=== PATIENT | female | born 1985 | race Caucasian/White ===

== ENCOUNTER 2016-03-10 10:18 | Emergency (ER) | payer MEDICAID ==
[~2016-03-10] VITALS: Ht 172.7 cm; Wt 68.0 kg
[~2016-03-10 10:18] MED LIST: CEFP250T2 PO; CHOL400T43 PO; CIPR500T4 PO; FLUC150T PO; FLUCONAZOLE PO; HYDR-3816 PO; HYDR1TAB PO; IBP600T1 PO; IBUP800T26 PO; LISI-556 PO; MELO-195 PO; MINO100C2 PO; MTF500T PO; PHEN37.555 PO; PREG150C PO; PREG75CA PO; PREN1TAB39 PO; SERT50TA9 PO; SIMV10TA3 PO; insulin pump SC
[2016-03-10] MEDS ORDERED: PREG75CA PO (11:40)
[2016-03-10] MEDS ORDERED: HYDR-3812 PO (11:40)
[2016-03-10] MEDS ORDERED: NS IV 1000 ML 1,000 ML ONE (11:50)
[2016-03-10] MEDS ORDERED: NS IV 1000 ML 1,000 ML IV ONE ×2 (11:55→12:51)
[2016-03-10 11:59] LABS: BASOPHILS % (AUTO) 1 % (0-10); EOSINOPHILS # (AUTO) 0.1 10^3/uL (0.0-0.3); EOSINOPHILS % (AUTO) 1 % (0-10); LYMPHOCYTES # (AUTO) 1.9 X 10^3 (1.0-4.0); LYMPHOCYTES % (AUTO) 30 % (12-44); MEAN CORPUSCULAR HEMOGLOBIN 30 PG (25-34); MEAN CORPUSCULAR HGB CONC 35 G/DL (32-36); MEAN CORPUSCULAR VOLUME 84 FL (80-99); MEAN PLATELET VOLUME 11.7 FL (7.4-10.4); MONOCYTES # (AUTO) 0.4 X 10^3 (0.0-1.0); MONOCYTES % (AUTO) 6 % (0-12); NEUTROPHILS # (AUTO) 3.8 X 10^3 (1.8-7.8); NEUTROPHILS % (AUTO) 62 % (42-75); PLATELET COUNT 256 10^3/uL (130-400); RED CELL DISTRIBUTION WIDTH 12.3 % (10.0-14.5); WHITE BLOOD COUNT 6.2 10^3/uL (4.3-11.0)
[2016-03-10] MEDS ORDERED: inSUlin ASPART (NovoLOG) 1 UNIT/0.01 ML (CHARGE PER UNIT) SC ONE (12:15)
[2016-03-10 12:26] LABS: ALBUMIN 3.8 G/DL (3.2-4.5); BILIRUBIN,TOTAL 0.6 MG/DL (0.1-1.0); CALCIUM 9.1 MG/DL (8.5-10.1); CREATININE SERUM 1.12 MG/DL (0.60-1.30); POTASSIUM 4.7 MMOL/L (3.6-5.0); TOTAL PROTEIN 6.7 G/DL (6.4-8.2)
[2016-03-10 12:42] LABS: BILIRUBIN,URINE NEGATIVE (NEGATIVE); KETONES,URINE 3+ (NEGATIVE); LEUKOCYTE ESTERASE ,URINE NEGATIVE (NEGATIVE); NITRITE,URINE NEGATIVE (NEGATIVE); PH,URINE 6 (5-9); PROTEIN,URINE NEGATIVE (NEGATIVE); UROBILINOGEN,URINE NORMAL (NORMAL)
[2016-03-10 12:50] LABS: WBC,URINE RARE /HPF
--- NOTE | 2016-03-10 13:11 | ED General ---
General Chief Complaint: Glucose Problems Stated Complaint: REFERRED FOR IV Nursing Triage Note: pt reports has had high bs x 1 week ranging from 400-600. pt has insulin pump but has not been able to control it with that. Saw a Anamaria and was checked for a UTI but it was negative. Nursing Sepsis Screen: No Definite Risk History of Present Illness Time Seen by Provider: 11:40 Initial Comments Initial evaluation for hyperglycemia, patient reports blood sugars ranging in 4- 600 range for the last week. She is concerned that her insulin pump is not working properly. She is working with [employer] to have it replaced. Temporary pump shipped, she hasn't received it yet. Reports she is having to refill the insulin in her pump, she hasn't noticed leaking from her pump. She did replace batteries in her pump and approximately 2 days later the batteries were found to be corroded. She uses Humalog insulin as she is insulin resistant to other types. Timing/Duration: 1 Week Severity: Mild Associated Systoms: Denies Symptoms Allergies and Home Medications Allergies Coded Allergies: codeine (Verified Allergy, Unknown, TAKES HYDROCODONE/APAP AT HOME, ) Home Medications SC (Reported) Hydrocodone/Acetaminophen 1 Each Tablet 1 EACH PO Q4H PRN PRN PAIN (Reported) Ibuprofen 800 Mg Tablet #30 800 MG PO Q8H PRN PRN PAIN (Reported) Meloxicam 15 Mg Tablet #30 15 MG PO DAILY (Reported) Minocycline Hcl 100 Mg Capsule 100 MG PO DAILY (Reported) Pregabalin 75 Mg Capsule 75 MG PO DAILY (Reported) Constitutional: no symptoms reported see HPI EENTM: no symptoms reported see HPI Respiratory: no symptoms reported see HPI Cardiovascular: no symptoms reported see HPI Gastrointestinal: no symptoms reported see HPI Genitourinary: no symptoms reported see HPI Musculoskeletal: no symptoms reported see HPI Skin: no symptoms reported see HPI Psychiatric/Neurological: No Symptoms Reported See HPI Hematologic/Lymphatic: No Symptoms Reported See HPI Immunological/Allergic: no symptoms reported see HPI All Other Systems Reviewed Negative Unless Noted: Yes Past Yijolvj-Czjrye-Boxebn Hx Patient Social History Alcohol Use: Denies Use Recreational Drug Use: No Smoking Status: Never a Smoker Recent Foreign Travel: No Contact w/Someone Who Travel: No Recent Infectious Disease Expo: No Recent Hopitalizations: Yes (Blood sugur elevations) Physical Abuse Screen: No Sexual Abuse: No Immunizations Up To Date Tetanus Booster (TDap): Less than 5yrs Date of Influenza Vaccine: Dec 13, 2015 Seasonal Allergies Seasonal Allergies: Yes Surgeries HX Surgeries: Yes (Bladder Stretching,bilat knee scope, carpal tunnel bilat, r cupital tunnel) Surgeries: Adenoidectomy, Tonsillectomy Respiratory Hx Respiratory Disorders: No Cardiovascular Hx Cardiac Disorders: No Neurological Hx Neurological Disorders: Yes Neurological Disorders: Neuropathy 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 System Hx 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 Disorders: No Sexually Transmitted Disease: No HIV/AIDS: No 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 Genitourinary Hx Genitourinary Disorders: Yes (Bladder strectched at age 8-9) Gastrointestinal Hx Gastrointestinal Disorders: No Musculoskeletal Hx Musculoskeletal Disorders: Yes Musculoskeletal Disorders: Fibromyalgia Endocrine Hx Endocrine Disorders: Yes (Enlarged thyroid, currently monitoring, hasinsulin pump) Endocrine Disorders: Hyperthyroidism, Diabetes, Insulin dep HEENT HX ENT Disorders: No Loss of Vision: Denies Hearing Impairment: Denies Cancer Hx Cancer: No Psychosocial Hx Psychiatric Problems: No Integumentary HX Skin/Integumentary Disorder: No Blood Transfusions Hx Blood Disorders: No Adverse Reaction to a Blood Tr: No Reviewed Nursing Assessment Reviewed/Agree w Nursing PMH: Yes Family Medical History Family Medial History: Patient reports no known family medical history. Physical Exam Vital Signs Vital Sign - Last 12Hours 03/10/16 11:32 Temp 97.8 Pulse 95 Resp 18 B/P 118/64 Pulse Ox 96 Capillary Refill : Less Than 3 Seconds General Appearance: No Apparent Distress WD/WN HEENT: PERRL/EOMI TMs Normal Normal ENT Inspection Pharynx Normal Neck: Full Range of Motion Normal Inspection Non Tender SuppleNo Lymphadenopathy (L), No Lymphadenopathy (R) Respiratory: Chest Non Tender Lungs Clear Normal Breath Sounds Cardiovascular: Regular Rate, Rhythm No Edema No Murmur Gastrointestinal: Normal Bowel Sounds No Organomegaly No Pulsatile Mass Non Tender Soft Extremity: Normal Capillary Refill Normal Inspection Normal Range of Motion Neurologic/Psychiatric: Alert Oriented x3 No Motor/Sensory Deficits Normal Mood/Affect Skin: Normal Color Warm/Dry Lymphatic: No Adenopathy Progress/Results/Core Measures Results/Orders Lab Results Laboratory Tests Test 03/10/16 11:49 03/10/16 11:50 03/10/16 12:34 03/10/16 12:58 Range/Units Alanine Aminotransferase (ALT/SGPT) 17 0-55 U/L Albumin 3.8 3.2-4.5 G/DL Alkaline Phosphatase 61 40-136 U/L Anion Gap 11 5-14 MMOL/L Aspartate Amino Transf (AST/SGOT) 16 5-34 U/L BUN/Creatinine Ratio 21 Basophils # (Auto) 0.0 0.0-0.1 10^3/uL Basophils (%) (Auto) 1 0-10 % Blood Urea Nitrogen 23 H 7-18 MG/DL Calcium Level 9.1 8.5-10.1 MG/DL Carbon Dioxide Level 23 21-32 MMOL/L Chloride Level 95 L 98-107 MMOL/L Creatinine 1.12 0.60-1.30 MG/DL Eosinophils # (Auto) 0.1 0.0-0.3 10^3/uL Eosinophils (%) (Auto) 1 0-10 % Estimat Glomerular Filtration Rate 58 Glucose Level 513 *H 70-105 MG/DL Hematocrit 41 35-52 % Hemoglobin 14.5 11.5-16.0 G/DL Lymphocytes # (Auto) 1.9 1.0-4.0 X 10^3 Lymphocytes (%) (Auto) 30 12-44 % Mean Corpuscular Hemoglobin 30 25-34 PG Mean Corpuscular Hemoglobin Concent 35 32-36 G/DL Mean Corpuscular Volume 84 80-99 FL Mean Platelet Volume 11.7 H 7.4-10.4 FL Monocytes # (Auto) 0.4 0.0-1.0 X 10^3 Monocytes (%) (Auto) 6 0-12 % Neutrophils # (Auto) 3.8 1.8-7.8 X 10^3 Neutrophils (%) (Auto) 62 42-75 % Platelet Count 256 130-400 10^3/uL Potassium Level 4.7 3.6-5.0 MMOL/L Red Blood Count 4.90 4.35-5.85 10^6/uL Red Cell Distribution Width 12.3 10.0-14.5 % Sodium Level 129 L 135-145 MMOL/L Total Bilirubin 0.6 0.1-1.0 MG/DL Total Protein 6.7 6.4-8.2 G/DL White Blood Count 6.2 4.3-11.0 10^3/uL Glucometer 453 *H 376 H 70-110 MG/DL Urine Bacteria FEW H /HPF Urine Bilirubin NEGATIVE NEGATIVE Urine Casts NONE /LPF Urine Clarity CLEAR Urine Color YELLOW Urine Crystals NONE /LPF Urine Culture Indicated NO Urine Glucose (UA) 4+ H NEGATIVE Urine Ketones 3+ H NEGATIVE Urine Leukocyte Esterase NEGATIVE NEGATIVE Urine Mucus NEGATIVE /LPF Urine Nitrite NEGATIVE NEGATIVE Urine Protein NEGATIVE NEGATIVE Urine RBC NONE /HPF Urine RBC (Auto) NEGATIVE NEGATIVE Urine Specific [place] 1.015 L 1.016-1.022 Urine Squamous Epithelial Cells 10-25 H /HPF Urine Urobilinogen NORMAL NORMAL MG/DL Urine WBC RARE /HPF Urine pH 6 5-9 Test 03/10/16 13:38 Range/Units Glucometer 300 H 70-110 MG/DL My Orders Orders-BIJANPRISCILLA Cbc With Automated Diff (03/10/16 11:46) Comprehensive Metabolic Panel (03/10/16 11:46) Ua Culture If Indicated (03/10/16 11:46) Saline Lock/Iv-Start (03/10/16 11:55) Ns Iv 1000 Ml (Sodium Chloride 0.9%) (03/10/16 11:55) Ns Iv 1000 Ml (Sodium Chloride 0.9%) (03/10/16 11:50) Insulin Aspart (Novolog) (Novolog (Charg (03/10/16 12:15) Saline Lock/Iv-Start (03/10/16 12:51) Ns Iv 1000 Ml (Sodium Chloride 0.9%) (03/10/16 12:51) Medications Given in ED Current Medications Medications Dose Ordered Sig/Antonia Route Start Time Stop Time Status Last Admin Dose Admin Insulin Aspart 10 unit 10 unit ONCE ONCE SC 03/10/16 12:15 03/10/16 12:16 DC 03/10/16 12:25 10 UNIT Sodium Chloride 1,000 ml @ 0 mls/hr Q0M ONCE IV 03/10/16 11:55 03/10/16 11:56 DC 03/10/16 11:58 0 MLS/HR Sodium Chloride 1,000 ml @ 0 mls/hr Q0M ONCE IV 03/10/16 12:51 03/10/16 12:59 DC 03/10/16 12:59 0 MLS/HR Vital Signs/I&O Vital Sign - Last 12Hours 03/10/16 03/10/16 11:32 13:54 Temp 97.8 97.8 Pulse 95 92 Resp 18 18 B/P 118/64 Pulse Ox 96 98 Blood Pressure Mean: 82 Point of Care Testing Finger Stick Blood Glucose: 376 Blood Glucose Action Taken: priscilla polanco notified Progress Note : Time: 11:45 Progress Note Evaluation completed, exam essentially normal. We'll start with NovoLog 10 units subcutaneous and normal saline 1 L wide open, the second liter to follow. 1300 Accu-Chek 376. Labs all essentially normal, the exception of glucose. Patient reports to be feeling better. 1330: second unit of NS infused, patient reports feeling herself. Accu-check 300. She will manage insulin SC and d/c her pump until follow up with Dr. Plunkett. Departure Impression Impression: Primary Impression: Type 1 diabetes mellitus Qualified Code: E10.9 - Type 1 diabetes mellitus without complications Additional Impression: Hyperglycemia Disposition: HOME, SELF-CARE Condition: Improved Departure-Patient Inst. Decision time for Depature: 13:00 Referrals: ALICE PLUNKETT DO (PCP/Family) Primary Care Physician Patient Instructions: Diabetes Type 1, Adult (DC) Add. Discharge Instructions: All discharge instructions reviewed with patient and/or family. Voiced understanding. Follow up with Dr. Plunkett this week. Consider giving insulin SC and discontinue pump until new pump obtained. Return to ER for continued or change in symptoms. Continue to monitor glucose and keep log. Copy Copies To 1: ALICE PLUNKETT AMY ARNP Mar 10, 2016 13:11
[2016-03-10 13:54] VITALS: BP 134/97
== END 2016-03-10 13:52 | disposition home or self-care (01) ==
LOC: EDUNIT# 10:18 → ER 10:20
DX: E10.65 Type 1 diabetes mellitus with hyperglycemia (principal); Z79.899 Other long term (current) drug therapy; Z96.41 Presence of insulin pump (external) (internal)
CPT/HCPCS: 36415; 80053; 81000; 82962; 85025; 96360; 96361; 96372

== ENCOUNTER → 2016-12-09 | Outpatient (CLI) | payer OTHER, MEDICAID ==
[~2016-12-09] MED LIST changes: +HYDR-3812 PO
--- NOTE | 2016-12-09 15:19 | Diagnostic Imaging Report ---
PROCEDURE: US Gallbladder. TECHNIQUE: Multiple real-time grayscale images were obtained over the right upper quadrant in various projections. INDICATION: Abdominal pain. Vomiting. FINDINGS: The pancreas is largely obscured by bowel gas. The liver is fairly homogeneous with no focal lesion. Hepatopetal flow in the portal vein is seen. The gallbladder demonstrates no stones or wall thickening. No pericholecystic fluid. Sonographic Sandhu's sign is negative. CBD is 4 mm in caliber. The right kidney is 11.5 cm in length with no hydronephrosis or focal lesion. No fluid collection in the upper right abdomen is seen. IMPRESSION: Unremarkable exam. Dictated by: Dictated on workstation # [id number]
== END ==
LOC: RAD 13:38
PROVIDERS: ATTEND Internal Medicine
DX: R10.9 Unspecified abdominal pain (principal); R11.10 Vomiting, unspecified
CPT/HCPCS: 76705

== ENCOUNTER → 2016-12-11 | Outpatient (CLI) | payer MEDICAID, OTHER ==
[~2016-12-11] MED LIST changes: +CATHETER FLUSH 10 ML SYR IV PRN
--- NOTE | 2016-12-11 13:41 | Diagnostic Imaging Report ---
EXAMINATION: HIDA with EF measurements Indication: Abdominal pain TECHNIQUE: After the intravenous administration of 5.2 mCi of Tc 99m Choletec, imaging over the abdomen was obtained. This was followed by administration of Ensure orally to stimulate intrinsic CCK secretion, followed by continued imaging with ejection fraction measured. FINDINGS: There is homogeneous uptake in the liver with prompt bile duct and gallbladder filling seen. Bowel activity is seen at 20 minutes. Based on further imaging and gallbladder area of interest activity measurements after the administration of Ensure, the gallbladder ejection fraction is estimated at 37%. IMPRESSION: 1. Normal hepatobiliary uptake and Gallbladder filling. 2. Borderline biliary dyskinesia. Reduced gallbladder ejection fraction. Dictated by: Dictated on workstation # [id number]
== END ==
LOC: CARD 10:27
PROVIDERS: ATTEND Internal Medicine
DX: R10.13 Epigastric pain (principal); K82.8 Other specified diseases of gallbladder
CPT/HCPCS: 78227

== ENCOUNTER 2016-12-16 08:55 | Outpatient (CLI) | payer MEDICAID ==
[~2016-12-16] VITALS: Ht 172.7 cm; Wt 72.6 kg
[~2016-12-16 08:55] MED LIST changes: -CATHETER FLUSH 10 ML SYR IV PRN
[2016-12-16] MEDS ORDERED: LORA-404 PO (11:44)
[2016-12-16] MEDS ORDERED: NFBIOT1000 PO (11:44)
[2016-12-16] MEDS ORDERED: HYDR-3816 PO (11:44)
[2016-12-16] MEDS ORDERED: ROPI0.5T2 PO (11:44)
[2016-12-16] MEDS ORDERED: MINO100T10 PO (11:44)
[2016-12-16] MEDS ORDERED: SPIR1TAB PO (11:44)
[2016-12-16] MEDS ORDERED: FLUC100T6 PO (11:44)
[2016-12-16] MEDS ORDERED: FERR325T5 PO (11:44)
[2016-12-16] MEDS ORDERED: MELO15TA39 PO (11:44)
[2016-12-16] MEDS ORDERED: CHOL10003 PO (11:44)
[2016-12-16] MEDS ORDERED: SERT50TA9 PO (11:44)
[2016-12-16] MEDS ORDERED: CRAN500C4 PO (11:44)
[2016-12-16] MEDS ORDERED: LORA10TA7 PO (11:44)
[2016-12-16] MEDS ORDERED: OMEP20CA12 PO (11:44)
[2016-12-16] MEDS ORDERED: MULT-35 PO (11:44)
[2016-12-18] MEDS ORDERED: HYDR-3816 PO (10:19)
== END 2016-12-16 11:46 ==
LOC: PREOP 08:55
PROVIDERS: ATTEND Surgery
DX: Z01.818 Encounter for other preprocedural examination (principal); K82.8 Other specified diseases of gallbladder

== ENCOUNTER 2016-12-18 07:03 | Day surgery (SDC) | payer OTHER, MEDICAID ==
[~2016-12-18] VITALS: Ht 172.7 cm; Wt 72.6 kg
[~2016-12-18 07:03] MED LIST changes: +CHOL10003 PO; +CRAN500C4 PO; +FERR325T5 PO; +FLUC100T6 PO; +LORA-404 PO; +LORA10TA7 PO; +MELO15TA39 PO; +MINO100T10 PO; +MULT-35 PO; +NFBIOT1000 PO; +OMEP20CA12 PO; +ROPI0.5T2 PO; +SPIR1TAB PO
[2016-12-18] MEDS ORDERED: ceFAZolin 1 GM/NS 50 ML IVPB IV ONE ×2 (07:15)
[2016-12-18] MEDS ORDERED: CATHETER FLUSH 10 ML SYR IV PRN (07:15)
[2016-12-18] MEDS: LACTATED RINGERS 1,000 ML IV PRN ×3 (07:30→10:36)
[2016-12-18] MEDS ORDERED: inSUlin ASPART (NovoLOG) 1 UNIT/0.01 ML (CHARGE PER UNIT) ONE (07:37)
[2016-12-18 07:43] LABS: MEAN PLATELET VOLUME 11.9 FL (7.4-10.4); RED BLOOD COUNT 4.53 10^6/uL (4.35-5.85); RED CELL DISTRIBUTION WIDTH 12.5 % (10.0-14.5); WHITE BLOOD COUNT 4.8 10^3/uL (4.3-11.0)
[2016-12-18] MEDS ORDERED: inSUlin ASPART (NovoLOG) 1 UNIT/0.01 ML (CHARGE PER UNIT) IV ONE (07:45)
[2016-12-18 07:57] LABS: ANION GAP 10 MMOL/L (5-14); BLOOD UREA NITROGEN 16 MG/DL (7-18); BUN/CREATININE RATIO 19; CALCIUM 8.7 MG/DL (8.5-10.1); CARBON DIOXIDE 24 MMOL/L (21-32); CHLORIDE 100 MMOL/L (98-107); CREATININE SERUM 0.85 MG/DL (0.60-1.30); GFR ESTIMATED > 60; GLUCOSE 377 MG/DL (70-105); POTASSIUM 4.3 MMOL/L (3.6-5.0); SODIUM 134 MMOL/L (135-145)
[2016-12-18] MEDS ORDERED: BUP/EPI 0.5% 1:200,000 (MARCAINE) 10ML VIAL IJ ONE (07:59)
--- NOTE | 2016-12-18 07:59 | Progress Note-Pre Operative ---
Pre-Operative Progress Note H&P Reviewed The H&P was reviewed, patient examined and no changes noted. Date Seen by Provider: Dec 18, 2016 Time Seen by Provider: 07:45 Date H&P Reviewed: Dec 18, 2016 Time H&P Reviewed: 07:50 Pre-Operative Diagnosis: Symptomatic Biliary Dyskinesia BETTY WILCOX APRN Dec 18, 2016 7:59 am
[2016-12-18] MEDS ORDERED: ONDANSETRON 4 MG/2 ML (SDV) Z0FRAN IVP PRN ×2 (08:00→10:45)
[2016-12-18] MEDS ORDERED: morphine INJ 10 MG/ML 1ML (SYR OR VIAL) IVP PRN (08:00)
[2016-12-18] MEDS ORDERED: HYDROcodone/APAP 5 MG/325 MG (LORTAB) TAB PO ONE (08:00)
[2016-12-18] MEDS ORDERED: ACETAMINOPHEN 325 MG TABLET/CAPLET (TYLENOL) PO PRN (08:00)
[2016-12-18 08:09] VITALS: BP 113/78
[2016-12-18] MEDS ORDERED: fentaNYL INJECTION 100 MCG/2 ML AMP ONE (08:50)
[2016-12-18] MEDS ORDERED: MIDAZOLAM 2 MG/2 ML (VERSED) VIAL ONE (08:50)
[2016-12-18] MEDS ORDERED: PHENYLEPHRINE 100 MCG/ML 10 ML (ANESTHESIA) SYR ONE (09:56)
[2016-12-18] MEDS ORDERED: ONDANSETRON 4 MG/2 ML (SDV) Z0FRAN ONE (09:56)
[2016-12-18] MEDS ORDERED: DEXAMETHASONE 10 MG/ML (DECADRON) 1 ML VIAL ONE (09:56)
[2016-12-18] MEDS ORDERED: proPOfol 200 MG/20 ML (DIPRIVAN) VIAL IV ONE ×2 (09:56→09:57)
[2016-12-18] MEDS ORDERED: SEVOFLURANE (ULTANE) 15 ML INHAL SOLN ONE ×3 (09:56→10:03)
[2016-12-18] MEDS ORDERED: LIDOCAINE PF 2% 5 ML (XYLOCAINE) VIAL ONE (09:56)
[2016-12-18] MEDS ORDERED: GLYCOPYRROLATE 0.2 MG/ML (ROBINUL) 2 ML VIAL ONE (10:03)
[2016-12-18] MEDS ORDERED: NEOSTIGMINE (BLOXIVERZ ) 1 MG/1ML 10 ML VIAL ONE (10:03)
[2016-12-18] MEDS ORDERED: ROCURONIUM 50 MG/5 ML (ZEMURON) VIAL IV ONE (10:06)
--- NOTE | 2016-12-18 10:17 | Progress Note-Post Operative ---
Post-Operative Progess Note Surgeon (s)/Hat Brim Curler (s) Surgeon YUSUF WALKER MD Hat Brim Curler: freida beltre BOBBIN COLLECTOR Pre-Operative Diagnosis Symptomatic Biliary Dyskinesia Post-Operative Diagnosis same Procedure & Operative Findings Date of Procedure 12/18/16 Procedure Performed/Findings laparoscopic cholecystectomy Anesthesia Type GET Estimated Blood Loss Estimated blood loss (mL): minimal Specimens/Packing Specimens Removed gallbladder YUSUF WALKER MD Dec 18, 2016 10:17 am
[2016-12-18] MEDS ORDERED: HYDR-3816 PO (10:19)
--- NOTE | 2016-12-18 10:20 | Discharge Inst-Surgical ---
D/C Lap Instructions-DENISE New, Converted, or Re-Newed RX: RX on Chart Follow Up Appt in 2 weeks Activity as tolerated No driving for 24 hours No driving while on pain medications Incentive Spirometry use every 2 hours while awake Regular Diet Symptoms to Report: Fever over 101 degree F, Nausea/Vomiting Infection Signs and Symptoms to report: Increased redness, Foul odor of wound, Increased drainage Bathing instructions: May shower Operative Area Clean/Dry; Keep incision clean/dry If any problems/questions: Contact your physician or go to Emergency Room YUSUF WALKER MD Dec 18, 2016 10:20 am
[2016-12-18] MEDS ORDERED: HYDROmorphone (DILAUDID) 2 MG/ML VIAL ONE (10:22)
[2016-12-18] MEDS ORDERED: LACTATED RINGERS 1,000 ML IV ONE (10:25)
[2016-12-18] MEDS: morphine INJ 10 MG/ML 1ML (SYR OR VIAL) IVP PRN ×2 (10:38→10:45)
[2016-12-18] MEDS ORDERED: PROMETHAZINE INJ 25 MG/ML (PHENERGAN) AMP IVP PRN (10:45)
[2016-12-18] MEDS ORDERED: HYDROmorphone (DILAUDID) 2 MG/ML VIAL IVP PRN (10:45)
[2016-12-18 11:30] VITALS: BP 113/76
[2016-12-18 12:00] VITALS: BP 107/73
[2016-12-18 12:30] VITALS: BP 108/77
[2016-12-18 12:47] VITALS: BP 108/77
--- NOTE | 2016-12-18 22:32 | OPERATIVE REPORT ---
DATE OF SERVICE: 12/18/2016 ATTENDING PHYSICIAN: Dr. Plunkett. PREOPERATIVE DIAGNOSIS: Symptomatic biliary dyskinesia. POSTOPERATIVE DIAGNOSIS: Symptomatic biliary dyskinesia. PROCEDURE: Laparoscopic cholecystectomy. SURGEON: Yusuf Walker MD INSPECTOR TOYS: Efren Escamilla APRN ANESTHESIA: General endotracheal. ESTIMATED BLOOD LOSS: Minimal. FINDINGS: Chronic gallbladder wall inflammation with omental adhesions to the gallbladder. DISPOSITION: The patient tolerated the procedure well. INDICATIONS FOR PROCEDURE: The patient is a 31-year-old female who is referred over to us for multiple episodes of right upper abdominal quadrant pain, which is sharp in nature. She reports that this has been occurring for almost one year and is associated with nausea and vomiting as well as diarrhea. She states that this was initially mild; however, has increased in severity over time. She has noticed an association between eating food and these symptoms. She did have a HIDA scan done approximately a year ago, which showed a normal ejection fraction; however, due to the worsening symptoms, had a repeat of the scan which showed an ejection fraction of 37%; however, she did have severe reproduction of symptoms with right upper abdominal quadrant pain with radiation towards the back as well as nausea and vomiting for greater than 30 minutes after the test. DESCRIPTION OF PROCEDURE: The patient was brought to the operating room, laid supine on the table. After adequate IV pain and sedating medications and general endotracheal intubation, the abdomen was prepped and draped in a standard surgical fashion. A 0.5% Marcaine with epinephrine was then used to anesthetize the overlying skin in the left upper abdominal quadrant and a small transverse skin incision made using a 15 blade. A 0 silk suture was applied to the medial aspect of the incision for retraction and a Veress needle inserted with a low opening pressure of 0 mmHg. The Veress needle was removed and a 5 mm Xcel trocar placed followed by a 5 mm 45-degree angle laparoscope visualizing the peritoneal cavity. A 4-quadrant abdominal exploration was then performed. There was a slightly dilated gallbladder with mild chronic inflammatory changes. What was visualized of the liver, omentum and stomach appeared normal. Under direct visualization, we then proceeded to place an infraumbilical 10 mm port after the skin and peritoneum were anesthetized using 0.5% Marcaine and a transverse skin incision made using a 15-blade. In a similar manner, a right upper abdominal quadrant 5 mm port was placed. The patient was then placed in reverse Trendelenburg position as well as plane right side up, left side down. The fundus of the gallbladder was then retracted anteriorly and superiorly. There were extensive omental adhesions to the gallbladder, which were taken down using blunt dissection as well as electrocautery on the hook instrument. The hepatoduodenal ligament was identified and then opened using electrocautery on the hook instrument as well as blunt dissection. The entire critical view of safety was identified including the triangle of Calot as well as the cystic duct and artery going into the gallbladder as well as the liver behind the proximal gallbladder. A timeout was then taken and the cystic duct and artery were then clipped proximally and distally and cut with EndoShears. The gallbladder was then dissected off the liver bed using a hook instrument and electrocautery with visualization of good hemostasis as well as no leaking ducts of Luschka. The gallbladder was removed through the 10 mm port site using an EndoCatch bag. The 10 mm port fascia and peritoneum were then closed under direct visualization using a Joon-Vasyl device and a 0 Vicryl suture. The abdomen was then desufflated and the remaining ports removed. All skin incisions were closed using 4-0 Monocryl running subcuticular sutures. Wounds were then cleaned and covered with Dermabond. The patient tolerated the procedure well. We will start IV and oral pain medication as well as a clear liquid diet. Once tolerating clears, has good pain control and is ambulating well, we will discharge her home. She will be instructed to do no heavy lifting or exertion for the next 2 weeks. 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
== END 2016-12-18 12:47 | disposition home or self-care (01) ==
LOC: SDC 07:03
PROVIDERS: ATTEND Surgery
DX: K81.1 Chronic cholecystitis (principal); E10.43 Type 1 diabetes mellitus with diabetic autonomic (poly)neuropathy; M79.7 Fibromyalgia; M06.9 Rheumatoid arthritis, unspecified; G25.81 Restless legs syndrome; E06.3 Autoimmune thyroiditis; F41.9 Anxiety disorder, unspecified; Z79.4 Long term (current) use of insulin; Z79.899 Other long term (current) drug therapy
CPT/HCPCS: 36415; 80048; 82962; 84703; 85027; 87081; 88304; 94664

== ENCOUNTER 2017-04-21 18:14 | Inpatient (IN) | payer BC, MEDICAID ==
[~2017-04-21] VITALS: Ht 172.7 cm; Wt 79.4 kg
[~2017-04-21 18:14] MED LIST changes: +ACHD5005 PO; +HYDR-34 PO; -HYDR-3812 PO
[2017-04-21] MEDS ORDERED: D5 1/2 NS 1000 ML IV SOLUTION 1,000 ML IV SCH (18:45)
[2017-04-21] MEDS ORDERED: fentaNYL INJECTION 100 MCG/2 ML AMP IVP PRN (18:45)
[2017-04-21 20:10] VITALS: BP 118/67
[2017-04-21] MEDS ORDERED: INSULIN ASPART SC SCH (20:15)
[2017-04-21] MEDS ORDERED: NORMAL SALINE SC SCH (20:15)
[2017-04-21 20:30] VITALS: BP 141/89
[2017-04-21] MEDS ORDERED: CATHETER FLUSH 10 ML SYR IV PRN (20:30)
[2017-04-21 20:36] LABS: HEMOGLOBIN 11.8 G/DL (11.5-16.0); MEAN PLATELET VOLUME 11.8 FL (7.4-10.4); RED BLOOD COUNT 3.93 10^6/uL (4.35-5.85); RED CELL DISTRIBUTION WIDTH 12.6 % (10.0-14.5); WHITE BLOOD COUNT 12.2 10^3/uL (4.3-11.0)
[2017-04-21 20:53] LABS: CALCIUM 7.6 MG/DL (8.5-10.1); CREATININE SERUM 1.29 MG/DL (0.60-1.30); POTASSIUM 4.6 MMOL/L (3.6-5.0)
[2017-04-21 21:00] VITALS: BP 93/47
[2017-04-21] MEDS: 1/2 NS W/KCL 20 MEQ/L 1,000 ML IV SCH (21:20)
[2017-04-21] MEDS: PROCHLORPERAZINE 10 MG/2ML INJ (COMPAZINE) IV PRN (21:31)
[2017-04-21 22:00] VITALS: BP 97/47
[2017-04-21] MEDS ORDERED: rOPINIRole 0.25 MG (REQUIP) TAB PO SCH (22:39)
[2017-04-21 22:47] LABS: BILIRUBIN,URINE NEGATIVE (NEGATIVE); CLARITY,URINE CLEAR; COLOR,URINE YELLOW; GLUCOSE, URINE (UA) 4+ (NEGATIVE); KETONES,URINE 4+ (NEGATIVE); LEUKOCYTE ESTERASE ,URINE NEGATIVE (NEGATIVE); NITRITE,URINE NEGATIVE (NEGATIVE); PH,URINE 5 (5-9); PROTEIN,URINE 1+ (NEGATIVE); UROBILINOGEN,URINE NORMAL (NORMAL)
[2017-04-21] MEDS: D5 1/2 NS W/KCL 20 MEQ/L 1,000 ML IV SCH ×2 (22:53→23:35)
[2017-04-21] MEDS: DEXTROSE 10% IV SOLUTION 1,000 ML IV SCH (22:53)
[2017-04-21] MEDS: 1/2 NS IV SOLUTION 1,000 ML IV SCH (22:53)
[2017-04-21 22:59] LABS: BACTERIA,URINE FEW /HPF; WBC,URINE RARE /HPF
[2017-04-21 23:00] VITALS: BP 109/59
[2017-04-21 23:51] LABS: CALCIUM 7.4 MG/DL (8.5-10.1); CREATININE SERUM 1.32 MG/DL (0.60-1.30); POTASSIUM 4.3 MMOL/L (3.6-5.0)
[2017-04-22] VITALS (16 sets, daily range): BP systolic 81–118; BP diastolic 50–83
[2017-04-22] MEDS: PREGABALIN 75 MG (LYRICA) CAP PO SCH ×2 (00:47→09:00)
[2017-04-22 01:48] LABS: CALCIUM 7.3 MG/DL (8.5-10.1); CREATININE SERUM 1.21 MG/DL (0.60-1.30); POTASSIUM 4.1 MMOL/L (3.6-5.0)
[2017-04-22 03:40] LABS: BASOPHILS % (AUTO) 0 % (0-10); EOSINOPHILS % (AUTO) 0 % (0-10); HEMATOCRIT 32 % (35-52); HEMOGLOBIN 11.4 G/DL (11.5-16.0); LYMPHOCYTES # (AUTO) 1.6 X 10^3 (1.0-4.0); LYMPHOCYTES % (AUTO) 12 % (12-44); MEAN CORPUSCULAR HEMOGLOBIN 30 PG (25-34); MEAN CORPUSCULAR HGB CONC 36 G/DL (32-36); MEAN CORPUSCULAR VOLUME 85 FL (80-99); MEAN PLATELET VOLUME 11.7 FL (7.4-10.4); MONOCYTES # (AUTO) 0.9 X 10^3 (0.0-1.0); MONOCYTES % (AUTO) 7 % (0-12); NEUTROPHILS % (AUTO) 81 % (42-75); PLATELET COUNT 249 10^3/uL (130-400); RED BLOOD COUNT 3.79 10^6/uL (4.35-5.85); RED CELL DISTRIBUTION WIDTH 12.7 % (10.0-14.5); WHITE BLOOD COUNT 13.6 10^3/uL (4.3-11.0)
[2017-04-22] MEDS: PROCHLORPERAZINE 10 MG/2ML INJ (COMPAZINE) IV PRN (03:40)
[2017-04-22 04:01] LABS: CALCIUM 7.4 MG/DL (8.5-10.1); CREATININE SERUM 1.16 MG/DL (0.60-1.30); MAGNESIUM 2.1 MG/DL (1.8-2.4); PHOSPHORUS 2.2 MG/DL (2.3-4.7); POTASSIUM 4.1 MMOL/L (3.6-5.0)
[2017-04-22] MEDS: 1/2 NS IV SOLUTION 1,000 ML IV SCH ×4 (05:00→10:54)
[2017-04-22] MEDS: D5 1/2 NS W/KCL 20 MEQ/L 1,000 ML IV SCH ×3 (05:00→10:54)
[2017-04-22] MEDS: 1/2 NS W/KCL 20 MEQ/L 1,000 ML IV SCH ×4 (05:00→10:54)
[2017-04-22] MEDS: DEXTROSE 10% IV SOLUTION 1,000 ML IV SCH ×2 (05:00→07:00)
[2017-04-22] MEDS ORDERED: KCL 20 MEQ TAB (K-DUR) PO SCH (06:00)
[2017-04-22] MEDS ORDERED: POTASSIUM CL 10MEQ/50ML IVPB 50 ML IV SCH (06:00)
[2017-04-22] MEDS ORDERED: MAGNESIUM 1 GM/100 ML IVPB 100 ML IV SCH (06:00)
[2017-04-22 06:21] LABS: BUN/CREATININE RATIO 32; CALCIUM 7.3 MG/DL (8.5-10.1); CARBON DIOXIDE 17 MMOL/L (21-32); CHLORIDE 115 MMOL/L (98-107); CREATININE SERUM 1.06 MG/DL (0.60-1.30); GFR ESTIMATED > 60; GLUCOSE 178 MG/DL (70-105); POTASSIUM 3.9 MMOL/L (3.6-5.0); SODIUM 139 MMOL/L (135-145)
--- NOTE | 2017-04-22 07:12 | Diagnostic Imaging Report ---
INDICATION: Shortness of breath EXAMINATION: Portable chest at 3:04 AM. Heart size and pulmonary vascularity are normal. Lungs are clear. There are no effusions or pneumothoraces. IMPRESSION: Negative chest. Dictated by: Dictated on workstation # [id number]
[2017-04-22] MEDS ORDERED: INFLUENZA TRIvalent 2017-2018 0.5 ML/45 MCG SYR IM ONE (07:30)
[2017-04-22] MEDS ORDERED: ONDANSETRON 4 MG/2 ML (SDV) Z0FRAN IVP PRN (07:45)
[2017-04-22] MEDS ORDERED: SPIR1TAB3 PO (09:17)
[2017-04-22] MEDS ORDERED: HYDR-3816 PO (09:17)
[2017-04-22] MEDS ORDERED: MINO100C2 PO (09:17)
[2017-04-22] MEDS ORDERED: LORA0.5T PO (09:17)
[2017-04-22] MEDS ORDERED: ACET-2267 PO (09:37)
[2017-04-22] MEDS ORDERED: IBUP-30 PO (09:37)
[2017-04-22] MEDS ORDERED: RT-ALBUINH INH (09:37)
[2017-04-22] MEDS ORDERED: SERT50TA9 PO (09:37)
[2017-04-22] MEDS ORDERED: ONDA4TAB10 PO (09:37)
[2017-04-22] MEDS ORDERED: INSU100V (09:37)
[2017-04-22] MEDS ORDERED: INSU300I SQ (09:37)
[2017-04-22] MEDS ORDERED: SCOPOLAMINE 1.5 MG (TRANSDERM-SCOP) PATCH TOP SCH (09:45)
[2017-04-22 09:46] LABS: BUN/CREATININE RATIO 31; CALCIUM 7.5 MG/DL (8.5-10.1); CARBON DIOXIDE 17 MMOL/L (21-32); CHLORIDE 113 MMOL/L (98-107); CREATININE SERUM 0.93 MG/DL (0.60-1.30); GFR ESTIMATED > 60; GLUCOSE 196 MG/DL (70-105); POTASSIUM 3.8 MMOL/L (3.6-5.0); SODIUM 137 MMOL/L (135-145)
[2017-04-22] MEDS ORDERED: PROC5TAB52 PO (11:28)
[2017-04-22] MEDS ORDERED: ACETAMINOPHEN 500 MG TAB (TYLENOL) PO PRN (11:30)
[2017-04-22] MEDS ORDERED: NON-FORMULARY MEDICATION 1 EA EA (Cranberry Extract (Cranberry) 500 MG) PO PRN (11:30)
[2017-04-22] MEDS ORDERED: NON-FORMULARY MEDICATION 1 EA EA (Ondansetron HCl 4 MG) PO PRN (11:30)
[2017-04-22] MEDS ORDERED: SERTRALINE 50 MG (ZOLOFT) TABLET PO PRN (11:30)
[2017-04-22] MEDS ORDERED: NON-FORMULARY MEDICATION 1 EA EA (Albuterol Sulfate (Proair Hfa) 2 PUFF) INH PRN (11:30)
--- NOTE | 2017-04-22 12:08 | History & Physical-Hospitalist ---
HPI History of Present Illness: HPI/Chief Complaint CC: DKA HPI: This is a 31 yoWF pt with type [address] Plunkett who presented to [place] with nausea and vomiting, found to have DKA, and then sent to higher level of care facility. Pt requires NovoLog drip due to insulin resistance. 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 Zofran given this am. Pt states she just feels like she needs something to drink Clear liquid diet suggested Pt is okay to DC today, as sugars indicate Pt has insulin pump Pt ate better after interview and stated that she takes her sugars 30 min - 1 hour after eating Pt Interview: Pt was informed that I will be giving her a Scopolamine patch to help with the nausea. Pt confirms having gallbladder removed and states she has had nausea since this was removed. Physical exam stable. Lungs sound perfect. Pt states her insulin pump is in her backpack Advanced diet was discussed Sugars and labs discussed and look great. Possible DC today or tomorrow was discussed Pt was encouraged to ambulate Pt was informed that the insulin drip will be transitioned to pump Scribed by Aby Mac under direct supervision of Dr. Olivia Morales. 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) Alcohol Use: Denies Use Recreational Drug Use: No Smoking Status: Never a Smoker Physical Abuse Screen: No Sexual Abuse: No Recent Foreign Travel: No Contact w/other who traveled: No Recent Hopitalizations: No Recent Infectious Disease Expo: No Immunizations Up To Date Tetanus Booster (TDap): Less than 5yrs Date of Influenza Vaccine: Nov 05, 2015 Seasonal Allergies Seasonal Allergies: Yes Surgeries Yes (Bladder Stretching,bilat knee scope, carpal tunnel bilat, r cupital tunnel) Adenoidectomy, Section, Tonsillectomy Respiratory No Cardiovascular No Neurological Yes Neuropathy 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 System Hx 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 Disorders: No Sexually Transmitted Disease: No HIV/AIDS: No 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 Genitourinary Yes (UTI) Gastrointestinal Yes Gastroesophageal Reflux, Gall Bladder Disease Musculoskeletal Yes Arthritis, Fibromyalgia, Chronic Back Pain Endocrine History of Endocrine Disorders: Yes (HASHIMOTOS) Endocrine Disorders: Hyperthyroidism, Diabetes, Insulin dep Are Your Blood Sugars Over 250: Yes HEENT History of HEENT Disorders: No Loss of Vision: Bilateral Hearing Impairment: Denies Cancer No Psychosocial History of Psychiatric Problem: Yes Behavioral Health Disorders: Anxiety Integumentary History of Skin or Integumenta: No Blood Transfusions History of Blood Disorders: No Adverse Reaction to a Blood Tr: No Family Medical History Family Hx: Patient reports no known family medical history. Review of Systems Constitutional: see HPI, malaise EENTM: no symptoms reported Respiratory: no symptoms reported Cardiovascular: no symptoms reported Gastrointestinal: nausea, vomiting Genitourinary: no symptoms reported Musculoskeletal: no symptoms reported Skin: no symptoms reported Psychiatric/Neurological: No Symptoms Reported All Other Systems Reviewed Negative Unless Noted: Yes Physical Exam Physical Exam Vital Signs Vital Signs - First Documented 04/21/17 20:10 Temp 100.1 Pulse 109 Resp 18 B/P (MAP) 118/67 (84) Pulse Ox 97 O2 Delivery Room Air Capillary Refill : General Appearance: No Apparent Distress, WD/WN, Other (Improved from last night assessment at [facility] [place] Eyes: Bilateral Eye Normal Inspection, Bilateral Eye PERRL HEENT: PERRL/EOMI, Normal ENT Inspection, Pharynx Normal Neck: Full Range of Motion, Normal Inspection, Non Tender, Supple, Carotid Bruit Respiratory: Chest Non Tender, Lungs Clear, Normal Breath Sounds, No Accessory Muscle Use, No Respiratory Distress Cardiovascular: Regular Rate, Rhythm, No Edema, No Gallop, No JVD, No Murmur, Normal Peripheral Pulses Gastrointestinal: Normal Bowel Sounds, No Organomegaly, No Pulsatile Mass, Non Tender, Soft Back: Normal Inspection, No CVA Tenderness, No Vertebral Tenderness Extremity: Normal Capillary Refill, Normal Inspection, Normal Range of Motion, Non Tender, No Calf Tenderness, No Pedal Edema Neurologic/Psychiatric: Alert, Oriented x3, No Motor/Sensory Deficits, Normal Mood/Affect Skin: Normal Color, Warm/Dry Lymphatic: No Adenopathy Results Results/Procedures Lab Laboratory Tests 04/21/17 20:27 04/21/17 23:30 04/22/17 01:25 04/22/17 03:25 04/22/17 05:55 04/22/17 09:25 Assessment/Plan Admission Diagnosis Assessment: DKA refractory to aggressive IV fluids at an outside hospital [facility] transfer to [facility] for higher level of care Continued nausea Depression Admission Status: Observation Assessment and Plan Plan: Scopolamine patch Sub-q insulin transition DC home this afternoon Clinical Quality Measures DVT/VTE Risk/Contraindication: Risk Factor Score Per Nursin RFS Level Per Nursing on Admit: 2=Moderate OLIVIA MORALES DO Apr 22, 2017 12:08
[2017-04-22] MEDS ORDERED: ONDANSETRON 4 MG (ZOFRAN) ORAL DISSOLVE TAB PO PRN (13:30)
[2017-04-22] MEDS ORDERED: RT-ALBUTEROL SULF 2.5 MG/3 ML PRE-MIX VIAL IH PRN (13:45)
[2017-04-22 13:46] LABS: BUN/CREATININE RATIO 28; CALCIUM 7.5 MG/DL (8.5-10.1); CARBON DIOXIDE 17 MMOL/L (21-32); CHLORIDE 112 MMOL/L (98-107); CREATININE SERUM 0.93 MG/DL (0.60-1.30); GFR ESTIMATED > 60; GLUCOSE 219 MG/DL (70-105); POTASSIUM 4.3 MMOL/L (3.6-5.0); SODIUM 138 MMOL/L (135-145)
[2017-04-22] MEDS ORDERED: inSUlin ASPART (NovoLOG) 1 UNIT/0.01 ML (CHARGE PER UNIT) SC SCH (14:30)
[2017-04-22] MEDS ORDERED: MELOXICAM 7.5 MG (MOBIC) TABLET PO SCH (21:00)
[2017-04-22] MEDS ORDERED: NON-FORMULARY MEDICATION 1 EA EA (Minocycline HCl 100 MG) PO SCH (21:00)
[2017-04-22] MEDS ORDERED: VITAMIN D3 1,000 UNITS (CHOLECALCIFEROL) TABLET PO SCH (21:00)
[2017-04-22] MEDS ORDERED: NON-FORMULARY MEDICATION 1 EA EA (Ropinirole HCl 0.5 MG) PO SCH (21:00)
[2017-04-22] MEDS ORDERED: NON-FORMULARY MEDICATION 1 EA EA (Meloxicam 15 MG) PO SCH (21:00)
[2017-04-22] MEDS ORDERED: LORazepam 0.5 MG (ATIVAN) TABLET PO SCH (21:00)
[2017-04-22] MEDS ORDERED: PREGABALIN 75 MG (LYRICA) CAP PO SCH (21:00)
[2017-04-22] MEDS ORDERED: SPIRONOLACTONE 25 MG (ALDACTONE) TAB PO SCH (21:00)
[2017-04-22] MEDS ORDERED: HYDROcodone/APAP 7.5 MG/325 MG (LORTAB, LORCET PLUS) TABLET PO SCH (21:00)
[2017-04-22] MEDS ORDERED: PANTOPRAZOLE 20 MG TABLET (PROTONIX) PO SCH (21:00)
[2017-04-22] MEDS ORDERED: SERTRALINE 50 MG (ZOLOFT) TABLET PO SCH (21:00)
[2017-04-22] MEDS ORDERED: HYDROCHLOROTHIAZIDE 25 MG (HCTZ) TAB PO SCH (21:00)
[2017-04-22] MEDS ORDERED: NON-FORMULARY MEDICATION 1 EA EA (Ferrous Sulfate 325 MG) PO SCH (21:00)
[2017-04-22] MEDS ORDERED: OMEPRAZOLE 20 MG (PriLOSEC) CAP NON-FORMULARY PO SCH (21:00)
[2017-04-22] MEDS ORDERED: NON-FORMULARY MEDICATION 1 EA EA (Multivitamin (Daily Multiple Vitamin) 1 TAB) PO SCH (21:00)
[2017-04-22] MEDS ORDERED: LORATADINE (CLARITIN) 10 MG TAB PO SCH (21:00)
[2017-04-22] MEDS ORDERED: [UNRECOGNIZED DRUG - OTHER] PO SCH (21:00)
[2017-04-23] MEDS ORDERED: MULTIVIT W/MINERALS TAB (THERAGRAN M) PO SCH (07:00)
[2017-04-23] MEDS ORDERED: FERROUS SULF 325 MG (IRON) TAB PO SCH (07:00)
[2017-04-23] MEDS ORDERED: INSULIN GLARGINE HUM REC ANLOG 3 UNIT SQ SCH (09:00)
[2017-04-23] MEDS ORDERED: IBUPROFEN TABLET 200 MG TAB PO SCH (09:00)
[2017-04-23] MEDS ORDERED: IBUPROFEN 600 MG (MOTRIN) TAB PO SCH (09:00)
[2017-04-23] MEDS ORDERED: [UNRECOGNIZED DRUG - OTHER] SQ SCH (09:00)
[2017-04-25] MEDS ORDERED: PATCH REMOVAL TP SCH (09:30)
[2017-04-29] MEDS ORDERED: fluCOnazole (DIFLUCAN) 100 MG TAB PO SCH (07:00)
== END 2017-04-22 15:30 | disposition home or self-care (01) | DRG 639 ==
LOC: ICU 20:05
PROVIDERS: ADMIT Internal Medicine; ATTEND Internal Medicine
DX: E10.10 Type 1 diabetes mellitus with ketoacidosis without coma (principal); R11.0 Nausea; F32.9 Major depressive disorder, single episode, unspecified; Z79.4 Long term (current) use of insulin; E06.3 Autoimmune thyroiditis; K21.9 Gastro-esophageal reflux disease without esophagitis; M79.7 Fibromyalgia; F41.9 Anxiety disorder, unspecified; Z23 Encounter for immunization
CPT/HCPCS: 36415; 71045; 80048; 81000; 82962; 83036; 83735; 84100; 85025; 85027; 87081

== ENCOUNTER → 2017-05-01 | Outpatient (CLI) | payer BC, MEDICAID ==
[~2017-05-01] MED LIST changes: +ACET-2267 PO; +GADOBUTROL 7.5 MMOL/7.5 ML (GADAVIST) VIAL IV ONE; +IBUP-30 PO; +INSU100V; +INSU300I SQ; +LORA0.5T PO; +ONDA4TAB10 PO; +PROC5TAB52 PO; +RT-ALBUINH INH; +SPIR1TAB3 PO
--- NOTE | 2017-05-01 12:48 | Diagnostic Imaging Report ---
EXAM: MRI BRAIN AND ORBITS W/WO CON INDICATION: Swelling behind eyes. Visual disturbances. Left-sided numbness. Left leg weakness. COMPARISON: None. FINDINGS: No abnormal intracranial signal, enhancement, restricted water diffusion, or hemosiderin deposition. Normal morphology of the major midline structures, sella, posterior fossa, and cerebellopontine angle. Dedicated sequences of the orbits demonstrate normal morphology with no abnormal mass or enhancement. No hydrocephalus or extra-axial fluid collections. Normal intracranial flow voids. Minimal mucosal thickening in the right ethmoid sinus. The mastoids are clear. Normal bone marrow signal. IMPRESSION: 1. Normal MRI of the brain and orbits. 2. Minimal mucosal thickening in the right ethmoid sinus. Dictated by: Dictated on workstation # [id number]
== END ==
LOC: RAD 11:03
PROVIDERS: ATTEND Internal Medicine
DX: H21.561 Pupillary abnormality, right eye (principal); M62.81 Muscle weakness (generalized)
CPT/HCPCS: 70553

== ENCOUNTER 2018-03-25 10:45 | Outpatient (CLI) | payer BC, MEDICAID ==
--- NOTE | 2018-03-25 10:30 | NUR ---
MANSI MCCABE presented to unit via ambulation, accompanied by , for IVF's r/t dehyration. Pt. weighed and to bed. EFHM and TOCO applied, VS taken. Pt. oriented to bed controls, call light, TV, heat, and A/C controls.
[2018-03-25 10:35] VITALS: BP 124/85
--- NOTE | 2018-03-25 10:40 | NUR ---
pt reports c/o diarrhea since Thursday. last stool was 0600 this a.m. Hx: Type I diabetic. "felt dehydrated" . instructed pt to report to OB for IVF's.
[~2018-03-25 10:45] MED LIST changes: -GADOBUTROL 7.5 MMOL/7.5 ML (GADAVIST) VIAL IV ONE
[2018-03-25] MEDS ORDERED: LOPERAMIDE 2 MG (IMODIUM) CAP PO ONE (11:00)
[2018-03-25] MEDS ORDERED: LOPERAMIDE 2 MG (IMODIUM) CAP PO PRN (11:00)
[2018-03-25] MEDS ORDERED: LACTATED RINGERS 1,000 ML IV ONE (11:11)
--- NOTE | 2018-03-25 11:24 | NUR ---
FSBS 55mg/dl. pt reports no sx's except hunger. states "normal for me".
[2018-03-25] MEDS: LACTATED RINGERS 1,000 ML IV SCH ×2 (11:39→12:59)
--- NOTE | 2018-03-25 11:39 | NUR ---
#20g x2 attempts to Rt.wrist by this RN. site patent. ordered labs collected from site prior to LR infusing. labs labeled and sent to lab.
[2018-03-25 11:55] LABS: BASOPHILS % (AUTO) 0 % (0-10); EOSINOPHILS % (AUTO) 1 % (0-10); HEMATOCRIT 35 % (35-52); HEMOGLOBIN 11.9 G/DL (11.5-16.0); LYMPHOCYTES # (AUTO) 1.2 X 10^3 (1.0-4.0); LYMPHOCYTES % (AUTO) 19 % (12-44); MEAN CORPUSCULAR HEMOGLOBIN 31 PG (25-34); MEAN CORPUSCULAR HGB CONC 35 G/DL (32-36); MEAN CORPUSCULAR VOLUME 89 FL (80-99); MEAN PLATELET VOLUME 11.8 FL (7.4-10.4); MONOCYTES % (AUTO) 15 % (0-12); NEUTROPHILS # (AUTO) 4.1 X 10^3 (1.8-7.8); NEUTROPHILS % (AUTO) 65 % (42-75); PLATELET COUNT 213 10^3/uL (130-400); RED CELL DISTRIBUTION WIDTH 13.4 % (10.0-14.5); WHITE BLOOD COUNT 6.3 10^3/uL (4.3-11.0)
[2018-03-25 12:10] LABS: CLARITY,URINE CLEAR; COLOR,URINE AMBER; GLUCOSE, URINE (UA) NEGATIVE (NEGATIVE); KETONES,URINE 2+ (NEGATIVE); LEUKOCYTE ESTERASE ,URINE 1+ (NEGATIVE); NITRITE,URINE NEGATIVE (NEGATIVE); PH,URINE 6 (5-9); PROTEIN,URINE 3+ (NEGATIVE); UROBILINOGEN,URINE NORMAL (NORMAL)
[2018-03-25 12:20] LABS: ALANINE AMINOTRANSFERASE 20 U/L (0-55); ALKALINE PHOSPHATASE 73 U/L (40-136); BILIRUBIN,TOTAL 0.6 MG/DL (0.1-1.0); BUN/CREATININE RATIO 24; CALCIUM 8.1 MG/DL (8.5-10.1); CARBON DIOXIDE 17 MMOL/L (21-32); CHLORIDE 109 MMOL/L (98-107); CREATININE SERUM 0.78 MG/DL (0.60-1.30); GFR ESTIMATED > 60; POTASSIUM 3.6 MMOL/L (3.6-5.0); SODIUM 135 MMOL/L (135-145)
[2018-03-25 12:37] LABS: BACTERIA,URINE MODERATE /HPF; RBC,URINE 0-2 /HPF
[2018-03-25 12:38] LABS: BILIRUBIN,URINE 1+ (NEGATIVE)
[2018-03-25 12:50] VITALS: BP 138/85
--- NOTE | 2018-03-25 12:50 | NUR ---
LR @ 250cc /hr infusing via IV pump. pt reports feeling better. requesting dismissal to home.
[2018-03-25 12:53] LABS: GLUCOSE 51 MG/DL (70-105)
--- NOTE | 2018-03-25 13:00 | NUR ---
reviewed labs. no new orders received @ time.
--- NOTE | 2018-03-25 14:38 | NUR ---
was called. no answer on cell phone. message left.
[2018-03-25] MEDS ORDERED: PREN1TAB79 PO ×2 (15:03→15:04)
[2018-03-25] MEDS ORDERED: RANI150T46 PO (15:04)
[2018-03-25] MEDS ORDERED: ASPI-999 PO (15:05)
--- NOTE | 2018-03-25 15:13 | NUR ---
dismissal instructions given, verbalizes understanding. signature page signed, placed on chart. Addendum: 03/25/18 at 2058 by RIP KUMAR RN FLU VACCINE OFFERED, REFUSED @ TIME.
--- NOTE | 2018-03-25 15:15 | NUR ---
pt ambulated to private vehicle with @ side. pt stable with no sx's of distress noted.
--- NOTE | 2018-03-26 15:32 | Physician Query-Final Dx ---
ABILIO RAYMOND 03/26/18 1532: Clinic Account Progress/Dx Physician Query: Please give diagnosis Date of Service Mar 25, 2018 at 10:45 SHABBIR DUBON DO 03/29/18 1248: Clinic Account Progress/Dx DIAGNOSIS: Diagnosis 30 week third trimester Type I diabetes diarrhea, dehydration viral enteritis ABILIO RAYMOND Mar 26, 2018 15:32 SHABBIR DUBON DO Mar 29, 2018 12:48
== END 2018-03-25 15:15 | disposition home or self-care (01) ==
LOC: WSo 10:45 → LDRP 10:45 → WSo 15:15
PROVIDERS: ATTEND Obstetrics & Gynecology
DX: O24.013 Pre-existing type 1 diabetes mellitus, in pregnancy, third trimester (principal); A08.4 Viral intestinal infection, unspecified; E86.0 Dehydration; Z3A.30 30 weeks gestation of pregnancy
CPT/HCPCS: 36415; 80053; 81000; 82962; 85025; 87077; 87088; 96360; 96361; 99213

== ENCOUNTER → 2018-04-09 | Outpatient (CLI) | payer BC, MEDICAID ==
[~2018-04-09] MED LIST changes: +ASPI-999 PO; +PREN1TAB79 PO; +RANI150T46 PO
--- NOTE | 2018-04-09 11:21 | Diagnostic Imaging Report ---
INDICATION: Diabetes. TECHNIQUE: Multiple real-time grayscale images were obtained over the gravid uterus. COMPARISON: None FINDINGS: There is a single live fetus in a cephalic presentation. heart rate was recorded at 155 beats per minute. Placenta is fundal. Amniotic fluid volume demonstrates an GEMA of 9.2 cm. Biophysical was performed with a normal score of 8 out of 8. Biometrical measurements are as follows: Biparietal 8.7 cm, age 35 weeks 1 days. Head circumference 31.75 cm, age 35 weeks 5 days. Abdominal circumference 31.93 cm, age 35 weeks 6 days. Femur length 6.08 cm, age 31 weeks 5 days. Sonographic estimate age: 34 weeks 5 days. Sonographic estimated date of delivery: 05/21/2018. Estimated Weight: 2481 gm (+/- 362 gm). LMP percentile: 63%. heart rate: 155 beats per minute. number: 1 of 1. IMPRESSION: Single live IUP approximately 35 weeks gestational age. No complicating features are seen. Biophysical profile score is normal at 8 out of 8. Dictated by: Dictated on workstation # [id number]
== END ==
LOC: RAD 09:45
PROVIDERS: ATTEND Obstetrics & Gynecology
DX: O24.013 Pre-existing type 1 diabetes mellitus, in pregnancy, third trimester (principal); Z3A.35 35 weeks gestation of pregnancy
CPT/HCPCS: 76805; 76819

== ENCOUNTER 2018-04-17 08:20 | Outpatient (CLI) | payer BC, MEDICAID ==
[2018-04-17] VITALS (15 sets, daily range): BP systolic 129–181; BP diastolic 67–110
--- NOTE | 2018-04-17 08:20 | NUR ---
MANSI MCCABE presented to unit via ST[facility] from [facility], accompanied by [facility] AND PT'S MOTHER FOR MONITORING. MANSI MCCABE weighed, gowned, voided, and to bed. EFHM and TOCO applied, VS taken. MANSI MCCABE oriented to bed controls, call light, TV, heat, and A/C controls.
[2018-04-17] MEDS ORDERED: LABE200T7 PO (09:09)
--- NOTE | 2018-04-17 09:13 | NUR ---
DR. MANNING CALLED UNIT TO INQUIRE ABOUT PT'S ARRIVAL, NOTIFIED THAT PT ARRIVED ALMOST AN HOUR AGO AND PT'S CURRENT STATUS. ORDER RECEIVED TO DISCHARGE PT HOME AFTER REACTIVE NST.
[2018-04-17] MEDS ORDERED: hydrALAZINE (APESOLINE) 20 MG/ML VIAL ONE (11:00)
--- NOTE | 2018-04-17 11:00 | NUR ---
DR. MANNING ON THE UNIT NOTIFIED OF B/P'S. NEW ORDER RECEIVED.
[2018-04-17] MEDS ORDERED: hydrALAZINE (APESOLINE) 20 MG/ML VIAL IV ONE ×2 (11:15→12:00)
--- NOTE | 2018-04-17 11:55 | NUR ---
DR. MANNING NOTIFIED OF RECENT B/P AFTER MEDICATION. NEW ORDER RECEIVED FOR REPEAT DOSE.
--- NOTE | 2018-04-17 12:33 | NUR ---
REFER TO LABOR FLOW SHEET.
--- NOTE | 2018-04-17 13:20 | NUR ---
DISCHARGE PAPERS PROVIDED AND REVIEWED WITH PT, PT VERBALIZES UNDERSTANDING AND DENIES ANY QUESTIONS AT THIS TIME. PAPER SIGNED. S/O AT THE BEDSIDE. IV SITES DC'D X2; GAUZE AND TAPE APPLIED OVER SITE.
--- NOTE | 2018-04-17 13:26 | NUR ---
PT DISCHARGED FROM [facility] TO PERSONAL AUTO VIA W/C IN STABLE CONDITION ACC BY S/O.
--- NOTE | 2018-04-21 17:37 | Physician Query-Final Dx ---
ABILIO RAYMOND 04/21/18 1737: Clinic Account Progress/Dx Physician Query: Please give diagnosis Date of Service Apr 17, 2018 at 08:20 KIARA MANNING DO 04/30/18 1513: Clinic Account Progress/Dx DIAGNOSIS: Diagnosis IUP at 35 weeks 2. Gestational Diabetes 3. Induced Hypertension ABILIO RAYMOND Apr 21, 2018 17:37 KIARA MANNIGN DO Apr 30, 2018 15:13
== END 2018-04-17 13:26 | disposition home or self-care (01) ==
LOC: WSo 08:20 → LDRP 08:20 → UNDOADMOB 08:20 → WSo 13:26 → UNDODISOB 13:26 → EDSTATUS 04-21 13:44
PROVIDERS: ATTEND Obstetrics & Gynecology
DX: O24.419 Gestational diabetes mellitus in pregnancy, unspecified control (principal); O13.3 Gestational [pregnancy-induced] hypertension without significant proteinuria, third trimester; Z3A.35 35 weeks gestation of pregnancy
CPT/HCPCS: 82962; 96374; 96376; 99213

== ENCOUNTER → 2018-05-17 | Outpatient (CLI) | payer BC, MEDICAID ==
[~2018-05-17] MED LIST changes: +CATHETER FLUSH 10 ML SYR IV PRN; +LABE200T7 PO
--- NOTE | 2018-05-17 16:32 | Diagnostic Imaging Report ---
INDICATION: Bilateral lower extremity edema. Bilateral lower extremity venous Doppler study was performed in the routine fashion with color flow Doppler and waveform analysis. FINDINGS: The common femoral veins, superficial femoral veins, popliteal veins and visualized portion of the tibial veins show normal compressibility and venous flow patterns. There is normal augmentation. IMPRESSION: No evidence of deep vein thrombosis in the major veins of both legs. Dictated by: Dictated on workstation # [id number]
--- NOTE | 2018-05-17 18:48 | Diagnostic Imaging Report ---
INDICATION: Hemoptysis. EXAMINATION: Ventilation/perfusion lung scan. TECHNIQUE: 40.3 mCi of technetium-99m DTPA was used via a nebulizer for the ventilation scan. 5.22 mCi of technetium-99m MAA was used for the perfusion scan. FINDINGS: Ventilation and perfusion phases of the study both appear normal. IMPRESSION: Negative ventilation/perfusion lung scan. Dictated by: Dictated on workstation # [id number]
== END ==
LOC: CARD 15:53
PROVIDERS: ATTEND Nurse Practitioner Family
DX: R79.1 Abnormal coagulation profile (principal); R04.2 Hemoptysis; R06.00 Dyspnea, unspecified
CPT/HCPCS: 78582; 93970

== ENCOUNTER → 2018-05-17 | Outpatient (CLI) | payer BC, MEDICAID ==
[~2018-05-17] MED LIST changes: -CATHETER FLUSH 10 ML SYR IV PRN
[2018-05-17 12:33] LABS: BASOPHILS % (AUTO) 1 % (0-10); EOSINOPHILS # (AUTO) 0.1 10^3/uL (0.0-0.3); EOSINOPHILS % (AUTO) 2 % (0-10); HEMATOCRIT 27 % (35-52); LYMPHOCYTES # (AUTO) 1.4 X 10^3 (1.0-4.0); LYMPHOCYTES % (AUTO) 22 % (12-44); MEAN CORPUSCULAR HEMOGLOBIN 30 PG (25-34); MEAN CORPUSCULAR HGB CONC 33 G/DL (32-36); MEAN CORPUSCULAR VOLUME 93 FL (80-99); MEAN PLATELET VOLUME 10.7 FL (7.4-10.4); MONOCYTES # (AUTO) 0.3 X 10^3 (0.0-1.0); MONOCYTES % (AUTO) 4 % (0-12); NEUTROPHILS # (AUTO) 4.6 X 10^3 (1.8-7.8); NEUTROPHILS % (AUTO) 71 % (42-75); PLATELET COUNT 251 10^3/uL (130-400); RED CELL DISTRIBUTION WIDTH 13.2 % (10.0-14.5); WHITE BLOOD COUNT 6.5 10^3/uL (4.3-11.0)
[2018-05-17 12:54] LABS: ALBUMIN 3.2 GM/DL (3.2-4.5); BILIRUBIN,TOTAL 0.7 MG/DL (0.1-1.0); CALCIUM 8.3 MG/DL (8.5-10.1); CREATININE SERUM 1.3 MG/DL (0.60-1.30); POTASSIUM 4.9 MMOL/L (3.6-5.0); TOTAL PROTEIN 5.3 GM/DL (6.4-8.2)
--- NOTE | 2018-05-17 13:19 | Diagnostic Imaging Report ---
INDICATION: Coughing up blood. TIME OF EXAMINATION: 12:33 PM. COMPARISON: 04/22/2017. FINDINGS: The heart size is stable. There appears to be some minimal infiltrate developing in the left base which partially obscures the left hemidiaphragm. This may be located in the lingula. The right lung is clear. The pulmonary vascularity is normal. No significant effusion or pneumothorax is seen. IMPRESSION: Left basilar infiltrate, suggestive of a lingular pneumonia. No other significant abnormality is seen. The report was called to the office of DODIE Peace, by alan@ 1:18 PM. Dictated by: Dictated on workstation # [id number]
== END ==
LOC: LAB 12:13
PROVIDERS: ATTEND Nurse Practitioner Family
DX: J90 Pleural effusion, not elsewhere classified (principal); R04.2 Hemoptysis
CPT/HCPCS: 36415; 71046; 80053; 85025; 85379; 86141

== ENCOUNTER 2018-09-02 15:46 | Outpatient (CLI) | payer MEDICAID ==
[~2018-09-02] VITALS: Ht 172.7 cm; Wt 70.8 kg
[2018-09-02 15:55] VITALS: BP 107/77
[2018-09-02] MEDS ORDERED: ONDANSETRON 4 MG/2 ML (SDV) Z0FRAN ONE (15:55)
[2018-09-02 16:12] LABS: BASOPHILS % (AUTO) 0 % (0-10); EOSINOPHILS % (AUTO) 0 % (0-10); HEMATOCRIT 26 % (35-52); HEMOGLOBIN 8.8 G/DL (11.5-16.0); LYMPHOCYTES # (AUTO) 0.8 X 10^3 (1.0-4.0); LYMPHOCYTES % (AUTO) 11 % (12-44); MEAN CORPUSCULAR HEMOGLOBIN 28 PG (25-34); MEAN CORPUSCULAR HGB CONC 34 G/DL (32-36); MEAN CORPUSCULAR VOLUME 82 FL (80-99); MEAN PLATELET VOLUME 11.5 FL (7.4-10.4); MONOCYTES # (AUTO) 0.5 X 10^3 (0.0-1.0); MONOCYTES % (AUTO) 7 % (0-12); NEUTROPHILS # (AUTO) 6.1 X 10^3 (1.8-7.8); NEUTROPHILS % (AUTO) 81 % (42-75); PLATELET COUNT 290 10^3/uL (130-400); RED CELL DISTRIBUTION WIDTH 13.6 % (10.0-14.5); WHITE BLOOD COUNT 7.5 10^3/uL (4.3-11.0)
[2018-09-02] MEDS ORDERED: DIPHENOXYLATE/ATROPINE 2.5MG/0.025MG (LOMOTIL) TAB PO PRN (16:15)
[2018-09-02] MEDS ORDERED: ACETAMINOPHEN 500 MG TAB (TYLENOL) PO PRN (16:15)
[2018-09-02] MEDS ORDERED: LACTATED RINGERS 1,000 ML IV ONE (16:15)
[2018-09-02] MEDS ORDERED: ONDANSETRON 4 MG/2 ML (SDV) Z0FRAN IV PRN (16:15)
[2018-09-02 16:25] LABS: CALCIUM 9.7 MG/DL (8.5-10.1); CREATININE SERUM 2.53 MG/DL (0.60-1.30); POTASSIUM 3.9 MMOL/L (3.6-5.0)
--- NOTE | 2018-09-02 16:39 | NUR ---
INFORMED PT HER GLUCOSE IS 342, SHE STATED "THAT'S ACTUALLY NOT BAD FOR ME, I'M A REALLY COMPLICATED DIABETIC BECAUSE MOST ISULINS DONT WORK FOR ME SO IM HARD TO TREAT. BUT I WILL TAKE SOME OF MY OWN INSULIN THAT DOES WORK IF I FEEL I NEED IT AND I CAN CHECK IT MYSELF WITH MY METER."
[2018-09-02 17:10] VITALS: BP 155/92
[2018-09-02] MEDS ORDERED: LACTATED RINGERS 1,000 ML IV SCH (17:15)
== END 2018-09-02 19:13 | disposition home or self-care (01) ==
LOC: SDC 15:46
PROVIDERS: ATTEND Internal Medicine
DX: A08.4 Viral intestinal infection, unspecified (principal); E10.41 Type 1 diabetes mellitus with diabetic mononeuropathy; E86.0 Dehydration
CPT/HCPCS: 36415; 80048; 85025

== ENCOUNTER 2018-11-18 08:57 | Outpatient (RCR) | payer MEDICAID ==
[~2018-11-18 08:57] MED LIST changes: -OMEP20CA12 PO; +OMEP20CA13 PO; +RANI-613 PO; -RANI150T46 PO
[2018-11-18 10:26] LABS: ABSOLUTE RETIC # 47 10e9/L (24-90); BASOPHILS # (AUTO) 0.1 10^3/uL (0.0-0.1); BASOPHILS % (AUTO) 1 % (0-10); EOSINOPHILS # (AUTO) 0.1 10^3/uL (0.0-0.3); EOSINOPHILS % (AUTO) 1 % (0-10); HEMATOCRIT 30 % (35-52); HEMOGLOBIN 10.1 G/DL (11.5-16.0); LYMPHOCYTES # (AUTO) 0.8 X 10^3 (1.0-4.0); LYMPHOCYTES % (AUTO) 10 % (12-44); MEAN CORPUSCULAR HEMOGLOBIN 29 PG (25-34); MEAN CORPUSCULAR HGB CONC 34 G/DL (32-36); MEAN CORPUSCULAR VOLUME 84 FL (80-99); MEAN PLATELET VOLUME 11.1 FL (7.4-10.4); MONOCYTES # (AUTO) 0.3 X 10^3 (0.0-1.0); MONOCYTES % (AUTO) 4 % (0-12); NEUTROPHILS # (AUTO) 7.1 X 10^3 (1.8-7.8); NEUTROPHILS % (AUTO) 85 % (42-75); PLATELET COUNT 252 10^3/uL (130-400); RED CELL DISTRIBUTION WIDTH 13.2 % (10.0-14.5); RETICULOCYTE % 1.33 % (0.50-2.40); WHITE BLOOD COUNT 8.4 10^3/uL (4.3-11.0)
[2018-11-18 11:27] LABS: BAND NEUTROPHILS 0 %; BASOPHILS % (MANUAL) 1 %; EOSINOPHILS % (MANUAL) 1 %; LYMPHOCYTES % (MANUAL) 9 %; MONOCYTES % (MANUAL) 4 %; NEUTROPHILS % (MANUAL) 85 %
[2018-11-18 11:28] LABS: MICROCYTOSIS SLIGHT
[2018-11-19] MEDS ORDERED: SERT50TA9 PO (14:08)
[2018-11-19] MEDS ORDERED: POTA10TA10 PO (14:08)
[2018-11-19] MEDS ORDERED: RANI150T11 PO (14:08)
[2018-11-19] MEDS ORDERED: GENT5DRO30 OU (14:08)
[2018-11-19] MEDS ORDERED: FURO40TA4 PO (14:08)
[2018-11-19] MEDS ORDERED: FERR325T18 PO (14:08)
[2018-11-19] MEDS ORDERED: MINO100C2 PO (14:08)
[2018-11-19] MEDS ORDERED: HYDR-3641 PO (14:08)
[2018-11-19] MEDS ORDERED: MULT1TAB69 PO (14:08)
[2018-11-19] MEDS ORDERED: LOSA50TA63 PO (14:08)
[2018-11-19] MEDS ORDERED: FEXO180T84 PO (14:08)
[2018-11-19] MEDS ORDERED: INSU100I40 SC (14:08)
[2018-12-06] MEDS ORDERED: FURO20TA4 PO (11:24)
[2018-12-06] MEDS ORDERED: SERT50TA9 PO (11:29)
[2018-12-06] MEDS ORDERED: SUCR1TAB PO (11:40)
[2018-12-06] MEDS ORDERED: INSU100V5 SQ (11:40)
[2018-12-06] MEDS ORDERED: PANT40TA3 PO (11:40)
== END 2019-02-16 | disposition home or self-care (01) ==
LOC: ONC 08:57
PROVIDERS: ATTEND Internal Medicine Hematology & Oncology
DX: D64.9 Anemia, unspecified (principal); E10.40 Type 1 diabetes mellitus with diabetic neuropathy, unspecified; I12.9 Hypertensive chronic kidney disease with stage 1 through stage 4 chronic kidney disease, or unspecified chronic kidney disease; N18.9 Chronic kidney disease, unspecified; E78.5 Hyperlipidemia, unspecified; E06.3 Autoimmune thyroiditis; M06.9 Rheumatoid arthritis, unspecified
CPT/HCPCS: 36415; 82525; 82607; 82668; 82728; 82746; 83540; 84155; 84165; 84443; 85007; 85027; 85045; 99214

== ENCOUNTER 2018-11-19 12:08 | Inpatient (IN) | payer MEDICAID ==
[~2018-11-19] VITALS: Ht 172.2 cm; Wt 71.0 kg
[2018-11-19] MEDS: NS IV 1000 ML 1,000 ML IV SCH ×2 (12:46→13:07)
[2018-11-19] MEDS ORDERED: NS IV 1000 ML 2,000 ML ONE (12:50)
[2018-11-19] MEDS ORDERED: ONDANSETRON 4 MG/2 ML (SDV) Z0FRAN ONE (12:50)
[2018-11-19] MEDS ORDERED: LABETALOL HCL 20 MG/4 ML VIAL ONE (12:54)
[2018-11-19 13:00] LABS: BASOPHILS % (AUTO) 1 % (0-10); EOSINOPHILS # (AUTO) 0.1 10^3/uL (0.0-0.3); EOSINOPHILS % (AUTO) 1 % (0-10); HEMATOCRIT 26 % (35-52); LYMPHOCYTES # (AUTO) 1.1 X 10^3 (1.0-4.0); LYMPHOCYTES % (AUTO) 17 % (12-44); MEAN CORPUSCULAR HEMOGLOBIN 29 PG (25-34); MEAN CORPUSCULAR HGB CONC 35 G/DL (32-36); MEAN CORPUSCULAR VOLUME 84 FL (80-99); MEAN PLATELET VOLUME 11.7 FL (7.4-10.4); MONOCYTES # (AUTO) 0.4 X 10^3 (0.0-1.0); MONOCYTES % (AUTO) 6 % (0-12); NEUTROPHILS # (AUTO) 4.7 X 10^3 (1.8-7.8); NEUTROPHILS % (AUTO) 75 % (42-75); PLATELET COUNT 230 10^3/uL (130-400); RED CELL DISTRIBUTION WIDTH 13.1 % (10.0-14.5); WHITE BLOOD COUNT 6.3 10^3/uL (4.3-11.0)
[2018-11-19] MEDS ORDERED: inSUlin REGULAR TPN/DRIP ONLY 250 UNITS in NORMAL SALINE 250 ML IV SCH ×2 (13:00→15:15)
[2018-11-19] MEDS ORDERED: LABETALOL HCL 20 MG/4 ML VIAL IV ONE (13:00)
[2018-11-19] MEDS ORDERED: ONDANSETRON 4 MG/2 ML (SDV) Z0FRAN IVP ONE (13:00)
--- NOTE | 2018-11-19 13:07 | ED General ---
General Chief Complaint: Glucose Problems Stated Complaint: HIGH BLOOD SUGAR Nursing Triage Note: Pt ambulatory to rm 5 with concern of high blood sugar. Pt reports BS too high to register at home. Pt c/o headache, vision troubles. Pt also reports fever at home however afebrile at assessment. Nursing Sepsis Screen: No Definite Risk Source of Information: Patient, Family Exam Limitations: No Limitations History of Present Illness Date Seen by Provider: Nov 19, 2018 Time Seen by Provider: 13:02 Initial Comments This 31-year-old white female presents with an elevated blood sugar. Patient's blood sugar was too high to yield a discrete number at home. The patient is also complaining of headache and blurred vision. Patient has had fever at home. She denies stiff neck, photophobia, productive cough, hematemesis, diarrhea, dysuria, frequency, flank pain, rash, or change in her medications. Allergies and Home Medications Allergies Coded Allergies: insulin regular (Verified Allergy, Mild, "DOESNT WORK", 12/16/16) codeine (Verified Allergy, Unknown, TAKES HYDROCODONE/APAP AT HOME, 12/16/16) Home Medications Aspirin 81 Mg Tab.chew, 81 MG PO DAILY, (Reported) Insulin Lispro 100 Unit/1 Ml Vial, PER INSULIN PUMP, (Reported) Labetalol HCl 200 Mg Tablet, 200 MG PO BID, (Reported) Vit W-Ca,Fe,FA(<1 mg) 1 Each Tablet, PO DAILY, (Reported) Ranitidine HCl 150 Mg Tablet, 150 MG PO BID, (Reported) Patient Home Medication List Home Medication List Reviewed: Yes Review of Systems Review of Systems Constitutional: No chills; fever, weakness EENTM: vision loss; No hearing loss Respiratory: No cough, No short of breath Cardiovascular: No chest pain, No palpitations Gastrointestinal: No abdominal pain, No diarrhea; nausea, vomiting Genitourinary: No dysuria, No frequency Musculoskeletal: No back pain Skin: No change in color, No rash Psychiatric/Neurological: No Symptoms Reported Hematologic/Lymphatic: No Symptoms Reported Immunological/Allergic: no symptoms reported Past Aptzwsx-Emcjdv-Brxcsy Hx Past Med/Social Hx: Reviewed Nursing Past Med/Soc Hx Patient Social History Alcohol Use: Denies Use Recreational Drug Use: No 2nd Hand Smoke Exposure: No Recent Foreign Travel: No Contact w/Someone Who Travel: No Recent Infectious Disease Expo: No Recent Hopitalizations: No Physical Abuse: No Sexual Abuse: No Immunizations Up To Date Tetanus Booster (TDap): Less than 5yrs Date of Influenza Vaccine: Dec 23, 2017 Seasonal Allergies Seasonal Allergies: Yes Past Medical History Surgeries: Yes (Bladder Stretching,bilat knee scope, carpal tunnel bilat, r cupital tunnel) Adenoidectomy, Section, Tonsillectomy Respiratory: No Cardiac: No Neurological: Yes Neuropathy 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 Disorders: No 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 Disorders: Denies PRINCIPAL DATA ARCHITECT History: IUD Sexually Transmitted Disease: No HIV/AIDS: No Genitourinary: Yes (UTI) Gastrointestinal: Yes Gastroesophageal Reflux, Gall Bladder Disease Musculoskeletal: Yes Arthritis, Fibromyalgia, Chronic Back Pain Endocrine: Yes (HASHIMOTOS) Hyperthyroidism, Diabetes, Insulin dep HEENT: No Loss of Vision: Bilateral Hearing Impairment: Denies Cancer: No Psychosocial: Yes Anxiety Integumentary: No Blood Disorders: No Adverse Reaction/Blood Tranf: No Family Medical History Patient reports no known family medical history. Physical Exam Vital Signs Vital Signs - First Documented 11/19/18 12:33 Temp 36.4 Pulse 96 Resp 20 B/P (MAP) 168/108 (128) Pulse Ox 96 O2 Delivery Room Air Capillary Refill : Less Than 3 Seconds Height, Weight, BMI Height: 5'8.00" Weight: 156lbs. 0.0oz. [id number]; 23.00 BMI Method:Stated General Appearance: WD/WN, Mild Distress Eyes: Bilateral Eye Normal Inspection HEENT: PERRL/EOMI Neck: Full Range of Motion, Normal Inspection, Non Tender Respiratory: Lungs Clear, Normal Breath Sounds; No Decreased Breath Sounds Cardiovascular: Regular Rate, Rhythm Gastrointestinal: Normal Bowel Sounds, Non Tender, Soft Back: Normal Inspection, No CVA Tenderness Extremity: Normal Capillary Refill, Normal Inspection, Normal Range of Motion Neurologic/Psychiatric: Alert, Oriented x3, No Motor/Sensory Deficits Skin: Normal Color, Warm/Dry; No Rash Focused Exam Lactate Level 11/19/18 12:40: Lactic Acid Level 0.98 Lactic Acid Level Laboratory Tests Test 11/19/18 12:40 Lactic Acid Level 0.98 MMOL/L (0.50-2.00) Progress/Results/Core Measures Suspected Sepsis Recent Fever Within 48 Hours: Yes Infection Criteria Present: None New/Unexplained Altered Menta: No Sepsis Screen: No Definite Risk SIRS Temperature: Pulse: 96 Respiratory Rate: 20 Laboratory Tests 11/19/18 12:40: White Blood Count 6.3 Blood Pressure 168 /108 Mean: 128 11/19/18 12:40: Lactic Acid Level 0.98 Laboratory Tests 11/19/18 12:40: Creatinine 2.81H, Platelet Count 230, Total Bilirubin 0.3 Results/Orders Lab Results Laboratory Tests Test 11/19/18 12:40 11/19/18 12:46 11/19/18 13:25 11/19/18 13:47 Range/Units White Blood Count 6.3 4.3-11.0 10^3/uL Red Blood Count 3.08 L 4.35-5.85 10^6/uL Hemoglobin 9.0 L 11.5-16.0 G/DL Hematocrit 26 L 35-52 % Mean Corpuscular Volume 84 80-99 FL Mean Corpuscular Hemoglobin 29 25-34 PG Mean Corpuscular Hemoglobin Concent 35 32-36 G/DL Red Cell Distribution Width 13.1 10.0-14.5 % Platelet Count 230 130-400 10^3/uL Mean Platelet Volume 11.7 H 7.4-10.4 FL Neutrophils (%) (Auto) 75 42-75 % Lymphocytes (%) (Auto) 17 12-44 % Monocytes (%) (Auto) 6 0-12 % Eosinophils (%) (Auto) 1 0-10 % Basophils (%) (Auto) 1 0-10 % Neutrophils # (Auto) 4.7 1.8-7.8 X 10^3 Lymphocytes # (Auto) 1.1 1.0-4.0 X 10^3 Monocytes # (Auto) 0.4 0.0-1.0 X 10^3 Eosinophils # (Auto) 0.1 0.0-0.3 10^3/uL Basophils # (Auto) 0.0 0.0-0.1 10^3/uL Sodium Level 127 L 135-145 MMOL/L Potassium Level 5.7 H 3.6-5.0 MMOL/L Chloride Level 97 L 98-107 MMOL/L Carbon Dioxide Level 16 L 21-32 MMOL/L Anion Gap 14 5-14 MMOL/L Blood Urea Nitrogen 47 H 7-18 MG/DL Creatinine 2.81 H 0.60-1.30 MG/DL Estimat Glomerular Filtration Rate 20 BUN/Creatinine Ratio 17 Glucose Level 663 *H 70-105 MG/DL Lactic Acid Level 0.98 0.50-2.00 MMOL/L Calcium Level 8.5 8.5-10.1 MG/DL Corrected Calcium 9.3 8.5-10.1 MG/DL Total Bilirubin 0.3 0.1-1.0 MG/DL Aspartate Amino Transf (AST/SGOT) 28 5-34 U/L Alanine Aminotransferase (ALT/SGPT) 24 0-55 U/L Alkaline Phosphatase 98 40-136 U/L Total Protein 6.0 L 6.4-8.2 GM/DL Albumin 3.0 L 3.2-4.5 GM/DL Lipase 20 8-78 U/L Glucometer > 600 *H 70-110 MG/DL Urine Color YELLOW Urine Clarity CLEAR Urine pH 6 5-9 Urine Specific [place] 1.015 L 1.016-1.022 Urine Protein 4+ NEGATIVE Urine Glucose (UA) 4+ H NEGATIVE Urine Ketones 3+ H NEGATIVE Urine Nitrite NEGATIVE NEGATIVE Urine Bilirubin NEGATIVE NEGATIVE Urine Urobilinogen NORMAL NORMAL MG/DL Urine Leukocyte Esterase NEGATIVE NEGATIVE Urine RBC (Auto) 2+ H NEGATIVE Urine RBC 2-5 H /HPF Urine WBC 0-2 /HPF Urine Squamous Epithelial Cells 0-2 /HPF Urine Crystals NONE /LPF Urine Bacteria TRACE /HPF Urine Casts NONE /LPF Urine Mucus NEGATIVE /LPF Urine Culture Indicated NO Blood Gas Puncture Site L RAD Blood Gas Patient Temperature 36.4 Arterial Blood pH 7.32 *L 7.37-7.43 Arterial Blood Partial Pressure CO2 32 L 35-45 MMHG Arterial Blood Partial Pressure O2 92 79-93 MMHG Arterial Blood HCO3 16 *L 23-27 MMOL/L Arterial Blood Total CO2 17.0 L 21.0-31.0 MMOL/L Arterial Blood Oxygen Saturation 99 94-100 % Arterial Blood Base Excess -9.1 L -2.5-2.5 MMOL/L Kofi Test YES-POS Blood Gas Ventilator Setting NO Blood Gas Inspired Oxygen RA My Orders Orders - LUANN RIVER MD Ns Iv 1000 Ml (Sodium Chloride 0.9%) (11/19/18 12:50) Ondansetron Injection (Zofran Injectio (11/19/18 12:50) Cbc With Automated Diff (11/19/18 12:46) Comprehensive Metabolic Panel (11/19/18 12:46) Lipase (11/19/18 12:46) Ua Culture If Indicated (11/19/18 12:46) Ns Iv 1000 Ml (Sodium Chloride 0.9%) (11/19/18 13:00) Ondansetron Injection (Zofran Injectio (11/19/18 13:00) Labetalol Injection (Normodyne Injection (11/19/18 12:54) Labetalol Injection (Normodyne Injection (11/19/18 13:00) Insulin Regular Tpn/Drip Only (Humulin R (11/19/18 13:00) Insulin (Regular) Human (Humulin R (Per (11/19/18 16:00) Blood Culture (11/19/18 13:01) Lactic Acid Analyzer (11/19/18 13:01) Arterial Blood Gas (11/19/18 13:46) Arterial Blood Draw (11/19/18 ) Medications Given in ED Current Medications Medications Dose Ordered Sig/Antonia Route Start Time Stop Time Status Last Admin Dose Admin Labetalol HCl 20 mg STK-MED ONCE .ROUTE 11/19/18 12:54 11/19/18 12:55 DC 11/19/18 12:51 20 MG Ondansetron HCl 4 mg ONCE ONCE IVP 11/19/18 13:00 11/19/18 13:02 DC 11/19/18 12:48 4 MG Vital Signs/I&O 11/19/18 12:33 Temp 36.4 Pulse 96 Resp 20 B/P (MAP) 168/108 (128) Pulse Ox 96 O2 Delivery Room Air Capillary Refill : Less Than 3 Seconds Blood Pressure Mean: 128 Point of Care Testing Blood Glucose Action Taken: "high" marlene notified Progress Note : Time: 14:04 Progress Note Patient's glucose was 660. An insulin bolus and drip of 5 units and 5 units of regular insulin was initiated. The patient had a 2 L bolus of normal saline. Telephone consultation was undertaken with who is kind enough to admit the patient the ICU. Patient's pH was 7.32 with a bicarbonate of 16. Departure Communication (Admissions) Time/Spoke to Admitting Phy: 14:05 Dr. Laird. Impression Primary Impression: Hyperglycemia Disposition: ADMITTED INPATIENT Condition: Improved Admissions Decision to Admit Reason: Admit from ER (General) Decision to Admit/Date: Nov 19, 2018 Time/Decision to Admit Time: 14:06 Departure-Patient Inst. Referrals: ALICE CARLISLE DO (PCP) Primary Care Physician LUANN RIVER MD Nov 19, 2018 13:06
[2018-11-19 13:17] LABS: BILIRUBIN,TOTAL 0.3 MG/DL (0.1-1.0); CALCIUM 8.5 MG/DL (8.5-10.1); CREATININE SERUM 2.81 MG/DL (0.60-1.30); POTASSIUM 5.7 MMOL/L (3.6-5.0)
[2018-11-19 13:35] LABS: BILIRUBIN,URINE NEGATIVE (NEGATIVE); CLARITY,URINE CLEAR; COLOR,URINE YELLOW; GLUCOSE, URINE (UA) 4+ (NEGATIVE); KETONES,URINE 3+ (NEGATIVE); LEUKOCYTE ESTERASE ,URINE NEGATIVE (NEGATIVE); NITRITE,URINE NEGATIVE (NEGATIVE); PH,URINE 6 (5-9); PROTEIN,URINE 4+ (NEGATIVE); UROBILINOGEN,URINE NORMAL (NORMAL)
[2018-11-19 13:41] LABS: BACTERIA,URINE TRACE /HPF; SQUAMOUS EPITHELIAL CELL,UR 0-2 /HPF; WBC,URINE 0-2 /HPF
--- NOTE | 2018-11-19 13:52 | NUR ---
Per Dr. Collazo, give novolin r insulin sq at this time
[2018-11-19 13:53] LABS: ABG BASE EXCESS -9.1 MMOL/L (-2.5-2.5); ABG OXYGEN SATURATION 99 % (94-100); ABG PCO2 32 MMHG (35-45); ABG PO2 92 MMHG (79-93)
[2018-11-19 13:54] LABS: ALLENS TEST YES-POS; INSPIRED O2 RA; PATIENT TEMP 36.4; VENTILATOR NO
[2018-11-19 13:55] LABS: ABG PH 7.32 (7.37-7.43)
--- NOTE | 2018-11-19 14:00 | NUR ---
Pt reported to this nurse and Dr. Collazo pt does not plan to stay the night in the hospital. Pt reports needing to be at home to take care of children. Pt reports only needing an insulin drip and IV fluids.
[2018-11-19] MEDS ORDERED: FURO40TA4 PO (14:08)
[2018-11-19] MEDS ORDERED: FERR325T18 PO (14:08)
[2018-11-19] MEDS ORDERED: LOSA50TA63 PO (14:08)
[2018-11-19] MEDS ORDERED: MULT1TAB69 PO (14:08)
[2018-11-19] MEDS ORDERED: GENT5DRO30 OU (14:08)
[2018-11-19] MEDS ORDERED: HYDR-3641 PO (14:08)
[2018-11-19] MEDS ORDERED: FEXO180T84 PO (14:08)
[2018-11-19] MEDS ORDERED: RANI150T11 PO (14:08)
[2018-11-19] MEDS ORDERED: INSU100I40 SC (14:08)
[2018-11-19] MEDS ORDERED: SERT50TA9 PO (14:08)
[2018-11-19] MEDS ORDERED: POTA10TA10 PO (14:08)
[2018-11-19] MEDS ORDERED: MINO100C2 PO (14:08)
--- NOTE | 2018-11-19 14:21 | NUR ---
SPOKE WITH THE PATIENT REGARDING HER MEDICATIONS. WE WENT OVER THE EXT MED HX AND SHE VERIFIED HOW SHE TAKES THEM. SHE IS PAST DUE FOR REFILL ON SEVERAL BUT MAINTAINS THAT SHE DOES TAKE THEM DAILY. I NOTED THE PAST DUE FILL DATES ON THE MED REC. SHE TAKES THE FOLLOWING DIFFERENTLY THAN PRESCRIBED: 11-19-18 HYDROCORTISONE 10MG #30 FOR 15 DAYS (STATES SHE TAKES 1 AM, FORGETS 2ND DOSE USUALLY BUT IT ALSO MESSES WITH HER BLOOD SUGAR SO SHE USUALLY ONLY DOES ONE DAILY) 10-19-18 FIASP (STATES SHE USES 10-15 UNITS 4-5 TIMES DAILY PRN BS>300 09-09-18 ZOLOFT 50MG #60 FOR 30 DAYS ( ONLY TAKES 1 AM) 09-08-18 LASIX 40MG #60 FOR 15 DAYS (STATES SHE TAKES 1 TAB BID) 07-26-18 IRON 325MG #90 FOR 30 DAYS (STATES SHE ONLY TAKES 1 AM, PAST DUE FOR REFILL) 07-17-18 LABETALOL 200MG #540 FOR 90 DAYS (STATES SHE TAKES 2 TABS AT HS ONLY, IF SHE TAKES IN THE MORNING HER BP WILL BE HIGH BUT WHEN SHE STANDS IT WILL SUDDENLY DROP LOW) SHE IS ALSO PAST DUE FOR REFILL ON THE FOLLOWIN09-08-18 MINOCYCLINE 100MG #30 07-26-18 LOSARTAN 50MG #60 FOR 30 DAYS 2AM SHE NO LONGER TAKING BUMEX, METOLAZONE, OR SINGULAIR THAT HAS BEEN FILLED IN THE PAST. SHE HAS FILLED GENTAMICIN AND STATES SHE USES IT FOR THE DAYS BEFORE AND AFTER HE EYE INJECTIONS. SHE TAKES CHARISSE 180MG DAILY AND A MTV DAILY OTC.
[2018-11-19 14:45] VITALS: BP 177/107
[2018-11-19] MEDS ORDERED: NS IV 1000 ML 1,000 ML IV SCH ×2 (14:45→15:09)
[2018-11-19 15:00] VITALS: BP 171/100
[2018-11-19] MEDS ORDERED: inSUlin REGULAR TPN/DRIP 250 UNITS/NS 250 ML IV SCH ×2 (15:00)
[2018-11-19] MEDS ORDERED: ACETAMINOPHEN 325 MG TABLET PO PRN (15:00)
[2018-11-19] MEDS ORDERED: ONDANSETRON 4 MG/2 ML (SDV) Z0FRAN IV PRN (15:00)
[2018-11-19] MEDS ORDERED: 1/2 NS IV SOLUTION 1,000 ML IV SCH (15:09)
[2018-11-19] MEDS ORDERED: D5 1/2 NS 1000 ML IV SOLUTION 1,000 ML IV SCH (15:15)
[2018-11-19] MEDS ORDERED: POTASSIUM CL 10MEQ/50ML IVPB 50 ML IV SCH ×2 (15:15)
[2018-11-19] MEDS ORDERED: CATHETER FLUSH 10 ML SYR IV PRN (15:30)
[2018-11-19 16:00] VITALS: BP 172/109
[2018-11-19] MEDS ORDERED: inSUlin ASPART (NovoLOG) 1 UNIT/0.01 ML (CHARGE PER UNIT) SC SCH (16:00)
[2018-11-19] MEDS ORDERED: inSUlin (REGULAR) HUMAN 1 UNIT/0.01 ML (CHARGE PER UNIT) SC SCH (16:00)
--- NOTE | 2018-11-19 17:24 | NUR ---
PT LEFT FLOOR AMA, PT VERBALIZES UNDERSTANDING OF AMA DISCHARGE AND IMPORTANCE OF STAYING. B/L IV SITES D/C WITH TIP INTACT. PRIOR TO AMA DR PRINCE NOTIFIED OF PT'S DECISION.
--- NOTE | 2018-11-20 06:15 | Short Stay Summary-Hospitalist ---
History of Present Illness HPI/Chief Complaint PATIENT LEFT PRIOR TO BEING SEEN. NO HPI OR EXAM POSSIBLE. THIS IS FOR DOCUMENTATION PURPOSES ONLY. Date Seen 11/20/18 Time Seen by a Provider: 06:10 (I DID NOT SEE PATIENT THIS IS BONNIE THE TIME OF THE NOTE) Attending Physician Brook Laird MD PCP David Plunkett DO Referring Physician Date of Admission Nov 19, 2018 at 14:05 Home Medications & Allergies Home Medications Reviewed patient Home Medication Reconciliation performed by pharmacy medication reconciliations aircraft systems technician and/or nursing. Patients Allergies have been reviewed. Allergies Allergies Coded Allergies insulin regular (Verified Allergy, Mild, "DOESNT WORK", 12/16/16) codeine (Verified Allergy, Unknown, TAKES HYDROCODONE/APAP AT HOME, 12/16/16) Past Lhcktsb-Yrzmls-Rcxobk Hx Past Med/Social Hx: Reviewed Nursing Past Med/Soc Hx Patient Social History Alcohol Use: Denies Use Recreational Drug Use: No 2nd Hand Smoke Exposure: No Recent Foreign Travel: No Contact w/other who traveled: No Recent Hopitalizations: No Recent Infectious Disease Expo: No Immunizations Up To Date Tetanus Booster (TDap): Less than 5yrs Date of Influenza Vaccine: Dec 23, 2017 Seasonal Allergies Seasonal Allergies: Yes Past Medical History Surgeries: Adenoidectomy, Section, Tonsillectomy Neurological: Neuropathy 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: No Sexually Transmitted Disease: No HIV/AIDS: No 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 Disorders: Denies IUD Gastrointestinal: Gastroesophageal Reflux, Gall Bladder Disease Musculoskeletal: Arthritis, Fibromyalgia, Chronic Back Pain Endocrine: Hyperthyroidism, Diabetes, Insulin dep Loss of Vision: Bilateral Hearing Impairment: Denies Psychosocial: Anxiety History of Blood Disorders: No Adverse Reaction to Blood [place]: No Family History Patient reports no known family medical history. Review of Systems Constitutional: see HPI Physical Exam Physical Exam Vital Signs Vital Signs - First Documented 11/19/18 12:33 Temp 36.4 Pulse 96 Resp 20 B/P (MAP) 168/108 (128) Pulse Ox 96 O2 Delivery Room Air Capillary Refill : Less Than 3 Seconds Height, Weight, BMI Height: 5'8.00" Weight: 156lbs. 0.0oz. [id number]; 23.00 BMI Method:Stated General Appearance: Other (I DID NOT EXAM PATIENT) Eyes: Bilateral Eye Normal Inspection Skin: No Rash Results Results/Procedures Labs Laboratory Tests 11/19/18 12:40 11/19/18 15:25 Patient resulted labs reviewed. Short Stay Diagnosis Discharge Diagnosis-Short Stay Admission Diagnosis DKA Final Discharge Diagnosis DKA Conclusion Plan DKA Patient was admitted to inpatient status for DKA Prior to being seen she elected to leave AMA Per nurse risks and benefits of admission vs discharge were address and AMA paperwork signed BROOK LAIRD MD Nov 20, 2018 06:15
== END 2018-11-19 17:20 | disposition left against medical advice (07) | DRG 639 ==
LOC: EDUNIT# 12:08 → ER 12:09 → ICU 14:05
PROVIDERS: ADMIT Family Medicine; ATTEND Family Medicine
DX: E11.10 Type 2 diabetes mellitus with ketoacidosis without coma (principal); E06.3 Autoimmune thyroiditis; F41.9 Anxiety disorder, unspecified; G62.9 Polyneuropathy, unspecified; K21.9 Gastro-esophageal reflux disease without esophagitis; M79.7 Fibromyalgia
CPT/HCPCS: 36415; 36600; 80053; 81000; 82525; 82607; 82668; 82728; 82746; 82805; 82947; 82962; 83540; 83605; 83690; 84155; 84165; 84443; 85007; 85025; 85027; 85045; 87040; 87081; 96361; 96365; 96375; 99214; G0378

== ENCOUNTER 2018-12-03 14:48 | Inpatient (IN) | payer MEDICAID ==
[2018-12-03] VITALS (8 sets, daily range): BP systolic 137–171; BP diastolic 76–111
[~2018-12-03] VITALS: Ht 172.7 cm; Wt 81.1 kg
[~2018-12-03 14:48] MED LIST changes: +FERR325T18 PO; +FEXO180T84 PO; +FURO40TA4 PO; +GENT5DRO30 OU; +HYDR-3641 PO; +INSU100I40 SC; +LOSA50TA63 PO; +MULT1TAB69 PO; +POTA10TA10 PO; +RANI150T11 PO
[2018-12-03] MEDS ORDERED: LACTATED RINGERS 1,000 ML IV ONE (14:54)
[2018-12-03 15:06] LABS: BASOPHILS % (AUTO) 0 % (0-10); EOSINOPHILS % (AUTO) 0 % (0-10); HEMATOCRIT 30 % (35-52); HEMOGLOBIN 9.2 G/DL (11.5-16.0); LYMPHOCYTES # (AUTO) 0.5 X 10^3 (1.0-4.0); LYMPHOCYTES % (AUTO) 4 % (12-44); MEAN CORPUSCULAR HEMOGLOBIN 29 PG (25-34); MEAN CORPUSCULAR HGB CONC 31 G/DL (32-36); MEAN CORPUSCULAR VOLUME 94 FL (80-99); MEAN PLATELET VOLUME 12.1 FL (7.4-10.4); MONOCYTES # (AUTO) 0.2 X 10^3 (0.0-1.0); MONOCYTES % (AUTO) 2 % (0-12); NEUTROPHILS # (AUTO) 12.1 X 10^3 (1.8-7.8); NEUTROPHILS % (AUTO) 94 % (42-75); PLATELET COUNT 335 10^3/uL (130-400); RED CELL DISTRIBUTION WIDTH 13.2 % (10.0-14.5); WHITE BLOOD COUNT 12.9 10^3/uL (4.3-11.0)
[2018-12-03] MEDS: NS IV 1000 ML 1,000 ML IV SCH (15:07)
--- NOTE | 2018-12-03 15:07 | ED General ---
General Chief Complaint: General Problems/Pain Stated Complaint: VOMITING History of Present Illness Date Seen by Provider: Dec 03, 2018 Time Seen by Provider: 14:50 Initial Comments Patient presents to the ED today with complaints of fatigue, body aches and believes she has the flu. Patient has DM Type 1 and has recently been hospitalized for DKA but left AMA. Upon being triaged, her blood glucose was unreadable as it was extremely high. Patient complains also of having a cough, nausea and vomiting. Patient is suspected of being in DKA. Location Injury Occurred: At home Timing/Duration: 1-2 Days (Vomiting began today, but symptoms have been present for the past 2 days) Severity: Severe Associated Systoms: Cough, Headaches, Malaise, Nausea/Vomiting, Shortness of Air (HALIE WORTHINGTON PA STUDENT) Timing/Duration: 1-2 Days (Vomiting began today, but symptoms have been present for the past 2 days) Severity: Severe Associated Systoms: Cough, Fever/Chills, Nausea/Vomiting, Weakness (JACKELYN ROBERTO MD) Allergies and Home Medications Allergies Coded Allergies: insulin regular (Verified Allergy, Mild, "DOESNT WORK", 12/16/16) codeine (Verified Allergy, Unknown, TAKES HYDROCODONE/APAP AT HOME, 12/16/16) Home Medications Ferrous Sulfate 325 Mg Tablet, 325 MG PO DAILY, (Reported) LAST FILLED #90 07-26-18 Fexofenadine HCl 180 Mg Tablet, 180 MG PO DAILY, (Reported) Furosemide 40 Mg Tablet, 40 MG PO BID, (Reported) LAST FILLED #60 09-08-18 Gentamicin Sulfate 5 Ml Drops, 1 DROP OU QID PRN for EYE INJECTIONS, (Reported) Hydrocortisone 10 Mg Tablet, 10 MG PO DAILY, (Reported) Insulin Aspart (Niacinamide) 100 Unit/1 Ml Insuln.pen, 10-15 UNITS SC QID PRN for BS>300, (Reported) Insulin Lispro 100 Unit/1 Ml Vial, PER INSULIN PUMP, (Reported) Labetalol HCl 200 Mg Tablet, 400 MG PO HS, (Reported) TAKES 2 (200MG) TABLETS Losartan Potassium 50 Mg Tablet, 100 MG PO DAILY, (Reported) LAST FILLED #60 07-26-18 TAKES 2 (50MG) TABLETS Minocycline HCl 100 Mg Capsule, 100 MG PO DAILY, (Reported) LAST FILLED #30 19 Multivitamin 1 Each Tablet, 1 TAB PO DAILY, (Reported) Potassium Chloride 10 Meq Tablet.er, 10 MEQ PO DAILY, (Reported) Ranitidine HCl 150 Mg Tablet, 150 MG PO BID, (Reported) Sertraline HCl 50 Mg Tablet, 50 MG PO DAILY, (Reported) Patient Home Medication List Home Medication List Reviewed: Yes (JACKELYN ROBERTO MD) Review of Systems Review of Systems Constitutional: see HPI, malaise, weakness EENTM: no symptoms reported Respiratory: cough, short of breath Cardiovascular: no symptoms reported Gastrointestinal: nausea, vomiting Genitourinary: no symptoms reported : No Musculoskeletal: no symptoms reported Skin: no symptoms reported Psychiatric/Neurological: No Symptoms Reported Hematologic/Lymphatic: No Symptoms Reported Immunological/Allergic: no symptoms reported (HALIE WORTHINGTON) All Other Systems Reviewed Negative Unless Noted: Yes (JACKELYN ROBERTO MD) Past Ztgsymm-Hzqhhd-Lbmdgt Hx Past Med/Social Hx: Reviewed Nursing Past Med/Soc Hx (JACKELYN ROBERTO MD) Patient Social History Alcohol Use: Denies Use Recreational Drug Use: No Smoking Status: Never a Smoker 2nd Hand Smoke Exposure: No Recent Foreign Travel: No Contact w/Someone Who Travel: No Recent Hopitalizations: No (HALIE WORTHINGTON) Immunizations Up To Date Tetanus Booster (TDap): Less than 5yrs Date of Influenza Vaccine: Dec 23, 2017 (HALIE WORTHINGTON) Seasonal Allergies Seasonal Allergies: Yes (HALIE WORTHINGTON) Past Medical History Surgeries: Yes (Bladder Stretching,bilat knee scope, carpal tunnel bilat, r cupital tunnel) Adenoidectomy, Section (X2), Tonsillectomy Respiratory: No Cardiac: No Neurological: Yes Neuropathy : No 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 Disorders: No 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 Physical Exam-Suspected Sepsis Physical Exam Vital Signs Vital Signs - First Documented 12/03/18 14:50 Temp 35.9 Pulse 114 Resp 17 B/P (MAP) 100/51 (67) Pulse Ox 98 O2 Delivery Room Air (JACKELYN ROBERTO MD) Vital Signs Capillary Refill : (HALIE WORTHINGTON STUDENT) Height, Weight, BMI Height: 5'8.00" Weight: 156lbs. 0.0oz. 70.860754ds; 23.00 BMI Method:Stated General Appearance: Mild Distress Eyes: Bilateral Eye Normal Inspection, Bilateral Eye PERRL HEENT: PERRL/EOMI, Normal ENT Inspection, Pharynx Normal Neck: Non Tender, Supple Respiratory: Chest Non Tender, Lungs Clear, Normal Breath Sounds, No Accessory Muscle Use, No Respiratory Distress Cardiovascular: Regular Rate, Rhythm, No Edema, No Gallop, No JVD, No Murmur, Normal Peripheral Pulses Gastrointestinal: Normal Bowel Sounds, No Organomegaly, No Pulsatile Mass, Non Tender, Soft Extremity: No Pedal Edema Neurologic/Psychiatric: Alert, Oriented x3, No Motor/Sensory Deficits, Normal Mood/Affect, med dir II-XII Norm as Tested Skin: normal color, warm/dry Lymphatic: No Adenopathy (HALIE WORTHINGTON STUDENT) General Appearance: Mild Distress, Other (ill appearing) HEENT: PERRL/EOMI, Pharynx Normal Neck: Non Tender, Supple Respiratory: Lungs Clear, Normal Breath Sounds Cardiovascular: No Murmur, Tachycardia Gastrointestinal: Non Tender, Soft Back: Normal Inspection, No CVA Tenderness, No Vertebral Tenderness Extremity: Normal Range of Motion, Non Tender Neurologic/Psychiatric: Alert, Oriented x3, No Motor/Sensory Deficits Skin: normal color, warm/dry (JACKELYN ROBERTO MD) Focused Exam Lactate Level 12/03/18 14:55: Lactic Acid Level 2.10*H (JACKELYN ROBERTO MD) Lactic Acid Level Laboratory Tests Test 12/03/18 14:55 Lactic Acid Level 2.10 MMOL/L (0.50-2.00) *H (JACKELYN ROBERTO MD) Progress/Results/Core Measures Suspected Sepsis SIRS Temperature: Pulse: Respiratory Rate: Blood Pressure / Mean: (HALIE WORTHINGTON STUDENT) Results/Orders Lab Results Laboratory Tests Test 12/03/18 14:55 12/03/18 15:05 12/03/18 15:38 Range/Units White Blood Count 12.9 H 4.3-11.0 10^3/uL Red Blood Count 3.15 L 4.35-5.85 10^6/uL Hemoglobin 9.2 L 11.5-16.0 G/DL Hematocrit 30 L 35-52 % Mean Corpuscular Volume 94 80-99 FL Mean Corpuscular Hemoglobin 29 25-34 PG Mean Corpuscular Hemoglobin Concent 31 L 32-36 G/DL Red Cell Distribution Width 13.2 10.0-14.5 % Platelet Count 335 130-400 10^3/uL Mean Platelet Volume 12.1 H 7.4-10.4 FL Neutrophils (%) (Auto) 94 H 42-75 % Lymphocytes (%) (Auto) 4 L 12-44 % Monocytes (%) (Auto) 2 0-12 % Eosinophils (%) (Auto) 0 0-10 % Basophils (%) (Auto) 0 0-10 % Neutrophils # (Auto) 12.1 H 1.8-7.8 X 10^3 Lymphocytes # (Auto) 0.5 L 1.0-4.0 X 10^3 Monocytes # (Auto) 0.2 0.0-1.0 X 10^3 Eosinophils # (Auto) 0.0 0.0-0.3 10^3/uL Basophils # (Auto) 0.0 0.0-0.1 10^3/uL Prothrombin Time 13.7 12.2-14.7 SEC INR Comment 1.0 0.8-1.4 Activated Partial Thromboplast Time 28 24-35 SEC Sodium Level 125 *L 135-145 MMOL/L Potassium Level 7.1 *H 3.6-5.0 MMOL/L Chloride Level 90 L 98-107 MMOL/L Carbon Dioxide Level 7 *L 21-32 MMOL/L Anion Gap 28 H 5-14 MMOL/L Blood Urea Nitrogen 73 H 7-18 MG/DL Creatinine 3.83 H 0.60-1.30 MG/DL Estimat Glomerular Filtration Rate 14 BUN/Creatinine Ratio 19 Glucose Level 1214 *H 70-105 MG/DL Lactic Acid Level 2.10 *H 0.50-2.00 MMOL/L Calcium Level 8.6 8.5-10.1 MG/DL Corrected Calcium 9.4 8.5-10.1 MG/DL Phosphorus Level 8.2 H 2.3-4.7 MG/DL Magnesium Level 2.9 H 1.6-2.4 MG/DL Total Bilirubin 0.2 0.1-1.0 MG/DL Aspartate Amino Transf (AST/SGOT) 31 5-34 U/L Alanine Aminotransferase (ALT/SGPT) 32 0-55 U/L Alkaline Phosphatase 125 40-136 U/L Total Protein 5.9 L 6.4-8.2 GM/DL Albumin 3.0 L 3.2-4.5 GM/DL Blood Gas Puncture Site RIGHT RADIAL Blood Gas Patient Temperature 35.9 Arterial Blood pH 7.17 *L 7.37-7.43 Arterial Blood Partial Pressure CO2 19 *L 35-45 MMHG Arterial Blood Partial Pressure O2 102 H 79-93 MMHG Arterial Blood HCO3 7 *L 23-27 MMOL/L Arterial Blood Total CO2 7.5 L 21.0-31.0 MMOL/L Arterial Blood Oxygen Saturation 98 94-100 % Arterial Blood Base Excess -20.3 L -2.5-2.5 MMOL/L Kofi Test POSITIVE Blood Gas Ventilator Setting NO Blood Gas Inspired Oxygen N/A (JACKELNY ROBERTO MD) Micro Results Microbiology 12/03/18 Influenza Types A,B Antigen (STARR) - Final, Complete (JACKELYN ROBERTO MD) My Orders Orders - JACKELYN ROBERTO MD Cbc With Automated Diff (12/03/18 14:54) Comprehensive Metabolic Panel (12/03/18 14:54) Magnesium (12/03/18 14:54) Ua Culture If Indicated (12/03/18 14:54) Phosphorus (12/03/18 14:54) I-Stat Bedside Testing (12/03/18 14:54) Accucheck Stat ONCE (12/03/18 14:54) Ed Iv/Invasive Line Start (12/03/18 14:54) Lactated Ringers (Lr 1000 Ml Iv Solution (12/03/18 14:54) Ed Iv/Invasive Line Start (12/03/18 14:54) Blood Culture (12/03/18 15:01) Sputum Culture (12/03/18 15:01) Protime With Inr (12/03/18 15:) Partial Thromboplastin Time (12/03/18 15:01) Chest 1 View, Ap/Pa Only (12/03/18 15:01) Vital Signs Adult Sepsis Patie Q15M (12/03/18 15:01) O2 (12/03/18 15:01) Remove Rings In Anticipation O (12/03/18 15:01) Lactic Acid Analyzer (12/03/18 15:01) Ed Iv/Invasive Line Start (12/03/18 15:05) Ns Iv 1000 Ml (Sodium Chloride 0.9%) (12/03/18 15:05) Manual Differential (12/03/18 14:55) Arterial Blood Gas (12/03/18 15:06) Influenza A And B Antigens (12/03/18 15:07) Insulin (Regular) Human (Humulin R (Per (12/03/18 15:13) Catheter(Urinary) Insert & Ass 03,15 (12/03/18 15:14) Ed Iv/Invasive Line Start (12/03/18 15:14) Ns Iv 1000 Ml (Sodium Chloride 0.9%) (12/03/18 15:14) Ekg Tracing (12/03/18 15:31) Calcium Gluconate 10% Inj (Calcium Glu (12/03/18 16:00) Calcium Gluconate 10% Inj (Calcium Glu (12/03/18 16:00) (JACKELYN ROBERTO MD) Medications Given in ED Current Medications Medications Dose Ordered Sig/Antonia Route Start Time Stop Time Status Last Admin Dose Admin Lactated Ringer's 1,000 ml @ 0 mls/hr Q0M ONCE IV 12/03/18 14:54 12/03/18 14:56 DC 12/03/18 15:02 1,000 MLS/HR Sodium Chloride 1,000 ml @ 0 mls/hr Q0M ONCE IV 12/03/18 15:14 12/03/18 15:15 DC 12/03/18 15:27 1,000 MLS/HR (JACKELYN ROBERTO MD) Vital Signs/I&O 12/03/18 14:50 Temp 35.9 Pulse 114 Resp 17 B/P (MAP) 100/51 (67) Pulse Ox 98 O2 Delivery Room Air (JACKELYN ROBERTO MD) Vital Signs/I&O Capillary Refill : (HALIE WORTHINGTON PA STUDENT) Progress Note : Progress Note I seen and evaluated the patient and agree with above except as indicated. Directed the plan of care. Patient was seen on arrival with PA student. Patient very weak and ill-appearing. IV 2, labs, UA, ABG, chest x-ray, blood cultures and lactic acid as well as influenza screen ordered. LR 2 L bolus initiated but stopped when potassium noted to be 6.9 on i-STAT. We did switch to normal saline 2 L bolus and insulin 10 units IV for glucose greater than 700. Monitor patient. 1530: I did contact Dr. Laird regarding admission given current findings. We have added another liter of normal saline. Patient is in significant DKA and is acidotic on ABG. Chest x-ray does not show any acute findings. UA pending. 1550: Dr. Laird is evaluating the patient in the room currently. Patient to be admitted to the ICU. Third liter of normal saline ordered. We did order 2 A of calcium gluconate IV due to EKG findings and elevated potassium. 1559: Dr. Laird accepts admission to the ICU inpatient status. She will write orders. Normal saline ordered at 250 an hour currently. (JACKELYN ROBERTO MD) ECG Initial ECG Impression Date: Dec 03, 2018 Initial ECG Impression Time: 15:34 Initial ECG Rate: 118 Initial ECG Rhythm: S.Tach Comment Sinus tachycardia with incomplete right bundle branch block. Normal axis. Mildly widened QRS complex. No evidence of ST elevation MO. No previous available for comparison. Interpreted by me. (JACKELYN ROBERTO MD) Diagnostic Imaging Diagonstic Imaging: Xray Plain Films/CT/US/NM/MRI: chest Comments NAME: MANSI MCCABE MED REC#: [id number] PT STATUS: REG ER : 1985 PHYSICIAN: JACKELYN ROBERTO MD ADMIT DATE: 12/03/18/ER Draft Date of Exam:12/03/18 CHEST 1 VIEW, AP/PA ONLY INDICATION: Nausea and vomiting. TIME OF EXAM: 03:19 p.m. COMPARISON: Correlation is made with prior chest from 05/17/2018. FINDINGS: The heart size is normal. The pulmonary vascularity is unremarkable. The lungs are clear. No infiltrate, effusion or pneumothorax is detected. IMPRESSION: No acute cardiopulmonary process is detected. Dictated on workstation # [id number] Dict: 12/03/18 1526 Trans: 12/03/18 1528 [facility] [id number] Interpreted by: CASSIDY CRAWLEY MD Electronically signed by: (JACKELYN ROBERTO MD) Departure Communication (Admissions) Time/Spoke to Admitting Phy: 15:30 (JACKELYN ROBERTO MD) Impression Primary Impression: Diabetic ketoacidosis Qualified Codes: E10.10 - Type 1 diabetes mellitus with ketoacidosis without coma Additional Impression: Acute hyperglycemia Disposition: ADMITTED INPATIENT Condition: Critical Admissions Decision to Admit Reason: Admit from ER (General) Decision to Admit/Date: Dec 03, 2018 Time/Decision to Admit Time: 15:30 (JACKELYN ROBERTO MD) Departure-Patient Inst. Referrals: ALICE CARLISLE DO (PCP/Family) Primary Care Physician HALIE WORTHINGTON STUDENT Dec 03, 2018 15:07 JACKELYN ROBERTO MD Dec 03, 2018 15:38
[2018-12-03 15:11] LABS: ABG BASE EXCESS -20.3 MMOL/L (-2.5-2.5); ABG OXYGEN SATURATION 98 % (94-100); ABG PO2 102 MMHG (79-93); ABG TCO2 7.5 MMOL/L (21.0-31.0)
[2018-12-03 15:13] LABS: ABG PCO2 19 MMHG (35-45); ABG PH 7.17 (7.37-7.43); ALLENS TEST POSITIVE; PATIENT TEMP 35.9; VENTILATOR NO
[2018-12-03] MEDS ORDERED: inSUlin (REGULAR) HUMAN 1 UNIT/0.01 ML (CHARGE PER UNIT) IV STA (15:13)
[2018-12-03] MEDS ORDERED: NS IV 1000 ML 1,000 ML IV ONE (15:14)
[2018-12-03 15:18] LABS: PROTHROMBIN TIME PATIENT 13.7 SEC (12.2-14.7)
[2018-12-03 15:26] LABS: BILIRUBIN,TOTAL 0.2 MG/DL (0.1-1.0); CALCIUM 8.6 MG/DL (8.5-10.1); CREATININE SERUM 3.83 MG/DL (0.60-1.30); MAGNESIUM 2.9 MG/DL (1.6-2.4); PHOSPHORUS 8.2 MG/DL (2.3-4.7); TOTAL PROTEIN 5.9 GM/DL (6.4-8.2)
--- NOTE | 2018-12-03 15:29 | Diagnostic Imaging Report ---
INDICATION: Nausea and vomiting. TIME OF EXAM: 03:19 p.m. COMPARISON: Correlation is made with prior chest from 05/17/2018. FINDINGS: The heart size is normal. The pulmonary vascularity is unremarkable. The lungs are clear. No infiltrate, effusion or pneumothorax is detected. IMPRESSION: No acute cardiopulmonary process is detected. Dictated by: Dictated on workstation # [id number]
[2018-12-03 15:32] LABS: POTASSIUM 7.1 MMOL/L (3.6-5.0)
[2018-12-03 15:48] LABS: BILIRUBIN,URINE NEGATIVE (NEGATIVE); CLARITY,URINE SLIGHTLY CLOUDY; COLOR,URINE YELLOW; GLUCOSE, URINE (UA) 4+ (NEGATIVE); KETONES,URINE 3+ (NEGATIVE); LEUKOCYTE ESTERASE ,URINE NEGATIVE (NEGATIVE); NITRITE,URINE NEGATIVE (NEGATIVE); PH,URINE 5 (5-9); PROTEIN,URINE 4+ (NEGATIVE); UROBILINOGEN,URINE NORMAL (NORMAL)
[2018-12-03] MEDS ORDERED: CALCIUM GLUC. 10% 4.65 MEQ/10 ML VIAL IV ONE ×2 (16:00)
[2018-12-03] MEDS ORDERED: NS IV 1000 ML 1,000 ML IV SCH (16:15)
--- NOTE | 2018-12-03 16:25 | History & Physical-Hospitalist ---
History of Present Illness HPI/Chief Complaint Pt is a 33yoCF with a PMH of IDDMI and HTN who presented due to nausea and vomiting. She states for the past two days she has had "gastroparesis" but it normally doesn't last two days. She normally sees Dr Plunkett for her diabetes and is on an insulin pump. She is unsure of her basal rate for her pump. She is also unable to tell me her bolus regimen. She has not checked her blood sugars today and her last check was last night and reported as 189. She is unsure of her last a1c. Her reports that she has been vomiting and has had some dark "dried blood." She was supposed to see Dr Alexander today for review of her labs for anemia but was so sick she came here instead. She believes her insulin pump is running because it normally beeps when it is occluded but she has not checked it either. She is otherwise quite sleepy and unable to proivde other history. reports she was here roughly 2 weeks ago for DKA but signed her self out AMA. Source: patient Date Seen 12/03/18 Time Seen by a Provider: 16:27 Attending Physician Brook Laird MD PCP Alice Plunkett DO Referring Physician Date of Admission Dec 03, 2018 at 16:01 Home Medications & Allergies Home Medications Reviewed patient Home Medication Reconciliation performed by pharmacy medication reconciliations solar energy technician and/or nursing. Patients Allergies have been reviewed. Allergies Allergies Coded Allergies insulin regular (Verified Allergy, Mild, "DOESNT WORK", 12/16/16) codeine (Verified Allergy, Unknown, TAKES HYDROCODONE/APAP AT HOME, 12/16/16) Past Nybbaba-Qxidjc-Whqkzm Hx Past Med/Social Hx: Reviewed Nursing Past Med/Soc Hx Patient Social History Marrital Status: Alcohol Use: Denies Use Recreational Drug Use: No Smoking Status: Never a Smoker 2nd Hand Smoke Exposure: No Recent Foreign Travel: No Contact w/other who traveled: No Recent Hopitalizations: No Recent Infectious Disease Expo: No Immunizations Up To Date Tetanus Booster (TDap): Less than 5yrs Date of Influenza Vaccine: Dec 23, 2017 Seasonal Allergies Seasonal Allergies: Yes Past Medical History Surgeries: Adenoidectomy, Bladder Surgery, Section (X2), Orthopedic, Tonsillectomy Cardiac: Hypertension Neurological: Neuropathy : No 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: No Sexually Transmitted Disease: No HIV/AIDS: No 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 Disorders: Denies IUD Genitourinary: Renal Failure Gastrointestinal: Gastroesophageal Reflux, Gall Bladder Disease Musculoskeletal: Arthritis, Fibromyalgia, Chronic Back Pain Endocrine: Hyperthyroidism, Diabetes, Insulin dep Loss of Vision: Bilateral Hearing Impairment: Denies Psychosocial: Anxiety History of Blood Disorders: No Adverse Reaction to Blood Castro: No Family History Reviewed Nursing Family Hx Patient reports no known family medical history. Review of Systems ROS-Unable to Obtain: limited due to lethargy Constitutional: malaise, weakness Gastrointestinal: see HPI, abdominal pain, nausea, vomiting Genitourinary: no symptoms reported Musculoskeletal: muscle weakness Skin: no symptoms reported Psychiatric/Neurological: Headache, Weakness Physical Exam Physical Exam Vital Signs Vital Signs - First Documented 12/03/18 14:50 Temp 35.9 Pulse 114 Resp 17 B/P (MAP) 100/51 (67) Pulse Ox 98 O2 Delivery Room Air Capillary Refill : Less Than 3 Seconds Height, Weight, BMI Height: 5'8.00" Weight: 156lbs. 0.0oz. 70.837903ad; 24.00 BMI Method:Stated General Appearance: No Apparent Distress, WD/WN HEENT: No Scleral Icterus (L), No Scleral Icterus (R); Other (dry mucous membranes) Neck: Normal Inspection, Supple Respiratory: Lungs Clear, No Accessory Muscle Use, No Respiratory Distress, Other (tachypnea) Cardiovascular: No Murmur, Tachycardia Gastrointestinal: Normal Bowel Sounds, Non Tender, Soft Extremity: No Calf Tenderness, No Pedal Edema Neurologic/Psychiatric: Alert, Oriented x3 (but drowsy); No Aphasia; Depressed Affect; No Facial Droop Skin: Normal Color, Warm/Dry Results Results/Procedures Labs Laboratory Tests 12/03/18 14:55 Patient resulted labs reviewed. Imaging: Reviewed Imaging Report Assessment/Plan Admission Diagnosis DKA Admission Status: Inpatient Order (span 2 midnights) Reason for Inpatient Admission: insulin gtt, severe metabolic acidosis, acute renal failure Assessment and Plan Severe DKA Insulin gtt DKA protocol Repeat labs now Discussed with Dr Arizmendi who will see in consultation A1c Acute on Chronic Renal Failure Hyperkalemia s/p Calcium given in ER Repeat BMP now Continue fluid resuscitation Follows with [facility] for CKD HTN Well controlled currently, trend Coffee ground emesis Anemia of Chronic Disease Follows with Dr Alexander, discussed with him and he will see her as an outpatient after acute visti Surgery consulted, appreciate recs PPI Critical Care Critically Ill Patient Diagnosis/Problems Diagnosis/Problems (1) Acute renal failure (ARF) Qualifiers: Acute renal failure type: unspecified Qualified Codes: N17.9 - Acute kidney failure, unspecified (2) Hyperkalemia Status: Acute (3) Anemia in chronic kidney disease Qualifiers: Chronic kidney disease stage: stage 3 (moderate) Qualified Codes: N18.3 - Chronic kidney disease, stage 3 (moderate); D63.1 - Anemia in chronic kidney disease (4) Essential (primary) hypertension Status: Chronic (5) CKD (chronic kidney disease) Status: Chronic Qualifiers: Chronic kidney disease stage: stage 3 (moderate) Qualified Codes: N18.3 - Chronic kidney disease, stage 3 (moderate) (6) Lactic acidosis Status: Acute (7) Acute hyperglycemia Status: Acute (8) Diabetic ketoacidosis Status: Acute Qualifiers: Diabetes mellitus type: type 1 Diabetes mellitus complication detail: without coma Qualified Codes: E10.10 - Type 1 diabetes mellitus with ketoacidosis without coma (9) Type 1 diabetes mellitus Status: Chronic Qualifiers: Diabetes mellitus complication status: with ketoacidosis Diabetes mellitus complication detail: without coma Qualified Codes: E10.10 - Type 1 diabetes mellitus with ketoacidosis without coma Copy Copies To 1: ALICE PLUNKETT KATELYN M MD Dec 03, 2018 16:25
[2018-12-03 16:27] LABS: AMORPHOUS SEDIMENT,UR LARGE AMOR URATES /LPF; BACTERIA,URINE TRACE /HPF
[2018-12-03 16:57] LABS: BAND NEUTROPHILS 1 %; HYPERSEGMENTED NEUT SLIGHT; LYMPHOCYTES % (MANUAL) 4 %; MONOCYTES % (MANUAL) 2 %; NEUTROPHILS % (MANUAL) 93 %
[2018-12-03 16:59] LABS: BURR CELLS SLIGHT
[2018-12-03] MEDS ORDERED: PANTOPRAZOLE 40 MG (PROTONIX) VIAL IV NR (17:00)
[2018-12-03] MEDS ORDERED: inSUlin REGULAR TPN/DRIP ONLY 250 UNITS in NORMAL SALINE 250 ML IV SCH (17:00)
[2018-12-03] MEDS ORDERED: CATHETER FLUSH 10 ML SYR IV PRN (17:15)
[2018-12-03 17:19] LABS: CREATININE SERUM 3.58 MG/DL (0.60-1.30); POTASSIUM 5.5 MMOL/L (3.6-5.0)
[2018-12-03 17:20] LABS: CALCIUM 8.2 MG/DL (8.5-10.1)
[2018-12-03] MEDS ORDERED: FLU QUADRIvalent (5+ YOA) 2019-2020 (AFLURIA) 0.5 ML IM ONE (17:30)
[2018-12-03 19:20] LABS: CALCIUM 8.2 MG/DL (8.5-10.1); CREATININE SERUM 3.69 MG/DL (0.60-1.30); POTASSIUM 4.9 MMOL/L (3.6-5.0)
[2018-12-03] MEDS: 1/2 NS IV SOLUTION 1,000 ML IV SCH ×2 (20:33→21:06)
[2018-12-03 21:19] LABS: CREATININE SERUM 3.53 MG/DL (0.60-1.30); POTASSIUM 5.2 MMOL/L (3.6-5.0)
[2018-12-03 23:09] LABS: CALCIUM 7.9 MG/DL (8.5-10.1); CREATININE SERUM 3.51 MG/DL (0.60-1.30); POTASSIUM 4.9 MMOL/L (3.6-5.0)
[2018-12-04] VITALS (26 sets, daily range): BP systolic 121–190; BP diastolic 81–120
[2018-12-04] MEDS: 1/2 NS IV SOLUTION 1,000 ML IV SCH ×6 (00:20→19:50)
[2018-12-04 00:57] LABS: HEMOGLOBIN 7.7 G/DL (11.5-16.0); MEAN PLATELET VOLUME 10.6 FL (7.4-10.4); RED CELL DISTRIBUTION WIDTH 13.2 % (10.0-14.5); WHITE BLOOD COUNT 13.3 10^3/uL (4.3-11.0)
[2018-12-04 01:13] LABS: CALCIUM 7.9 MG/DL (8.5-10.1); CREATININE SERUM 3.39 MG/DL (0.60-1.30); MAGNESIUM 2.2 MG/DL (1.6-2.4); PHOSPHORUS 4.4 MG/DL (2.3-4.7); POTASSIUM 4.5 MMOL/L (3.6-5.0)
[2018-12-04] MEDS: POTASSIUM CL 10MEQ/50ML IVPB 50 ML IV SCH ×9 (01:31→17:26)
[2018-12-04] MEDS: MAGNESIUM 1 GM/100 ML IVPB 100 ML IV SCH (02:02)
[2018-12-04] MEDS: KCL 20 MEQ TAB (K-DUR) PO SCH (02:02)
[2018-12-04] MEDS ORDERED: HYDROcodone/APAP 10 MG/325 MG (LORTAB) TAB PO ONE ×2 (03:11→04:30)
[2018-12-04] MEDS ORDERED: morphine INJ 4 MG/ML 1 ML (VIAL/SYRINGE) IVP PRN (05:15)
[2018-12-04] MEDS ORDERED: PIPERACILLIN/TAZOBACTAM (BULK) 4.5 GM in NS (IVPB) 100 ML IV SCH (05:15)
[2018-12-04] MEDS ORDERED: ACETAMINOPHEN 325 MG TABLET PO PRN (05:15)
[2018-12-04] MEDS ORDERED: NS IV 1000 ML 1,000 ML IV SCH (05:15)
--- NOTE | 2018-12-04 05:17 | Pulmonary Progress Note ---
Sepsis Event Evaluation Height, Weight, BMI Height: 5'8.00" Weight: 156lbs. 0.0oz. 70.272597ew; 24.97 BMI Method:Stated Focused Exam Lactate Level 12/03/18 14:55: Lactic Acid Level 2.10*H 12/03/18 16:45: Lactic Acid Level 1.77 Exam Exam Vital Signs Date Time Temp Pulse Resp B/P (MAP) Pulse Ox O2 Delivery O2 Flow Rate FiO2 12/04/18 04:00 97 Room Air 12/04/18 03:00 118 13 157/104 (121) 98 Room Air 12/04/18 02:00 115 14 159/99 (119) 98 Room Air 12/04/18 01:00 121 18 139/86 (103) 97 Room Air 12/04/18 01:00 120 12/04/18 00:00 38.2 12/04/18 00:00 118 16 145/88 (107) 97 Room Air 12/04/18 00:00 98 Room Air 12/03/18 23:00 121 15 150/91 (110) 97 Room Air 12/03/18 22:00 124 15 144/86 (105) 98 Room Air 12/03/18 21:00 121 15 137/76 (96) 98 Room Air 12/03/18 20:00 38.2 12/03/18 20:00 98 Room Air 12/03/18 20:00 115 15 143/86 (105) 99 Room Air 12/03/18 19:00 119 12/03/18 19:00 118 16 166/100 (122) 99 Room Air 12/03/18 18:00 123 13 171/111 (131) 99 Room Air 12/03/18 17:16 117 12/03/18 17:00 115 11 153/96 (115) 100 Room Air 12/03/18 16:50 100 Room Air 12/03/18 16:40 37.6 115 21 153/96 (115) 100 Room Air 12/03/18 16:37 120 15 133/77 99 Room Air 12/03/18 14:50 35.9 114 17 100/51 (67) 98 Room Air I & O 12/04/18 07:00 Intake Total 6380 ml Output Total 1725 ml Balance 4655 ml Height & Weight Height: 5'8.00" Weight: 156lbs. 0.0oz. 70.952472ll; 24.97 BMI Method:Stated General Appearance: No Apparent Distress, WD/WN HEENT: No Scleral Icterus (L), No Scleral Icterus (R); Other (dry mucous membranes) Neck: Normal Inspection, Supple Respiratory: Lungs Clear, No Accessory Muscle Use, No Respiratory Distress, Other (tachypnea) Cardiovascular: No Murmur, Tachycardia Capillary Refill: Less Than 3 Seconds Extremity: No Calf Tenderness, No Pedal Edema Neurologic/Psychiatric: Alert, Oriented x3 (but drowsy); No Aphasia; Depressed Affect; No Facial Droop Skin: Normal Color, Warm/Dry Lymphatic: No Adenopathy Results Lab Laboratory Tests 12/03/18 14:55 12/03/18 16:45 12/03/18 18:49 12/03/18 20:50 12/03/18 22:49 12/04/18 00:50 ANNETTE GONZALES DO Dec 04, 2018 05:17
[2018-12-04] MEDS ORDERED: NS IV 1000 ML 1,000 ML ONE (05:21)
[2018-12-04] MEDS ORDERED: PIPERACILLIN/TAZO 4.5 GM VIAL (ZOSYN) IV ONE (05:58)
[2018-12-04] MEDS ORDERED: NS (IVPB) 100 ML ONE (05:58)
--- NOTE | 2018-12-04 06:34 | Pulmonary Consultation ---
History of Present Illness History of Present Illness Date of Consultation 12/04/18 06:29 Time Seen by Provider: 06:29 Date of Admission History of Present Illness 33yo with hx of IDDM uncontrolled, HTN presented to ED secondary to N/V. Pt uses an insulin pump at home. Pt also complains of coffee ground emesis. No CP. No f/ns/c. Pt was dx with severe DKA while in the ED. She has had similar prior episodes. Last episode was 2 wks ago. Pt left AMA at that time. I am consulted for ICU management. Allergies and Home Medications Allergies Coded Allergies: insulin regular (Verified Allergy, Mild, "DOESNT WORK", 12/16/16) codeine (Verified Allergy, Unknown, TAKES HYDROCODONE/APAP AT HOME, 12/16/16) Home Medications Ferrous Sulfate 325 Mg Tablet, 325 MG PO DAILY, (Reported) LAST FILLED #90 07-26-18 Fexofenadine HCl 180 Mg Tablet, 180 MG PO DAILY, (Reported) Furosemide 40 Mg Tablet, 40 MG PO BID, (Reported) LAST FILLED #60 09-08-18 Gentamicin Sulfate 5 Ml Drops, 1 DROP OU QID PRN for EYE INJECTIONS, (Reported) Hydrocortisone 10 Mg Tablet, 10 MG PO DAILY, (Reported) Insulin Aspart (Niacinamide) 100 Unit/1 Ml Insuln.pen, 10-15 UNITS SC QID PRN for BS>300, (Reported) Insulin Lispro 100 Unit/1 Ml Vial, PER INSULIN PUMP, (Reported) Labetalol HCl 200 Mg Tablet, 400 MG PO HS, (Reported) TAKES 2 (200MG) TABLETS Losartan Potassium 50 Mg Tablet, 100 MG PO DAILY, (Reported) LAST FILLED #60 07-26-18 TAKES 2 (50MG) TABLETS Minocycline HCl 100 Mg Capsule, 100 MG PO DAILY, (Reported) LAST FILLED #30 09-08-18 Multivitamin 1 Each Tablet, 1 TAB PO DAILY, (Reported) Potassium Chloride 10 Meq Tablet.er, 10 MEQ PO DAILY, (Reported) Ranitidine HCl 150 Mg Tablet, 150 MG PO BID, (Reported) Sertraline HCl 50 Mg Tablet, 50 MG PO DAILY, (Reported) Past Wnurmrj-Kntkzg-Bfrrcl Hx Past Med/Social Hx: Reviewed Nursing Past Med/Soc Hx Patient Social History Alcohol Use: Denies Use Recreational Drug Use: No Smoking Status: Never a Smoker 2nd Hand Smoke Exposure: No Recent Foreign Travel: No Contact w/Someone Who Travel: No Recent Infectious Disease Expo: No Recent Hopitalizations: No Physical Abuse: No Sexual Abuse: No Mistreated: No Fear: No Immunizations Up To Date Tetanus Booster (TDap): Less than 5yrs Date of Influenza Vaccine: Dec 23, 2017 Seasonal Allergies Seasonal Allergies: Yes Past Medical History Surgeries: Yes (Bladder Stretching,bilat knee scope, carpal tunnel bilat, r cupital tunnel) Adenoidectomy, Bladder Surgery, Section (X2), Orthopedic, Tonsillectomy Respiratory: No Cardiac: No Hypertension Neurological: Yes Neuropathy : No 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 Disorders: No 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 Disorders: Denies [employer] History: IUD Sexually Transmitted Disease: No HIV/AIDS: No Genitourinary: Yes (UTI) Renal Failure Gastrointestinal: Yes Gastroesophageal Reflux, Gall Bladder Disease Musculoskeletal: Yes Arthritis, Fibromyalgia, Chronic Back Pain Endocrine: Yes (HASHIMOTOS) Hyperthyroidism, Diabetes, Insulin dep HEENT: No Loss of Vision: Bilateral Hearing Impairment: Denies Cancer: No Psychosocial: Yes Anxiety Integumentary: No Blood Disorders: No Adverse Reaction/Blood Tranf: No Family Medical History Reviewed Nursing Family Hx Patient reports no known family medical history. Review of Systems Time Seen by Provider: 06:32 Constitutional: Sweats, Weakness, Malaise; No: Fever, Chills, Other Eyes: No: Pain, Vision change, Conjunctivae inflammation, Eyelid inflammation, Other, Redness ENT: Nose congestion; No: Ear pain, Ear discharge, Nose pain, Nose discharge, Mouth pain, Mouth swelling, Throat pain, Throat swelling, Other Respiratory: Cough, Dry, Shortness of breath, SOB with excertion; No: Wheezing, Hemoptysis, Pleuritic Pain, Sputum, Wheezing, Other Cardiovascular: Palpitations; No: Chest Pain, Orthopnea, Paroxysmal Noc. Dyspnea, Edema, Lt Headedness, Other Gastrointestinal: Nausea, Vomiting; No: Abdominal Pain, Diarrhea Genitourinary: Frequency; No Incontinence, No Hematuria Sepsis Event Evaluation Height, Weight, BMI Height: 5'8.00" Weight: 156lbs. 0.0oz. 70.480792ka; 24.97 BMI Method:Stated Exam Exam Vital Signs Date Time Temp Pulse Resp B/P (MAP) Pulse Ox O2 Delivery O2 Flow Rate FiO2 12/04/18 06:00 108 12 146/100 (115) 98 Room Air 12/04/18 05:00 113 14 150/102 (118) 97 Room Air 12/04/18 04:00 97 Room Air 12/04/18 04:00 115 15 152/102 (119) 97 Room Air 12/04/18 03:00 118 13 157/104 (121) 98 Room Air 12/04/18 02:00 115 14 159/99 (119) 98 Room Air 12/04/18 01:00 121 18 139/86 (103) 97 Room Air 12/04/18 01:00 120 12/04/18 00:00 38.2 12/04/18 00:00 118 16 145/88 (107) 97 Room Air 12/04/18 00:00 98 Room Air 12/03/18 23:00 121 15 150/91 (110) 97 Room Air 12/03/18 22:00 124 15 144/86 (105) 98 Room Air 12/03/18 21:00 121 15 137/76 (96) 98 Room Air 12/03/18 20:00 38.2 12/03/18 20:00 98 Room Air 12/03/18 20:00 115 15 143/86 (105) 99 Room Air 12/03/18 19:00 119 12/03/18 19:00 118 16 166/100 (122) 99 Room Air 12/03/18 18:00 123 13 171/111 (131) 99 Room Air 12/03/18 17:16 117 12/03/18 17:00 115 11 153/96 (115) 100 Room Air 12/03/18 16:50 100 Room Air 12/03/18 16:40 37.6 115 21 153/96 (115) 100 Room Air 12/03/18 16:37 120 15 133/77 99 Room Air 12/03/18 14:50 35.9 114 17 100/51 (67) 98 Room Air I & O 12/04/18 07:00 Intake Total 6380 ml Output Total 1725 ml Balance 4655 ml Height & Weight Height: 5'8.00" Weight: 156lbs. 0.0oz. 70.745682io; 24.97 BMI Method:Stated General Appearance: No Apparent Distress, WD/WN HEENT: No Scleral Icterus (L), No Scleral Icterus (R); Other (dry mucous membranes) Neck: Normal Inspection, Supple Respiratory: Lungs Clear, No Accessory Muscle Use, No Respiratory Distress, Other (tachypnea) Cardiovascular: No Murmur, Tachycardia Capillary Refill: Less Than 3 Seconds Extremity: No Calf Tenderness, No Pedal Edema Neurologic/Psychiatric: Alert, Oriented x3 (but drowsy); No Aphasia; Depressed Affect; No Facial Droop Skin: Normal Color, Warm/Dry Lymphatic: No Adenopathy Results Lab Laboratory Tests 12/03/18 14:55 12/03/18 16:45 12/03/18 18:49 12/03/18 20:50 12/03/18 22:49 12/04/18 00:50 Assessment/Plan Assessment/Plan Acute severe DKA -IVF -DKA protocol -Repeat Labs pending Acute dehydration with renal failure -UO is good -Give a liter bolus now of LR -Continue aggressive IVF and monitor -Repeat labs pending Medical noncompliance -Education Low grade fever with leukocytosis -Start Zosyn -Await bull cultures Anemia -Monitor -Increase Protonix to BID ANNETTE GONZALES DO Dec 04, 2018 06:34
--- NOTE | 2018-12-04 06:57 | Diagnostic Imaging Report ---
INDICATION: Shortness of breath and fever. TIME OF EXAM: 5:37 AM Correlation is made with prior chest from 12/03/2018. FINDINGS: The heart size is normal. The pulmonary vascularity is unremarkable. The lungs are clear. No infiltrate, effusion or pneumothorax is detected. IMPRESSION: No acute cardiopulmonary process is detected. Dictated by: Dictated on workstation # [id number]
[2018-12-04] MEDS: D5 1/2 NS 1000 ML IV SOLUTION 1,000 ML IV SCH ×3 (07:24→17:11)
[2018-12-04 08:28] LABS: ALBUMIN 2.4 GM/DL (3.2-4.5); BILIRUBIN,TOTAL 0.2 MG/DL (0.1-1.0); CALCIUM 7.5 MG/DL (8.5-10.1); CREATININE SERUM 2.93 MG/DL (0.60-1.30); MAGNESIUM 2.1 MG/DL (1.6-2.4); PHOSPHORUS 4.1 MG/DL (2.3-4.7); POTASSIUM 4.9 MMOL/L (3.6-5.0); TOTAL PROTEIN 4.8 GM/DL (6.4-8.2)
--- NOTE | 2018-12-04 08:57 | Progress Note - Hospitalist ---
Subjective HPI/CC On Admission Date Seen by Provider: Dec 04, 2018 Time Seen by Provider: 08:52 Pt is a 33yoCF with a PMH of IDDMI and HTN who presented due to nausea and vomiting. She states for the past two days she has had "gastroparesis" but it normally doesn't last two days. She normally sees Dr Plunkett for her diabetes and is on an insulin pump. She is unsure of her basal rate for her pump. She is also unable to tell me her bolus regimen. She has not checked her blood sugars today and her last check was last night and reported as 189. She is unsure of her last a1c. Her reports that she has been vomiting and has had some dark "dried blood." She was supposed to see Dr Alexander today for review of her labs for anemia but was so sick she came here instead. She believes her insulin pump is running because it normally beeps when it is occluded but she has not checked it either. She is otherwise quite sleepy and unable to proivde other history. reports she was here roughly 2 weeks ago for DKA but signed her self out AMA. Subjective/Events-last exam Pt reports feeling better today. She hasn't vomited again and has tolerated jello. No other complaints. Awaiting labs. Focused Exam Lactate Level 12/03/18 14:55: Lactic Acid Level 2.10*H 12/03/18 16:45: Lactic Acid Level 1.77 12/04/18 07:59: Lactic Acid Level 0.71 Lactic Acid Level Laboratory Tests Test 12/04/18 07:59 Lactic Acid Level 0.71 MMOL/L (0.50-2.00) Objective Exam Vital Signs Vital Signs Date Time Temp Pulse Resp B/P (MAP) Pulse Ox O2 Delivery O2 Flow Rate FiO2 12/04/18 07:00 106 12/04/18 06:00 12 146/100 (115) 98 Room Air 12/04/18 00:00 38.2 Capillary Refill : Less Than 3 Seconds General Appearance: No Apparent Distress, WD/WN Respiratory: Lungs Clear, No Respiratory Distress Cardiovascular: Regular Rate, Rhythm, No Murmur Gastrointestinal: Normal Bowel Sounds, Non Tender, Soft Neurologic/Psychiatric: Alert, Oriented x3, Normal Mood/Affect Results/Procedures Lab Laboratory Tests 12/03/18 14:55 12/03/18 16:45 10/11/19 18:49 12/03/18 20:50 12/03/18 22:49 12/04/18 00:50 12/04/18 07:59 Patient resulted labs reviewed. Imaging: Reviewed Imaging Report Assessment/Plan Assessment and Plan Assess & Plan/Chief Complaint Severe DKA- improving Insulin gtt DKA protocol Repeat labs show persistent acidosis so not ready to DC gtt yet Repeat BMP this afternoon, may be able to switch then A1c pending Acute on Chronic Renal Failure Hyperkalemia Continue IVF Creatinine improving Follows with [facility] for CKD HTN IV Hydrazline prn Resume Losartan when DAILY resolved Coffee ground emesis Anemia of Chronic Disease Follows with Dr Alexander, discussed with him and he will see her as an outpatient after acute visit Surgery consulted, appreciate recs PPI New onset fever Cultures obtained No evidence of sepsis Zosyn started Critical Care Critically Ill Patient Diagnosis/Problems Diagnosis/Problems (1) Acute renal failure (ARF) Qualifiers: Acute renal failure type: unspecified Qualified Codes: N17.9 - Acute kidney failure, unspecified (2) Hyperkalemia Status: Acute (3) Anemia in chronic kidney disease Qualifiers: Chronic kidney disease stage: stage 3 (moderate) Qualified Codes: N18.3 - Chronic kidney disease, stage 3 (moderate); D63.1 - Anemia in chronic kidney dis ease (4) Essential (primary) hypertension Status: Chronic (5) CKD (chronic kidney disease) Status: Chronic Qualifiers: Chronic kidney disease stage: stage 3 (moderate) Qualified Codes: N18.3 - Chronic kidney disease, stage 3 (moderate) (6) Lactic acidosis Status: Acute (7) Acute hyperglycemia Status: Acute (8) Diabetic ketoacidosis Status: Acute Qualifiers: Diabetes mellitus type: type 1 Diabetes mellitus complication detail: without coma Qualified Codes: E10.10 - Type 1 diabetes mellitus with ketoacidosis without coma (9) Type 1 diabetes mellitus Status: Chronic Qualifiers: Diabetes mellitus complication status: with ketoacidosis Diabetes mellitus complication detail: without coma Qualified Codes: E10.10 - Type 1 diabetes mellitus with ketoacidosis without coma Clinical Quality Measures DVT/VTE Risk/Contraindication: Risk Factor Score Per Nursin RFS Level Per Nursing on Admit: 1=Low/No VTE PPX KHADRA PRINCE MD Dec 04, 2018 08:57
[2018-12-04] MEDS ORDERED: PANTOPRAZOLE 40 MG (PROTONIX) VIAL IV SCH (09:00)
[2018-12-04] MEDS: PANTOPRAZOLE 40 MG (PROTONIX) VIAL IV SCH ×2 (09:44→21:13)
[2018-12-04 09:45] LABS: CALCIUM 7.2 MG/DL (8.5-10.1); CREATININE SERUM 2.89 MG/DL (0.60-1.30); POTASSIUM 4.5 MMOL/L (3.6-5.0)
[2018-12-04] MEDS: PIPERACILLIN/TAZOBACTAM (BULK) 4.5 GM in NS (IVPB) 100 ML IV SCH ×2 (11:51→21:37)
[2018-12-04 12:01] LABS: BILIRUBIN,URINE NEGATIVE (NEGATIVE); CLARITY,URINE CLEAR; COLOR,URINE YELLOW; GLUCOSE, URINE (UA) 4+ (NEGATIVE); KETONES,URINE 3+ (NEGATIVE); LEUKOCYTE ESTERASE ,URINE NEGATIVE (NEGATIVE); NITRITE,URINE NEGATIVE (NEGATIVE); PH,URINE 5 (5-9); PROTEIN,URINE 4+ (NEGATIVE); UROBILINOGEN,URINE NORMAL (NORMAL)
[2018-12-04 12:09] LABS: AMORPHOUS SEDIMENT,UR MOD AMOR URATES /LPF; BACTERIA,URINE NEGATIVE /HPF; GRANULAR CASTS,URINE 0-2 /LPF; RBC,URINE 0-2 /HPF; SQUAMOUS EPITHELIAL CELL,UR 0-2 /HPF
--- NOTE | 2018-12-04 13:26 | Consultation - Surgery ---
[facility] 12/04/18 1326: History of Present Illness History of Present Illness Patient Consulted On(ephraim/time) 12/04/18 13:21 Date Seen by Provider: Dec 04, 2018 Time Seen by Provider: 07:25 History of Present Illness Coffee ground emesis, Nausea, Vomiting Patient presents with coffee ground emesis after having episodes of vomiting for the past 36 hours. Does not currently complain of any nausea or vomiting. Has a history of Gastroesophageal Reflux. Has not had any bowel movements. PMH of DM and Renal failure with Creatinine of 2.89, and hypertension with associated headaches.History of Blood clots Allergies and Home Medications Allergies Coded Allergies: insulin regular (Verified Allergy, Mild, "DOESNT WORK", 12/16/16) codeine (Verified Allergy, Unknown, TAKES HYDROCODONE/APAP AT HOME, 12/16/16) Home Medications Ferrous Sulfate 325 Mg Tablet, 325 MG PO DAILY, (Reported) LAST FILLED #90 07-26-18 Fexofenadine HCl 180 Mg Tablet, 180 MG PO DAILY, (Reported) Furosemide 40 Mg Tablet, 40 MG PO BID, (Reported) LAST FILLED #60 09-08-18 Gentamicin Sulfate 5 Ml Drops, 1 DROP OU QID PRN for EYE INJECTIONS, (Reported) Hydrocortisone 10 Mg Tablet, 10 MG PO DAILY, (Reported) Insulin Aspart (Niacinamide) 100 Unit/1 Ml Insuln.pen, 10-15 UNITS SC QID PRN for BS>300, (Reported) Insulin Lispro 100 Unit/1 Ml Vial, PER INSULIN PUMP, (Reported) Labetalol HCl 200 Mg Tablet, 400 MG PO HS, (Reported) TAKES 2 (200MG) TABLETS Losartan Potassium 50 Mg Tablet, 100 MG PO DAILY, (Reported) LAST FILLED #60 07-26-18 TAKES 2 (50MG) TABLETS Minocycline HCl 100 Mg Capsule, 100 MG PO DAILY, (Reported) LAST FILLED #30 09-08-18 Multivitamin 1 Each Tablet, 1 TAB PO DAILY, (Reported) Potassium Chloride 10 Meq Tablet.er, 10 MEQ PO DAILY, (Reported) Ranitidine HCl 150 Mg Tablet, 150 MG PO BID, (Reported) Sertraline HCl 50 Mg Tablet, 50 MG PO DAILY, (Reported) Past Icncdfg-[id number]-Anodkw Hx Patient Social History Alcohol Use: Denies Use Recreational Drug Use: No Smoking Status: Never a Smoker 2nd Hand Smoke Exposure: No Recent Foreign Travel: No Contact w/Someone Who Travel: No Recent Infectious Disease Expo: No Recent Hopitalizations: No Immunizations Up To Date Tetanus Booster (TDap): Less than 5yrs Date of Influenza Vaccine: Dec 23, 2017 Seasonal Allergies Seasonal Allergies: Yes Surgeries History of Surgeries: Yes (Bladder Stretching,bilat knee scope, carpal tunnel bilat, r cupital tunnel) Surgeries: Adenoidectomy, Bladder Surgery, Section (X2), Orthopedic, Tonsillectomy Respiratory History of Respiratory Disorde: No Cardiovascular History of Cardiac Disorders: No Cardiac Disorders: Hypertension Neurological History of Neurological Disord: Yes Neurological Disorders: Neuropathy 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 System : No Hx 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 Disorders: No Sexually Transmitted Disease: No HIV/AIDS: No 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 Disorders: Denies STEEL BUFFER History: IUD Genitourinary History of Genitourinary Disor: Yes (UTI) Genitourinary Disorders: Renal Failure Gastrointestinal History of Gastrointestinal Di: Yes Gastrointestinal Disorders: Gastroesophageal Reflux, Gall Bladder Disease Musculoskeletal History of Musculoskeletal Dis: Yes Musculoskeletal Disorders: Arthritis, Fibromyalgia, Chronic Back Pain Endocrine History of Endocrine Disorders: Yes (HASHIMOTOS) Endocrine Disorders: Hyperthyroidism, Diabetes, Insulin dep HEENT History of HEENT Disorders: No Loss of Vision: Bilateral Hearing Impairment: Denies Cancer History of Cancer: No Psychosocial History of Psychiatric Problem: Yes Behavioral Health Disorders: Anxiety Integumentary History of Skin or Integumenta: No Blood Transfusions History of Blood Disorders: No Adverse Reaction to a Blood Tr: No Family Medical History Family Medial History: Patient reports no known family medical history. Review of Systems-General Constitutional: No chills, No fever EENTM: other (headache) Respiratory: No dyspnea on exertion, No short of breath Cardiovascular: No chest pain Gastrointestinal: No abdominal pain, No nausea, No vomiting Musculoskeletal: No back pain (chronic) Physical Exam-General Problems Physical Exam Vital Signs Vital Signs - First Documented 12/03/18 14:50 Temp 35.9 Pulse 114 Resp 17 B/P (MAP) 100/51 (67) Pulse Ox 98 O2 Delivery Room Air Capillary Refill : Less Than 3 Seconds General Appearance: WD/WN, no apparent distress HEENT: PERRL/EOMI Neck: supple Respiratory: chest non-tender, lungs clear, normal breath sounds, no respiratory distress, no accessory muscle use Cardiovascular: regular rate, rhythm, no JVD, no murmur Gastrointestinal: non tender, soft, no organomegaly, no pulsatile mass Extremities: swelling Neurologic/Psychiatric: alert, oriented x 3 Data Review Labs Laboratory Tests 12/03/18 14:55: White Blood Count 12.9H, Red Blood Count 3.15L, Hemoglobin 9.2L, Hematocrit 30L, Mean Corpuscular Volume 94, Mean Corpuscular Hemoglobin 29, Mean Corpuscular Hemoglobin Concent 31L, Red Cell Distribution Width 13.2, Platelet Count 335, Mean Platelet Volume 12.1H, Neutrophils (%) (Auto) 94H, Lymphocytes (%) (Auto) 4L, Monocytes (%) (Auto) 2, Eosinophils (%) (Auto) 0, Basophils (%) (Auto) 0, Neutrophils # (Auto) 12.1H, Lymphocytes # (Auto) 0.5L, Monocytes # (Auto) 0.2, Eosinophils # (Auto) 0.0, Basophils # (Auto) 0.0, Neutrophils % (Manual) 93, Lymphocytes % (Manual) 4, Monocytes % (Manual) 2, Band Neutrophils 1, Hypersegmented Neutrophils SLIGHT, Sabina Cells SLIGHT, Schistocytes , Prothrombin Time 13.7, INR Comment 1.0, Activated Partial Thromboplast Time 28, Sodium Level 125*L, Potassium Level 7.1*H, Chloride Level 90L, Carbon Dioxide Level 7*L, Anion Gap 28H, Blood Urea Nitrogen 73H, Creatinine 3.83H, Estimat Glomerular Filtration Rate 14, BUN/Creatinine Ratio 19, Glucose Level 1214*H, Lactic Acid Level 2.10*H, Calcium Level 8.6, Corrected Calcium 9.4, Phosphorus Level 8.2H, Magnesium Level 2.9H, Total Bilirubin 0.2, Aspartate Amino Transf (AST/SGOT) 31, Alanine Aminotransferase (ALT/SGPT) 32, Alkaline Phosphatase 125, Total Protein 5.9L, Albumin 3.0L 12/03/18 15:05: Blood Gas Puncture Site RIGHT RADIAL, Blood Gas Patient Temperature 35.9, Arterial Blood pH 7.17*L, Arterial Blood Partial Pressure CO2 19*L, Arterial Blood Partial Pressure O2 102H, Arterial Blood HCO3 7*L, Arterial Blood Total CO2 7.5L, Arterial Blood Oxygen Saturation 98, Arterial Blood Base Excess -20.3L , Kofi Test POSITIVE, Blood Gas Ventilator Setting NO, Blood Gas Inspired Oxygen N/A 12/03/18 15:30: Urine Test NEGATIVE 12/03/18 15:38: Urine Color YELLOW, Urine Clarity SLIGHTLY CLOUDY, Urine pH 5, Urine Specific [place] 1.015L, Urine Protein 4+, Urine Glucose (UA) 4+H, Urine Ketones 3+H, Urine Nitrite NEGATIVE, Urine Bilirubin NEGATIVE, Urine Urobilinogen NORMAL, Urine Leukocyte Esterase NEGATIVE, Urine RBC (Auto) 1+H, Urine RBC 2-5H, Urine WBC NONE, Urine Crystals PRESENTH, Urine Amorphous Sediment LARGE SIGIFREDO URATESH, Urine Bacteria TRACE, Urine Casts PRESENT, Urine Granular Casts 5-10H, Urine M ucus NEGATIVE, Urine Culture Indicated NO 12/03/18 16:45: Sodium Level 131L, Potassium Level 5.5H, Chloride Level 99, Carbon Dioxide Level 8*L, Anion Gap 24H, Blood Urea Nitrogen 68H, Creatinine 3.58H, Estimat Glomerular Filtration Rate 15, BUN/Creatinine Ratio 19, Glucose Level 967*H, Lactic Acid Level 1.77, Calcium Level 8.2L, Beta-Hydroxybutyrate (Chem panel) 9.79H 12/03/18 16:51: Glucometer > 600*H 12/03/18 18:49: Sodium Level 134L, Potassium Level 4.9, Chloride Level 102, Carbon Dioxide Level 10L, Anion Gap 22H, Blood Urea Nitrogen 67H, Creatinine 3.69H, Estimat Glomerular Filtration Rate 14, BUN/Creatinine Ratio 18, Glucose Level 791*H, Calcium Level 8.2L 12/03/18 20:40: Glucometer > 600*H 12/03/18 20:50: Sodium Level 134L, Potassium Level 5.2H, Chloride Level 103, Carbon Dioxide Level 11L, Anion Gap 20H, Blood Urea Nitrogen 68H, Creatinine 3.53H, Estimat Glomerular Filtration Rate 15, BUN/Creatinine Ratio 19, Glucose Level 768*H, Ca lcium Level 8.0L 12/03/18 22:49: Sodium Level 135, Potassium Level 4.9, Chloride Level 105, Carbon Dioxide Level 11L, Anion Gap 19H, Blood Urea Nitrogen 67H, Creatinine 3.51H, Estimat Glomerular Filtration Rate 15, BUN/Creatinine Ratio 19, Glucose Level 670*H, Calcium Level 7.9L 12/04/18 00:50: Sodium Level 135, Potassium Level 4.5, Chloride Level 106, Carbon Dioxide Level 15L, Anion Gap 14, Blood Urea Nitrogen 64H, Creatinine 3.39H, Estimat Glomerular Filtration Rate 16, BUN/Creatinine Ratio 19, Glucose Level 499*H, Calcium Level 7.9L, White Blood Count 13.3H, Red Blood Count 2.65L, Hemoglobin 7.7L, Hematocrit 22L, Mean Corpuscular Volume 84, Mean Corpuscular Hemoglobin 29, Mean Corpuscular Hemoglobin Concent 35, Red Cell Distribution Width 13.2, Platelet Count 321, Mean Platelet Volume 10.6H, Phosphorus Level 4.4, Magnesium Level 2.2 12/04/18 02:20: Glucometer 425*H 12/04/18 03:14: Glucometer 391H 12/04/18 04:19: Glucometer 372H 12/04/18 05:23: Glucometer 319H 12/04/18 06:20: Glucometer 255H 12/04/18 07:17: Glucometer 238H 12/04/18 07:45: Glucometer 264H 12/04/18 07:59: Sodium Level 135, Potassium Level 4.9, Chloride Level 108H, Carbon Dioxide Level 16L, Anion Gap 11, Blood Urea Nitrogen 56H, Creatinine 2.93#H, Estimat Glomerular Filtration Rate 19, BUN/Creatinine Ratio 19, Glucose Level 270H, Lactic Acid Level 0.71, Calcium Level 7.5L, Corrected Calcium 8.8, Phosphorus Level 4.1, Magnesium Level 2.1, Total Bilirubin 0.2, Aspartate Amino Transf (AST/SGOT) 18, Alanine Aminotransferase (ALT/SGPT) 20, Alkaline Phosphatase 90, Total Protein 4.8L, Albumin 2.4L 12/04/18 08:57: Glucometer 368H 12/04/18 09:23: Sodium Level 134L, Potassium Level 4.5, Chloride Level 108H, Carbon Dioxide Level 15L, Anion Gap 11, Blood Urea Nitrogen 56H, Creatinine 2.89H, Estimat Glomerular Filtration Rate 19, BUN/Creatinine Ratio 19, Glucose Level 358H, Calcium Level 7.2L 12/04/18 09:48: Glucometer 359H 12/04/18 10:55: Glucometer 342H 12/04/18 11:41: Urine Color YELLOW, Urine Clarity CLEAR, Urine pH 5, Urine Specific [place] 1.020, Urine Protein 4+, Urine Glucose (UA) 4+H, Urine Ketones 3+H, Urine Nitrite NEGATIVE, Urine Bilirubin NEGATIVE, Urine Urobilinogen NORMAL, Urine Leukocyte Esterase NEGATIVE, Urine RBC (Auto) 1+H, Urine RBC 0-2, Urine WBC NONE, Urine Squamous Epithelial Cells 0-2, Urine Crystals NONE, Urine Amorphous Sediment MOD SIGIFREDO URATESH, Urine Bacteria NEGATIVE, Urine Casts PRESENT, Urine Granular Casts 0-2H, Urine Mucus NEGATIVE, Urine Culture Indicated NO 12/04/18 12:06: Glucometer 258H Microbiology 12/03/18 Influenza Types A,B Antigen (STARR) - Final, Complete Assessment/Plan Assessment/Plan Assessment/Plan Upper GI Bleed Renal Failure Diabetes Mellitus Hypertension Headaches Continue Medications as necessary for past medical diagnoses Monitor Vomiting for coffee ground emesis. DVT prophylaxis Clinical Quality Measures DVT/VTE Risk/Contraindication: Risk Factor Score Per Nursin RFS Level Per Nursing on Admit: 1=Low/No VTE PPX ARNULFO NAZARIO DO 12/04/18 1508: History of Present Illness History of Present Illness History of Present Illness Consult requested for coffee ground emesis, n/v from Dr. Laird. Patient is a 33 year old female who for last couple days was having multiple episodes of nausea and emesis. Vomitus was coffee ground in appearance. She states today not having any emesis so far, but slight nausea. Nothing seemed to make better or worse. She states since having child she has had issues with GERD, but before this she has not. She is diabetic, but her blood sugars have not been under control. Today patient states she is feeling a little better. D enies any abdominal pain. She denies fever sweats chills shortness of breath or chest pain. Allergies and Home Medications Allergies Coded Allergies: insulin regular (Verified Allergy, Mild, "DOESNT WORK", 12/16/16) codeine (Verified Allergy, Unknown, TAKES HYDROCODONE/APAP AT HOME, 12/16/16) Home Medications Ferrous Sulfate 325 Mg Tablet, 325 MG PO DAILY, (Reported) LAST FILLED #90 07-26-18 Fexofenadine HCl 180 Mg Tablet, 180 MG PO DAILY, (Reported) Furosemide 40 Mg Tablet, 40 MG PO BID, (Reported) LAST FILLED #60 09-08-18 Gentamicin Sulfate 5 Ml Drops, 1 DROP OU QID PRN for EYE INJECTIONS, (Reported) Hydrocortisone 10 Mg Tablet, 10 MG PO DAILY, (Reported) Insulin Aspart (Niacinamide) 100 Unit/1 Ml Insuln.pen, 10-15 UNITS SC QID PRN for BS>300, (Reported) Insulin Lispro 100 Unit/1 Ml Vial, PER INSULIN PUMP, (Reported) Labetalol HCl 200 Mg Tablet, 400 MG PO HS, (Reported) TAKES 2 (200MG) TABLETS Losartan Potassium 50 Mg Tablet, 100 MG PO DAILY, (Reported) LAST FILLED #60 07-26-18 TAKES 2 (50MG) TABLETS Minocycline HCl 100 Mg Capsule, 100 MG PO DAILY, (Reported) LAST FILLED #30 09-08-18 Multivitamin 1 Each Tablet, 1 TAB PO DAILY, (Reported) Potassium Chloride 10 Meq Tablet.er, 10 MEQ PO DAILY, (Reported) Ranitidine HCl 150 Mg Tablet, 150 MG PO BID, (Reported) Sertraline HCl 50 Mg Tablet, 50 MG PO DAILY, (Reported) Patient Home Medication List Home Medication List Reviewed: Yes Past Gmaqdiu-Pspici-Cxqnwz Hx Patient Social History Alcohol Use: Denies Use Smoking Status: Never a Smoker Surgeries Surgeries: Adenoidectomy, Bladder Surgery, Section (X2), Orthopedic, Tonsillectomy Cardiovascular Cardiac Disorders: Hypertension Neurological Neurological Disorders: Neuropathy Genitourinary Genitourinary Disorders: Renal Failure Gastrointestinal Gastrointestinal Disorders: Gastroesophageal Reflux, Gall Bladder Disease Musculoskeletal Musculoskeletal Disorders: Arthritis, Fibromyalgia, Chronic Back Pain Endocrine Endocrine Disorders: Hyperthyroidism, Diabetes, Insulin dep Psychosocial Behavioral Health Disorders: Anxiety Family Medical History Significant Family History: No Pertinent Family Hx Family Medial History: Patient reports no known family medical history. Review of Systems-General Constitutional: no symptoms reported EENTM: no symptoms reported Respiratory: no symptoms reported Cardiovascular: no symptoms reported Gastrointestinal: see HPI Genitourinary: no symptoms reported Musculoskeletal: no symptoms reported Skin: no symptoms reported Psychiatric/Neurological: No Symptoms Reported Physical Exam-General Problems Physical Exam General Appearance: WD/WN, no apparent distress HEENT: PERRL/EOMI Neck: supple Respiratory: chest non-tender, no respiratory distress, no accessory muscle use Cardiovascular: regular rate, rhythm Gastrointestinal: non tender, soft, no organomegaly Back: no CVA tenderness Extremities: non-tender, normal inspection, no pedal edema Neurologic/Psychiatric: support technician II-XII nml as tested, no motor/sensory deficits, alert, normal mood/affect, oriented x 3 Skin: normal color, warm/dry Lymphatic: no adenopathy Assessment/Plan Assessment/Plan Assessment/Plan upper gi bleed, coffee ground emesis c anemia dka dehydration renal failure leukocytosis patient bull cultured and on abx follow hgb and transfuse prn would recommend egd for further evaluation will do when okay with medical team unless becomes emergent patient agrees with plan. Supervisory-Addendum Brief Verification & Attestation Participated in pt care: history, MDM, physical Personally performed: exam, history, MDM, supervision of care Care discussed with: Medical Student Procedures: n/a Results interpretation: Verified all documentation Verification and Attestation of Medical Student E/M Service A medical student performed and documented this service in my presence. I reviewed and verified all information documented by the medical student and made modifications to such information, when appropriate. I personally performed the physical exam and medical decision making. Arnulfo Nazario, Dec 04, 2018,15:14 [facility] Dec 04, 2018 13:26 ARNULFO NAZARIO DO Dec 04, 2018 15:08
[2018-12-04 14:07] LABS: BASOPHILS % (AUTO) 0 % (0-10); EOSINOPHILS % (AUTO) 0 % (0-10); HEMATOCRIT 25 % (35-52); HEMOGLOBIN 8.5 G/DL (11.5-16.0); LYMPHOCYTES % (AUTO) 10 % (12-44); MEAN CORPUSCULAR HEMOGLOBIN 29 PG (25-34); MEAN CORPUSCULAR HGB CONC 34 G/DL (32-36); MEAN CORPUSCULAR VOLUME 85 FL (80-99); MEAN PLATELET VOLUME 10.6 FL (7.4-10.4); MONOCYTES # (AUTO) 1.7 X 10^3 (0.0-1.0); MONOCYTES % (AUTO) 9 % (0-12); NEUTROPHILS # (AUTO) 15.7 X 10^3 (1.8-7.8); NEUTROPHILS % (AUTO) 80 % (42-75); PLATELET COUNT 373 10^3/uL (130-400); RED CELL DISTRIBUTION WIDTH 13.7 % (10.0-14.5); WHITE BLOOD COUNT 19.5 10^3/uL (4.3-11.0)
[2018-12-04 14:33] LABS: BAND NEUTROPHILS 0 %; BASOPHILS % (MANUAL) 0 %; EOSINOPHILS % (MANUAL) 1 %; LYMPHOCYTES % (MANUAL) 12 %; MONOCYTES % (MANUAL) 5 %; NEUTROPHILS % (MANUAL) 82 %; RBC MORPH NORMAL
[2018-12-04 16:40] LABS: CALCIUM 7.2 MG/DL (8.5-10.1); CREATININE SERUM 2.76 MG/DL (0.60-1.30); POTASSIUM 4.3 MMOL/L (3.6-5.0)
[2018-12-04] MEDS ORDERED: inSUlin ASPART (NovoLOG) 1 UNIT/0.01 ML (CHARGE PER UNIT) SC SCH (17:00)
[2018-12-04] MEDS: FUROSEMIDE 40 MG (LASIX) TAB PO SCH (17:10)
[2018-12-04 22:16] LABS: BASOPHILS % (AUTO) 0 % (0-10); EOSINOPHILS # (AUTO) 0.1 10^3/uL (0.0-0.3); EOSINOPHILS % (AUTO) 1 % (0-10); HEMATOCRIT 24 % (35-52); HEMOGLOBIN 8.2 G/DL (11.5-16.0); LYMPHOCYTES # (AUTO) 1.2 X 10^3 (1.0-4.0); LYMPHOCYTES % (AUTO) 10 % (12-44); MEAN CORPUSCULAR HEMOGLOBIN 29 PG (25-34); MEAN CORPUSCULAR HGB CONC 34 G/DL (32-36); MEAN CORPUSCULAR VOLUME 86 FL (80-99); MEAN PLATELET VOLUME 10.6 FL (7.4-10.4); MONOCYTES # (AUTO) 0.6 X 10^3 (0.0-1.0); MONOCYTES % (AUTO) 5 % (0-12); NEUTROPHILS # (AUTO) 10.2 X 10^3 (1.8-7.8); NEUTROPHILS % (AUTO) 84 % (42-75); PLATELET COUNT 313 10^3/uL (130-400); RED CELL DISTRIBUTION WIDTH 13.5 % (10.0-14.5); WHITE BLOOD COUNT 12.2 10^3/uL (4.3-11.0)
--- NOTE | 2018-12-04 23:00 | NUR ---
pt received from ICU per wc to room 408. Zosyn restarted per pump @30 ml/hr in left AC SL. assessment done and pt oriented to room. BP high will recheck
[2018-12-04] MEDS: hydrALAZINE (APESOLINE) 20 MG/ML VIAL IV PRN (23:40)
[2018-12-05] VITALS (8 sets, daily range): BP systolic 152–186; BP diastolic 80–127
[2018-12-05] MEDS: 1/2 NS IV SOLUTION 1,000 ML IV SCH ×2 (01:00→05:00)
[2018-12-05] MEDS: PIPERACILLIN/TAZOBACTAM (BULK) 4.5 GM in NS (IVPB) 100 ML IV SCH ×3 (04:33→21:39)
[2018-12-05] MEDS ORDERED: LOSARTAN 100 MG (COZAAR) TABLET ONE (05:08)
[2018-12-05] MEDS ORDERED: NYSTATIN ORAL SUSP 5 ML UDC ONE (05:08)
[2018-12-05] MEDS: LOSARTAN 100 MG (COZAAR) TABLET PO SCH ×2 (05:11→08:27)
[2018-12-05] MEDS: NYSTATIN ORAL SUSP 5 ML UDC PO SCH ×3 (05:11→18:19)
[2018-12-05] MEDS: FUROSEMIDE 40 MG (LASIX) TAB PO SCH ×2 (06:28→17:17)
[2018-12-05 07:46] LABS: BASOPHILS # (AUTO) 0.1 10^3/uL (0.0-0.1); BASOPHILS % (AUTO) 0 % (0-10); EOSINOPHILS # (AUTO) 0.2 10^3/uL (0.0-0.3); EOSINOPHILS % (AUTO) 2 % (0-10); HEMATOCRIT 22 % (35-52); HEMOGLOBIN 7.4 G/DL (11.5-16.0); LYMPHOCYTES # (AUTO) 2.2 X 10^3 (1.0-4.0); LYMPHOCYTES % (AUTO) 17 % (12-44); MEAN CORPUSCULAR HEMOGLOBIN 29 PG (25-34); MEAN CORPUSCULAR HGB CONC 33 G/DL (32-36); MEAN CORPUSCULAR VOLUME 87 FL (80-99); MEAN PLATELET VOLUME 11.4 FL (7.4-10.4); MONOCYTES # (AUTO) 0.8 X 10^3 (0.0-1.0); MONOCYTES % (AUTO) 6 % (0-12); NEUTROPHILS # (AUTO) 9.3 X 10^3 (1.8-7.8); NEUTROPHILS % (AUTO) 74 % (42-75); PLATELET COUNT 329 10^3/uL (130-400); RED CELL DISTRIBUTION WIDTH 13.5 % (10.0-14.5); WHITE BLOOD COUNT 12.5 10^3/uL (4.3-11.0)
[2018-12-05 08:10] LABS: MAGNESIUM 1.9 MG/DL (1.6-2.4); PHOSPHORUS 2.7 MG/DL (2.3-4.7)
[2018-12-05] MEDS: PANTOPRAZOLE 40 MG (PROTONIX) VIAL IV SCH ×2 (08:27→21:39)
[2018-12-05] MEDS: hydrALAZINE (APESOLINE) 20 MG/ML VIAL IV PRN (08:30)
--- NOTE | 2018-12-05 08:36 | Progress Note - Surgery ---
[facility] 12/05/18 0836: Subjective Date Seen by a Provider: Dec 05, 2018 Time Seen by a Provider: 07:55 Subjective/Events-last exam Patient states that she is doing much better. Complains of pain in her sternum that travels to her throat. Complains of a cough, hiccups, n/v. States that she does have a past history of reflux. Patient does not have an appetite. Is having regular Bowel Movements. Denies SOB, and Chest pain. Review of Systems General: No Chills, No Fatigue, No Other (fevers) HEENT: Head Aches (secondary to hypertension) Pulmonary: No Dyspnea; Cough Cardiovascular: No: Chest Pain Gastrointestinal: Nausea, Vomiting; No: Abdominal Pain Neurological: No: Weakness Focused Exam Lactate Level 12/03/18 14:55: Lactic Acid Level 2.10*H 12/03/18 16:45: Lactic Acid Level 1.77 12/04/18 07:59: Lactic Acid Level 0.71 Objective Exam Vital Signs Date Time Temp Pulse Resp B/P (MAP) Pulse Ox O2 Delivery O2 Flow Rate FiO2 12/05/18 04:00 36.8 97 16 177/118 (137) 99 Room Air 12/05/18 00:10 36.7 110 18 162/99 (120) 99 Room Air 12/04/18 23:30 106 20 190/120 (143) 99 12/04/18 23:20 102 20 188/118 (141) 99 12/04/18 23:05 100 Room Air 12/04/18 23:00 36.4 111 20 183/114 (137) 100 Room Air 12/04/18 22:00 90 15 163/109 (127) 99 Room Air 12/04/18 21:00 100 19 131/85 (100) 97 Room Air 12/04/18 20:00 103 13 126/88 (101) 97 Room Air 12/04/18 20:00 98 Room Air 12/04/18 19:00 99 17 139/95 (110) 98 Room Air 12/04/18 19:00 99 12/04/18 18:00 97 11 147/98 (114) 100 Room Air 12/04/18 17:00 98 14 136/97 (110) 100 Room Air 12/04/18 16:01 97 Room Air 12/04/18 16:00 36.5 12/04/18 16:00 106 36 125/81 (96) 98 Room Air 12/04/18 15:00 103 9 121/84 (96) 99 Room Air 12/04/18 14:00 101 8 137/99 (112) 99 Room Air 12/04/18 13:00 97 8 126/89 (101) 99 Room Air 12/04/18 13:00 97 12/04/18 12:00 97 Room Air 12/04/18 12:00 38.6 12/04/18 12:00 99 13 144/100 (115) 98 Room Air 12/04/18 11:00 105 14 145/99 (114) 98 Room Air 12/04/18 10:00 109 13 127/86 (100) 97 Room Air 12/04/18 09:00 108 11 137/88 (104) 97 Room Air I & O 12/05/18 06:59 Intake Total 2410 ml Output Total 4400 ml Balance -1990 ml Capillary Refill : Less Than 3 Seconds General Appearance: No Apparent Distress, WD/WN HEENT: PERRL/EOMI; No Scleral Icterus (L), No Scleral Icterus (R); Other (dry mucous membranes) Neck: Normal Inspection Respiratory: Chest Non Tender, Lungs Clear, Normal Breath Sounds, No Accessory Muscle Use, No Respiratory Distress Cardiovascular: No Gallop, No JVD, No Murmur, Tachycardia (with regular rhythm) Gastrointestinal: non tender, soft, no organomegaly Extremity: Other (1+ edema) Neurologic/Psychiatric: Alert, Oriented x3, Normal Mood/Affect Skin: Normal Color, Warm/Dry Lymphatic: No Adenopathy Results Lab Laboratory Tests 12/04/18 08:57: Glucometer 368H 12/04/18 09:23: Sodium Level 134L, Potassium Level 4.5, Chloride Level 108H, Carbon Dioxide Level 15L, Anion Gap 11, Blood Urea Nitrogen 56H, Creatinine 2.89H, Estimat Glomerular Filtration Rate 19, BUN/Creatinine Ratio 19, Glucose Level 358H, Calcium Level 7.2L 12/04/18 09:48: Glucometer 359H 12/04/18 10:55: Glucometer 342H 12/04/18 11:41: Urine Color YELLOW, Urine Clarity CLEAR, Urine pH 5, Urine Specific [place] 1.020, Urine Protein 4+, Urine Glucose (UA) 4+H, Urine Ketones 3+H, Urine Nitrite NEGATIVE, Urine Bilirubin NEGATIVE, Urine Urobilinogen NORMAL, Urine Leukocyte Esterase NEGATIVE, Urine RBC (Auto) 1+H, Urine RBC 0-2, Urine WBC NONE, Urine Squamous Epithelial Cells 0-2, Urine Crystals NONE, Urine Amorphous Sediment MOD SIGIFREDO URATESH, Urine Bacteria NEGATIVE, Urine Casts PRESENT, Urine Granular Casts 0-2H, Urine Mucus NEGATIVE, Urine Culture Indicated NO 12/04/18 12:06: Glucometer 258H 12/04/18 13:53: White Blood Count 19.5H, Red Blood Count 2.95L, Hemoglobin 8.5L, Hematocrit 25L, Mean Corpuscular Volume 85, Mean Corpuscular Hemoglobin 29, Mean Corpuscular Hemoglobin Concent 34, Red Cell Distribution Width 13.7, Platelet Count 373, Mean Platelet Volume 10.6H, Neutrophils (%) (Auto) 80H, Lymphocytes (%) (Auto) 10L, Monocytes (%) (Auto) 9, Eosinophils (%) (Auto) 0, Basophils (%) (Auto) 0, Neutrophils # (Auto) 15.7H, Lymphocytes # (Auto) 2.0, Monocytes # (Auto) 1.7H, Eosinophils # (Auto) 0.0, Basophils # (Auto) 0.0, Neutrophils % (Manual) 82, Lymphocytes % (Manual) 12, Monocytes % (Manual) 5, Eosinophils % (Manual) 1, Basophils % (Manual) 0, Band Neutrophils 0, Blood Morphology Comment NORMAL 12/04/18 16:11: Sodium Level 134L, Potassium Level 4.3, Chloride Level 109H, Carbon Dioxide Level 18L, Anion Gap 7, Blood Urea Nitrogen 49H, Creatinine 2.76H, Estimat Glomerular Filtration Rate 20, BUN/Creatinine Ratio 18, Glucose Level 191H, Calcium Level 7.2L, Beta-Hydroxybutyrate (Chem panel) 0.12 12/04/18 22:11: White Blood Count 12.2H, Red Blood Count 2.80L, Hemoglobin 8.2L, Hematocrit 24L, Mean Corpuscular Volume 86, Mean Corpuscular Hemoglobin 29, Mean Corpuscular Hemoglobin Concent 34, Red Cell Distribution Width 13.5, Platelet Count 313, Mean Platelet Volume 10.6H, Neutrophils (%) (Auto) 84H, Lymphocytes (%) (Auto) 10L, Monocytes (%) (Auto) 5, Eosinophils (%) (Auto) 1, Basophils (%) (Auto) 0, Neutrophils # (Auto) 10.2H, Lymphocytes # (Auto) 1.2, Monocytes # (Auto) 0.6, Eosinophils # (Auto) 0.1, Basophils # (Auto) 0.0 12/05/18 00:16: Glucometer 84 12/05/18 01:30: Stool Occult Blood Immunoassay POSITIVEH 12/05/18 06:20: Glucometer 66L 12/05/18 06:21: White Blood Count 12.5H, Red Blood Count 2.55L, Hemoglobin 7.4L, Hematocrit 22L, Mean Corpuscular Volume 87, Mean Corpuscular Hemoglobin 29, Mean Corpuscular Hemoglobin Concent 33, Red Cell Distribution Width 13.5, Platelet Count 329, Mean Platelet Volume 11.4H, Neutrophils (%) (Auto) 74, Lymphocytes (%) (Auto) 17, Monocytes (%) (Auto) 6, Eosinophils (%) (Auto) 2, Basophils (%) (Auto) 0, Neutrophils # (Auto) 9.3H, Lymphocytes # (Auto) 2.2, Monocytes # (Auto) 0.8, Eosinophils # (Auto) 0.2, Basophils # (Auto) 0.1, Phosphorus Level 2.7, Magnesium Level 1.9 12/05/18 07:20: Glucometer 109 Microbiology 12/03/18 Blood Culture - Preliminary, Resulted No growth 12/03/18 Influenza Types A,B Antigen (STARR) - Final, Complete Assessment/Plan Assessment/Plan Assessment/Plan Reflux Nausea Vomiting Edema Ranitidine for reflux Zofran for N/V Lasix for Edema Clinical Quality Measures DVT/VTE Risk/Contraindication: Risk Factor Score Per Nursin RFS Level Per Nursing on Admit: 1=Low/No VTE PPX ARNULFO FERNANDEZ DO 12/05/18 1622: Subjective Subjective/Events-last exam Patient feeling better. Epigastric abdominal pain better. No more coffee ground emesis. Nausea improved. Denies any new complaints. Denies fever sweats chills shortness of breath or chest pain. Hgb slight drop. Objective Exam General Appearance: No Apparent Distress, WD/WN Neck: Normal Inspection Respiratory: Chest Non Tender, No Accessory Muscle Use, No Respiratory Distress Cardiovascular: Regular Rate, Rhythm Gastrointestinal: non tender, soft, no organomegaly Neurologic/Psychiatric: Oriented x3 Skin: Normal Color, Warm/Dry Lymphatic: No Adenopathy Assessment/Plan Assessment/Plan Assessment/Plan upper gi bleed, coffee ground emesis c anemia dka dehydration renal failure leukocytosis feeling better Dr. Laird okayed to have EGD tomorrow for further evaluation monitor hgb transfuse prn continue protonix consent for egd all other indicated procedures, she understands and wishes to proceed. Supervisory-Addendum Brief Verification & Attestation Participated in pt care: history, MDM, physical Personally performed: exam, history, MDM, supervision of care Care discussed with: Medical Student Procedures: n/a Results interpretation: Verified all documentation Verification and Attestation of Medical Student E/M Service A medical student performed and documented this service in my presence. I reviewed and verified all information documented by the medical student and made modifications to such information, when appropriate. I personally performed the physical exam and medical decision making. Arnulfo Fernandez, Dec 05, 2018,16:21 MARLENI [facility]O [facility] Dec 05, 2018 08:36 ARNULFO FERNANDEZ DO Dec 05, 2018 16:22
--- NOTE | 2018-12-05 09:46 | Progress Note - Hospitalist ---
Subjective HPI/CC On Admission Date Seen by Provider: Dec 05, 2018 Time Seen by Provider: 09:38 Pt is a 33yoCF with a PMH of IDDMI and HTN who presented due to nausea and vomiting. She states for the past two days she has had "gastroparesis" but it normally doesn't last two days. She normally sees Dr Plunkett for her diabetes and is on an insulin pump. She is unsure of her basal rate for her pump. She is also unable to tell me her bolus regimen. She has not checked her blood sugars today and her last check was last night and reported as 189. She is unsure of her last a1c. Her reports that she has been vomiting and has had some dark "dried blood." She was supposed to see Dr Alexander today for review of her labs for anemia but was so sick she came here instead. She believes her insulin pump is running because it normally beeps when it is occluded but she has not checked it either. She is otherwise quite sleepy and unable to proivde other history. reports she was here roughly 2 weeks ago for DKA but signed her self out AMA. Subjective/Events-last exam Pt reports feeling better. Eating well and tolerating well. Focused Exam Lactate Level 12/03/18 14:55: Lactic Acid Level 2.10*H 12/03/18 16:45: Lactic Acid Level 1.77 12/04/18 07:59: Lactic Acid Level 0.71 Objective Exam Vital Signs Vital Signs Date Time Temp Pulse Resp B/P (MAP) Pulse Ox O2 Delivery O2 Flow Rate FiO2 12/05/18 04:00 36.8 97 16 177/118 (137) 99 Room Air Capillary Refill : Less Than 3 Seconds General Appearance: No Apparent Distress, WD/WN Respiratory: Lungs Clear, No Respiratory Distress Cardiovascular: Regular Rate, Rhythm, No Murmur Gastrointestinal: Normal Bowel Sounds, Soft Neurologic/Psychiatric: Alert, Oriented x3, Normal Mood/Affect Results/Procedures Lab Laboratory Tests 12/04/18 13:53 12/04/18 16:11 12/04/18 22:11 12/05/18 06:21 Patient resulted labs reviewed. Imaging: Reviewed Imaging Report Assessment/Plan Assessment and Plan Assess & Plan/Chief Complaint Severe DKA- resolved Doing well with bolus insulin A1c pending Acute on Chronic Renal Failure Hyperkalemia Creatinine at baseline Follows with [facility] for CKD- has appoint tomorrow with [facility] will call to reschedule HTN IV Hydralazine Continue Losartan Coffee ground emesis Anemia of Chronic Disease Follows with Dr Alexander, discussed with him and he will see her as an outpatient after acute visit Surgery consulted, appreciate recs PPI EGD tomorrow New onset fever- resolved Cultures NGTD Cont Zosyn Critical Care Critically Ill Patient Diagnosis/Problems Diagnosis/Problems (1) Diabetic ketoacidosis Status: Acute Qualifiers: Diabetes mellitus type: type 1 Diabetes mellitus complication detail: without coma Qualified Codes: E10.10 - Type 1 diabetes mellitus with ketoacidosis without coma (2) Acute renal failure (ARF) Status: Acute Qualifiers: Acute renal failure type: unspecified Qualified Codes: N17.9 - Acute kidney failure, unspecified (3) Hyperkalemia Status: Acute (4) Anemia in chronic kidney disease Qualifiers: Chronic kidney disease stage: stage 3 (moderate) Qualified Codes: N18.3 - Chronic kidney disease, stage 3 (moderate); D63.1 - Anemia in chronic kidney disease (5) Essential (primary) hypertension Status: Chronic (6) CKD (chronic kidney disease) Status: Chronic Qualifiers: Chronic kidney disease stage: stage 3 (moderate) Qualified Codes: N18.3 - Chronic kidney disease, stage 3 (moderate) (7) Lactic acidosis Status: Acute (8) Acute hyperglycemia Status: Acute (9) Type 1 diabetes mellitus Status: Chronic Qualifiers: Diabetes mellitus complication status: with ketoacidosis Diabetes mellitus complication detail: without coma Qualified Codes: E10.10 - Type 1 diabetes mellitus with ketoacidosis without coma Clinical Quality Measures DVT/VTE Risk/Contraindication: Risk Factor Score Per Nursin RFS Level Per Nursing on Admit: 1=Low/No VTE PPX KHADRA PRINCE MD Dec 05, 2018 9:46 am
[2018-12-05] MEDS: POTASSIUM CL 10MEQ/50ML IVPB 50 ML IV SCH (11:30)
[2018-12-05] MEDS: MAGNESIUM 1 GM/100 ML IVPB 100 ML IV SCH (11:31)
[2018-12-05] MEDS: KCL 20 MEQ TAB (K-DUR) PO SCH (11:31)
[2018-12-05] MEDS ORDERED: inSUlin ASPART (NovoLOG) 1 UNIT/0.01 ML (CHARGE PER UNIT) ONE (12:58)
[2018-12-05] MEDS: inSUlin ASPART (NovoLOG) 1 UNIT/0.01 ML (CHARGE PER UNIT) SC SCH ×3 (12:59→21:39)
--- NOTE | 2018-12-05 16:58 | NUR ---
BLOOD SUGAR 433, DR PRINCE NOTIFIED AND ORDERS GIVEN TO GIVE 17 UNITS INSULIN PER SSI, BP OF 170/[address] PRINCE,
--- NOTE | 2018-12-05 18:44 | NUR ---
BLOOD REPEATED INSTRUCTED BY DR PRINCE, BS 468, DR PRINCE NOTIFIED AND ORDER GIVEN TO GIVE ADDITIONAL 15 UNITS NOVOLOG
[2018-12-05] MEDS ORDERED: inSUlin ASPART (NovoLOG) 1 UNIT/0.01 ML (CHARGE PER UNIT) SC ONE (18:45)
[2018-12-06] VITALS (8 sets, daily range): BP systolic 113–186; BP diastolic 9–120
[2018-12-06] MEDS: NYSTATIN ORAL SUSP 5 ML UDC PO SCH ×2 (00:18→05:57)
[2018-12-06] MEDS: hydrALAZINE (APESOLINE) 20 MG/ML VIAL IV PRN ×2 (03:53→12:30)
[2018-12-06] MEDS: PIPERACILLIN/TAZOBACTAM (BULK) 4.5 GM in NS (IVPB) 100 ML IV SCH (03:53)
[2018-12-06] MEDS: inSUlin ASPART (NovoLOG) 1 UNIT/0.01 ML (CHARGE PER UNIT) SC SCH (05:57)
[2018-12-06 06:58] LABS: HEMOGLOBIN 9.5 G/DL (11.5-16.0); MEAN PLATELET VOLUME 10.5 FL (7.4-10.4); RED CELL DISTRIBUTION WIDTH 13.3 % (10.0-14.5); WHITE BLOOD COUNT 4.9 10^3/uL (4.3-11.0)
[2018-12-06 07:26] LABS: CALCIUM 8.5 MG/DL (8.5-10.1); CREATININE SERUM 2.44 MG/DL (0.60-1.30); MAGNESIUM 1.7 MG/DL (1.6-2.4); POTASSIUM 3.6 MMOL/L (3.6-5.0)
[2018-12-06] MEDS ORDERED: DEXTROSE 50% 50 ML (IMS) SYR ONE (07:33)
[2018-12-06] MEDS ORDERED: DEXTROSE 50% 50 ML (IMS) SYR IV ONE ×2 (07:45)
[2018-12-06] MEDS ORDERED: inSUlin ASPART (NovoLOG) 1 UNIT/0.01 ML (CHARGE PER UNIT) SC SCH ×3 (08:00→12:00)
--- NOTE | 2018-12-06 08:00 | NUR ---
TO SCOPE ROOM PER W/C.
[2018-12-06] MEDS ORDERED: LACTATED RINGERS 1,000 ML IV ONE (08:08)
[2018-12-06] MEDS ORDERED: NS IV 1000 ML 1,000 ML ONE (08:15)
[2018-12-06] MEDS ORDERED: proPOfol 200 MG/20 ML (DIPRIVAN) VIAL IV ONE (08:35)
[2018-12-06] MEDS ORDERED: MIDAZOLAM 2 MG/2 ML (VERSED) VIAL ONE (08:35)
[2018-12-06] MEDS ORDERED: ESMOLOL 100 MG/10 ML (BREVIBLOC) VIAL ONE (08:37)
[2018-12-06] MEDS ORDERED: HURRICAINE EXT TUBE (BENZOCAINE) ONE (08:38)
--- NOTE | 2018-12-06 09:01 | Progress Note-Post Operative ---
Post-Operative Progess Note Surgeon (s)/Helper/Driver (s) Surgeon ARNULFO NAZARIO DO Helper/Driver: na Pre-Operative Diagnosis hematemesis Post-Operative Diagnosis linear healing ulcerations at ge junction Procedure & Operative Findings Date of Procedure 12/06/18 Procedure Performed/Findings egd c biopsies Anesthesia Type per [facility] Estimated Blood Loss Estimated blood loss (mL): none Specimens/Packing Specimens Removed antrum, ge ARNULFO NAZARIO DO Dec 06, 2018 09:01
--- NOTE | 2018-12-06 09:30 | NUR ---
RETURNED FROM SCOPE ROOM PER W/C. ALERT AND COOPERATIVE. SKIN W/D. DENIES PAIN AT THIS TIME. SEE INTERVENTIONSS FOR V/S.
--- NOTE | 2018-12-06 10:17 | Anesthesia-General Post-Op ---
MAC Patient Condition Mental Status/LOC: Same as Preop Cardiovascular: Satisfactory Nausea/Vomiting: Absent Respiratory: Satisfactory Pain: Controlled Complications: Absent Post Op Complications Complications None Follow Up Care/Instructions Patient Instructions None needed. Anesthesiology Discharge Order Discharge Order Patient is doing well, no complaints, stable vital signs, no apparent adverse anesthesia problems. No complications reported per nursing. MIKE FUENTES CRNA Dec 06, 2018 10:17
[2018-12-06] MEDS ORDERED: SUCRALFATE 1 GM (CARAFATE) TAB PO SCH (11:00)
[2018-12-06] MEDS ORDERED: FURO20TA4 PO (11:24)
[2018-12-06] MEDS ORDERED: SERT50TA9 PO (11:29)
--- NOTE | 2018-12-06 11:29 | NUR ---
SPOKE WITH THE PATIENT ABOUT HER MEDICATIONS. WE WENT OVER THE EXT MED HX AND SHE VERIFIED HOW SHE TAKES THEM. SHE FILLED LASIX 20MG #180 FOR 90 DAYS 12-03-18 SHE STATES THIS FREQUENTLY IS FILLED DIFFERENT AND SHE JUST USES DIFFERENT AMOUNT OF TABLETS DEPENDING ON HER CURRENT DOSE. SHE STATES RIGHT NOW SHE IS TAKING 80MG BID. SHE TAKES IRON DAILY, SHE GETS IT PRESCRIPTION SOMETIMES BUT IF SHE RUNS OUT DOES BUY OTC. SHE ALSO TAKES A MTV DAILY OTC.
[2018-12-06] MEDS: FUROSEMIDE 40 MG (LASIX) TAB PO SCH (11:38)
[2018-12-06] MEDS: PANTOPRAZOLE 40 MG (PROTONIX) VIAL IV SCH (11:39)
[2018-12-06] MEDS: LOSARTAN 100 MG (COZAAR) TABLET PO SCH (11:39)
[2018-12-06] MEDS ORDERED: INSU100V5 SQ (11:40)
[2018-12-06] MEDS ORDERED: PANT40TA3 PO (11:40)
[2018-12-06] MEDS ORDERED: SUCR1TAB PO (11:40)
--- NOTE | 2018-12-06 11:54 | Discharge Summary ---
Discharge Summary Hospital Course Problems/Dx: (1) Diabetic ketoacidosis Status: Acute Qualifiers: Qualified Codes: E10.10 - Type 1 diabetes mellitus with ketoacidosis without coma (2) Acute renal failure (ARF) Status: Acute Qualifiers: Qualified Codes: N17.9 - Acute kidney failure, unspecified (3) Hyperkalemia Status: Acute (4) Anemia in chronic kidney disease Qualifiers: Qualified Codes: N18.3 - Chronic kidney disease, stage 3 (moderate); D63.1 - Anemia in chronic kidney disease (5) Essential (primary) hypertension Status: Chronic (6) CKD (chronic kidney disease) Status: Chronic Qualifiers: Qualified Codes: N18.3 - Chronic kidney disease, stage 3 (moderate) (7) Lactic acidosis Status: Acute (8) Acute hyperglycemia Status: Acute (9) Type 1 diabetes mellitus Status: Chronic Qualifiers: Qualified Codes: E10.10 - Type 1 diabetes mellitus with ketoacidosis without coma Hospital Course Date of Admission: Dec 03, 2018 at 16:01 Admission Diagnosis : DKA Family Physician/Provider: David Plunkett DO Date of Discharge: 12/06/18 Discharge Diagnosis: DKA Hospital Course: Patito Lugo is a 33yoF with PMH diabetes mellitus who presented in DKA. Her insulin pump was removed and she was started on IV insulin. Her symptoms and labs improved and she was transitioned to basal-bolus insulin which she was discharged on until her follow up with her PCP for reassessment of her insulin pump. She also had coffee-ground emesis on admission and underwent EGD during her stay. She was found to have linear ulcerations which were healing at the GE junction. She was started on twice daily PPI and carafate. She missed an appointment with her well shooter which will be rescheduled. Labs and Pending Lab Test: Laboratory Tests 12/05/18 16:30: Glucometer 433*H 12/05/18 18:26: Glucometer 468*H 12/05/18 19:26: Glucometer 407*H 12/05/18 21:17: Glucometer 261H 12/05/18 23:23: Glucometer 313H 12/06/18 04:08: Glucometer 129H 12/06/18 06:10: Sodium Level 138, Potassium Level 3.6, Chloride Level 102, Carbon Dioxide Level 26, Anion Gap 10, Blood Urea Nitrogen 41H, Creatinine 2.44H, Estimat Glomerular Filtration Rate 23, BUN/Creatinine Ratio 17, Glucose Level 55*L, Calcium Level 8.5, Phosphorus Level 3.0, Magnesium Level 1.7 12/06/18 06:40: White Blood Count 4.9, Red Blood Count 3.29L, Hemoglobin 9.5#L, Hematocrit 28L, Mean Corpuscular Volume 85, Mean Corpuscular Hemoglobin 29, Mean Corpuscular Hemoglobin Concent 34, Red Cell Distribution Width 13.3, Platelet Count 300, Mean Platelet Volume 10.5H 12/06/18 07:54: Glucometer 120H 12/06/18 10:40: Glucometer 92 Microbiology 12/03/18 Blood Culture - Preliminary, Resulted No growth 12/03/18 MRSA Screen - Final, Complete MRSA not isolated Home Meds Active Pantoprazole Sodium 40 Mg Tablet.dr 40 Mg PO BID 90 Days Sucralfate 1 Gm Tablet 1 Gm PO ACHS 60 Days Levemir (Insulin Determir) 1,000 Units/10 Ml Soln 24 Unit SQ HS 90 Days Reported Sertraline HCl 50 Mg Tablet 50 Mg PO DAILY PRN WILL TAKE 2ND DOSE IN ADDITION TO DAILY SCHEDULED DOSE NEEDED FOR STRESSFUL DAYS OR SITUATIONS Furosemide 20 Mg Tablet 80 Mg PO 0800,1400 Gentamicin Sulfate 5 Ml Drops 1 Drop OU QID PRN Multivitamins (Multivitamin) 1 Each Tablet 1 Tab PO DAILY Losartan Potassium 50 Mg Tablet 100 Mg PO DAILY TAKES 2 (50MG) TABLETS Ferrous Sulfate 325 Mg Tablet 325 Mg PO DAILY Potassium Chloride 10 Meq Tablet.er 10 Meq PO DAILY Sertraline HCl 50 Mg Tablet 50 Mg PO DAILY Fiasp 100 Unit/ml Flextouch (Insulin Aspart (Niacinamide)) 100 Unit/1 Ml Insuln.pen 10-15 Units SC QID Hydrocortisone 10 Mg Tablet 10 Mg PO 0800,1400 Ranitidine HCl 150 Mg Tablet 150 Mg PO BID Humalog (Insulin Lispro) 100 Unit/1 Ml Vial PER INSULIN PUMP Assessment/Pt Instructions Take medications as prescribed. Take injectable insulin as directed until your follow up with your PCP. Begin PPI twice daily for 8 weeks, then once daily. Follow up with your well shooter. Discharge Planning: <30 minutes discharge planning Discharge Instructions Discharge Diet: ADA Diet Activity as Tolerated: Yes Discharge Physical Examination Vital Signs Vital Signs Date Time Temp Pulse Resp B/P (MAP) Pulse Ox O2 Delivery O2 Flow Rate FiO2 12/06/18 09:25 124 17 142/106 (118) 99 Room Air 12/06/18 07:29 36.6 General Appearance: No Apparent Distress, WD/WN HEENT: PERRL/EOMI, Pharynx Normal Respiratory: Lungs Clear, Normal Breath Sounds, No Respiratory Distress Cardiovascular: Regular Rate, Rhythm, No Edema, No Murmur Gastrointestinal: Normal Bowel Sounds, Non Tender, Soft Extremity: Normal Inspection, Non Tender, No Pedal Edema Skin: Normal Color, Warm/Dry Neurologic/Psychiatric: Alert, Oriented x3, No Motor/Sensory Deficits, Normal Mood/Affect Allergies: Coded Allergies: insulin regular (Verified Allergy, Mild, "DOESNT WORK", 12/16/16) codeine (Verified Allergy, Unknown, TAKES HYDROCODONE/APAP AT HOME, 12/16/16) Discharge Summary Date of Admission Dec 03, 2018 at 16:01 Date of Discharge Discharge Date: Dec 06, 2018 Discharge Time: 11:53 Admission Diagnosis DKA Consults/Procedures Consulations General surgery Discharge Diagnosis (1) Diabetic ketoacidosis Status: Acute Qualifiers: Qualified Codes: E10.10 - Type 1 diabetes mellitus with ketoacidosis without coma (2) Acute renal failure (ARF) Status: Acute Qualifiers: Qualified Codes: N17.9 - Acute kidney failure, unspecified (3) Hyperkalemia Status: Acute (4) Anemia in chronic kidney disease Qualifiers: Qualified Codes: N18.3 - Chronic kidney disease, stage 3 (moderate); D63.1 - Anemia in chronic kidney disease (5) Essential (primary) hypertension Status: Chronic (6) CKD (chronic kidney disease) Status: Chronic Qualifiers: Qualified Codes: N18.3 - Chronic kidney disease, stage 3 (moderate) (7) Lactic acidosis Status: Acute (8) Acute hyperglycemia Status: Acute (9) Type 1 diabetes mellitus Status: Chronic Qualifiers: Qualified Codes: E10.10 - Type 1 diabetes mellitus with ketoacidosis without coma Clinical Quality Measures DVT/VTE Risk/Contraindication: Risk Factor Score Per Nursin RFS Level Per Nursing on Admit: 1=Low/No VTE PPX RAMON WALTON MD Dec 06, 2018 11:52
--- NOTE | 2018-12-06 11:57 | NUR ---
Initial visit: The pt is happily anticipating discharge. She and her have 5 children and are members of [facility] [employer] in [place]. She said that throughout her hospital stay, she has felt encouraged by the positive and meaningful interactions with staff.
[2018-12-06] MEDS ORDERED: LACTATED RINGERS 1,000 ML IV SCH (12:15)
[2018-12-06] MEDS ORDERED: HURRICAINE EXT TUBE (BENZOCAINE) XX ONE (12:15)
--- NOTE | 2018-12-06 14:00 | NUR ---
MANSI MCCABE demonstrates understanding of discharge instructions and accurately returns instructions upon questioning. Copy of Post-Discharge Instructions given to PT. MANSI MCCABE is able to manage continuing needs after discharge. Patients belongings returned to PT. Patient discharged from 408-1 on 12/06/18 at 14:00. MANSI MCCABE left floor via W/C, accompanied by STAFF AND PER AUTO.
--- NOTE | 2018-12-06 14:13 | OPERATIVE REPORT ---
DATE OF SERVICE: 12/06/2018 PREOPERATIVE DIAGNOSIS: Hematemesis. POSTOPERATIVE DIAGNOSIS: Linear ulcerations at the gastroesophageal junction. PROCEDURE: EGD with biopsies. SURGEON: Arnulfo Fernandez DO ANESTHESIA: Per MDA. ESTIMATED BLOOD LOSS: None. COMPLICATIONS: None. INDICATIONS: The patient is a 33-year-old female needing endoscopy for further evaluation of hematemesis. She understands risks and benefits of procedure and wished to proceed with procedure. Consent was signed in the chart. DESCRIPTION OF PROCEDURE: The patient was taken to the endoscopy suite, placed in left lateral recumbent position. Timeout was performed. Scope was inserted in mouth, down the esophagus, stomach and into the duodenum without difficulty. There were no polyps, masses or ulcerations within the duodenum. Scope was then slowly retracted back into the stomach where it was further insufflated. There were no polyps, masses or ulcerations. Biopsy of the antrum was obtained. Scope was retroflexed noting no other pathology. Scope was returned to its normal position, slowly withdrawn to the distal esophagus, which had some small linear healing ulcerations. Biopsy GE junction was obtained. Scope was then slowly retracted back until completely removed noting no other pathology. The patient tolerated procedure well without any complications. She was taken to recovery room in stable condition. RECOMMENDATIONS: The patient will be started on Carafate 1 gram four times a day and follow up on biopsies. Job ID: [id number] DocumentID: [id number] Dictated Date: 12/06/2018 09:03:46 Legal Secretary Date: 12/06/2018 14:13:10 Dictated By: ARNULFO FERNANDEZ DO
--- NOTE | 2018-12-06 14:59 | NUR ---
RD ASSESSMENT PMHx: HTN; T1DM; GERD; hyperthyroidism; renal failure PT INTERACTION: Pt was awake and pleasant during nutrition assessment. Pt states current appetite is poor and has been for the past 4-5 days. Pt states having episodes of nausea and vomiting during that timeframe as well. Pt states no recent issues with constipation/diarrhea at this time. Pt states no recent wt changes. Note unable to determine recent wt hx, per chart review. Pt states current DM control is "pretty good" and that she keeps her blood glucose levels around 180 normally. When asked about current diet at home, pt states following a "kind of keto diet." Under further questions, pt avoids starches, breads and pastas and get CHO from fruits and milk. Pt states normally getting around 50g CHO per meal and 1 snack during the day. ABNORMAL NUTRITION-RELATED LAB VALUES: Hgb 9.5 (L); Hct 28 (L); BUN 41 (H); cr 2.44 (H); glu 120 (H) Est. kcal needs: 7020-0682 kcal (20-25 kcal/kg) Est. Pro needs: 65-81 g Pro (0.8-1.0 g Pro/kg) PES STATEMENT: Inadequate oral intake (NI-2.1) related to nausea | vomiting as evidenced by pt interview INTERVENTION: Recommend switching diet to CHO 60g/m 1snack diet for glucose control. Encouraged pt to eat when able. Pt may benefit from nutrition supplementation if po intake continues to decline. MONITOR/EVALUATE: PO Intake; Plan of Care; Hydration Status; Weight Status; Lab Values Med Paula, MS, RD, LD Ext. [phone]
== END 2018-12-06 14:00 | disposition home or self-care (01) | DRG 637 ==
LOC: EDUNIT# 14:48 → ER 14:51 → ICU 16:01 → 4TH 12-04 22:59
PROVIDERS: ADMIT Family Medicine; ATTEND Family Medicine
PROC: 0DB48ZX Excision of Esophagogastric Junction, Via Natural or Artificial Opening Endoscopic, Diagnostic (ICD-10-PCS; 2018-12-06)
PROC: 0DB78ZX Excision of Stomach, Pylorus, Via Natural or Artificial Opening Endoscopic, Diagnostic (ICD-10-PCS; principal; 2018-12-06 13:35)
DX: E10.10 Type 1 diabetes mellitus with ketoacidosis without coma (principal); K25.4 Chronic or unspecified gastric ulcer with hemorrhage; N17.9 Acute kidney failure, unspecified; I12.9 Hypertensive chronic kidney disease with stage 1 through stage 4 chronic kidney disease, or unspecified chronic kidney disease; N18.3 Chronic kidney disease, stage 3 (moderate); E87.2 Acidosis; K92.0 Hematemesis; D63.1 Anemia in chronic kidney disease; E87.5 Hyperkalemia; E10.40 Type 1 diabetes mellitus with diabetic neuropathy, unspecified; K21.9 Gastro-esophageal reflux disease without esophagitis; M19.91 Primary osteoarthritis, unspecified site; M79.7 Fibromyalgia; M54.9 Dorsalgia, unspecified; E06.3 Autoimmune thyroiditis; F41.9 Anxiety disorder, unspecified; E86.0 Dehydration; R50.9 Fever, unspecified; D72.829 Elevated white blood cell count, unspecified; D63.8 Anemia in other chronic diseases classified elsewhere; R51 Headache; R60.9 Edema, unspecified; Z86.718 Personal history of other venous thrombosis and embolism; Z79.4 Long term (current) use of insulin; Z91.19 Patient's noncompliance with other medical treatment and regimen
CPT/HCPCS: 36415; 51702; 71045; 80048; 80053; 81000; 82010; 82274; 82805; 82962; 83036; 83605; 83735; 84100; 84703; 85007; 85025; 85027; 85610; 85730; 87040; 87081; 87804; 93005; 96361; 96365; 96375

== ENCOUNTER 2019-04-08 13:29 | Emergency (ER) | payer MEDICAID ==
[~2019-04-08] VITALS: Ht 172 cm; Wt 72.7 kg
[~2019-04-08 13:29] MED LIST changes: +FURO20TA4 PO; +INSU100V5 SQ; +MINO100C5 PO; +OMEP-280 PO; -OMEP20CA13 PO; +PANT40TA3 PO; +SUCR1TAB PO
[2019-04-08] MEDS ORDERED: NS IV 1000 ML 1,000 ML IV SCH ×2 (13:32→16:30)
[2019-04-08] MEDS ORDERED: ONDANSETRON 4 MG/2 ML (SDV) Z0FRAN IVP ONE (13:45)
[2019-04-08 14:06] LABS: BASOPHILS # (AUTO) 0.1 10^3/uL (0.0-0.1); BASOPHILS % (AUTO) 1 % (0-10); EOSINOPHILS # (AUTO) 0.1 10^3/uL (0.0-0.3); EOSINOPHILS % (AUTO) 1 % (0-10); HEMATOCRIT 27 % (35-52); HEMOGLOBIN 9.6 G/DL (11.5-16.0); LYMPHOCYTES # (AUTO) 0.7 X 10^3 (1.0-4.0); LYMPHOCYTES % (AUTO) 10 % (12-44); MEAN CORPUSCULAR HEMOGLOBIN 30 PG (25-34); MEAN CORPUSCULAR HGB CONC 35 G/DL (32-36); MEAN CORPUSCULAR VOLUME 84 FL (80-99); MEAN PLATELET VOLUME 10.2 FL (7.4-10.4); MONOCYTES # (AUTO) 0.3 X 10^3 (0.0-1.0); MONOCYTES % (AUTO) 4 % (0-12); NEUTROPHILS # (AUTO) 5.8 X 10^3 (1.8-7.8); NEUTROPHILS % (AUTO) 84 % (42-75); PLATELET COUNT 340 10^3/uL (130-400); RED CELL DISTRIBUTION WIDTH 14.1 % (10.0-14.5)
--- NOTE | 2019-04-08 14:12 | ED GI ---
General Chief Complaint: Abdominal/GI Problems Stated Complaint: TYPE 1 DIABETIC;N/V Nursing Triage Note: PT TO ED W/ C/O ELEVATED BLOOD SUGARS, MIGRAINES ONSET X1 WK, WORSE TODAY. REPORTS ALSO C/O RT SIDE PAIN R/T CHRONIC APPENDICITIS. Sepsis Screen: No Definite Risk Source of Information: Patient Exam Limitations: No Limitations History of Present Illness Date Seen by Provider: Apr 08, 2019 Time Seen by Provider: 14:09 Initial Comments To ER with reports of nausea vomiting and diarrhea that began last night. She also has some right lower abdominal pain that began 2 weeks ago. She was hospitalized at the [facility] in January 2019 and told that she had chronic appendicitis. It was not removed. Her sugars this morning went to 500, she bolused herself with insulin and states that just before arrival to ER the sugars have dropped to the mid 200 range. She has been in DKA a multitude of times throughout her life, does not feel like she is in DKA at this time. She hopes that she showed up early enough to get this under control before it becomes DKA. Timing/Duration: 1-2 Days Severity/Quality: Moderate Location: RLQ Radiation: No Radiation Activities at Onset: None Associated Symptoms: Nausea/Vomiting Allergies and Home Medications Allergies Coded Allergies: insulin regular (Verified Allergy, Mild, "DOESNT WORK", 12/16/16) codeine (Verified Allergy, Unknown, TAKES HYDROCODONE/APAP AT HOME, 12/16/16) Home Medications Ferrous Sulfate 325 Mg Tablet, 325 MG PO DAILY, (Reported) Furosemide 20 Mg Tablet, 80 MG PO 0800,1400, (Reported) Gentamicin Sulfate 5 Ml Drops, 1 DROP OU QID PRN for EYE INJECTIONS, (Reported) Hydrocortisone 10 Mg Tablet, 10 MG PO 0800,1400, (Reported) Insulin Aspart (Niacinamide) 100 Unit/1 Ml Insuln.pen, 10-15 UNITS SC QID, (Reported) Insulin Determir 1,000 Units/10 Ml Soln, 24 UNIT SQ HS Prescribed by: RAMON WALTON on 12/06/18 1140 Losartan Potassium 50 Mg Tablet, 100 MG PO DAILY, (Reported) TAKES 2 (50MG) TABLETS Multivitamin 1 Each Tablet, 1 TAB PO DAILY, (Reported) Pantoprazole Sodium 40 Mg Tablet.dr, 40 MG PO BID Prescribed by: RAMON WALTON on 12/06/18 1140 Potassium Chloride 10 Meq Tablet.er, 10 MEQ PO DAILY, (Reported) Sertraline HCl 50 Mg Tablet, 50 MG PO DAILY, (Reported) Sertraline HCl 50 Mg Tablet, 50 MG PO DAILY PRN for STRESS, (Reported) WILL TAKE 2ND DOSE IN ADDITION TO DAILY SCHEDULED DOSE NEEDED FOR STRESSFUL DAYS OR SITUATIONS Sucralfate 1 Gm Tablet, 1 GM PO ACHS Prescribed by: RAMON WALTON on 12/06/18 1140 Patient Home Medication List Home Medication List Reviewed: Yes Review of Systems Review of Systems Constitutional: see HPI; No chills, No fever EENTM: No Symptoms Reported Respiratory: No Symptoms Reported Cardiovascular: No Symptoms Reported Gastrointestinal: See HPI, Abdominal Pain; Denies Diarrhea; Nausea Genitourinary: No Symptoms Reported Musculoskeletal: no symptoms reported Skin: no symptoms reported Psychiatric/Neurological: No Symptoms Reported Endocrine: No Symptoms Reported Hematologic/Lymphatic: No Symptoms Reported Past Xscmbmn-Acyego-Uulkto Hx Patient Social History 2nd Hand Smoke Exposure: No Recent Foreign Travel: No Contact w/Someone Who Travel: No Recent Infectious Disease Expo: No Recent Hopitalizations: No Physical Abuse: No Sexual Abuse: No Mistreated: No Fear: No Immunizations Up To Date Tetanus Booster (TDap): Less than 5yrs Date of Influenza Vaccine: Dec 23, 2017 Seasonal Allergies Seasonal Allergies: Yes Past Medical History Surgeries: Yes (Bladder Stretching,bilat knee scope, carpal tunnel bilat, r cupital tunnel) Adenoidectomy, Bladder Surgery, Section, Orthopedic, Tonsillectomy Respiratory: No Cardiac: No Hypertension Neurological: Yes Neuropathy 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 Disorders: No 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 Disorders: Denies ENROLLMENT NURSE History: IUD Sexually Transmitted Disease: No HIV/AIDS: No Genitourinary: Yes (UTI) Renal Failure Gastrointestinal: Yes Gastroesophageal Reflux, Gall Bladder Disease Musculoskeletal: Yes Arthritis, Fibromyalgia, Chronic Back Pain Endocrine: Yes (HASHIMOTOS) Hyperthyroidism, Diabetes, Insulin dep HEENT: No Loss of Vision: Bilateral Hearing Impairment: Denies Cancer: No Psychosocial: Yes Anxiety Integumentary: No Blood Disorders: No Adverse Reaction/Blood Tranf: No Family Medical History Patient reports no known family medical history. No Pertinent Family Hx Physical Exam Vital Signs Vital Signs - First Documented 04/08/19 13:46 Temp 36.8 Pulse 124 Resp 20 B/P (MAP) 151/105 (120) Pulse Ox 100 O2 Delivery Room Air Capillary Refill : Less Than 3 Seconds Height/Weight/BMI Height: 5'8.00" Weight: 156lbs. 0.0oz. 70.128189sn; 24.00 BMI Method:Stated General Appearance: WD/WN, no apparent distress Respiratory: no respiratory distress, no accessory muscle use Cardiovascular: no murmur, tachycardia Gastrointestinal: normal bowel sounds, soft Extremities: normal range of motion, non-tender Neurologic/Psychiatric: alert, normal mood/affect, oriented x 3 Skin: normal color, warm/dry Progress/Results/Core Measures Results/Orders Lab Results Laboratory Tests Test 04/08/19 14:00 04/08/19 15:15 Range/Units White Blood Count 7.0 4.3-11.0 10^3/uL Red Blood Count 3.23 L 4.35-5.85 10^6/uL Hemoglobin 9.6 L 11.5-16.0 G/DL Hematocrit 27 L 35-52 % Mean Corpuscular Volume 84 80-99 FL Mean Corpuscular Hemoglobin 30 25-34 PG Mean Corpuscular Hemoglobin Concent 35 32-36 G/DL Red Cell Distribution Width 14.1 10.0-14.5 % Platelet Count 340 130-400 10^3/uL Mean Platelet Volume 10.2 7.4-10.4 FL Neutrophils (%) (Auto) 84 H 42-75 % Lymphocytes (%) (Auto) 10 L 12-44 % Monocytes (%) (Auto) 4 0-12 % Eosinophils (%) (Auto) 1 0-10 % Basophils (%) (Auto) 1 0-10 % Neutrophils # (Auto) 5.8 1.8-7.8 X 10^3 Lymphocytes # (Auto) 0.7 L 1.0-4.0 X 10^3 Monocytes # (Auto) 0.3 0.0-1.0 X 10^3 Eosinophils # (Auto) 0.1 0.0-0.3 10^3/uL Basophils # (Auto) 0.1 0.0-0.1 10^3/uL Sodium Level 135 135-145 MMOL/L Potassium Level 3.9 3.6-5.0 MMOL/L Chloride Level 104 98-107 MMOL/L Carbon Dioxide Level 19 L 21-32 MMOL/L Anion Gap 12 5-14 MMOL/L Blood Urea Nitrogen 53 H 7-18 MG/DL Creatinine 4.10 H 0.60-1.30 MG/DL Estimat Glomerular Filtration Rate 13 BUN/Creatinine Ratio 13 Glucose Level 217 H 70-105 MG/DL Glucometer 243 H 70-110 MG/DL Calcium Level 9.0 8.5-10.1 MG/DL Corrected Calcium 9.9 8.5-10.1 MG/DL Magnesium Level 2.2 1.6-2.4 MG/DL Total Bilirubin 0.2 0.1-1.0 MG/DL Aspartate Amino Transf (AST/SGOT) 17 5-34 U/L Alanine Aminotransferase (ALT/SGPT) 14 0-55 U/L Alkaline Phosphatase 119 40-136 U/L Total Protein 6.2 L 6.4-8.2 GM/DL Albumin 2.9 L 3.2-4.5 GM/DL Lipase 13 8-78 U/L Beta-Hydroxybutyrate (Chem panel) 0.10 0.00-0.27 MMOL/L Serum Test, Qualitative NEGATIVE NEGATIVE Urine Color YELLOW Urine Clarity CLEAR Urine pH 6.0 5-9 Urine Specific [place] 1.025 H 1.016-1.022 Urine Protein 3+ H NEGATIVE Urine Glucose (UA) 3+ H NEGATIVE Urine Ketones TRACE H NEGATIVE Urine Nitrite NEGATIVE NEGATIVE Urine Bilirubin NEGATIVE NEGATIVE Urine Urobilinogen 0.2 < = 1.0 MG/DL Urine Leukocyte Esterase NEGATIVE NEGATIVE Urine RBC (Auto) 2+ H NEGATIVE Urine RBC 5-10 H /HPF Urine WBC 2-5 /HPF Urine Squamous Epithelial Cells 2-5 /HPF Urine Crystals PRESENT H /LPF Urine Amorphous Sediment FEW SIGIFREDO URATES H /LPF Urine Bacteria LARGE H /HPF Urine Casts NONE /LPF Urine Mucus NEGATIVE /LPF Urine Yeast FEW H /HPF Urine Culture Indicated YES My Orders Orders - JAMES RODRIGUEZ VARNISH MAKER HELPER Beta Hydroxybutyrate (04/08/19 14:07) Hcg,Qualitative Serum (04/08/19 14:07) Iohexol Injection (Omnipaque 350 Mg/Ml 1 (04/08/19 14:15) Sodium Chloride Flush (Catheter Flush Sy (04/08/19 14:15) Ns (Ivpb) (Sodium Chloride 0.9% Ivpb Bag (04/08/19 14:15) Received Contrast (Hold Metformin- Contr (04/08/19 14:15) Ct Abdomen/Pelvis Wo (04/08/19 14:47) Fluconazole Tablet (Ed Only) (Diflucan T (04/08/19 16:15) Ns Iv 1000 Ml (Sodium Chloride 0.9%) (04/08/19 16:30) Medications Given in ED Current Medications Medications Dose Ordered Sig/Antonia Route Start Time Stop Time Status Last Admin Dose Admin Fluconazole 150 mg ONCE ONCE PO 04/08/19 16:15 04/08/19 16:16 DC 04/08/19 16:31 150 MG Ondansetron HCl 8 mg ONCE ONCE IVP 04/08/19 13:45 04/08/19 13:46 DC 04/08/19 14:05 8 MG Vital Signs/I&O 04/08/19 13:46 Temp 36.8 Pulse 124 Resp 20 B/P (MAP) 151/105 (120) Pulse Ox 100 O2 Delivery Room Air Blood Pressure Mean: 120 Diagnostic Imaging Diagonstic Imaging: CT Comments NAME: [facility] REC#: [id number] PT STATUS: REG ER : 1985 PHYSICIAN: JAMES RODRIGUEZ APRN ADMIT DATE: 04/08/19/ER Draft Date of Exam:04/08/19 CT ABDOMEN/PELVIS WO PROCEDURE: CT abdomen and pelvis without contrast. TECHNIQUE: Multiple contiguous axial images were obtained through the abdomen and pelvis without the use of intravenous contrast. Auto Exposure Controls were utilized during the CT exam to meet ALARA standards for radiation dose reduction. INDICATION: Abdominal pain. Type I diabetes. Nausea and vomiting. COMPARISON: None. FINDINGS: The lung bases are clear. Cholecystectomy. The liver, pancreas, spleen, adrenals, kidneys, collecting systems, and bladder are negative. IUD. The appendix is normal in caliber. Anasarca. No free intraperitoneal air. No lymphadenopathy. No evidence of bowel obstruction. Mild free fluid in the abdomen. No acute osseous findings. IMPRESSION: 1. Anasarca and small amount of free fluid in the abdomen. 2. Small esophageal hiatal hernia. 3. Cholecystectomy. Dictated on workstation # [id number] Dict: 04/08/19 1532 Trans: 04/08/19 1612 [id number] Interpreted by: FANNY BUENO MD Electronically signed by: Departure Communication (Admissions) I discussed the CT report of appendectomy with the patient, she is certain that she's never had her appendix removed. I then spoke with Dr. Bueno from radiology at [place], he saw some densities near the cecum, thought these represented surgical clips. However during my phone call he was able to identify the appendix, normal in appearance. 1620-is my recommendation with the patient to be admitted for IV fluids based on creatinine. She states that her creatinine was fluctuates, she is not concerned about this. She states she is trying to get on the transplant list at the [facility], she does agree to stay in the emergency room for at least one more bag of IV fluids, then will be discharged with a prescription for Phenergan. She will sign out AGAINST MEDICAL ADVICE. Impression Primary Impression: CKD (chronic kidney disease) Disposition: HOME, SELF-CARE Condition: Stable Departure-Patient Inst. Decision time for Depature: 16:21 Referrals: ALICE CARLISLE DO (PCP/Family) Primary Care Physician Patient Instructions: Chronic Kidney Disease (DC) Add. Discharge Instructions: 1. Drink plenty of fluids. Nausea medication as needed. Call your yoker machine operator Thursday for follow-up. Return to ER for any concerns. All discharge instructions reviewed with patient and/or family. Voiced understanding. Scripts Promethazine HCl (Promethazine Tablet) 25 Mg Tablet 25 MG PO TID PRN for NAUSEA/VOMITING, #14 TAB Prov: JAMES RODRIGUEZ VARNISH MAKER HELPER 04/08/19 Cephalexin (Keflex) 500 Mg Capsule 500 MG PO TID, #15 CAP Prov: JAMES RODRIGUEZ VARNISH MAKER HELPER 04/08/19 JAMES RODRIGUEZ APRN Apr 08, 2019 14:11
[2019-04-08] MEDS ORDERED: HOLD METFORMIN - RECEIVED CONTRAST 20 ML VIAL IV SCH (14:15)
[2019-04-08] MEDS ORDERED: CATHETER FLUSH 10 ML SYR IV PRN (14:15)
[2019-04-08] MEDS ORDERED: NS 100 ML (IVPB) BAG IV ONE (14:15)
[2019-04-08] MEDS ORDERED: IOHEXOL 350 MG/ML 100 ML (OMNIPAQUE 350) VIAL IV ONE (14:15)
[2019-04-08 14:33] LABS: ALBUMIN 2.9 GM/DL (3.2-4.5); BILIRUBIN,TOTAL 0.2 MG/DL (0.1-1.0); CREATININE SERUM 4.1 MG/DL (0.60-1.30); MAGNESIUM 2.2 MG/DL (1.6-2.4); POTASSIUM 3.9 MMOL/L (3.6-5.0); TOTAL PROTEIN 6.2 GM/DL (6.4-8.2)
[2019-04-08 15:22] LABS: BILIRUBIN,URINE NEGATIVE (NEGATIVE); CLARITY,URINE CLEAR; COLOR,URINE YELLOW; GLUCOSE, URINE (UA) 3+ (NEGATIVE); KETONES,URINE TRACE (NEGATIVE); LEUKOCYTE ESTERASE ,URINE NEGATIVE (NEGATIVE); NITRITE,URINE NEGATIVE (NEGATIVE); PROTEIN,URINE 3+ (NEGATIVE)
--- NOTE | 2019-04-08 15:36 | Diagnostic Imaging Report ---
PROCEDURE: CT abdomen and pelvis without contrast. TECHNIQUE: Multiple contiguous axial images were obtained through the abdomen and pelvis without the use of intravenous contrast. Auto Exposure Controls were utilized during the CT exam to meet ALARA standards for radiation dose reduction. INDICATION: Abdominal pain. Type I diabetes. Nausea and vomiting. COMPARISON: None. FINDINGS: The lung bases are clear. Cholecystectomy. The liver, pancreas, spleen, adrenals, kidneys, collecting systems, and bladder are negative. IUD. The appendix is normal in caliber. Anasarca. No free intraperitoneal air. No lymphadenopathy. No evidence of bowel obstruction. Mild free fluid in the abdomen. No acute osseous findings. IMPRESSION: 1. Anasarca and small amount of free fluid in the abdomen. 2. Small esophageal hiatal hernia. 3. Cholecystectomy. Dictated by: Dictated on workstation # [id number]
[2019-04-08 15:38] LABS: BACTERIA,URINE LARGE /HPF
[2019-04-08 15:41] LABS: AMORPHOUS SEDIMENT,UR FEW AMOR URATES /LPF
[2019-04-08 15:42] LABS: YEAST,URINE FEW /HPF
[2019-04-08] MEDS ORDERED: FLUCONAZOLE 150 MG TABLET (ED ONLY) PO ONE (16:15)
[2019-04-08] MEDS ORDERED: PROM25TA14 PO (16:54)
[2019-04-08] MEDS ORDERED: CEPH-507 PO (16:54)
[2019-04-08 17:20] VITALS: BP 135/87
== END 2019-04-08 17:20 | disposition home or self-care (01) ==
LOC: EDUNIT# 13:29 → ER 13:30
DX: E11.22 Type 2 diabetes mellitus with diabetic chronic kidney disease (principal); I12.9 Hypertensive chronic kidney disease with stage 1 through stage 4 chronic kidney disease, or unspecified chronic kidney disease; N18.9 Chronic kidney disease, unspecified; E11.40 Type 2 diabetes mellitus with diabetic neuropathy, unspecified; K21.9 Gastro-esophageal reflux disease without esophagitis; F41.9 Anxiety disorder, unspecified; Z88.8 Allergy status to other drugs, medicaments and biological substances; Z88.5 Allergy status to narcotic agent; Z79.4 Long term (current) use of insulin
CPT/HCPCS: 36415; 74176; 80053; 81000; 82010; 82962; 83690; 83735; 84703; 85025; 87088; 96361; 96374

== ENCOUNTER → 2019-08-01 | Outpatient (CLI) | payer MEDICAID ==
[~2019-08-01] VITALS: Ht 172 cm; Wt 77.0 kg
[~2019-08-01] MED LIST changes: +CATHETER FLUSH 10 ML SYR IV PRN; +CEPH-507 PO; -HYDR-3641 PO; +HYDR-4164 PO; -OMEP-280 PO; +OMEP20CA18 PO; +ONDA-105 PO; -ONDA4TAB10 PO; +PROM25TA14 PO; +REGADENOSON 0.4 MG/5 ML SYR (LEXISCAN) IV ONE; -ROPI0.5T2 PO; +ROPI0.5T4 PO
--- NOTE | 2019-08-01 11:50 | Cardiology Stress Test Report ---
Stress Test Report Date of Procedure/Referring: Date of Procedure: Aug 01, 2019 PCP David Plunkett DO Admitting Physician David Plunkett DO Indications: Accelerated hypertension Summary: Patient received the resting and stress dose of Myoview, test was supervised by Dr. Plunkett, images were reviewed and compared. Conclusion: 1. Mild decreased uptake at the mid anterior wall, anterolateral wall with subtle abnormality. No significant ischemia was noted 2. Normal left ventricular size with diffuse left ventricular hypokinesia, tachycardia. Ejection fraction 36 percent NASREEN RIVERA MD Aug 01, 2019 11:50
== END ==
LOC: CARD 07:01
PROVIDERS: ATTEND Internal Medicine
DX: I10 Essential (primary) hypertension (principal); I51.89 Other ill-defined heart diseases
CPT/HCPCS: 78452; 93017

== ENCOUNTER → 2019-08-05 | Outpatient (CLI) | payer MEDICAID ==
[~2019-08-05] MED LIST changes: -CATHETER FLUSH 10 ML SYR IV PRN; -REGADENOSON 0.4 MG/5 ML SYR (LEXISCAN) IV ONE
== END ==
LOC: CARD 13:56
PROVIDERS: ATTEND Internal Medicine
DX: I11.9 Hypertensive heart disease without heart failure (principal); I08.3 Combined rheumatic disorders of mitral, aortic and tricuspid valves
CPT/HCPCS: 93306

== ENCOUNTER 2019-09-07 08:02 | Day surgery (SDC) | payer MEDICARE, MEDICAID ==
[2019-09-07] VITALS (7 sets, daily range): BP systolic 154–185; BP diastolic 107–126
[~2019-09-07] VITALS: Ht 172.7 cm; Wt 72.7 kg
[~2019-09-07 08:02] MED LIST changes: +MULT-567 PO; -MULT1TAB69 PO
[2019-09-07] MEDS ORDERED: HEParin (CATH LAB) 2,000 ML IV ONE (08:08)
[2019-09-07] MEDS ORDERED: NS IV 1000 ML 1,000 ML ONE ×2 (08:08→13:15)
[2019-09-07] MEDS ORDERED: LIDOCAINE 1% INJ 20 ML 20 ML VIAL ONE (08:08)
[2019-09-07] MEDS ORDERED: NS IV 1000 ML 1,000 ML IV SCH ×2 (08:15→13:59)
--- OUTSIDE RECORDS SUMMARY | 2019-09-07 08:25 | XMS REPORT | Encounter Summary ---
Author Author [facility] Organization [facility] Address Unknown Phone Unavailable Care Team Providers Care Merchandising Professor Name Role Phone David Plunkett MD PCP Janette Lam MD 8002 Reason for Visit * Reason Comments Kidney Evaluation patient phone call re: test ing update Encounter Details Care Team Description Date Type Department Mireya Perkins RN Kidney Evaluation (patient phone call re : testing update) 08/25/2019 Tele[address] [id number] Social History Date Tobacco Use Types Packs/Day Years Used Never Smoker Smokeless Tobacco: Never Used Drinks/Week oz/Week Comments Alcohol Use No Sex Assigned at Date Recorded Female 06/28/2019 11:35 AM CDT Industry Job Start Date Occupation Not on file Not on file Not on file Travel End Travel History Travel Start No recent travel history available. Date Recorded COVID-19 Exposure Response 08/05/2019 2:34 PM CDT In the last month, have you been in contact with No / Unsure someone who was confirmed or suspected to have Coronavirus / COVID-19? documented as of this encounter Functional Status Date of Assessment Functional Status Response 07/11/2019 Does the patient have a hearing impairment: No 07/11/2019 Does the patient have a visual impairment: Yes 07/11/2019 Does the patient have impaired ambulation: Yes 07/11/2019 Does the patient have an activity of daily living No (ADL) impairment: 07/11/2019 Does the patient have an instrumental activity of No daily living (IADL) impairment: Date of Assessment Cognitive Status Response 07/11/2019 Does the patient have a cognitive impairment: No documented as of this encounter Miscellaneous Notes * Telephone Encounter - Mireya Perkins RN - 08/25/2019 3:06 PM CDT Received VM from pt inquiring if had received her recent testing. Contacted pt to update that PAP will need to be updated as well as cardiac cath. Pt states she wants to research a catalogue librarian and will notify where she would like referral for consult and cath sent. Pt also agreed to contact her OBGYN re: updating PAP. documented in this encounter Plan of Treatment Not on filedocumented as of this encounter Goals Goal Patient Associated Recent Progress Patient-Stat Aut hor Goal Type Problems ed? Recover from illness [facility] No Arminda Puentes RN documented as of this encounter Visit Diagnoses Not on filedocumented in this encounter
--- OUTSIDE RECORDS SUMMARY | 2019-09-07 08:25 | XMS REPORT | Encounter Summary ---
Author Author [facility] Organization [facility] Address Unknown Phone Unavailable Care Team Providers Care Mechanical Artist Name Role Phone David Plunkett MD PCP Janette Lam MD 8002 Encounter Details Care Team Description Date Type Department 08/05/2019 Travel Social History Date Tobacco Use Types Packs/Day [...] impairment: No documented as of this encounter Plan of Treatment Not on filedocumented as of this encounter Goals Goal Patient Associated Recent Progress Patient-Stat Aut hor Goal Type Problems ed? Recover from illness Hospital No Arminda Puentes, ANDREEA documented as of this encounter Visit Diagnoses Not on filedocumented in this encounter
--- OUTSIDE RECORDS SUMMARY | 2019-09-07 08:25 | XMS REPORT | Encounter Summary ---
Author Author [facility] Organization [facility] Address Unknown Phone Unavailable Care Team Providers Care Drug Room Operator Name Role Phone David Plunkett MD PCP Janette Lam MD 8002 Reason for Visit * Reason Comments Kidney/Pancreas Testing update Evaluation Encounter Details Care Team Description Date Type Department Mireya Perkins, RN Kidney/Pancreas Evaluation (Testing upda te) 08/05/2019 Telephone The [address] [phone] Social History Date Tobacco Use Types Packs/Day Years Used Never Smoker Smokeless Tobacco: Never Used Drinks/Week oz/Week Comments Alcohol Use No Sex Assigned at Date Recorded Female 06/28/2019 11:35 AM CDT Industry Job Start Date Occupation Not on file Not on file Not on file Travel End Travel History Travel Start No recent travel history available. Date Recorded COVID-19 Exposure Response 07/11/2019 11:45 AM CDT In the last month, have you [...] Miscellaneous Notes * Telephone Encounter - Mireya Perkins, RN - 08/05/2019 1:10 PM CDT Received email last Sat from pt re: testing update. Per email, she completed a foot exam with Dr. Plunkett, [facility] Chavez, and she [facility] which [facility]. Requesting echo be sent to [facility] but did not specify which one and lab orders be sent to [facility]. Email replied apologizing for delay and requesting specification of locations and updated that will send labs to [facility] for walk in. Received VM from yesterday from pt requesting labs be sent to [facility] in [facility] since she will be there today for other labs. Contacted pt. Per her, she has not yet gotten her labs drawn and is headed in fo r Echo @ [facility] now so will get labs after when she goes to [facility] for ot her labs. Agreed to have labs faxed KIRSTY to be drawn with her other labs. Pt reports her stress was completed on Mon @ [facility]. Per pt, she has a hard time reading [employer] and would like an updated To Do list sent to her via email so she can check off what needs to be completed. Agreed to do this for the pt as well. Emailed in office PATI Mcguire to request coag panel labs be faxed to [facility] KIRSTY. E faxed STAT request for stress test to [facility] APURVA [phone]. E faxed STAT request for most recent PAP to [facility]/Dr. Chavez [phone]. E faxed STAT request for foot exam note to PCP office. Composed updated To Do list letter and e faxed to Dr. Irby's office. Emailed copy of letter to pt per her request. documented in this encounter Plan of Treatment Not on filedocumented as of this encounter Goals Goal Patient Associated Recent Progress Patient-Stat Aut hor Goal Type Problems ed? Recover from illness Hospital No Arminda Puentes, ANDREEA documented as of this encounter Visit Diagnoses Not on filedocumented in this encounter
--- OUTSIDE RECORDS SUMMARY | 2019-09-07 08:25 | XMS REPORT | Encounter Summary ---
Author Author [facility] Organization [facility] Address Unknown Phone Unavailable Care Team Providers Care Lathe Set Up Person Name Role Phone David Plunkett MD PCP Janette Lam MD 8002 Reason for Visit * Reason Comments Kidney/Pancreas Review Evaluation Encounter Details Care Team Description Date Type Department Mireya Perkins RN Kidney/Pancreas Evaluation (Review ) 08/23/2019 Telephone The [facility] [address] [phone] Social History Date Tobacco Use Types Packs/Day [...] Telephone Encounter - Mireya Perkins RN - 08/23/2019 12:05 PM CDT Reviewed records with Dr. Tolbert. Noted that PAP abnormal, will need repeated. Al so need f/u re: home O2 suggested in recent PCP note. Per Dr. Tolbert, pt needs to have her dialysis optimized based on possible need for home O2 as well as possi ble volume issue. Per Dr. Tolbert, pt needs cardiac cath for clearance. Will update pt. documented in this encounter Plan of Treatment Not on filedocumented as of this encounter Goals Goal Patient Associated Recent Progress Patient-Stat Aut hor Goal Type Problems ed? Recover from illness Hospital No Arminda Puentes, ANDREEA documented as of this encounter Visit Diagnoses Not on filedocumented in this encounter
--- OUTSIDE RECORDS SUMMARY | 2019-09-07 08:25 | XMS REPORT | Encounter Summary ---
Author Author [facility] Organization [facility] Address Unknown Phone Unavailable Care Team Providers Care Cyber Transport Systems Specialist Name Role Phone David Plunkett MD PCP Janette Lam MD 8002 Reason for Visit * Reason Comments Kidney/Pancreas patient phone call re: card iology consult Evaluation Encounter Details Care Team Description Date Type Department Mireya Perkins RN Kidney/Pancreas Evaluation (patient phon e call re: cardiology consult) 08/30/2019 Telephone The [address] [phone] Social History Date Tobacco Use Types Packs/Day [...] Telephone Encounter - Mireya Perkins, RN - 08/30/2019 2:27 PM CDT Received VM from pt re: cardiac testing consult but message was unintelligible @ times and unable to hear name of mason liner to which pt is requesting orders be sent. Contacted pt who reports she is sched for cardiac cath next Wed with Dr. Charity camarillo nd should be having her PAP next week as well with her OBGYN but has not heard b ack on exact date yet. Agreed to update this coordinator as needed. documented in this encounter Plan of Treatment Not on filedocumented as of this encounter Goals Goal Patient Associated Recent Progress Patient-Stat Aut hor Goal Type Problems ed? Recover from illness Hospital No Arminda Puentes, RN documented as of this encounter Visit Diagnoses Not on filedocumented in this encounter
--- OUTSIDE RECORDS SUMMARY | 2019-09-07 08:25 | XMS REPORT | Clinical Summary ---
Author Author [facility] Organization [facility] Address Unknown Phone Unavailable Care Team Providers Care Repair Coil Winder Name Role Phone David Plunkett MD PCP Janette Lam MD [phone] Source Comments Some departments are not documenting in the electronic medical record. If you d o not see the information that you expected, contact Release of Information in [facility] [employer] Information Management department at [phone] for further assistan ce in locating additional records.[facility] Allergies Comments Active Allergy Reactions Severity Noted Date Lydia CARMICHAEL Medium 03/16/2017 Does not work Insulin Regular, Human SEE COMMENTS Low 018 Medications End Date Status Medication Sig Dispensed Refills Start Date Active FIASP FLEXTOUCH U-100 Inject under 0 11/25/19 1 INSULIN 100 unit/mL (3 the skin as 9 mL) injectable PEN needed for both meals and as correction. Per pt, averages between 30-50 units daily. Active pantoprazole DR Take 40 mg by 0 (PROTONIX) 40 mg tablet mouth daily. Active ondansetron (ZOFRAN) 4 mg Take 4 mg by 0 tablet mouth every 8 hours as needed for Nausea or Vomiting. Active acetaminophen (TYLENOL) Take 1,000 mg 0 500 mg tablet by mouth daily as needed for Pain. Max of 4,000 mg of acetaminophen in 24 hours. Active levonorgestrel (MIRENA) 1 Intra 0 20 mcg/24 hours (5 yrs) Uterine 52 mg intrauterine device Device by Intrauterine route once. Active NIFEdipine XL Take one 30 tablet 1 (PROCARDIA-XL) 60 mg tablet by 0 tablet mouth daily. Active insulin detemir U-100 Inject twenty 15 mL 3 (LEVEMIR FLEXTOUCH) 100 five Units 0 unit/mL (3 mL) injection under the pen skin twice daily. Active insulin pen needles Use one each 180 each 3 04/19 (disposable) (BD UF MOIRA as directed 0 PEN NEEDLES) 32 gauge x twice daily. " pen needle Use with insulin injections. Active bumetanide (BUMEX) 0.5 mg Take 0.5-1 mg 0 tablet by mouth daily. Active loratadine (CLARITIN) 10 Take 10 mg by 0 mg tablet mouth every morning. Active Problems Problem Noted Date Acute on chronic renal insufficiency 04/15/2019 Severe sepsis 02/04/2019 Appendicitis 02/04/2019 Acute kidney injury superimposed on CKD 02/04/2019 Nephrotic syndrome 02/04/2019 Lactic acidosis 02/01/2019 DKA (diabetic ketoacidoses) 05/11/2018 Pre-eclampsia or eclampsia superimposed on pre-existi ng hypertension 04/19/2018 04/19/2018 Pre-existing hypertension affecting in thir d trimester 02/05/2018 Type 1 diabetes mellitus during in third tr imester 12/02/2017 High-risk in first trimester 11/03/2017 Uncontrolled type 1 diabetes mellitus with hyperglyce ernestina 11/03/2017 Amy's thyroiditis 11/03/2017 Diabetic neuropathy associated with type 1 diabetes m ellitus 11/03/2017 Proteinuria 11/03/2017 Fibromyalgia 11/03/2017 Restless leg syndrome 11/03/2017 Resolved Problems Problem Noted Date Resolved Date Acute renal insufficiency 05/13/2018 05/14/2018 Hypertensive emergency 05/11/2018 05/14/2018 Encounters Care Team Description Date Type Specialty Mireya Perkins RN Kidney/Pancreas Evaluation (patient phon e call re: cardiology consult) 08/30/2019 Telephone Transplant Surgery Mireya Perkins RN Kidney Evaluation (patient phone call re : testing update) 08/25/2019 Telephone Transplant Surgery Mireya Perkins RN Kidney/Pancreas Evaluation (Review ) 08/23/2019 Telephone Transplant Surgery Mireya Perkins RN Kidney Evaluation (Foot exam, home O2, P AP) 08/22/2019 Telephone Transplant Surgery Teresa Thomas ESRD (end stage renal disease) (HCC); Pre-transplant evaluation for end stage renal disease 08/08/2019 Orders Only Transplant Surgery 08/05/2019 Travel Mireya Perkins RN Kidney/Pancreas Evaluation (Testing upda te) 08/05/2019 Telephone Transplant Surgery Mireya Perkins RN Committee Review 07/15/2019 Telephone Transplant Surgery No Show 07/14/2019 Clinical Transplant Surgery Support Telehealth Ray Tolbert MD 07/14/2019 Clinical Transplant Surgery Support Telehealth Jenna Mckinnon Transplant Referral (Check on appt) 07/13/2019 Telephone Transplant Surgery Ray Tolbert MD 07/11/2019 Hospital Radiology Encounter Brendan Oliveira MD 07/11/2019 Hospital Radiology Encounter Ray Tolbert MD 07/11/2019 Hospital Lab Encounter Ray Tolbert MD 07/11/2019 Clinical Transplant Surgery Support Dank Moore MD Pre-transplant evaluation for kidney and pancreas transplant (Primary Dx); Hypertensive renal disease; PVD (peripheral vascular disease) ([facility]); Coronary artery disease involving yuhaaviatam coronary artery without angina pectoris, unspecified whether yuhaaviatam or transplanted heart; Category 4 blindness of both eyes 07/11/2019 Transplant Transplant Surgery Evaluation Ray Tolbert MD Encounter for pre-transplant evaluation for kidney and pancreas transplant (Primary Dx); Chronic kidney disease, stage 4 (severe) ([facility]); ESRD (end stage renal disease) ([facility]); Pre-transplant evaluation for end stage renal disease; 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 ([facility]); Screening for human immunodeficiency virus 07/11/2019 Transplant Transplant Surgery Evaluation Rhea Rosales Financial/Insurance Questions (kidney/pa nc eval auth approved- same auth #) 07/11/2019 Telephone Transplant Surgery Rhea Rosales Financial/Insurance Questions (financial consult) 07/11/2019 Telephone Transplant Surgery 07/11/2019 Travel Doctor, Miscellaneous Ray Tolbert MD 07/08/2019 Clinical Transplant Surgery Support Telehealth Rhea Rosales Financial/Insurance Questions (TC to [facility] to add panc to eval auth approval) 07/08/2019 Telephone Transplant Surgery Shayla Amaya Transplant Referral (Call Re: Telehealth Appt. ) 07/06/2019 Telephone Transplant Surgery Jenna Mckinnon Transplant Referral (Schedule New K Eval ) 06/28/2019 Telephone Transplant Surgery Jenna Mckinnon Transplant Referral (Postpone Eval) 06/08/2019 Telephone Transplant Surgery from Last 3 Months Immunizations Name Administration Dates Next Due Flu Vaccine =>6 Months 12/02/2017 Quadrivalent PF MMR Vaccine 04/23/2018 Pneumococcal Vaccine 02/03/2019 () (23-Iwona Adult) Tdap Vaccine 04/22/2018 Family History Medical History Relation Name Comments Heart Attack Paternal Grandfather Relation Name Status Comments Paternal Grandfather Social History Date Tobacco Use Types Packs/Day Years Used Never Smoker Smokeless Tobacco: Never Used Drinks/Week oz/Week Comments Alcohol Use No Sex Assigned at Date Recorded Female 06/28/2019 11:35 AM CDT Industry Job Start Date Occupation Not on file Not on file Not on file Travel End Travel History Travel Start No recent travel history available. Last Filed Vital Signs Reading Time Taken Comments Vital Sign 171/94 07/11/2019 1:00 PM CDT Blood Pressure 112 07/11/2019 1:00 PM CDT Pulse 36.4 C (97.6 F) 07/11/2019 12:59 PM CDT Temperature 18 01/17/2019 11:47 AM [employer] Respiratory Rate 97% 07/11/2019 12:59 PM CDT Oxygen Saturation - - Inhaled Oxygen Concentration 83 kg (183 lb) 07/11/2019 12:59 PM CDT Weight 172.7 cm (5' 8") 07/11/2019 12:59 PM CDT Height 27.83 07/11/2019 12:59 PM CDT Body Mass Index Plan of Treatment Health Maintenance Due Date Last Done Comments FOOT EXAM 2004 PHYSICAL (COMPREHENSIVE) 2004 EXAM PNEUMONIA VACCINE (DM) 2004 CERVICAL CANCER SCREENING 11/11/2007 INFLUENZA VACCINE 11/24/2019 12/02/2017 HBA1C 01/11/2020 07/11/2019, 04/16/2019, 04/16/2019, Additional history exists MICROALBUMIN 04/16/2020 04/16/2019 DTAP/TDAP VACCINES (2 - 04/22/2028 04/22/2018 Td) HEPATITIS C SCREENING Completed 07/11/2019, 02/03/2019 HIV SCREENING Completed 07/11/2019, 04/19/2018 Goals Goal Patient Associated Recent Progress Patient-Stat Aut hor Goal Type Problems ed? Recover from illness Hospital No Arminda Puentes, ANDREEA Implants Device Identifier Shelf Expiration Date Model / Serial / L ot Implanted Type Area Manufactur er 06/23/2020 [address]-23 / UNKNOWN / [id number] Mirena Intrauterine System - ROSE [employer] Implanted: Qty: 1 on 04/19/2018 by Kavya Sanders MD at [facility] Procedures Comments Procedure Name Priority Date/Time Associated Diag nosis ECG-SCAN 08/09/2019 12:00 AM CDT PROTIME INR (PT) Routine 08/05/2019 ESRD (end sta ge renal 3:33 PM CDT disease) ([facility]) Pre-transplant evaluation for end stage renal disease CT ABD/PELV WO CONTRAST Routine 07/11/2019 Pre-tr ansplant evaluation 5:00 PM CDT for end stage renal disease CHEST 2 VIEWS Routine 07/11/2019 ESRD (end stage renal 4:29 PM CDT disease) ([facility]) Pre-transplant evaluation for end stage renal disease HC TP/CR RATIO, RANDOM Routine 07/11/2019 ESRD (e nd stage renal 4:15 PM CDT disease) ([facility]) Pre-transplant evaluation for end stage renal disease HC PHENCYCLIDINES; QUAL Routine 07/11/2019 ESRD ( end stage renal 4:15 PM CDT disease) ([facility]) Pre-transplant evaluation for end stage renal disease HC OPIATES; QUAL Routine 07/11/2019 ESRD (end sta ge renal 4:15 PM CDT disease) ([facility]) Pre-transplant evaluation for end stage renal disease HC COCAINE; QUAL Routine 07/11/2019 ESRD (end sta ge renal 4:15 PM CDT disease) ([facility]) Pre-transplant evaluation for end stage renal disease HC CANNABINOIDS; QUAL Routine 07/11/2019 ESRD (en d stage renal 4:15 PM CDT disease) ([facility]) Pre-transplant evaluation for end stage renal disease HC BENZODIAZEPINES, QUAL Routine 07/11/2019 ESRD (end stage renal 4:15 PM CDT disease) ([facility]) Pre-transplant evaluation for end stage renal disease HC BARBITURATES Routine 07/11/2019 ESRD (end stag e renal 4:15 PM CDT disease) ([facility]) Pre-transplant evaluation for end stage renal disease HC AMPHETAMINES QUAL, Routine 07/11/2019 ESRD (en d stage renal URINE 4:15 PM CDT disease) ([facility]) Pre-transplant evaluation for end stage renal disease URINALYSIS, MICROSCOPIC Routine 07/11/2019 ESRD ( end stage renal 4:15 PM CDT disease) ([facility]) Pre-transplant evaluation for end stage renal disease HC URINALYSIS, AUTO W Routine 07/11/2019 ESRD (en d stage renal MICRO 4:15 PM CDT disease) ([facility]) Pre-transplant evaluation for end stage renal disease HC BLOOD TYPING, ABO Routine 07/11/2019 ESRD (end stage renal CONFIRM 91 4:04 PM CDT disease) ([facility]) Pre-transplant evaluation for end stage renal disease HC ABO GROUP Routine 07/11/2019 ESRD (end stage renal 3:57 PM CDT disease) ([facility]) Pre-transplant evaluation for end stage renal disease HC CBC W/ AUTOMATED DIFF Routine 07/11/2019 ESRD (end stage renal 3:57 PM CDT disease) ([facility]) Pre-transplant evaluation for end stage renal disease HC CMV IGG Routine 07/11/2019 ESRD (end stage renal 3:57 PM CDT disease) ([facility]) Pre-transplant evaluation for end stage renal disease HC CMV TITER IGM Routine 07/11/2019 ESRD (end sta ge renal 3:57 PM CDT disease) ([facility]) Pre-transplant evaluation for end stage renal disease HC COMPREHENSIVE Routine 07/11/2019 ESRD (end sta ge renal METABOLIC PANEL 3:57 PM CDT disease) ([facility]) Pre-transplant evaluation for end stage renal disease HC DORIS CARUSO CAPSID AG Routine 07/11/2019 ESRD (end stage renal IGG 3:57 PM CDT disease) ([facility]) Pre-transplant evaluation for end stage renal disease HC GGTP Routine 07/11/2019 ESRD (end stage renal 3:57 PM CDT disease) ([facility]) Pre-transplant evaluation for end stage renal disease HC HEPATITIS B CORE Routine 07/11/2019 ESRD (end stage renal ANTIBODY 3:57 PM CDT disease) ([facility]) Pre-transplant evaluation for end stage renal disease HC HEPATITIS B-S ANTIBODY Routine 07/11/2019 ESRD (end stage renal 3:57 PM CDT disease) ([facility]) Pre-transplant evaluation for end stage renal disease HC HEPATITIS B-S ANTIGEN Routine 07/11/2019 ESRD (end stage renal 3:57 PM CDT disease) ([facility]) Pre-transplant evaluation for end stage renal disease HC HEPATITIS C DARIN Routine 07/11/2019 ESRD (end s tage renal 3:57 PM CDT disease) ([facility]) Pre-transplant evaluation for end stage renal disease HC HIV 1/2 DARIN AG SCREEN Routine 07/11/2019 ESRD (end stage renal 3:57 PM CDT disease) ([facility]) Pre-transplant evaluation for end stage renal disease Screening for human immunodeficiency virus HC HSV I AB IGG Routine 07/11/2019 ESRD (end stag e renal IMMUNOBLOT(HSVG) 3:57 PM CDT disease) ([facility]) Pre-transplant evaluation for end stage renal disease HC PHOSPHOROUS, SERUM Routine 07/11/2019 ESRD (en d stage renal 3:57 PM CDT disease) ([facility]) Pre-transplant evaluation for end stage renal disease HC PT(INR) Routine 07/11/2019 ESRD (end stage renal 3:57 PM CDT disease) ([facility]) Pre-transplant evaluation for end stage renal disease HC SYPHILIS AB SCREEN Routine 07/11/2019 ESRD (en d stage renal (SYPT) 3:57 PM CDT disease) ([facility]) Pre-transplant evaluation for end stage renal disease HC TOXOPLASMA IGG Routine 07/11/2019 ESRD (end st age renal 3:57 PM CDT disease) ([facility]) Pre-transplant evaluation for end stage renal disease HC TOXOPLASMA IGM Routine 07/11/2019 ESRD (end st age renal 3:57 PM CDT disease) ([facility]) Pre-transplant evaluation for end stage renal disease HC C-PEPTIDE Routine 07/11/2019 ESRD (end stage renal 3:57 PM CDT disease) ([facility]) Pre-transplant evaluation for end stage renal disease 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 ([facility]) HC HEMOGLOBIN A1C Routine 07/11/2019 ESRD (end st age renal 3:57 PM CDT disease) ([facility]) Pre-transplant evaluation for end stage renal disease 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 ([facility]) RED TOP TUBE FOR MTN Routine 07/11/2019 ESRD (end stage renal TRANSPLANT 3:57 PM CDT disease) ([facility]) Pre-transplant evaluation for end stage renal disease LAVENDER (EDTA) TOP TUBE Routine 07/11/2019 ESRD (end stage renal FOR MTN TRANSPLANT 3:57 PM CDT disease) ([facility]) Pre-transplant evaluation for end stage renal disease HC VARICELLA ZOSTER Routine 07/11/2019 ESRD (end stage renal IGG(VZG, IGG 3:57 PM CDT disease) ([facility]) Pre-transplant evaluation for end stage renal disease HC VARICELLA-ZOSTER Routine 07/11/2019 ESRD (end stage renal IGM(VZM, IGM 3:57 PM CDT disease) ([facility]) Pre-transplant evaluation for end stage renal disease from Last 3 Months Results * ECG-SCAN (08/09/2019 12:00 AM CDT) Narrative Performed At This result has an attachment that is n ot available. Ordered by an unspecified provider. * PROTIME INR (PT) (08/05/2019 3:33 PM CDT) Only the most recent of 2 results within the time period is included. INR 0.9 (L) 1.0 - 4.0 [facility] Protime 10.3 [facility] INTER[facility] Specimen Blood Narrative Performed At [facility] INTERFACE Outside Lab Verified by Teresa crowder 08/08/2019. Performing Organization Address City/State/Zipcode Ph one Number [facility] INTERFACE * CT ABD/PELV WO CONTRAST (07/11/2019 5:00 PM CDT) Specimen Impressions Performed At 1. Mild generalized cardiomegaly and mild interstitial pulmonary edema without [facility] pleural effusion. 2. Increase in hepatomegaly since Mar. Spleen remains upper limits normal size. 3. Normal caliber aorta and iliac art eries without calcified plaque. 4. Unchanged mild nodularity in the r etroperitoneum suggesting stable mild retroperitoneal adenopathy. 5. Mild diffuse renal atrophy without calculi or hydronephrosis. 6. Interval placement of peritoneal d ialysis catheter with mild free fluid. Bladder collapsed. Finalized by Oelg Reyes M.D. on 07/10 5:28 PM. Dictated by Oleg Reyes M.D. on 07/11/2019 5:15 PM. Narrative Performed At CT abdomen and pelvis [facility] INDICATION: Assess pretransplant TECHNIQUE: CT scans obtained through ab domen and pelvis without IV contrast material. The vessels cannot be assessed for soft plaque, stenosis or occlusion without IV contrast material. Comparison with most recent CT of 2019. FINDINGS: There is mild generalized cardiomegaly. There is mild pulmonary venous congestion with interlobular septal thi ckening. No pleural effusion. There is increase in mild hepatomegaly with increase in size of the liver since March 2028 measuring 24 cm cephaloca udal compared with 20 mL of previously. No focal low-density liver lesions. Spleen unremarkable. Adrenal glands unremarkable. Kidneys mildly atrophic. No calculi. No perinephric fluid collections. Pancreas unremarkable. There is stabl e mild nodularity in the retroperitoneum which may be from stable mild retroperi toneal adenopathy or less likely varices. This is stable since January 2019. Aorta and iliac arteries remain normal caliber. No calcified aortic plaque or iliac artery plaque. Bladder collapsed. Uterus normal size with persistent intrauterine device in place. Ovaries normal size with small cysts or follicles. Bowel loops normal caliber. Appendix not seen at this examination. Peritoneal dialysis catheter in place . Mild free fluid within the pelvis. No free air. Persistent mild symmet rina body wall edema. Unchanged mild superior endplate compre ssion deformity of L2. Procedure Note Interface, Radiant Results - 07/11/2019 5:[address] abdomen and pelvis INDICATION: Assess pretransplant TECHNIQUE: CT scans obtained through abdomen and pelvis without IV contrast material. The vessels cannot be assessed for soft plaque, stenosis or occlusion without IV contrast material. Comparison with most recent CT of April 16, 2019. FINDINGS: There is mild generalized cardiomegaly. There is mild pulmonary venous congestion with interlobular septal thickening. No pleural effusion. There is increase in mild hepatomegaly with increase in size of the liver since March 2028 measuring 24 cm cephalocaudal compared with 20 mL of previously. No focal low-density liver lesions. Spleen unremarkable. Adrenal glands unremarkable. Kidneys mildly atrophic. No calculi. No perinephric fluid collections. Pancreas unremarkable. There is stable mild nodularity in the retroperitoneum which may be from stable mild retroperitoneal adenopathy or less likely varices. This is stable since January 2019. Aorta and iliac arteries remain normal caliber. No calcified aortic plaque or iliac artery plaque. Bladder collapsed. Uterus normal size with persistent intrauterine device in place. Ovaries normal size with small cysts or follicles. Bowel loops normal caliber. Appendix not seen at this examination. Peritoneal dialysis catheter in place. Mild free fluid within the pelvis. No free air. Persistent mild symmetric body wall edema. Unchanged mild superior endplate compression deformity of L2. IMPRESSION 1. Mild generalized cardiomegaly and mi ld interstitial pulmonary edema without pleural effusion. 2. Increase in hepatomegaly since 2019. Spleen remains upper limits normal size. 3. Normal caliber aorta and iliac arter ies without calcified plaque. 4. Unchanged mild nodularity in the ret roperitoneum suggesting stable mild retroperitoneal adenopathy. 5. Mild diffuse renal atrophy without c alculi or hydronephrosis. 6. Interval placement of peritoneal monse lysis catheter with mild free fluid. Bladder collapsed. Finalized by Oleg Reyes M.D. on 07/11/2019 5:28 PM. Dictated by Oleg Reyes M.D. on 07/11/2019 5:15 PM. Performing Organization Address City/State/Zipcode Ph one Number [facility] RES[facility] * CHEST 2 VIEWS (07/11/2019 4:29 PM CDT) Specimen Impressions Performed At 1. Diffuse interstitial edema. [facility] 2. Placement of right IJ central venous catheter. By my electronic signature, I attest th at I have personally reviewed the images for this examination and formulated the interpretations and opinions expressed in this report Finalized by Kale Lr M.D. o n 07/11/2019 4:43 PM. Dictated by Papa Thomas MD on 07/11/2019 4:30 PM. Narrative Performed At 2 VIEW CHEST RADIOGRAPH [facility] RES[facility] INDICATION: Prerenal transplant eval. COMPARISON STUDY: Chest radiograph [facility]2019. FINDINGS: Support devices: Interval placement of a right IJ central venous catheter with tip overlying the lower SVC. Lungs: The lung volume is normal. Sligh t progression of bilateral fissural thickening. Diffuse vascular indistinct ness. Septal lines. Pleura: No pleural effusion. No pneumot horax. Heart and Mediastinum: Stable heart and mediastinum Skeletal Structures and Soft Tissues: S table regional skeleton Procedure Note Interface, Radiant Results - 07/11/2019 4:46 PM CDT 2 VIEW CHEST RADIOGRAPH INDICATION: Prerenal transplant eval. COMPARISON STUDY: Chest radiograph April 15, 2019. FINDINGS: Support devices: Interval placement of a right IJ central venous catheter with tip overlying the lower SVC. Lungs: The lung volume is normal. Slight progression of bilateral fissural thickening. Diffuse vascular indistinctness. Septal lines. Pleura: No pleural effusion. No pneumothorax. Heart and Mediastinum: Stable heart and mediastinum Skeletal Structures and Soft Tissues: Stable regional skeleton IMPRESSION 1. Diffuse interstitial edema. 2. Placement of right IJ central venous catheter. By my electronic signature, I attest that I have personally reviewed the images for this examination and formulated the interpretations and opinions expressed in this report Finalized by Kale Lr M.D. on 07/11/2019 4:43 PM. Dictated by Papa Thomas MD on 07/11/2019 4:30 PM. Performing Organization Address City/[facility] Ph one Number [facility] RES[facility] * PROTEIN/CR RATIO,UR RAN (07/11/2019 4:15 PM CDT) Protein, Random 887 MG/DL [facility] Creatinine, 54 MG/DL [facility] Random Protein/CR 16.4 [facility] ratio Specimen Urine - Urine Performing Organization Address [facility] Ph one Number [facility] [address] [place] [address] * URINALYSIS, MICROSCOPIC (07/11/2019 4:15 PM CDT) WBCs,UA 2-10 0 - 2 /HPF [facility] RBCs,UA 2-10 0 - 3 /HPF [facility] Squamous 10-20 0 - 5 [facility] Epithelial Cells Hyaline Cast 0-2 [facility] Specimen Urine - Urine Performing Organization Address [facility] Ph one Number [facility] [address] [place] [address] * URINALYSIS DIPSTICK (07/11/2019 4:15 PM CDT) Color,UA YELLOW [facility] Turbidity,UA CLEAR CLEAR-CLEAR [facility] Specific 1.017 1.003 - 1.035 [facility] Thayer-Urine pH,UA 8.0 5.0 - 8.0 [facility] Protein,UA 3+ (A) NEG-NEG [facility] Glucose,UA 3+ (A) NEG-NEG [facility] Ketones,UA NEG NEG-NEG [facility] Bilirubin,UA NEG NEG-NEG [facility] Blood,UA NEG NEG-NEG [facility] Urobilinogen,UA NORMAL NORM-NORMAL [facility] Nitrite,UA NEG NEG-NEG [facility] Leukocytes,UA NEG NEG-NEG [facility] Urine Ascorbic NEG NEG-NEG [facility] Acid, UA Specimen Urine - Urine Performing Organization Address [facility] one Number [facility] [address] [place] [address] * PHENCYCLIDINES-URINE RANDOM (07/11/2019 4:15 PM CDT) Phencyclidine NEG NEG-NEG [facility] (PCP) Comment: RESULTS WERE OBTAINED BY IMMUNOASSAY AND ARE PRESUMPTIVE ONLY. POSITIVE INDICATES THE PRESENCE OF SUBSTANCE WITH CHARACTERISTICS SIMILAR TO DRUG-DRUG CLASS OR METABOLITE IN CONC. EQUAL TO OR EXCEEDING VALUES LISTED. PHENCYCLIDINE (PCP) 25 NG/ML Specimen Urine - Urine Performing Organization Address [facility] one Number [facility] [address] [place] [address] * OPIATES-URINE RANDOM (07/11/2019 4:15 PM CDT) Opiates-Urine NEG NEG-NEG [facility] MAIN LAB Comment: RESULTS WERE OBTAINED BY IMMUNOASSAY AND ARE PRESUMPTIVE ONLY. POSITIVE INDICATES THE PRESENCE OF SUBSTANCE WITH CHARACTERISTICS SIMILAR TO DRUG-DRUG CLASS OR METABOLITE IN CONC. EQUAL TO OR EXCEEDING VALUES LISTED. OPIATES 2000 NG/ML Specimen Urine - Urine Performing Organization Address [facility] one Deuce [facility] [address] [place] [address] * COCAINE-URINE RANDOM (07/11/2019 4:15 PM CDT) Cocaine-Urine NEG NEG-NEG [facility] Comment: RESULTS WERE OBTAINED BY IMMUNOASSAY AND ARE PRESUMPTIVE ONLY. POSITIVE INDICATES THE PRESENCE OF SUBSTANCE WITH CHARACTERISTICS SIMILAR TO DRUG-DRUG CLASS OR METABOLITE IN CONC. EQUAL TO OR EXCEEDING VALUES LISTED. COCAINE 300 NG/ML Specimen Urine - Urine Performing [facility] one Deuce [facility] [address] [place] [address] * CANNABINOIDS-URINE RANDOM (07/11/2019 4:15 PM CDT) THC NEG NEG-NEG [facility] Comment: RESULTS WERE OBTAINED BY IMMUNOASSAY AND ARE PRESUMPTIVE ONLY. POSITIVE INDICATES THE PRESENCE OF SUBSTANCE WITH CHARACTERISTICS SIMILAR TO DRUG-DRUG CLASS OR METABOLITE IN CONC. EQUAL TO OR EXCEEDING VALUES LISTED. CANNABINOIDS 50 NG/ML Specimen Urine - Urine Performing Organization [facility] one Deuce [facility] [address] [place] [address] * BENZODIAZEPINES-URINE RANDOM (07/11/2019 4:15 PM CDT) Benzodiazepines NEG NEG-NEG [facility] Comment: RESULTS WERE OBTAINED BY IMMUNOASSAY AND ARE PRESUMPTIVE ONLY. POSITIVE INDICATES THE PRESENCE OF SUBSTANCE WITH CHARACTERISTICS SIMILAR TO DRUG-DRUG CLASS OR METABOLITE IN CONC. EQUAL TO OR EXCEEDING VALUES LISTED. BENZODIAZEPINES 200 NG/ML Specimen Urine - Urine Performing Organization [facility] Ph one Deuce [facility] [address] [place] [address] * BARBITURATES-URINE RANDOM (07/11/2019 4:15 PM CDT) Barbiturates,Ur NEG NEG-NEG [facility] ine Comment: RESULTS WERE OBTAINED BY IMMUNOASSAY AND ARE PRESUMPTIVE ONLY. POSITIVE INDICATES THE PRESENCE OF SUBSTANCE WITH CHARACTERISTICS SIMILAR TO DRUG-DRUG CLASS OR METABOLITE IN CONC. EQUAL TO OR EXCEEDING VALUES LISTED. BARBITURATES 200 NG/ML Specimen Urine - Urine Performing Organization Address [facility] one Number MAIN LAB [address] [place] [address] * AMPHETAMINES-URINE RANDOM (07/11/2019 4:15 PM CDT) Pathologist [facility] Amphetamines NEG NEG-NEG MAIN LAB Comment: RESULTS WERE OBTAINED BY IMMUNOASSAY AND ARE PRESUMPTIVE ONLY. POSITIVE INDICATES THE PRESENCE OF SUBSTANCE WITH CHARACTERISTICS SIMILAR TO DRUG-DRUG CLASS OR METABOLITE IN CONC. EQUAL TO OR EXCEEDING VALUES LISTED. AMPHETAMINES 1000 NG/ML Specimen Urine - Urine Performing Organization [facility] one Number MAIN LAB [address] [place] [address] * BLOOD TYPE CONFIRMATION - ORDER ONLY IF REQUESTED BY LAB (07/11/2019 4:04 PM CDT) Pathologist [facility] ABO/RH(D) O POS MAIN LAB Specimen Blood Performing Organization [facility] one Number MAIN LAB [address] [place] [address] * RED TOP TUBE FOR MTN TRANSPLANT (07/11/2019 3:57 PM CDT) Specimen Blood Performing Organization [facility] one Number REFERENCE LAB * HIV-1/2 ANTIGEN/ANTIBODY SCREEN (07/11/2019 3:57 PM CDT) Pathologist [facility] HIV 1 and 2 AG Non-Reactive: Negative for KWFOG-Bso-Meovioqx: [facility] AB Screen HIV-1 Ag and HIV-1/2 specific Negative for HIV-1 antibodies.Comment: NOTE NEW Ag and HIV-1/2 METHODOLOGY AND REFERENCE specif RANGE Specimen Blood Performing Organization [facility] one Number MAIN LAB [address] [place] [address] * SYPHILIS AB SCREEN (07/11/2019 3:57 PM CDT) Pathologist [facility] Syphilis AB, NegativeComment: NOTE NEW [facility] Total METHODOLOGY AND REFERENCE RANGE Specimen Blood Performing Organization [facility] one Number MAIN LAB [address] [place] [address] * ABO/RH(D) (07/11/2019 3:57 PM CDT) ABO/RH(D) O POS MAIN LAB Specimen Blood Performing Organization Address [facility] one Number MAIN LAB [address] [place] [address] * TOXOPLASMA IGM (07/11/2019 3:57 PM CDT) Toxoplasma IgM NEG MAIN LAB Specimen Blood Performing Organization Address [facility] one Number MAIN LAB [address] [place] [address] * TOXOPLASMA IGG (07/11/2019 3:57 PM CDT) Toxoplasma IgG NEG MAIN LAB Specimen Blood Performing Organization Address [facility] Ph one Number MAIN LAB [address] [place] [address] * HERPES SIMPLEX IGG AB (HSV IGG) (07/11/2019 3:57 PM CDT) HSV Type 1 IgG NEG NEG-NEG MAIN LAB HSV Type 2 IgG NEG NEG-NEG MAIN LAB Specimen Blood Performing Organization Address [facility] one Number MAIN LAB [address] [place] [address] * HEPATITIS C AB (07/11/2019 3:57 PM CDT) Pathologist [facility] Anti HCV Non-Reactive: Antibodies to [id number]-Cdu-Cdscjegz : [facility] HCV were not detected.Comment: Antibodies to HCV NOTE NEW METHODOLOGY AND were not detected. REFERENCE RANGE Specimen Blood Performing Organization Address [facility] Ph one Number [facility] [address] [place] [address] * HEPATITIS B CORE AB TOT (IGG+IGM) (07/11/2019 3:57 PM CDT) Anti HBc Total Non-Reactive: Antibodies to [id number]-Jsp-Hddmwksg : [facility] HBV core antigen Antibodies to HBV (anti-HBc)were not core antigen detected.Comment: NOTE NEW (anti-HBc METHODOLOGY AND REFERENCE RANGE Specimen Blood Performing Organization Address [facility] one Number MAIN LAB [address] [place] [address] * HEPATITIS B SURFACE AG (07/11/2019 3:57 PM CDT) HBsAg Non-Reactive: HBs antigen not IFTR-Gaf-Cequtma e: MAIN LAB detectedComment: NOTE NEW HBs antigen not METHODOLOGY AND REFERENCE detected RANGE Specimen Blood Performing Organization Address [facility] one Number MAIN LAB [address] [place] [address] * HEPATITIS B SURFACE AB (07/11/2019 3:57 PM CDT) Anti HBs Positive: Anti-HBs NHBV-Negative: [facility] concentration detected at >10 Individual is mIU/mL,indicating recovery considered to be from non-immune to HBV infection or acquired immunity from HBV vaccination. (A)Comment: NOTE NEW METHODOLOGY AND REFERENCE RANGE Specimen Blood Performing Organization Address [facility] one Number MAIN LAB [address] [place] [address] * GGTP (07/11/2019 3:57 PM CDT) GGTP 93 (H) 9 - 64 U/L MAIN LAB Specimen Blood Performing Organization Address [facility] one Number MAIN LAB [address] [place] [address] * DORIS CARUSO PANEL(EBV) (07/11/2019 3:57 PM CDT) EBV Capsid IgG POS MAIN LAB EBV Nuclear POS MAIN LAB Ag,Ab EBV Early Ag,Ab POS MAIN LAB EBV Capsid IgM NEG NEG-NEG MAIN LAB Specimen Blood Performing Organization Address [facility] one Number MAIN LAB [address] [place] [address] * C-PEPTIDE (07/11/2019 3:57 PM CDT) C-Peptide <0.1 REFERENCE LAB Reference range: 1.1 to 4.4 Unit: ng/mL [facility], [address] [place] [address], [place] [address] (L) Specimen Blood Performing Organization Address [facility] one Number REFERENCE LAB REFERENCE LAB See results for address. * CMV AB IGM (07/11/2019 3:57 PM CDT) CMV, IgM NEG NEG-NEG MAIN LAB Specimen Blood Performing Organization Address [facility] one Number MAIN LAB [address] [place] [address] * CMV AB IGG (07/11/2019 3:57 PM CDT) Pathologist [facility] CMV, IgG POS [facility] Specimen Blood Performing Organization Address [facility] Ph one Number [facility] [address] [place] [id number] * LAVENDER (EDTA) TOP TUBE FOR MTN TRANSPLANT (07/11/2019 3:57 PM CDT) Specimen Blood Performing Organization Address [facility] one Number REFERENCE LAB * CBC AND DIFF (07/11/2019 3:57 PM CDT) Pathologist [facility] White Blood 5.4 4.5 - 11.0 K/UL [facility] Cells RBC 2.40 (L) 4.0 - 5.0 M/UL [facility] Hemoglobin 7.2 (L) 12.0 - 15.0 GM/DL [facility] MAIN LAB Hematocrit 21.7 (L) 36 - 45 % [facility] MAIN LAB MCV 90.5 80 - 100 FL [facility] MAIN LAB MCH 30.1 26 - 34 PG [facility] MAIN LAB MCHC 33.3 32.0 - 36.0 G/DL [facility] MAIN [facility] RDW 16.2 (H) 11 - 15 % [facility] MAIN [facility] Platelet Count 403 (H) 150 - 400 K/UL [facility] MAIN [facility] MPV 8.0 7 - 11 FL [facility] MAIN LAB Neutrophils 69 41 - 77 % [facility] MAIN [facility] Lymphocytes 20 (L) 24 - 44 % [facility] MAIN [facility] Monocytes 5 4 - 12 % [facility] MAIN LAB Eosinophils 5 0 - 5 % [facility]IN [facility] Basophils 1 0 - 2 % [facility] MAIN [facility] Absolute 3.71 1.8 - 7.0 K/UL [facility] MAIN LAB Neutrophil Count Absolute Lymph 1.07 1.0 - 4.8 K/UL [facility] MAIN [facility] Count Absolute 0.29 0 - 0.80 K/UL [facility] MAIN LAB Monocyte Count Absolute 0.27 0 - 0.45 K/UL [facility] MAIN LAB Eosinophil Count Absolute 0.07 0 - 0.20 K/UL [facility] MAIN LAB Basophil Count Specimen Blood Performing Organization Address [facility] one Number [facility] MAIN LAB [address] [place] [address] * VARICELLA ZOSTER AB IGM (07/11/2019 3:57 PM CDT) Pathologist [facility] Varicella Negative REFERENCE LAB Zoster IgM Reference range: Negative [facility], [address] [facility], [place] [address] Specimen Blood Performing Organization Address [facility] Ph one Number REFERENCE LAB REFERENCE LAB See results for address. * VARICELLA ZOSTER AB IGG (07/11/2019 3:57 PM CDT) Varcella Zoster POS [facility] MAIN [facility] IgG Specimen Blood Performing Organization Address [facility] Ph one Number [facility] MAIN LAB [address] [place] [address] * PHOSPHORUS (07/11/2019 3:57 PM CDT) Phosphorus 6.8 (H) 2.0 - 4.5 MG/DL [facility] MAIN LAB Specimen Blood Performing Organization Address [facility] one Number [facility] MAIN LAB [address] [place] [address] * HEMOGLOBIN A1C (07/11/2019 3:57 PM CDT) Hemoglobin A1C 8.9 (H) 4.0 - 6.0 % [facility] Comment: The ADA recommends that most patients with type 1 and type 2 diabetes maintain an A1c level <7%. Specimen Blood Performing Organization Address [facility] one Number [facility] MAIN [facility] [address] [place] [address] * COMPREHENSIVE METABOLIC PANEL (07/11/2019 3:57 PM CDT) Sodium 136 (L) 137 - 147 MMOL/L [facility] Potassium 4.9 3.5 - 5.1 MMOL/L [facility] Chloride 95 (L) 98 - 110 MMOL/L [facility] Glucose 429 (H) 70 - 100 MG/DL [facility] MAIN [facility] Blood Urea 64 (H) 7 - 25 MG/DL [facility]IN [facility] Nitrogen Creatinine 6.67 (H) 0.4 - 1.00 MG/DL [facility]IN [facility] Calcium 8.9 8.5 - 10.6 MG/DL [facility] MAIN [facility] Total Protein 6.3 6.0 - 8.0 G/DL [facility] MAIN [facility] Total Bilirubin 0.3 0.3 - 1.2 MG/DL [facility] MAIN [facility] Albumin 3.2 (L) 3.5 - 5.0 G/DL [facility]IN [facility] Alk Phosphatase 160 (H) 25 - 110 U/L [facility] AST (SGOT) 26 7 - 40 U/L [facility] MAIN [facility] CO2 27 21 - 30 MMOL/L [facility]IN [facility] ALT (SGPT) 56 7 - 56 U/L [facility] Anion Gap 14 (H) 3 - 12 [facility] MAIN [facility] eGFR Non 7 (L) >60 mL/min [facility]IN [facility] Comment: [place] The eGFR is not validated f or use in drug dosing adjustments. Continue to use estimated creatinine clearance per dosing reference text. Please contact the Clinical Pharmacist for questions. eGFR 9 (L) >60 mL/min [facility] MAIN [facility] [place] Comment: The eGFR is not validated for use in drug dosing adjustments. Continue to use estimated creatinine clearance per dosing reference text. Please contact the Clinical Pharmacist for questions. Specimen Blood Performing Organization Address City/State/Zipcode Ph one Number [facility] MAIN [facility] [address] [place] [address] from Last 3 Months Insurance Type Payer Benefit Subscriber ID Effective Phone Address Plan / Dates Group Medicaid [facility] MEDICAID 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 04/16/2019 2:05 AM Full Code 04/15/2019 11:27 PM Provider has discussed Code Status No, more discussi on w/Patient or Family? needed 02/04/2019 7:20 PM Full Code 02/01/2019 5:58 PM Provider has discussed Code Status Yes w/Patient or Family? 05/14/2018 2:42 PM Full Code 05/11/2018 3:36 AM Provider has discussed Code Status Yes w/Patient or Family? 04/23/2018 5:23 PM Full Code 04/19/2018 1:33 PM Provider has discussed Code Status No, discussion no t w/Patient or Family? necessary based on Dx
--- OUTSIDE RECORDS SUMMARY | 2019-09-07 08:25 | XMS REPORT | Encounter Summary ---
Author Author [facility] Organization [facility] Address Unknown Phone Unavailable Care Team Providers Care Presser First Name Role Phone David Plunkett MD PCP Janette [place] MD 8002 Reason for Visit * Reason Comments Committee Review Encounter Details Care Team Description Date Type Department Mireya Perkins, ANDREEA Committee Review 07/15/2019 Telephone [facility] [address] [id number] Social History Date Tobacco Use Types Packs/Day [...] Telephone Encounter - Mireya Perkins RN - 07/15/2019 1:53 PM CDT Discussed in selection committee 07/13/2019. Deferred due to incomplete SPK eval. Attempted to contact pt, left detailed VM including inquiry where pt would like lab orders sent and where she completed her PAP so can obtain record. Entered hypercoag panel labs into [facility] for external. Composed deferred letter and e faxed to ref physicians. Emailed in office STEF Valverde to request copy of letter be mailed to pt's home addr ess. Emailed copy of letter minus patient identifiers to on-file email address [email or web address] documented in this encounter Plan of Treatment Order Schedule Name Type Priority Associated Diag noses Expected: 07/15/2019, Expires: 1 PTT (APTT) Lab Routine ESRD (end stage renal disease) ([facility]) Pre-transplant evaluation for end stage renal disease Expected: 07/15/2019, Expires: 1 PROTEIN S SCREEN Lab Routine ESRD (end sta ge renal disease) ([facility]) Pre-transplant evaluation for end stage renal disease Expected: 07/15/2019, Expires: 1 PROTEIN C ACTIVITY Lab Routine ESRD (end s tage renal disease) ([facility]) Pre-transplant evaluation for end stage renal disease Expected: 07/15/2019, Expires: 1 ANTITHROMBIN III (AT3) Lab Routine ESRD (e nd stage renal disease) ([facility]) Pre-transplant evaluation for end stage renal disease Expected: 07/15/2019, Expires: 1 CARDIOLIPIN AB IGG/IGM Lab Routine ESRD (e nd stage renal disease) ([facility]) Pre-transplant evaluation for end stage renal disease Expected: 07/15/2019, Expires: 1 DILUTE ARNULFO VIPER Lab Routine ESRD (end stage renal VENOM disease) ([facility]) Pre-transplant evaluation for end stage renal disease Expected: 07/15/2019, Expires: 1 FACTOR V LEIDEN SCREEN W Lab Routine ESRD (end stage renal CONFIRM disease) ([facility]) Pre-transplant evaluation for end stage renal disease documented as of this encounter Goals Goal Patient Associated Recent Progress Patient-Stat Aut hor Goal Type Problems ed? Recover from illness Hospital No Arminda Puentes RN documented as of this encounter Results * PROTIME INR (PT) (08/05/2019 3:33 PM CDT) INR 0.9 (L) 1.0 - 4.0 LABDE INTERFACE Protime 10.3 LABDE INTERFACE Specimen Blood Narrative Performed At LABDE INTERFACE Outside Lab Verified by Teresa crowder 08/08/2019. Performing Organization Address City/State/Zipcode Ph one Number LABDE INTERFACE documented in this encounter Visit Diagnoses Diagnosis ESRD (end stage renal disease) (HCC) End stage renal disease Pre-transplant evaluation for end stage renal disease Other specified pre-operative examinati on documented in this encounter
--- OUTSIDE RECORDS SUMMARY | 2019-09-07 08:25 | XMS REPORT | Encounter Summary ---
Author Author [facility] Organization [facility] Address Unknown Phone Unavailable Care Team Providers Care Obstetrics And Gynecology Professor Name Role Phone David Plunkett MD PCP Janette Lam MD 8002 Encounter Details Care Team Description Date Type Department Teresa Thomas ESRD (end stage renal disease) ([facility]); Pre-transplant evaluation for end stage renal disease 08/08/2019 Orders Only [facility] [address] [address] Social History Date Tobacco Use Types Packs/Day [...] Puentes, RN documented as of this encounter Procedures Comments Procedure Name Priority Date/Time Associated Diag nosis PROTIME INR (PT) Routine 08/05/2019 ESRD (end sta ge renal 3:33 PM CDT disease) (HCC) Pre-transplant evaluation for end stage renal disease documented in this encounter Results * PROTIME INR (PT) [...]
--- OUTSIDE RECORDS SUMMARY | 2019-09-07 08:25 | XMS REPORT | Encounter Summary ---
Author Author [facility] Organization [facility] Address Unknown Phone Unavailable Care Team Providers Care Dye Tub Tender Name Role Phone David Plunkett MD PCP Janette Lam MD 8002 Encounter Details Care Team Description Date Type Department No Show 07/14/2019 Clinical [facility] Telehealth [address] [address] Social History Date Tobacco Use Types Packs/Day [...] impairment: No documented as of this encounter Progress Notes * Peri Umaña - 07/14/2019 10:30 AM CDT Obtained patient's verbal consent to treat them and their agreement [facility] NPP via this telehealth visit during the Coronavirus Public He alth Emergency Kidney Transplant Nutrition Evaluation I see no nutritional contraindications to transplantation. Nutrition Assessment of Patient: Patito Lugo is a 33 y.o. 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 Spoke with patient via zoom during transplant evaluation today.Patient reports a stable we ight, ~160 pounds pre-. She started HD April 2019 and switched to PD Ma . She struggles with gastroparesis, tries to eat small frequent meals. Yes terday she ate chicken nuggets from [employer] and fish tacos from home. She drin ks water and tries to limit her fluid. Wt Readings from Last 5 Encounters: 07/11/19 83 kg (183 lb) 07/11/19 83 kg (183 lb) 04/19/19 83.6 kg (184 lb 3.2 oz) 02/28/19 (P) 80.7 kg (178 lb) 02/03/19 79.8 kg (175 lb 14.8 oz) Pertinent Labs: Lab Results Component Value Date/Time HGBA1C 8.9 (H) 07/11/2019 03:57 PM HGBA1C 10.1 (H) 04/16/2019 10:20 AM HGBA1C 10.2 (H) 04/16/2019 06:20 AM Phosphorus Date Value Ref Range Status 07/11/2019 6.8 (H) 2.0 - 4.5 MG/DL Final Pertinent Meds/Supplements: Phos binders Nutrition Monitoring/Education and Evaluation: Diet Compliance: Needs Improvement Education: Glycemic control, taking phos binders Goal: Small frequent meal, CKD/DM Diet Instructed on post-transplant nutrition related expectations. Discussed importan ce of hand hygiene, food safety, grapefruit avoidance. Peri Umaña, MS, RD, RACK PRODUCTION WORKER, LD Office: [phone] Voalte: [phone] documented in this encounter Plan of Treatment Not on filedocumented as of this encounter Goals Goal Patient Associated Recent Progress Patient-Stat Aut hor Goal Type Problems ed? Recover from illness Hospital No Arminda Puentes RN documented as of this encounter Visit Diagnoses Not on filedocumented in this encounter
--- OUTSIDE RECORDS SUMMARY | 2019-09-07 08:25 | XMS REPORT | Encounter Summary ---
Author Author [facility] Organization [facility] Address Unknown Phone Unavailable Care Team Providers Care Pickle Maker Name Role Phone David Plunkett MD PCP Janette Lam MD 8002 Reason for Visit * Reason Comments Kidney Evaluation Foot exam, home O2, PAP Encounter Details Care Team Description Date Type Department Mireya Perkins RN Kidney Evaluation (Foot exam, home O2, P AP) 08/22/2019 Tele[address] The [address] [address] Social History Date Tobacco Use [...] Telephone Encounter - Mireya Perkins RN - 08/22/2019 2:35 PM CDT Received OV note from pt's PCP as requested foot exam note. Noted that foot exam normal but that pt is in the process of being set up for ho me O2 for hypoxemia. Also noted that 10/09/17 PAP abnormal and pos for high risk HPV mRNA. Will review with Dr. Tolbert. documented in this encounter Plan of Treatment Not on filedocumented as of this encounter Goals Goal Patient Associated Recent Progress Patient-Stat Aut hor Goal Type Problems ed? Recover from illness Hospital No Arminda Puentes, RN documented as of this encounter Visit Diagnoses Not on filedocumented in this encounter
--- OUTSIDE RECORDS SUMMARY | 2019-09-07 08:26 | XMS REPORT | Encounter Summary ---
Author Author [facility] Organization [facility] Address Unknown Phone Unavailable Care Team Providers Care Fulfillment Associate Name Role Phone David Plunkett MD PCP Janette Lam MD 8002 Encounter Details Care Team Description Date Type Department Ray Tolbert MD 4000 [facility] [address] [place], [place] [id number] 07/11/2019 Clinical [facility] [address] [address] Social History Date Tobacco Use Types Packs/Day [...] as of this encounter Progress Notes * Shayla Faye 07/11/2019 1:20 PM CDT SOCIAL WORK PSYCHOSOCIAL ASSESSMENT Name: [facility] #: [id number] Date: 07/14/2019 Referral Source: Renal Transplant Team Referral Reason: SPK Date Referred: 07/11/2019 Source of Information: Patient Patient's Address: [address] [place] [id number] Date(s) Interviewed: 07/11/2019 Telephone #: [phone] (home) 1. PRESENT SITUATION: Sex: female Age: 33 y.o. Birthdate: 1985 Primary Language: Cymraes Ethinic Background: Non Mandaeism: (Optional) Diagnosis:ESRD, DM I Statement of Presenting Problem(s): Patient is a 33 year old female who present s for evaluation for kidney pancreas transplant. She is accompanied by her spous e, Sixto Lugo. She has known of her kidney disease for since Summer 2018 whi ch she states was caused by DM I. She follows with Dr. Irby for nephrology. She started on HD in April 2019 at [facility] and has a current Thursday, , Thursday schedule with a 4 hours chair time. She denies missing or shortenin g any sessions. She is transition to PD next week and has already started the tr salima. She uses [employer] and phone reminders to help her remember her appointmen ts. NADIA inquired about "no showed" appointments for 02/07/19 and 12/06/18 for nep hrology and patient states the weather was either bad or she was hospitalized. P t has a 15% no show rate in chart. NADIA reinforced communication with team re: nicol ointments. She does not drive due to being legally blind from DM I complication s. Her spouse vs aunt and uncle (Lizette and Jonathon) will take her to her appoint ments. Her mother, Erika Ramirez, is also available as needed. All her supports res deon near by. Her last hospitalization was April 26-2019 due to cath placemen t and appendix removal. This was in [place] at [facility]. She was diagnosed wi diabetes when she was 10 years old. She takes Levemir to manage. She checks he r blood sugars 3-4x/day. She states when she gets her eye injections every 4 wee ks she can read her glucometer however since she has not been in for injections due to COVID-19 pandemic she has not been able to see them however she does have a talking meter. She thinks her last hemoglobin a1c as 7.7 a few months ago. It was 8.9 at today's visit.she denies any falls related to low sugars and reports she can tell when they are dropping. She denies any additional health complicat ions. 2. PATIENT'S LIVING SITUATION PRIOR TO ADMISSION Citizenship: [place] Citizen List of household members: Spouse (Sixto) and five children ( 1,6,7,8,9 years o ld) Comments: Patient resides in [place], [place] which is close to 2.5 hours away from the hospital. She lives with her spouse and their 5 children (all boys- 1,6,7,8 ,9 years old). They have not pets. The have lived in their home which they own f or the past 5-6 years. Its a two story home however patient resides on the [facility]. She reports stairs are difficult with her vision barrier. She uses no DME. When she is receiving her routine eye injections she can see her pillbottle lab els w/out difficulties. She has never received any home health care services or had a stay in a SNF, rehab or LTACH. She is independent with ambulation and wit h ADL's with the exception of driving. She was born in [place], [place] and raised in [place], [place]. 3. FINANCIAL RESOURCES Income: SSDI Primary Insurance: [facility] [employer] Medicaid Secondary Insurance: None Eligible for Medicare based on disability: will be eligible based on ESRD, has a lready applied for benefits Comments: Patient is receiving SSDI based on DMI and legal blindness. She has been receivi ng services since Summer 2018 when she became blind. 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 Discussed that patient will need to plan for 6-12 wee ks off from work, post-transplant. Patient denies any concerns with this expecta tion since she is not employed. Her spouse works at a manager mechanical maintenance shop full-time. T hey deny any additional household income. She has insurance through [facility] [employer] plan. She has applied for Medicare based o n ESRD and is waiting on outcome.She has no spenddown with her Medicaid or premi ums. Patient verbalizes understanding of the limitations of Medicare (36 months post transplant, barring on-going SSDI eligibility) and of SSDI (limited to as l ittle as one year post-transplant barring on-going disability) after a successfu l transplant. She fills medications at the [facility] in [place], [place] or [facility] in [place]. She states her medications have no co pay. She denies any financi al barriers to obtaining the medications she is prescribed or going without medi cations. She is not receiving any sources of financial assistance with daily li ving expenses. 4. SUPPORTIVE RELATIONSHIPS/ COMMUNITY RESOURCES Caregivers: *Spouse Sixto Lugo [phone] *Mother Erika Kessler [phone] *[id number] Jennifer Wheeler [phone] *Aunt Lizette and Uncle Jonathon [phone] Living Donors: None at this time for kidney alone Comments: Patient and spouse state they have been for 3 years and toget her for several years before that. They have 5 children which are all boys: 1,6, 7,8, and 9 years old. She has one sister and one brother who both reside local t o her. Her parents are and also reside locally. She is unsure if she rivers s any potential living donors for kidney alone. Sw discussed the requirement to stay locally for two weeks post transplant d/c a nd provided patient with the area lodging list and with the [facility] fundraising brochures. Patient states they have money set aside to assist with lodging if Medicaid does not cover. Patient voiced understanding of the weekly to bi-weekly [facility] clinic appointments for the first few months following transp lant and annual visits thereafter. She verbalized understanding of the need to have a caregiver to assist with care and transportation post-transplant. She al so acknowledged that he would not be able to drive for 2-4 weeks, post-transplan t. Her spouse will be her main support. He cannot take FMLA since its not offer ed at his employer however he states his district supervisor had a family member with a l kati transplant so he is pretty understanding. He gets PTO and denies any issues with leave. Her mother, Erika Kessler, will serve as additional support. She is on SSDI for back issues however states she is independent with needs. His mother, Jennifer Wheeler, will also be available to assist with pt or children. She is working full-time at [employer] however has leave option. Lastly, her aunt Lizette and uncle Jonathon can assist with childcare vs pt needs. Spouse will transport her to the hospital at the time of surgery. 5. COGNITIVE ABILITIES Highest Level of Education: Some College Comments: Patient is hoping she will not have to worry about fluid restrictions after transplant and be more independent. She denies any specific worries or con cerns about the transplant process. She denies having any history of medication non-compliance. She voiced understanding of the need to take immunosuppressive medications for the life of the transplant. Her spouse has been helping her tricia mber to take her medications since she currently cannot see the labels. He is al so helping her complete her pillbox and take her insulin injections. When she rivers s her routine eye injections she is able to read the labels w/out issues. She de nies missing any doses. She denies having any history of tobacco use, substance use or of ETOH. She admits to some anxiety since starting on dialysis. She emily es Ativan on HD days to assist which she has found helpful. She does not follow with a mental health professional and her PCP is prescribing the Ativan. She de nies any SI or HI. She denies any pending legal issues. She does not have a DPO A-HC or Advanced Directive in place at this time, nadia provided her with these for ms. 6. SOCIAL WORK EVALUATION Comments: Nadia met with patient and spouse Sixto Lugo as part of her evaluati on for kidney and pancreas transplant. She has been on HD since April 2019 and w ill be making the transition to PD next week via cycler. She has health insuranc e coverage through [facility] [place] Medicaid with no spenddown to meet her medical needs f ollowing transplant. She is applying for Medicare currently since she is eligibl e based on ESRD. She receives support from her spouse who will serve as her grisel martha caregiver post transplant. He can take time off work to assist as needed. S he will also have support through her mother (Erika Kessler), [id number] (Jennifer Wheeler), and Aunt and Uncle (Lizette and Jonathon Gil). She has reasonable expe ctations for the transplant process. She has no reported history of tobacco use , substance use or of ETOH. She admits to some anxiety since starting HD. She t akes Ativan on her HD dates to help She appears to be coping normally at this ti me. She has a hemoglobin A1c of 8.9 and SW recommends continue to monitoring DM compliance. Patient to be discussed in the multidisciplinary team meeting. Social Work Impression/Recommendation: SW identified the following psychosocial concerns related to kidney and pancreas transplant listing; elevated hemoglobin A1c (8.9) with recommendations to lower to at least 8.5 per guidelines and continue med adherence (15% no show rate). Appropriateness for kidney transplant candidacy will be reviewed by the selectio n committee for final determination. 7. PLAN Plan Discussed with Patient / Family: {PLAN DISCUSSED, AGREED UPON Plan Agreed Upon with Patient / Family: {PLAN DISCUSSED, AGREED UPON Shayla Faye LMSW documented in this encounter Plan of Treatment Not on filedocumented as of this encounter Goals Goal Patient Associated Recent Progress Patient-Stat Aut hor Goal Type Problems ed? Recover from illness Hospital No Arminda Puentes, ANDREEA documented as of this encounter Visit Diagnoses Not on filedocumented in this encounter
--- OUTSIDE RECORDS SUMMARY | 2019-09-07 08:26 | XMS REPORT | Encounter Summary ---
Author Author [facility] Organization [facility] Address Unknown Phone Unavailable Care Team Providers Care Automation Qa Lead Name Role Phone David Plunkett MD PCP Janette Lam MD 8002 Encounter Details Care Team Description Date Type Department 07/11/2019 Travel Social History Date Tobacco Use Types [...]
--- OUTSIDE RECORDS SUMMARY | 2019-09-07 08:26 | XMS REPORT | Encounter Summary ---
Author Author [facility] Organization [facility] Address Unknown Phone Unavailable Care Team Providers Care Rig Mechanic Name Role Phone David Plunkett MD PCP Janette Lam MD 8002 Reason for Visit * Reason Comments Kidney Evaluation Pancreas Evaluation Encounter Details Care Team Description Date Type Department Ray Tolbert MD 4000 [facility] [address] [place] [address] [phone] 07/14/2019 Clinical [facility] [address] [address] Social History Date Tobacco Use Types Packs/Day [...] as of this encounter Progress Notes * MiguelCarmenh, PHARMD - 07/14/2019 10:00 AM CDT Pharmacy Kidney and Pancreas Transplant Evaluation Obtained patient's verbal consent to treat them and their agreement [facility] and NPP via this telehealth visit during the Coronavirus [facility] I met with Patito Lugo for their pharmacy transplant evaluation. A med ication history and reconciliation were performed (including prescription medica tions, supplements, over the counter, and herbal products). The medication list was updated and the patients current medication list is included below. Home Medications Medication Sig acetaminophen (TYLENOL) 500 mg tablet Take 1,000 mg by mouth daily as needed for Pain. Max of 4,000 mg of acetaminophen in 24 hours. bumetanide (BUMEX) 0.5 mg tablet Take 0.5-1 mg by mouth daily. FIASP FLEXTOUCH U-100 INSULIN 100 unit/mL (3 mL) injectable PEN Inject under the skin as needed for both meals and as correction. Per pt, averages between 30-50 units daily. insulin detemir U-100 (LEVEMIR FLEXTOUCH) 100 unit/mL (3 mL) injection pen Injec t twenty five Units under the skin twice daily. insulin pen needles (disposable) (BD UF MOIRA PEN NEEDLES) 32 gauge x 5/32" pen n eedle Use one each as directed twice daily. Use with insulin injections. levonorgestrel (MIRENA) 20 mcg/24 hours (5 yrs) 52 mg intrauterine device 1 Intr a Uterine Device by Intrauterine route once. loratadine (CLARITIN) 10 mg tablet Take 10 mg by mouth every morning. NIFEdipine XL (PROCARDIA-XL) 60 mg tablet Take one tablet by mouth daily. ondansetron (ZOFRAN) 4 mg tablet Take 4 mg by mouth every 8 hours as needed for Nausea or Vomiting. pantoprazole DR (PROTONIX) 40 mg tablet Take 40 mg by mouth daily. Medication Adherence: Sarmiento (0= Never, 1= Rarely, 2= Sometimes, 3= Often, 4= Always) Method utilized to manage medications: Pillbox filled by her ; routine How often do you forget to take one or more of your prescription medications? 0 How often do you run out of one or more of your prescription medications before getting a new refill? 0, however has been out of nortriptyline since couldn't ge t a refill from (used for migraine prophylaxis) and has been out of phosphoru s binder for a couple weeks. She has follow up with [facility] tomorrow. How often do you have difficulty affording your prescription medications? 0 How often does your pharmacy have difficulty filing your prescription medication s? 0 Patient Education: During this visit the patient was provided with an overview of therapies that wi ll be initiated post-transplant, including but not limited to significant side e ffects and dosing schedules.Because this patient is a female of child-bearing po tential, there is risk for toxicity associated with mycophenolate use duri ng . REMS acknowledgement and documentation were previously completed a nd the patient was reminded of the importance of prevention while taki ng mycophenolate. Emphasis was placed on the importance of medication adherence both pre and post- transplant. The patient was encouraged to contact the transplant pharmacist with any follow up questions. Patito Lugo expressed understanding of the information discussed. Assessment: Comments: I had the pleasure of speaking with Ms. Lugo for a kidney/pancreas transplant pharmacy evaluation. Her helps fill a pillbox for her as she is legally blind. She reports good medication compliance however has been out of her phosphorus binder for several weeks. Potential Drug Interactions: None Potential Barriers to Transplantation: Medication compliance Recommendation: Medication compliance should be addressed prior to transplant. Angelica Rivera PHARMD documented in this encounter Plan of Treatment Not on filedocumented as of this encounter Goals Goal Patient Associated Recent Progress Patient-Stat Aut hor Goal Type Problems ed? Recover from illness Hospital No Arminda Puentes, RN documented as of this encounter Visit Diagnoses Not on filedocumented in this encounter
--- OUTSIDE RECORDS SUMMARY | 2019-09-07 08:26 | XMS REPORT | Encounter Summary ---
Author Author [facility] Organization [facility] Address Unknown Phone Unavailable Care Team Providers Care Hat Blocking Operator Name Role Phone David Plunkett MD PCP Janette Lam MD 8002 Reason for Visit * Reason Comments Kidney Evaluation Pancreas Evaluation Encounter Details Care Team Description Date Type Department Dank Moore MD [address] [address] Pre-transplant evaluation for kidney and pancreas transplant (Primary Dx); Hypertensive renal disease; PVD (peripheral vascular disease) (HCC); Coronary artery disease involving shawnee coronary artery without angina pectoris, unspecified whether shawnee or transplanted heart; Category 4 blindness of both eyes 07/11/[address] [facility] [address] [id number] Social History Date Tobacco Use Types Packs/Day [...] / COVID-19? documented as of this encounter Last Filed Vital Signs Reading Time Taken Comments Vital Sign 171/94 07/11/2019 1:00 PM CDT Blood Pressure 112 07/11/2019 1:00 PM CDT Pulse 36.4 C (97.6 F) 07/11/2019 12:59 PM CDT Temperature - - Respiratory Rate 97% 07/11/2019 12:59 PM CDT Oxygen Saturation - - Inhaled Oxygen Concentration 83 kg (183 lb) 07/11/2019 12:59 PM CDT Weight 172.7 cm (5' 8") 07/11/2019 12:59 PM CDT Height 27.83 07/11/2019 12:59 PM CDT Body Mass Index documented in this encounter Functional Status Date of Assessment [...] as of this encounter Progress Notes * Dank Moore MD - 07/11/2019 12:20 PM CDT Date of Service: 07/11/2019 Subjective: Patito Lugo is a 33 y.o. female who presents for kidney/transplant yobany ma. History of Present Illness Patito Lugo is a 33 y.o. 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 She has been admitted on multiple occasions for DKA and her renal function has c ontinued to rapidly worsen. 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 She denies seizures or comatose states as complications of DKA. She is currently on HD whi ch she started 04/2019 and is transitioning to PD catheter. Today the patient is feeling well. Denies fevers, cough, and abdominal pain. Pas t surgical history includes abdominal surgery for x 2 (2011 and 2018) and cholecytectomy (2016) She was evaluated for chronic appendicitis in 03/2019, but did not undergo surgical intervention. Patient does not take blood thinners. Medical History: Diagnosis Date Arm vein blood clot, left Diabetes type 1, uncontrolled (HCC) h/o multiple DKA admissions Diabetic neuropathy (HCC) Fibromyalgia Alec's disease Restless leg syndrome Rheumatoid arthritis (HCC) Surgical History: Procedure Laterality Date SECTION 05/2011 CARPAL TUNNEL RELEASE Bilateral 10/2014 CHOLECYSTECTOMY 2017 DELIVERY N/A 04/19/2018 Performed by Kavya Sanders MD at [facility] LDR OR HX TONSIL AND ADENOIDECTOMY KNEE ARTHROSCOPY Left Family History Problem Relation Age of Onset Heart Attack Paternal Grandfather Current Outpatient Medications Medication Sig Dispense Refill acetaminophen (TYLENOL) 500 mg tablet Take 1,000 mg by mouth daily as needed for Pain. Max of 4,000 mg of acetaminophen in 24 hours. amoxicillin/K clavulanate (AUGMENTIN) 500/125 mg tablet Take one tablet by m outh every 12 hours. Take with food. 20 tablet 0 calcium carbonate (TUMS) 500 mg (200 mg elemental calcium) chewable tablet C hew 500 mg by mouth daily as needed. FIASP FLEXTOUCH U-100 INSULIN 100 unit/mL (3 mL) injectable PEN Inject under the skin as needed for both meals and as correction. Per pt, averages between 3 0-50 units daily. furosemide (LASIX) 40 mg tablet Take two tablets by mouth twice daily. 120 t ablet 1 insulin detemir U-100 (LEVEMIR FLEXTOUCH) 100 unit/mL (3 mL) injection pen I nject twenty five Units under the skin twice daily. 15 mL 3 insulin pen needles (disposable) (BD UF MOIRA PEN NEEDLES) 32 gauge x 5/32" p en needle Use one each as directed twice daily. Use with insulin injections. 180 each 3 levonorgestrel (MIRENA) 20 mcg/24 hours (5 yrs) 52 mg intrauterine device 1 Intra Uterine Device by Intrauterine route once. Magnesium 250 mg tab Take 250 mg by mouth daily. NIFEdipine XL (PROCARDIA-XL) 60 mg tablet Take one tablet by mouth daily. 30 tablet 1 nortriptyline (PAMELOR) 10 mg capsule Take one capsule by mouth at bedtime d aily. 30 capsule 2 ondansetron (ZOFRAN) 4 mg tablet Take 4 mg by mouth every 8 hours as needed for Nausea or Vomiting. oxyCODONE (ROXICODONE) 5 mg tablet Take one-half tablet by mouth every 8 santo rs as needed [address] (PROTONIX) 40 mg tablet Take 40 mg by mouth daily. sodium zirconium cyclosilicate (LOKELMA) 10 gram packet Take one packet by m outh daily. Mix entire contents of packet with 45mL of water, stir well, and adm inister immediately. Administer other oral medications >2 hours before or after dose. 1 packet 0 No current facility-administered medications for this visit. Allergies Allergen Reactions Codeine HIVES Insulin Regular, Human SEE COMMENTS Does not work Social History Socioeconomic History Marital status: Spouse name: Not on file Number of children: Not on file Years of education: Not on file Highest education level: Not on file Occupational History Not on file Tobacco Use Smoking status: Never Smoker Smokeless tobacco: Never Used Substance and Sexual Activity Alcohol use: No Drug use: No Sexual activity: Yes Partners: Male Other Topics Concern Not on file Social History Narrative Pt lives in [place], [place] with her , 3 step kids and her son. 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 Denies IPV. Review of Systems Constitutional: Negative for activity change, appetite change, chills, diaphores is, fatigue, fever and unexpected weight change. HENT: Negative for congestion, hearing loss, mouth sores and sinus pressure. Eyes: Negative for visual disturbance. Respiratory: Negative for apnea, cough, chest tightness and shortness of breath. Cardiovascular: Negative for chest pain, palpitations and leg swelling. Gastrointestinal: Negative for abdominal pain, blood in stool, constipation, monse rrhea, nausea and vomiting. Endocrine: Negative. Genitourinary: Negative for difficulty urinating, dyspareunia, dysuria, enuresis , flank pain, frequency, genital sores, hematuria, menstrual problem, pelvic zain n and urgency. Musculoskeletal: Negative for arthralgias, back pain, gait problem and myalgias. Skin: Negative for rash and wound. Allergic/Immunologic: Negative. Neurological: Negative for dizziness, tremors, seizures, weakness, light-headedn ess, numbness and headaches. Hematological: Negative for adenopathy. Does not bruise/bleed easily. Psychiatric/Behavioral: Negative for agitation and decreased concentration. The patient is not nervous/anxious. Objective: acetaminophen (TYLENOL) 500 mg tablet Take 1,000 mg by mouth daily as needed for Pain. Max of 4,000 mg of acetaminophen in 24 hours. amoxicillin/K clavulanate (AUGMENTIN) 500/125 mg tablet Take one tablet by m outh every 12 hours. Take with food. calcium carbonate (TUMS) 500 mg (200 mg elemental calcium) chewable tablet C hew 500 mg by mouth daily as needed. FIASP FLEXTOUCH U-100 INSULIN 100 unit/mL (3 mL) injectable PEN Inject under the skin as needed for both meals and as correction. Per pt, averages between 3 0-50 units daily. furosemide (LASIX) 40 mg tablet Take two tablets by mouth twice daily. insulin detemir U-100 (LEVEMIR FLEXTOUCH) 100 unit/mL (3 mL) injection pen I nject twenty five Units under the skin twice daily. insulin pen needles (disposable) ([employer] UF MOIRA PEN NEEDLES) 32 gauge x 5/32" p en needle Use one each as directed twice daily. Use with insulin injections. levonorgestrel (MIRENA) 20 mcg/24 hours (5 yrs) 52 mg intrauterine device 1 Intra Uterine Device by Intrauterine route once. Magnesium 250 mg tab Take 250 mg by mouth daily. NIFEdipine XL (PROCARDIA-XL) 60 mg tablet Take one tablet by mouth daily. nortriptyline (PAMELOR) 10 mg capsule Take one capsule by mouth at bedtime d aily. ondansetron (ZOFRAN) 4 mg tablet Take 4 mg by mouth every 8 hours as needed for Nausea or Vomiting. oxyCODONE (ROXICODONE) 5 mg tablet Take one-half tablet by mouth every 8 santo rs as needed pantoprazole DR (PROTONIX) 40 mg tablet Take 40 mg by mouth daily. sodium zirconium cyclosilicate (LOKELMA) 10 gram packet Take one packet by m outh daily. Mix entire contents of packet with 45mL of water, stir well, and adm inister immediately. Administer other oral medications >2 hours before or after dose. There were no vitals filed for this visit. There is no height or weight on file to calculate BMI. General: Alert, oriented, cooperative, no distress Head: Normocephalic, without obvious abnormality, atraumatic Eyes: EOMI, no scleral icterus, states Lungs: Unlabored on RA Heart: Regular rate, good peripheral perfusion Abdomen: Soft, non-tender, non-distended Extremity: No clubbing, cyanosis, or edema Neurologic: Grossly intact. Pysch: Appropriate Assessment and Plan: The process of kidney/pancreas transplantation was discussed with patient in gre at detail including the risks/benefits of long-term immunosuppression. All quest ions and concerns were addressed. Patient is likely a good surgical candidate f or transplantation. We will discuss her case at the next interdisciplinary abiodun ction meeting. Patient seen and discussed with Dr. Moore, who directed plan of care. Son Emmanuel MD #[id number] The patient was seen and examined. She is an acceptable surgical candidate for s imultaneous kidney and pancrease transplant pending full evaluation. I went ahe ad in discussed the surgical aspects of kidney transplant, life commitment as we ll as versus living donor transplants, immunosuppression, risks and maria a efits were discussed in detail. We will follow the patient's CT scan and C pepti d. If the patient clears from cardio/pulmonary and psycho/social standpoint, sh e does not have surgical contraindication for the kidney transplant, the patient will be discussed in our selection committee. documented in this encounter Plan of Treatment Not on filedocumented as of this encounter Goals Goal Patient Associated Recent Progress Patient-Stat Aut hor Goal Type Problems ed? Recover from illness Hospital No Arminda Puentes RN documented as of this encounter Visit Diagnoses Diagnosis Pre-transplant evaluation for kidney an d pancreas transplant Other specified pre-operative examinati on Hypertensive renal disease Unspecified hypertensive kidney disease with chronic kidney disease stage I through stage IV, or unspecified PVD (peripheral vascular disease) (HCC) Peripheral vascular disease, unspecifie d Coronary artery disease involving nativ e coronary artery without angina pectoris, unspecified whether shawnee or transplanted heart Category 4 blindness of both eyes documented in this encounter
--- OUTSIDE RECORDS SUMMARY | 2019-09-07 08:26 | XMS REPORT | Encounter Summary ---
Author Author [facility] Organization [facility] Address Unknown Phone Unavailable Care Team Providers Care Restaurant Manager Name Role Phone David Plunkett MD PCP Janette Lam MD 8002 Encounter Details Care Team Description Date Type Department Ray Tolbert MD 4000 [facility] [address] [place], [place] [id number] 07/11/2019 [facility] [address] [address] Social History Date Tobacco Use Types Packs/Day [...] impairment: No documented as of this encounter Medications at Time of Discharge Start Date End Date Medication Sig Dispensed Refills acetaminophen (TYLENOL) Take 1,000 mg 0 500 mg tablet by mouth daily as needed for Pain. Max of 4,000 mg of acetaminophen in 24 hours. 11/24/2018 FIASP FLEXTOUCH U-100 Inject under 0 INSULIN 100 unit/mL (3 the skin as mL) injectable PEN needed for both meals and as correction. Per pt, averages between 30-50 units daily. 04/19/2019 insulin detemir U-100 Inject twenty 15 mL 3 (LEVEMIR FLEXTOUCH) 100 five Units unit/mL (3 mL) injection under the pen skin twice daily. 04/19/2019 insulin pen needles Use one each 180 each 3 (disposable) (BD UF MOIRA as directed PEN NEEDLES) 32 gauge x twice daily. " pen needle Use with insulin injections. levonorgestrel (MIRENA) 1 Intra 0 20 mcg/24 hours (5 yrs) Uterine 52 mg intrauterine device Device by Intrauterine route once. 04/20/2019 NIFEdipine XL Take one 30 tablet 1 (PROCARDIA-XL) 60 mg tablet by tablet mouth daily. ondansetron (ZOFRAN) 4 mg Take 4 mg by 0 tablet mouth every 8 hours as needed for Nausea or Vomiting. pantoprazole DR Take 40 mg by 0 (PROTONIX) 40 mg tablet mouth daily. 04/19/2019 07/14/2019 amoxicillin/K clavulanate Take one 20 tablet 0 (AUGMENTIN) 500/125 mg tablet by tablet mouth every 12 hours. Take with food. 07/14/2019 calcium carbonate (TUMS) Chew 500 mg 0 500 mg (200 mg elemental by mouth calcium) chewable tablet daily as needed. 04/19/2019 07/14/2019 furosemide (LASIX) 40 mg Take two 120 tablet 1 tabletIndications: tablets by Chronic kidney disease, mouth twice stage 3 (HCC) daily. 07/14/2019 Magnesium 250 mg tab Take 250 mg 0 by mouth daily. 04/08/2019 07/14/2019 nortriptyline (PAMELOR) Take one 30 capsule 2 10 mg capsule capsule by mouth at bedtime daily. 04/19/2019 07/14/2019 oxyCODONE (ROXICODONE) 5 Take one-half 30 tablet 0 mg tablet tablet by mouth every 8 hours as needed 04/19/2019 07/14/2019 sodium zirconium Take one 1 packet 0 cyclosilicate (LOKELMA) packet by 10 gram packet mouth daily. Mix entire contents of packet with 45mL of water, stir well, and administer immediately. Administer other oral medications >2 hours before or after dose. documented as of this encounter Plan of Treatment Not on filedocumented as of this encounter Goals Goal Patient Associated Recent Progress Patient-Stat Aut hor Goal Type Problems ed? Recover from illness Hospital No Arminda Puentes RN documented as of this encounter Procedures Comments Procedure Name Priority Date/Time Associated Diag nosis CHEST 2 VIEWS Routine 07/11/2019 ESRD (end stage renal 4:29 PM CDT disease) (HCC) Pre-transplant evaluation for end stage renal disease documented in this encounter Results * CHEST 2 VIEWS (07/11/2019 4:29 PM CDT) Specimen Impressions Performed At 1. Diffuse interstitial edema. [facility] 2. Placement of right IJ central venous catheter. By my electronic signature, I attest th at I have personally reviewed the images for this examination and formulated the interpretations and opinions expressed in this report Finalized by Vanda Vogel 07/11/2019 4:43 PM. Dictated by Papa Thomas MD on 07/11/2019 4:30 PM. Narrative Performed At 2 VIEW CHEST RADIOGRAPH [facility] INDICATION: Prerenal transplant eval. COMPARISON STUDY: Chest radiograph [facility]2019. FINDINGS: Support devices: Interval placement of a [...] on 07/11/2019 4:30 PM. Performing Organization Address City/State/Zipcode Ph one Number [facility] documented in this encounter Visit Diagnoses Diagnosis ESRD (end stage renal disease) (HCC) End stage renal disease Pre-transplant evaluation for end stage renal disease Other specified pre-operative examinati on documented in this encounter
--- OUTSIDE RECORDS SUMMARY | 2019-09-07 08:26 | XMS REPORT | Encounter Summary ---
Author Author [facility] Organization [facility] Address Unknown Phone Unavailable Care Team Providers Care Antique Refinisher Name Role Phone David Plunkett MD PCP Janette Lam MD 8002 Encounter Details Care Team Description Date Type Department Ray Tolbert MD [address] [facility] [address] [place] [address] [phone] 07/11/2019 [facility] Social History Date Tobacco Use Types Packs/Day [...] Goal Type Problems ed? Recover from illness [facility] No Arminda Puentes RN documented as of this encounter Procedures Comments Procedure Name Priority Date/Time Associated Diag nosis HC TP/CR RATIO, RANDOM Routine 07/11/2019 ESRD (e nd stage renal 4:15 PM CDT disease) ([facility]) Pre-transplant evaluation for end stage renal disease URINALYSIS, MICROSCOPIC Routine 07/11/2019 ESRD ( end stage renal 4:15 PM CDT disease) ([facility]) Pre-transplant evaluation for end stage renal disease HC URINALYSIS, AUTO W Routine 07/11/2019 ESRD (en d stage renal MICRO 4:15 PM CDT disease) ([facility]) Pre-transplant evaluation for end stage renal disease HC PHENCYCLIDINES; QUAL Routine 07/11/2019 ESRD ( end stage renal 4:15 PM CDT disease) ([facility]) Pre-transplant evaluation for end stage renal disease HC OPIATES; QUAL Routine 07/11/2019 ESRD (end sta ge renal 4:15 PM CDT disease) ([facility]) Pre-transplant evaluation for end stage renal disease HC COCAINE; QUAL Routine 07/11/2019 ESRD (end sta ge renal 4:15 PM CDT disease) ([facility]) Pre-transplant evaluation for end stage renal disease HC CANNABINOIDS; QUAL Routine 07/11/2019 ESRD (en d stage renal 4:15 PM CDT disease) ([facility]) Pre-transplant evaluation for end stage renal disease HC BENZODIAZEPINES, QUAL Routine 07/11/2019 ESRD (end stage renal 4:15 PM CDT disease) ([facility]) Pre-transplant evaluation for end stage renal disease HC BARBITURATES Routine 07/11/2019 ESRD (end stag e renal 4:15 PM CDT disease) ([facility]) Pre-transplant evaluation for end stage renal disease HC AMPHETAMINES QUAL, Routine 07/11/2019 ESRD (en d stage renal URINE 4:15 PM CDT disease) ([facility]) Pre-transplant evaluation for end stage renal disease HC BLOOD TYPING, ABO Routine 07/11/2019 ESRD (end stage renal CONFIRM 91 4:04 PM CDT disease) ([facility]) Pre-transplant evaluation for end stage renal disease RED TOP TUBE FOR MTN Routine 07/11/2019 ESRD (end stage renal TRANSPLANT 3:57 PM CDT disease) ([facility]) Pre-transplant evaluation for end stage renal disease HC HIV 1/2 DARIN AG SCREEN Routine 07/11/2019 ESRD (end stage renal 3:57 PM CDT disease) ([facility]) Pre-transplant evaluation for end stage renal disease Screening for human immunodeficiency virus HC SYPHILIS AB SCREEN Routine 07/11/2019 ESRD (en d stage renal (SYPT) 3:57 PM CDT disease) ([facility]) Pre-transplant evaluation for end stage renal disease HC ABO GROUP Routine 07/11/2019 ESRD (end stage renal 3:57 PM CDT disease) ([facility]) Pre-transplant evaluation for end stage renal disease HC TOXOPLASMA IGM Routine 07/11/2019 ESRD (end st age renal 3:57 PM CDT disease) ([facility]) Pre-transplant evaluation for end stage renal disease HC TOXOPLASMA IGG Routine 07/11/2019 ESRD (end st age renal 3:57 PM CDT disease) ([facility]) Pre-transplant evaluation for end stage renal disease HC HSV I AB IGG Routine 07/11/2019 ESRD (end stag e renal IMMUNOBLOT(HSVG) 3:57 PM CDT disease) ([facility]) Pre-transplant evaluation for end stage renal disease HC HEPATITIS C DARIN Routine 07/11/2019 ESRD (end s tage renal 3:57 PM CDT disease) ([facility]) Pre-transplant evaluation for end stage renal disease HC HEPATITIS B CORE Routine 07/11/2019 ESRD (end stage renal ANTIBODY 3:57 PM CDT disease) ([facility]) Pre-transplant evaluation for end stage renal disease HC HEPATITIS B-S ANTIGEN Routine 07/11/2019 ESRD (end stage renal 3:57 PM CDT disease) ([facility]) Pre-transplant evaluation for end stage renal disease HC HEPATITIS B-S ANTIBODY Routine 07/11/2019 ESRD (end stage renal 3:57 PM CDT disease) ([facility]) Pre-transplant evaluation for end stage renal disease HC GGTP Routine 07/11/2019 ESRD (end stage renal 3:57 PM CDT disease) ([facility]) Pre-transplant evaluation for end stage renal disease HC DORIS CARUSO CAPSID AG Routine 07/11/2019 ESRD (end stage renal IGG 3:57 PM CDT disease) ([facility]) Pre-transplant evaluation for end stage renal disease HC C-PEPTIDE Routine 07/11/2019 ESRD (end stage renal 3:57 PM CDT disease) ([facility]) Pre-transplant evaluation for end stage renal disease 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 ([facility]) HC CMV TITER IGM Routine 07/11/2019 ESRD (end sta ge renal 3:57 PM CDT disease) ([facility]) Pre-transplant evaluation for end stage renal disease HC CMV IGG Routine 07/11/2019 ESRD (end stage renal 3:57 PM CDT disease) ([facility]) Pre-transplant evaluation for end stage renal disease LAVENDER (EDTA) TOP TUBE Routine 07/11/2019 ESRD (end stage renal FOR MTN TRANSPLANT 3:57 PM CDT disease) ([facility]) Pre-transplant evaluation for end stage renal disease HC PT(INR) Routine 07/11/2019 ESRD (end stage renal 3:57 PM CDT disease) ([facility]) Pre-transplant evaluation for end stage renal disease HC CBC W/ AUTOMATED DIFF Routine 07/11/2019 ESRD (end stage renal 3:57 PM CDT disease) ([facility]) Pre-transplant evaluation for end stage renal disease HC VARICELLA-ZOSTER Routine 07/11/2019 ESRD (end stage renal IGM(VZM, IGM 3:57 PM CDT disease) ([facility]) Pre-transplant evaluation for end stage renal disease HC VARICELLA ZOSTER Routine 07/11/2019 ESRD (end stage renal IGG(VZG, IGG 3:57 PM CDT disease) ([facility]) Pre-transplant evaluation for end stage renal disease HC PHOSPHOROUS, SERUM Routine 07/11/2019 ESRD (en d stage renal 3:57 PM CDT disease) ([facility]) Pre-transplant evaluation for end stage renal disease HC HEMOGLOBIN A1C Routine 07/11/2019 ESRD (end st age renal 3:57 PM CDT disease) ([facility]) Pre-transplant evaluation for end stage renal disease 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 ([facility]) HC COMPREHENSIVE Routine 07/11/2019 ESRD (end sta ge renal METABOLIC PANEL 3:57 PM CDT disease) ([facility]) Pre-transplant evaluation for end stage renal disease documented in this encounter Results * PROTEIN/CR RATIO,UR RAN (07/11/2019 4:15 PM CDT) Protein, Random 887 MG/DL [facility] Creatinine, 54 MG/DL [facility] Random Protein/CR 16.4 [facility] ratio Specimen Urine - Urine Performing Organization Address [facility] Ph one Number MAIN LAB [address] [place] [address] * PHENCYCLIDINES-URINE RANDOM (07/11/2019 4:15 PM CDT) Phencyclidine NEG NEG-NEG [facility] (PCP) Comment: RESULTS WERE OBTAINED BY IMMUNOASSAY AND ARE PRESUMPTIVE ONLY. POSITIVE INDICATES THE PRESENCE OF SUBSTANCE WITH CHARACTERISTICS SIMILAR TO DRUG-DRUG CLASS OR METABOLITE IN CONC. EQUAL TO OR EXCEEDING VALUES LISTED. PHENCYCLIDINE (PCP) 25 NG/ML Specimen Urine - Urine Performing Organization Address [facility] Ph one Number MAIN LAB [address] [place] [address] * OPIATES-URINE RANDOM (07/11/2019 4:15 PM CDT) Opiates-Urine NEG NEG-NEG MAIN LAB Comment: RESULTS WERE OBTAINED BY IMMUNOASSAY AND ARE PRESUMPTIVE ONLY. POSITIVE INDICATES THE PRESENCE OF SUBSTANCE WITH CHARACTERISTICS SIMILAR TO DRUG-DRUG CLASS OR METABOLITE IN CONC. EQUAL TO OR EXCEEDING VALUES LISTED. OPIATES 2000 NG/ML Specimen Urine - Urine Performing Organization Address [facility] one Number MAIN LAB [address] [place] [address] * COCAINE-URINE RANDOM (07/11/2019 4:15 PM CDT) Cocaine-Urine NEG NEG-NEG MAIN LAB Comment: RESULTS WERE OBTAINED BY IMMUNOASSAY AND ARE PRESUMPTIVE ONLY. POSITIVE INDICATES THE PRESENCE OF SUBSTANCE WITH CHARACTERISTICS SIMILAR TO DRUG-DRUG CLASS OR METABOLITE IN CONC. EQUAL TO OR EXCEEDING VALUES LISTED. COCAINE 300 NG/ML Specimen Urine - Urine Performing [facility] one Deuce [facility] [address] [place] [address] * CANNABINOIDS-URINE RANDOM (07/11/2019 4:15 PM CDT) Pathologist [facility] THC NEG NEG-NEG MAIN LAB Comment: RESULTS WERE OBTAINED BY IMMUNOASSAY AND ARE PRESUMPTIVE ONLY. POSITIVE INDICATES THE PRESENCE OF SUBSTANCE WITH CHARACTERISTICS SIMILAR TO DRUG-DRUG CLASS OR METABOLITE IN CONC. EQUAL TO OR EXCEEDING VALUES LISTED. CANNABINOIDS 50 NG/ML Specimen Urine - Urine Performing Organization [facility] one Number [facility] [address] [place] [address] * BENZODIAZEPINES-URINE RANDOM (07/11/2019 4:15 PM CDT) Benzodiazepines NEG NEG-NEG MAIN LAB Comment: RESULTS WERE OBTAINED BY IMMUNOASSAY AND ARE PRESUMPTIVE ONLY. POSITIVE INDICATES THE PRESENCE OF SUBSTANCE WITH CHARACTERISTICS SIMILAR TO DRUG-DRUG CLASS OR METABOLITE IN CONC. EQUAL TO OR EXCEEDING VALUES LISTED. BENZODIAZEPINES 200 NG/ML Specimen Urine - Urine Performing Organization [facility] Ph one Number [facility] [address] [place] [address] * BARBITURATES-URINE RANDOM (07/11/2019 4:15 PM CDT) Pathologist [facility] Barbiturates,Ur NEG NEG-NEG MAIN LAB ine Comment: RESULTS WERE OBTAINED BY IMMUNOASSAY AND ARE PRESUMPTIVE ONLY. POSITIVE INDICATES THE PRESENCE OF SUBSTANCE WITH CHARACTERISTICS SIMILAR TO DRUG-DRUG CLASS OR METABOLITE IN CONC. EQUAL TO OR EXCEEDING VALUES LISTED. BARBITURATES 200 NG/ML Specimen Urine - Urine Performing Organization [facility] one Number [place] MAIN LAB [address] [place] [address] * AMPHETAMINES-URINE RANDOM (07/11/2019 4:15 PM CDT) Amphetamines NEG NEG-NEG [facility] Comment: RESULTS WERE OBTAINED BY IMMUNOASSAY AND ARE PRESUMPTIVE ONLY. POSITIVE INDICATES THE PRESENCE OF SUBSTANCE WITH CHARACTERISTICS SIMILAR TO DRUG-DRUG CLASS OR METABOLITE IN CONC. EQUAL TO OR EXCEEDING VALUES LISTED. AMPHETAMINES 1000 NG/ML Specimen Urine - Urine Performing Organization [facility] one Number [place] MAIN LAB [address] [place] [address] * URINALYSIS, MICROSCOPIC (07/11/2019 4:15 PM CDT) WBCs,UA 2-10 0 - 2 /HPF [facility] RBCs,UA 2-10 0 - 3 /HPF [facility] Squamous 10-20 0 - 5 [facility] Epithelial Cells Hyaline Cast 0-2 [facility] Specimen Urine - Urine Performing Organization [facility] one Deuce [facility] MAIN LAB [address] [place] [address] * URINALYSIS DIPSTICK (07/11/2019 4:15 PM CDT) Color,UA YELLOW [facility] Turbidity,UA CLEAR CLEAR-CLEAR [facility] Specific 1.017 1.003 - 1.035 [facility] [place]-Urine pH,UA 8.0 5.0 - 8.0 [facility] MAIN [...] Specimen Urine - Urine Performing Organization Address [facility] one Number [facility] [address] [place] [address] * BLOOD TYPE CONFIRMATION - ORDER ONLY IF REQUESTED BY LAB (07/11/2019 4:04 PM CDT) ABO/RH(D) O POS [facility] Specimen Blood Performing Organization Address [facility] one Number [facility] [address] [place] [address] * ABO/RH(D) (07/11/2019 3:57 PM CDT) ABO/RH(D) O POS [facility] Specimen Blood Performing Organization Address [facility] one Number [facility] [address] [place] [address] * CBC AND DIFF (07/11/2019 3:57 PM CDT) White Blood 5.4 4.5 - 11.0 K/UL [...] Basophil Count Specimen Blood Performing Organization Address [facility] one Number [facility] [address] [place] [id number] * CMV AB IGG (07/11/2019 3:57 PM CDT) CMV, IgG POS [facility] Specimen Blood Performing Organization Address [facility] one Number [facility] [address] [place] [address] * CMV AB IGM (07/11/2019 3:57 PM CDT) CMV, IgM NEG NEG-NEG [facility] Specimen Blood Performing Organization Address [facility] one Number [facility] [address] [place] [address] * COMPREHENSIVE METABOLIC PANEL (07/11/2019 3:57 PM [...] (L) >60 mL/min [facility] Comment: Turkish The eGFR is not validated f or use in drug dosing adjustments. Continue to use estimated creatinine clearance per dosing reference text. Please contact the Clinical Pharmacist for questions. eGFR 9 (L) >60 mL/min [facility] Turkish Comment: The eGFR is not validated for use in drug dosing adjustments. Continue to use estimated creatinine clearance per dosing reference text. Please contact the Clinical Pharmacist for questions. Specimen Blood Performing Organization Address [facility] one Number MAIN LAB [address] [place] [address] * DORIS CARUSO PANEL(EBV) (07/11/2019 3:57 PM CDT) EBV Capsid IgG POS [facility] EBV Nuclear POS [facility] Ag,Ab EBV Early Ag,Ab POS [facility] EBV Capsid IgM NEG NEG-NEG [facility] Specimen Blood Performing Organization Address [facility] one Number MAIN LAB [address] [place] [address] * GGTP (07/11/2019 3:57 PM CDT) Pathologist [facility] GGTP 93 (H) 9 - 64 U/L [facility] Specimen Blood Performing Organization [facility] one Number [facility] [address] [place] [address] * HEPATITIS B CORE AB TOT (IGG+IGM) (07/11/2019 3:57 PM CDT) Pathologist [facility] Anti HBc Total Non-Reactive: Antibodies to HQCKX-Nkp-Mzedbxby : [facility] HBV core antigen Antibodies to HBV (anti-HBc)were not core antigen detected.Comment: NOTE NEW (anti-HBc METHODOLOGY AND REFERENCE RANGE Specimen Blood Performing Organization [facility] one Number [facility] [address] [place] [address] * HEPATITIS B SURFACE AB (07/11/2019 3:57 PM CDT) Pathologist [facility] Anti HBs Positive: Anti-HBs NHBV-Negative: [facility] concentration detected at >10 Individual is mIU/mL,indicating recovery considered to be from non-immune to HBV infection or acquired immunity from HBV vaccination. (A)Comment: NOTE NEW METHODOLOGY AND REFERENCE RANGE Specimen Blood Performing Organization Address [facility] one Number [facility] [address] [place] [address] * HEPATITIS B SURFACE AG (07/11/2019 3:57 PM CDT) Pathologist [facility] HBsAg Non-Reactive: HBs antigen not [id number]-[id number] e: [facility] detectedComment: NOTE NEW HBs antigen not METHODOLOGY AND REFERENCE detected RANGE Specimen Blood Performing Organization [facility] one Number [facility] [address] [place] [address] * HEPATITIS C AB (07/11/2019 3:57 PM CDT) Anti HCV Non-Reactive: Antibodies to UVXLM-Amm-Eamzqtxo : [facility] HCV were not detected.Comment: Antibodies to HCV NOTE NEW METHODOLOGY AND were not detected. REFERENCE RANGE Specimen Blood Performing Organization Address [facility] one Number MAIN LAB [address] [place] [address] * HIV-1/2 ANTIGEN/ANTIBODY SCREEN (07/11/2019 3:57 PM CDT) HIV 1 and 2 AG Non-Reactive: Negative for [id number]-Rlj-Qifpbkzp: MAIN LAB AB Screen HIV-1 Ag and HIV-1/2 specific Negative for HIV-1 antibodies.Comment: NOTE NEW Ag and HIV-1/2 METHODOLOGY AND REFERENCE specif RANGE Specimen Blood Performing Organization Address [facility] one Number MAIN LAB [address] [place] [id number] * HERPES SIMPLEX IGG AB (HSV IGG) (07/11/2019 3:57 PM CDT) HSV Type 1 IgG NEG NEG-NEG MAIN LAB HSV Type 2 IgG NEG NEG-NEG MAIN LAB Specimen Blood Performing Organization Address [facility] one Number MAIN LAB [address] [place] [address] * PHOSPHORUS (07/11/2019 3:57 PM CDT) Phosphorus 6.8 (H) 2.0 - 4.5 MG/DL MAIN LAB Specimen Blood Performing Organization Address [facility] one Number MAIN LAB [address] [place] [address] * PROTIME INR (PT) (07/11/2019 3:57 PM CDT) INR 0.9 0.8 - 1.2 MAIN LAB Specimen Blood Performing Organization Address [facility] one Number MAIN LAB [address] [place] [address] * SYPHILIS AB SCREEN (07/11/2019 3:57 PM CDT) Syphilis AB, NegativeComment: NOTE NEW NEGSY-Negative [facility] AIN LAB Total METHODOLOGY AND REFERENCE RANGE Specimen Blood Performing Organization Address [facility] one Number MAIN LAB [address] [place] [address] * TOXOPLASMA IGG (07/11/2019 3:57 PM CDT) Toxoplasma IgG NEG MAIN LAB Specimen Blood Performing Organization Address [facility] one Number MAIN LAB [address] [place] [address] * TOXOPLASMA IGM (07/11/2019 3:57 PM CDT) Toxoplasma IgM NEG MAIN LAB Specimen Blood Performing Organization Address [facility] Number [facility] LAB [address] [place] [address] * C-PEPTIDE (07/11/2019 3:57 PM CDT) Pathologist [facility] C-Peptide <0.1 REFERENCE LAB Reference range: 1.1 to 4.4 Unit: ng/mL [facility], [address] [place] [address] (L) Specimen Blood Performing Organization Address [facility] one [facility] REFERENCE LAB REFERENCE LAB See results for address. * HEMOGLOBIN A1C (07/11/2019 3:57 PM CDT) Pathologist [facility] Hemoglobin A1C 8.9 (H) 4.0 - 6.0 % MAIN LAB Comment: The ADA recommends that most patients with type 1 and type 2 diabetes maintain an A1c level <7%. Specimen Blood Performing Organization Address [facility] one Number MAIN LAB [address] [place] [address] * RED TOP TUBE FOR MTN TRANSPLANT (07/11/2019 3:57 PM CDT) Specimen Blood Performing Organization Address City/[facility] one Number REFERENCE LAB * LAVENDER (EDTA) TOP TUBE FOR MTN TRANSPLANT (07/11/2019 3:57 PM CDT) Specimen Blood Performing Organization Address City/[facility] one Number REFERENCE LAB * VARICELLA ZOSTER AB IGG (07/11/2019 3:57 PM CDT) Varcella Zoster POS MAIN LAB IgG Specimen Blood Performing Organization Address City/State/[facility] one Number MAIN LAB [address] [place] [address] * VARICELLA ZOSTER AB IGM (07/11/2019 3:57 PM CDT) Varicella Negative REFERENCE LAB Zoster IgM Reference range: Negative [facility], [address] [place] [address] Specimen Blood Performing Organization Address City/State/Zipcode Ph one Number REFERENCE LAB REFERENCE LAB See results for address. documented in this encounter Visit Diagnoses Diagnosis ESRD (end stage renal disease) (HCC) End stage renal disease Pre-transplant evaluation for end stage renal disease Other specified pre-operative examinati on Controlled type 1 diabetes mellitus wit h other diabetic kidney complication (HCC) Screening for human immunodeficiency vi page Special screening examination for other specified viral diseases documented in this encounter
--- OUTSIDE RECORDS SUMMARY | 2019-09-07 08:26 | XMS REPORT | Encounter Summary ---
Author Author [facility] Organization [facility] Address Unknown Phone Unavailable Care Team Providers Care Steel Floor Pan Placing Supervisor Name Role Phone David Plunkett MD PCP Janette Lam MD 8002 Reason for Visit * Reason Comments Transplant Referral Check on appt Encounter Details Care Team Description Date Type Department Jenna Mckinnon Transplant Referral (Check on appt) 07/13/2019 Telephone The [facility] [address] [address] Social History Date Tobacco Use [...]
--- OUTSIDE RECORDS SUMMARY | 2019-09-07 08:26 | XMS REPORT | Encounter Summary ---
Author Author [facility] Organization [facility] Address Unknown Phone Unavailable Care Team Providers Care Field Staff Manager Name Role Phone David Plunkett MD PCP Janette Lam MD 8002 Reason for Visit * Reason Comments Financial/Insurance kidney/panc eval auth appro ubaldo-same auth # Questions Encounter Details Care Team Description Date Type Department [facility] Financial/Insurance Questions (kidney/pa nc eval auth approved- same auth #) 07/11/2019 Telephone [address] [address] Social History Date Tobacco Use [...] encounter Miscellaneous Notes * Telephone Encounter - Rhea Rosales - 07/11/2019 3:46 PM CDT TFA received TC from [facility] Teofilo/Optanette Verdugo advising that they have s witched the patients eval auth to show Kidney/panc instead of kidney alone. Cedrick roche advised TFA that the auth # and expiration date will remain the same TRANSPLANT AUTHORIZATIONS PLAN: [facility] AUTHORIZATION Phase 1 Evaluation Auth #:[id number] eff: 05/02/19 - 05/01/20 NCM: Rose Verdugo Phone #: [phone] ext [phone] FAX #: [phone] documented in this encounter Plan of Treatment Not on filedocumented as of this encounter Goals Goal Patient Associated Recent Progress Patient-Stat Aut hor Goal Type Problems ed? Recover from illness Hospital No Arminda Puentes RN documented as of this encounter Visit Diagnoses Not on filedocumented in this encounter
--- OUTSIDE RECORDS SUMMARY | 2019-09-07 08:26 | XMS REPORT | Encounter Summary ---
Author Author [facility] Organization [facility] Address Unknown Phone Unavailable Care Team Providers Care Social Economist Name Role Phone David Plunkett MD PCP Janette Lam MD 8002 Reason for Visit * Reason Comments Financial/Insurance financial consult Questions Encounter Details Care Team Description Date Type Department Rhea Rosales Financial/Insurance Questions (financial consult) 07/11/2019 Telephone The [facility] [address] [phone] Social History Date Tobacco Use Types Packs/Day [...] Telephone Encounter - Rhea Rosales - 07/11/2019 3:42 PM CDT Rhea Rosales met with Patito Lugo for insurance consult. There appe ar to be NO coverage/insurance barriers with [facility] plan. Patito expresscecilio d no insurance concerns related to cost of post-transplant care and medications and verbalized understanding of Transplant Finance Coordinator's discussion and documents presented. Authorization required prior to listing. Patient advised TFA that she has already applied for Medicare and will inform TF A once approved. Documents presented: Signed Patient Liability Form, Medication Cost Estimate documented in this encounter Plan of Treatment Not on filedocumented as of this encounter Goals Goal Patient Associated Recent Progress Patient-Stat Aut hor Goal Type Problems ed? Recover from illness [facility] No Arminda Puentes, ANDREEA documented as of this encounter Visit Diagnoses Not on filedocumented in this encounter
--- OUTSIDE RECORDS SUMMARY | 2019-09-07 08:26 | XMS REPORT | Encounter Summary ---
Author Author [facility] Organization [facility] Address Unknown Phone Unavailable Care Team Providers Care Live Games Dealer Name Role Phone David Plunkett MD PCP Janette Lam MD 8002 Reason for Referral * Radiology Services (Routine) Referred By Contact Referred To Contact Status Reason Specialty Diagnoses / Procedures Brendan Oliveira MD [address] [place] [phone] No Auth Needed Radiology Diagnoses Pre-transplant evaluation for end stage renal disease P rocedures CT ABD/PELV WO CONTRAST Reason for Visit * Radiology Services (Routine) Referred By Contact Referred To Contact Status Reason Specialty Diagnoses / Procedures Brendan Oliveira MD [address] [place] [phone] No Auth Needed Radiology Diagnoses Pre-transplant evaluation for end stage renal disease P rocedures CT ABD/PELV WO CONTRAST Encounter Details Care Team Description Date Type Department Brendan Oliveira MD [address] [address] [phone] 07/11/2019 [facility] [address] [address] Social History Date Tobacco Use Types Packs/Day [...] Procedure Name Priority Date/Time Associated Diag nosis CT ABD/PELV WO CONTRAST Routine 07/11/2019 Pre-tr ansplant evaluation 5:00 PM CDT for end stage renal disease documented in this encounter Results * CT ABD/PELV WO CONTRAST (07/11/2019 5:00 [...] collapsed. Finalized by Oleg Reyes M.D. on 07/10 5:28 PM. Dictated [...] documented in this encounter Visit Diagnoses Diagnosis Pre-transplant evaluation for end stage renal disease Other specified pre-operative examinati on documented in this encounter
--- OUTSIDE RECORDS SUMMARY | 2019-09-07 08:27 | XMS REPORT | Encounter Summary ---
Author Author [facility] Organization [facility] Address Unknown Phone Unavailable Care Team Providers Care Office Machines Wirer Name Role Phone David Plunkett MD PCP Janette Lam MD 8002 Reason for Visit * Reason Comments Financial/Insurance TC to 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 documented as of this encounter Functional Status Date of Assessment Functional Status Response 04/19/2019 Does the patient have a hearing impairment: No 04/19/2019 Does the patient have a visual impairment: Yes 04/19/2019 Does the patient have impaired ambulation: No 04/19/2019 Does the patient have an activity of daily living No (ADL) impairment: 04/19/2019 Does the patient have an instrumental activity of No daily living (IADL) impairment: Date of Assessment Cognitive Status Response 04/19/2019 Does the patient have a cognitive impairment: No documented as of this encounter Miscellaneous Notes * Telephone Encounter - Rhea Rosales - 07/08/2019 2:45 PM CDT TFA [facility] from just kidney to kidney/panc. TFA called [facility] and had to leave a for a return call. documented in this encounter Plan of Treatment Not on filedocumented as of this encounter Goals Goal Patient Associated Recent Progress Patient-Stat Aut hor Goal Type Problems ed? Recover from illness Hospital No Arminda Puentes, RN documented as of this encounter Visit Diagnoses Not on filedocumented in this encounter
--- OUTSIDE RECORDS SUMMARY | 2019-09-07 08:27 | XMS REPORT | Encounter Summary ---
Author Author [facility] Organization [facility] Address Unknown Phone Unavailable Care Team Providers Care Cement Tester Assistant Name Role Phone David Plunkett MD PCP Janette Lam MD 8002 Reason for Visit * Reason Comments Transplant Referral Call Re: Telehealth Appt. Encounter Details Care Team Description Date Type Department Shayla Amaya Transplant Referral (Call Re: Telehealth Appt. ) 07/06/2019 Telephone The [address] [phone] Social History Date Tobacco Use [...]
--- OUTSIDE RECORDS SUMMARY | 2019-09-07 08:27 | XMS REPORT | Encounter Summary ---
Author Author [facility] Organization [facility] Address Unknown Phone Unavailable Care Team Providers Care Potato Chip Sorter Name Role Phone David Plunkett MD PCP Janette Lam MD 8002 Reason for Referral * Test (Routine) Referred By Contact Referred To Contact Status Reason Specialty Diagnoses / Procedures Ray Tolbert MD [address] [address] New Request Diagnoses ESRD (end stage renal disease) (HCC) Pre-transplant evaluation for end stage renal disease P rocedures TREADMILL EXERCISE ECHOCARDIOGRAM W/2-D + DOPPLER ECHO Reason for Visit * Reason Comments Pancreas Evaluation Kidney Evaluation * Transplant (Routine) Referred By Contact Referred To Contact Status Reason Specialty Diagnoses / Procedures Mart Hendrickson MD Forwarding Address Unknown Bh[facility] [address] [address] Authorized Specialty Services Transplant Diagnoses Required Surgery Chronic kidney disease, stage 4 (severe) (HCC) Encounter Details Care Team Description Date Type Department Ray Tolbert MD [address] [address] [phone] Encounter for pre-transplant evaluation for kidney and pancreas transplant (Primary Dx); Chronic kidney disease, stage 4 (severe) (HCC); ESRD (end stage renal disease) (HCC); Pre-transplant evaluation for end stage renal disease; 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 (HCC); Screening for human immunodeficiency virus 07/11/2019 Transplant [facility] [address] [place] [id number] Social History Date Tobacco Use Types Packs/Day [...] Time Taken Comments Vital Sign 171/94 07/11/2019 11:56 AM CDT Blood Pressure 112 07/11/2019 11:56 AM CDT Pulse 36.4 C (97.6 F) 07/11/2019 11:54 AM CDT Temperature - - Respiratory Rate 97% 07/11/2019 11:54 AM CDT Oxygen Saturation - - Inhaled Oxygen Concentration 83 kg (183 lb) 07/11/2019 11:54 AM CDT Weight 172.7 cm (5' 8") 07/11/2019 11:54 AM CDT Height 27.83 07/11/2019 11:54 AM CDT Body Mass Index documented in this [...] impairment: No documented as of this encounter Patient Instructions * Patient Instructions* Mireya Perkins RN - 07/11/2019 12:00 PM CDT You were seen by members of the Pre Renal/Pancreas Transplant Team today who hav e recommended that you complete the following: Chest x-ray (today) CT of your abdomen and pelvis WITHOUT contrast (today) Lab work (today) Cardiology consult (an order for this test will be sent to [facility]) Stress Echocardiogram (an order for this test will be sent to [facility]) PAP (please notify your coordinator where you completed this test) Please keep your Nurse Coordinator informed of ANY changes in your health and in surance status. We recommend that you sign up for MyChart. The activation code has been provided to you in your after visit summary for today's visit. It was a pleasure to see you today. Thank you for partnering with [facility] for your care. If you should have any questions or concerns, please feel free to contact us. Mireya Perkins RN, BSN Renal/Pancreas Assembler [employer] [facility] , fax [phone] documented in this encounter Progress Notes * Mireya Perkins RN - 07/11/2019 12:[address] Henry/Dr. Tolbert- concern for non compliance, good candidate for SPK vs kidn ey alone due to multi DKA episodes, need 2019 PAP, EKG normal, need exercise gisell admill echo if able (blindness) can do chem if needed-refer to Carlos Dr. 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 injections, will check nonc ompliance JORDY Bess- Medicaid now, apply for Medicare and will let [facility] know, no F AP given You were seen by members of the Pre Renal/Pancreas Transplant Team today who hav e recommended that you complete the following: Chest x-ray (today) CT of your abdomen and pelvis WITHOUT contrast (today) Lab work (today) Cardiology consult (an order for this test will be sent to [facility]) Stress Echocardiogram (an order for this test will be sent to [facility]) PAP (please notify your coordinator where you completed this test) Please keep your Nurse Coordinator informed of ANY changes in your health and in surance status. We recommend that you sign up for MyChart. The activation code has been provided to you in your after visit summary for today's visit. It was a pleasure to see you today. Thank you for partnering with [facility] for your care. If you should have any questions or concerns, please feel free to contact us. Mireya Perkins RN, BSN Renal/Pancreas Assembler [employer] [facility] , fax [phone] * Ray Tolbert MD - 07/11/2019 12:00 PM CDT [facility] Initial Recipient Evaluation Clinic Date of Service: 07/11/19 Patito Lugo [id number] Referring Fly Worker: Mart Hendrickson 4000 [facility] [address] Mart Hendrickson and Dr. Irby, We had the pleasure of meeting Ms. Lugo in the Renal Transplant Clinic for evaluation of candidacy for SPK transplantation. She is a 33 y.o. female with PMH ESRD secondary to DMI. She is accompa nied today by her Ms. Lugo describes an eventful medical year in 2019, with multiple episodes o f DKA and a preeclamptic . She is now on dialysis with reported improve d stability. Medical Notes Type 1 DM She was diagnosed at age of 10 Recurrent DKA ~ 3 times per year since then, last episode in She also has retinopathy, gastroparesis, and peripheral neuropathy. Rx: levemir 25 units BID, aspart 1:20 Her kidney function deteriorated since rapidly with when she was diagn osed with preeclampsia and delivered by at 5 weeks pre term (~35 WGA). ESRD She is in the process of starting peritoneal dialysis CAPD. She has a right tunneled catheter she is using for HD TTS EDW ~ 83 kg, adjusting Hypertension Variable control, with orthostatic changes Personal history: CVA: denies Coronary artery or other heart disease: None Lung disease: denies history of asthma or COPD Sleep Apnea: denies symptoms consistent with AMILCAR. Liver disease: None Autoimmune disease: reports Rheumatoid arthritis, not on any treatment now, but still has intermittent mild arthritis Hematologic disorders: reports history of DVT in her left arm veins, treated wit h Eliquis for 3 months (~ 2015). Believed to be provoked PVD: denies symptoms consistent with peripheral vascular disease Cancer: No history of cancers Infections: + Previous history of recurrent infections: UTIs, 1-2 per year H/o Kidney stones: None Activity/Exercise: intermittently; taking care of 5 children NSAID/Narcotic use: Yes, oxycodone 0.5 mg PRN [place] UOP: 0.5 L Neck ROM: normal range of motion Sensitizations: 2 pregnancies, preeclampsia treated by delivery, 2 pRBCs transfu sions for anemia REVIEW OF SYSTEMS: Comprehensive 14-point ROS reviewed Positives noted in HPI otherwise negative. Allergies: Allergies Allergen Reactions Codeine HIVES Insulin Regular, Human SEE COMMENTS Does not work Past Medical History: Medical History: Diagnosis Date Arm vein blood clot, left Diabetes type 1, uncontrolled (HCC) h/o multiple DKA admissions Diabetic neuropathy (HCC) Fibromyalgia Amy's disease Restless leg syndrome Rheumatoid arthritis (HCC) Appendicitis Tx with Abx Social History: Social History Socioeconomic History Marital status: Spouse [...] file Social History Narrative Pt lives in [place], [place] with her , 3 step kids and her son. 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 Denies IPV. living with and 5 children Has 1 sister and 1 brother that are healthy Education: Some college Not working Tobacco: None Etoh None Drug abuse: None Surgical History: Surgical History: Procedure Laterality Date SECTION 05/2011 CARPAL TUNNEL RELEASE Bilateral 10/2014 CHOLECYSTECTOMY 2017 DELIVERY N/A 04/19/2018 Performed by Kavya Sanders MD at [facility] LDR OR HX TONSIL AND ADENOIDECTOMY KNEE ARTHROSCOPY Left Family History: Family History Problem Relation Age of Onset Heart Attack Paternal Grandfather Fam Hx of CKD/ESRD: None Skin Ca PGF Problem List: Patient Active Problem List Diagnosis Date Noted Acute on chronic renal insufficiency 04/15/2019 Severe sepsis (HCC) 02/04/2019 Appendicitis 02/04/2019 Acute kidney injury superimposed on CKD ([facility]) 02/04/2019 Nephrotic syndrome 02/04/2019 Lactic acidosis 02/01/2019 DKA (diabetic ketoacidoses) ([facility]) 05/11/2018 Pre-eclampsia or eclampsia superimposed on pre-existing hypertension 019 04/19/2018 Pre-existing hypertension affecting in third trimester 02/05/2018 Type 1 diabetes mellitus during in third trimester 12/02/2017 High-risk in first trimester 11/03/2017 Uncontrolled type 1 diabetes mellitus with hyperglycemia ([facility]) 11/03/2017 Amy's thyroiditis 11/03/2017 Diabetic neuropathy associated with type 1 diabetes mellitus ([facility]) 8 Proteinuria 11/03/2017 Fibromyalgia 11/03/2017 Restless leg syndrome 11/03/2017 Current Medications: Current Outpatient Medications: acetaminophen (TYLENOL) 500 mg tablet, Take 1,000 mg by mouth daily as need ed for Pain. Max of 4,000 mg of acetaminophen in 24 hours., Disp: , Rfl: amoxicillin/K clavulanate (AUGMENTIN) 500/125 mg tablet, Take one tablet by mouth every 12 hours. Take with food., Disp: 20 tablet, Rfl: 0 calcium carbonate (TUMS) 500 mg (200 mg elemental calcium) chewable tablet, Chew 500 mg by mouth daily as needed., Disp: , Rfl: FIASP FLEXTOUCH U-100 INSULIN 100 unit/mL (3 mL) injectable PEN, Inject und er the skin as needed for both meals and as correction. Per pt, averages between 30-50 units daily., Disp: , Rfl: furosemide (LASIX) 40 mg tablet, Take two tablets by mouth twice daily., Di sp: 120 tablet, Rfl: 1 insulin detemir U-100 (LEVEMIR FLEXTOUCH) 100 unit/mL (3 mL) injection pen, Inject twenty five Units under the skin twice daily., Disp: 15 mL, Rfl: 3 insulin pen needles (disposable) (BD UF MOIRA PEN NEEDLES) 32 gauge x 5/32" pen needle, Use one each as directed twice daily. Use with insulin injections., Disp: 180 each, Rfl: 3 levonorgestrel (MIRENA) 20 mcg/24 hours (5 yrs) 52 mg intrauterine device, 1 Intra Uterine Device by Intrauterine route once., Disp: , Rfl: Magnesium 250 mg tab, Take 250 mg by mouth daily., Disp: , Rfl: NIFEdipine XL (PROCARDIA-XL) 60 mg tablet, Take one tablet by mouth daily., Disp: 30 tablet, Rfl: 1 nortriptyline (PAMELOR) 10 mg capsule, Take one capsule by mouth at bedtime daily., Disp: 30 capsule, Rfl: 2 ondansetron (ZOFRAN) 4 mg tablet, Take 4 mg by mouth every 8 hours as neede d for Nausea or Vomiting., Disp: , Rfl: oxyCODONE (ROXICODONE) 5 mg tablet, Take one-half tablet by mouth every 8 h ours as needed, Disp: 30 tablet, Rfl: [address] (PROTONIX) 40 mg tablet, Take 40 mg by mouth daily., Disp: , Rfl: sodium zirconium cyclosilicate (LOKELMA) 10 gram packet, Take one packet by mouth daily. Mix entire contents of packet with 45mL of water, stir well, and a dminister immediately. Administer other oral medications >2 hours before or after dose., Disp: 1 packet, Rfl: 0 Physical Exam: BP (!) 171/94 (BP Source: Arm, Left Upper, Patient Position: Standing) | Pulse 112 | Temp 36.4 C (97.6 F) (Oral) | Ht 172.7 cm (68") | Wt 83 kg (183 lb) | SpO2 97% | BMI 27.83 kg/m Body mass index is 27.83 kg/m. General: In NAD; A&Ox3, well appearing Skin: Warm, dry, no signs of rash Right TDC HEENT: Grossly normal appearing; EOMI; dentition good Neck: No bruits CV: Regular, regular rate, normal S1/S2, no murmurs Lungs: CTA bilaterally in posterior moody Abd: Grossly normal without rebound, guarding, masses, or bruits LLQ PD catheter Ext: trace edema; femoral pulse 2+ and symmetric Neuro: No focal deficits Psych: Affect appropriate Laboratory studies: CMP: CMP Latest Ref Rng & Units 04/19/2019 04/19/2019 NA 137 - 147 MMOL/L - 134(L) K 3.5 - 5.1 MMOL/L 4.7 5.4(H) CL 98 - 110 MMOL/L - 105 CO2 21 - 30 MMOL/L - 21 GAP 3 - 12 - 8 BUN 7 - 25 MG/DL - 70(H) CR 0.4 - 1.00 MG/DL - 4.79(H) GLUX 70 - 100 MG/DL - 268(H) CA 8.5 - 10.6 MG/DL - 7.7(L) TP 6.0 - 8.0 G/DL - 4.5(L) ALB 3.5 - 5.0 G/DL - 2.1(L) ALKP 25 - 110 U/L - 74 ALT 7 - 56 U/L - 9 TBILI 0.3 - 1.2 MG/DL - 0.2(L) GFR >60 mL/min - 11(L) GFRAA >60 mL/min - 13(L) CBC with Diff: CBC with Diff Latest Ref Rng & Units 04/19/2019 04/18/2019 WBC 4.5 - 11.0 K/UL 6.7 6.7 RBC 4.0 - 5.0 M/UL 2.51(L) 2.28(L) HGB 12.0 - 15.0 GM/DL 7.5(L) 6.9(L) HCT 36 - 45 % 21.8(L) 19.6(L) MCV 80 - 100 FL 86.9 85.9 MCH 26 - 34 PG 29.9 30.2 MCHC 32.0 - 36.0 G/DL 34.4 35.2 RDW 11 - 15 % 14.1 13.6 PLT 150 - 400 K/UL 232 233 MPV 7 - 11 FL 8.0 8.2 NEUT 41 - 77 % 67 63 ANC 1.8 - 7.0 K/UL 4.50 4.30 LYMA 24 - 44 % 22(L) 26 ALYM 1.0 - 4.8 K/UL 1.40 1.70 EVIE 4 - 12 % 7 7 AMONO 0 - 0.80 K/UL 0.40 0.40 EOSA 0 - 5 % 3 3 AEOS 0 - 0.45 K/UL 0.20 0.20 BASA 0 - 2 % 1 1 ABAS 0 - 0.20 K/UL 0.10 0.10 Urine Lab Results Component Value Date/Time UCOLOR YELLOW 04/16/2019 12:08 AM TURBID 1+ (A) 04/16/2019 12:08 AM USPGR 1.008 04/19/2019 09:15 AM USPGR 1.015 04/16/2019 12:08 AM UPH 6.0 04/16/2019 12:08 AM UAGLU 3+ (A) 04/16/2019 12:08 AM UPROTEIN 3+ (A) 04/16/2019 12:08 AM UBLD NEG 04/16/2019 12:08 AM URBC 2-10 04/16/2019 12:08 AM Lab Results Component Value Date/Time UWBC 2-10 04/16/2019 12:08 AM UNIT NEG 04/16/2019 12:08 AM ULEU NEG 04/16/2019 12:08 AM UKET 1+ (A) 04/16/2019 12:08 AM UBILE NEG 04/16/2019 12:08 AM UROB NORMAL 04/16/2019 12:08 AM Other Common Labs: Other Common Labs Latest Ref Rng & Units 04/18/2019 04/17/2019 IRON 50 - 160 MCG/DL 48(L) - TIBC 270 - 380 MCG/DL 207(L) - PSAT 28 - 42 % 23(L) - MADELINE 10 - 200 NG/ML 152 - PO4 2.0 - 4.5 MG/DL - 4.7(H) MG 1.6 - 2.6 mg/dL - 2.6 UPRO NEG-NEG - - UCRR MG/DL - - UPCRC - - - URICA 2.0 - 7.0 MG/DL - - HBA1C 4.0 - 6.0 % - - Viral Serologies: No flowsheet data found. Imaging: Results for orders placed during the hospital encounter of 04/15/19 CT ABD/PELV WO CONTRAST Impression 1. DEVELOPMENT OF MILD ABDOMINAL/PELVIC ASCITES WITH MESENTERIC LUIS EDUARDO ESTION. 2. PERSISTENT PROMINENCE OF THE APPENDIX WITH SMALL APPENDICOLITHS. THERE IS HAZ INESS AROUND THE PROMINENT APPENDIX, WHICH MAY BE ASSOCIATED WITH ABDOMINAL/PELV IC ASCITES. APPENDICITIS IS STILL A CONSIDERATION. CLINICAL AND LABORATORY CORRE LATION IS SUGGESTED. 3. PERSISTENT MILD HEPATOMEGALY AND UPPER LIMITS OF NORMAL SIZE SPLEEN. 4. ANEMIA. 5. MILD TO MODERATE ANASARCA. Finalized by Ander Barry M.D. on 04/16/2019 7:45 AM. Dictated by Robert Enriquez on 04/16/2019 7:23 AM. Results for orders placed during the hospital encounter of 05/11/18 CHEST SINGLE VIEW Impression 1. Mild pulmonary vascular congestion. 2. Small bilateral pleural effusions with mixed bibasilar opacities which likel y represent atelectasis. Approved by Gray Lewis MD on 05/12/2018 9:58 AM By my electronic signature, I attest that I have personally reviewed the images for this examination and formulated the interpretations and opinions expressed i n this report Finalized by Salty Estrada M.D. on 05/12/2018 10:09 AM. Dictated by Gray lopez MD on 05/12/2018 8:08 AM. Cardiovascular Screening EKG 07/11/19 - Regular rhythm, TN 142, QTc 483, Normal R-wave progression. Echocardiogram: Date - EF 65%, Normal and reviewed by myself Cancer Screening PAP: Date 2018 - normal CXR 07/11/19 - pending Assessment and Plan: Ms. Lugo is a 33 y.o. who appears ROBUST, well appearing female pre sents today for SPK transplantation evaluation. Ultimately, I believe that she is an excellent candidate for transplantation wit h the below listed concerns. At this time, she has the following potential livin g donors: friends/family Potential barriers for transplantation that include: medical stability (recurren t DKA admission), additionally will need the following. #) Prior to transplantation, - Routine pre-transplant labs including ABO, CMP, CBC, INR, toxicology, viral se rologies, toxoplasma/syphilis histocompatibilty, HLA/PRA testing. - CT Abdomen/pelvis anatomic suitability to be determined in committee with andino splant surgery #) Cardiovascular Screening - Stress echo-cardio, ideally exercise echo. EKG normal. #) Cancer Screening - PAP smear report, normal per patient in 2019. #) Type 1 DM c peptide undetectable - on Insulin SQ with brittle control and multiple DKA admissions each year - A1c ~ 8.9% 07/11/2019, improving # Anemia of CKD Hgb in the 7's, needs optimization prior to listing. #) Rheumatoid Arthritis: Will be maintained on prednisone after transplant #) LUE DVT: 2016 episode likely provoked - hypercoagulable state workup #) Non adherence: Seems to be improving. I do not believe psychiatric evaluation would be helpful unless other members of the multidisciplinary team identify barriers. We discussed the risks, benefits, and complications of renal transplantation wit h the patient. donor and living donor transplantation and wait times we re also discussed. I explained the in-hospital course after transplantation, as well as the post-transplant follow-up and the absolute requirement for lifelong administration of immunosuppressant medications. The use, compliance with meds a nd side effects of immunosuppression including malignancy and infection were als o discussed. The risk of primary graft non-function, slow graft function (SGF), delayed graft function (DGF), rejection, primary disease recurrence were also di scussed. She demonstrated a full and adequate understanding. She denied any ques tions or concerns at this time. Ms. Lugo consented to not accept a higher KDPI (>85%) kidney should one become available for them. We discussed risks and benefits of simultaneous kidney pancreas transplant. We discussed the benefit of endogenous insulin and improved glycemic control and th e life-saving benefit of pancreas transplant if hypoglycemic unawareness is an i ssue. We did discuss the risks of pancreas transplantation that include higher risk of and thrombosis and rejection. We reviewed the technical aspects of bull creas transplant and the risk of anastomotic leak. We discussed living kidney donation with Pancreas after kidney transplant versus simultaneous kidney and pancreas transplant. Ms. Lugo has brittle diabetes w ith multiple DKA admissions annually. Pancreas transplant would be life saving i n this setting, which we discussed today. Aside from myself, she met with one of our pre-transplant nurse coordinators, joanie lowry, pharmacy, licensed master social worker and financial counselor. The patient was informed that if her medical condition changes or she does not p ass the medical/surgical testing protocol, transplantation will not be an option for the treatment of her renal disease. Ms. uLgo will be discussed in our Multidisciplinary Committee Selection Solomon hartmann before a final decision is made. The patient will be contacted by the pre-tra nsplant coordinator with the final decision and if any additional items/tests ar e requested. Thank you for giving us the opportunity in taking care of this patient. Please do not hesitate to contact us with any questions or concerns that you may have. Yours sincerely, Elier Ocasio MD Kidney and Pancreas Transplant ATTESTATION I have personally seen and examined this patient with the fellow, performed the medrano portions of the E/M visit, discussed the case and concur with the fellow's documentation of history, physical exam, assessment, and treatment plan. I have extensively modified this note to include my own clinical findings, including hi story, exam, assessment and plan.. Staff name: Ray Tolbert MD Date: 07/12/2019 Cc: Mart Hendrickson CC: Dr. Irby Cc: David Plunkett Iii Please contact the [facility] at [phone] for any transplant related questions or concerns that may arise . documented in this encounter Plan of Treatment Order Schedule Name Type Priority Associated Diag noses 1 Occurrences starting 07/11/2019 until 01/11/2020 MISCELLANEOUS LAB TEST Lab Routine ESRD (e nd stage renal disease) ([facility]) Pre-transplant evaluation for end stage renal disease Expected: 07/11/2019, Expires: 1 TREADMILL EXERCISE ECHO Routine ESRD (end s tage renal ECHOCARDIOGRAM W/2-D + disease) ([facility]) DOPPLER ECHO Pre-transplant evaluation for end stage renal disease documented as of this encounter Goals Goal Patient Associated Recent Progress Patient-Stat Aut hor Goal Type Problems ed? Recover from illness Hospital No Arminda Puentes RN documented as of this encounter Results * CHEST 2 VIEWS [...] Prerenal transplant eval. COMPARISON STUDY: Chest radiograph Febr uary 2019. FINDINGS: Support devices: Interval placement of [...] on 07/11/2019 4:30 PM. Performing Organization Address [facility] one Number RAD RESULTS * PHENCYCLIDINES-URINE RANDOM (07/11/2019 4:15 PM CDT) Phencyclidine NEG NEG-NEG MAIN LAB (PCP) Comment: RESULTS WERE OBTAINED BY IMMUNOASSAY AND ARE PRESUMPTIVE ONLY. POSITIVE INDICATES THE PRESENCE OF SUBSTANCE WITH CHARACTERISTICS SIMILAR TO DRUG-DRUG CLASS OR METABOLITE IN CONC. EQUAL TO OR EXCEEDING VALUES LISTED. PHENCYCLIDINE (PCP) 25 NG/ML Specimen Urine - Urine Performing Organization Address [facility] one Number MAIN LAB [address] [place] [address] * OPIATES-URINE RANDOM (07/11/2019 4:15 PM CDT) Opiates-Urine NEG NEG-NEG MAIN LAB Comment: RESULTS WERE OBTAINED BY IMMUNOASSAY AND ARE PRESUMPTIVE ONLY. POSITIVE INDICATES THE PRESENCE OF SUBSTANCE WITH CHARACTERISTICS SIMILAR TO DRUG-DRUG CLASS OR METABOLITE IN CONC. EQUAL TO OR EXCEEDING VALUES LISTED. OPIATES 2000 NG/ML Specimen Urine - Urine Performing Organization Address [facility] one Number MAIN LAB [address] [place] [address] * COCAINE-URINE RANDOM (07/11/2019 4:15 PM CDT) Cocaine-Urine NEG NEG-NEG MAIN LAB Comment: RESULTS WERE OBTAINED BY IMMUNOASSAY AND ARE PRESUMPTIVE ONLY. POSITIVE INDICATES THE PRESENCE OF SUBSTANCE WITH CHARACTERISTICS SIMILAR TO DRUG-DRUG CLASS OR METABOLITE IN CONC. EQUAL TO OR EXCEEDING VALUES LISTED. COCAINE 300 NG/ML Specimen Urine - Urine Performing Organization Address [facility] one Number [facility] [address] [place] [address] * CANNABINOIDS-URINE RANDOM (07/11/2019 4:15 PM CDT) THC NEG NEG-NEG MAIN LAB Comment: RESULTS WERE OBTAINED BY IMMUNOASSAY AND ARE PRESUMPTIVE ONLY. POSITIVE INDICATES THE PRESENCE OF SUBSTANCE WITH CHARACTERISTICS SIMILAR TO DRUG-DRUG CLASS OR METABOLITE IN CONC. EQUAL TO OR EXCEEDING VALUES LISTED. CANNABINOIDS 50 NG/ML Specimen Urine - Urine Performing Organization [facility] one Number [facility] [address] [place] [address] * BENZODIAZEPINES-URINE RANDOM (07/11/2019 4:15 PM CDT) Benzodiazepines NEG NEG-NEG MAIN LAB Comment: RESULTS WERE OBTAINED BY IMMUNOASSAY AND ARE PRESUMPTIVE ONLY. POSITIVE INDICATES THE PRESENCE OF SUBSTANCE WITH CHARACTERISTICS SIMILAR TO DRUG-DRUG CLASS OR METABOLITE IN CONC. EQUAL TO OR EXCEEDING VALUES LISTED. BENZODIAZEPINES 200 NG/ML Specimen Urine - Urine Performing Organization [facility] one Number [facility] [address] [place] [address] * BARBITURATES-URINE RANDOM (07/11/2019 4:15 PM CDT) Barbiturates,Ur NEG NEG-NEG [facility] ine Comment: RESULTS WERE OBTAINED BY IMMUNOASSAY AND ARE PRESUMPTIVE ONLY. POSITIVE INDICATES THE PRESENCE OF SUBSTANCE WITH CHARACTERISTICS SIMILAR TO DRUG-DRUG CLASS OR METABOLITE IN CONC. EQUAL TO OR EXCEEDING VALUES LISTED. BARBITURATES 200 NG/ML Specimen Urine - Urine Performing Organization Address [facility] one Number [facility] [address] [place] [address] * AMPHETAMINES-URINE RANDOM (07/11/2019 4:15 PM CDT) Amphetamines NEG NEG-NEG MAIN LAB Comment: RESULTS WERE OBTAINED BY IMMUNOASSAY AND ARE PRESUMPTIVE ONLY. POSITIVE INDICATES THE PRESENCE OF SUBSTANCE WITH CHARACTERISTICS SIMILAR TO DRUG-DRUG CLASS OR METABOLITE IN CONC. EQUAL TO OR EXCEEDING VALUES LISTED. AMPHETAMINES 1000 NG/ML Specimen Urine - Urine Performing Organization [facility] one Number [facility] [address] [place] [address] * PROTEIN/CR RATIO,UR RAN (07/11/2019 4:15 PM CDT) Protein, Random 887 MG/DL [facility] Creatinine, 54 MG/DL [facility] Random Protein/CR 16.4 [facility] ratio Specimen Urine - Urine Performing Organization [facility] one Number [facility] [address] [place] [address] * URINALYSIS, MICROSCOPIC (07/11/2019 4:15 PM CDT) WBCs,UA 2-10 0 - 2 /HPF [facility] RBCs,UA 2-10 0 - 3 /HPF [facility] Squamous 10-20 0 - 5 [facility] Epithelial Cells Hyaline Cast 0-2 [facility] Specimen Urine - Urine Performing Organization [facility] one Number [facility] [address] [place] [address] * URINALYSIS DIPSTICK (07/11/2019 4:15 PM CDT) Color,UA YELLOW [facility] Turbidity,UA CLEAR CLEAR-CLEAR [facility] Specific 1.017 1.003 - 1.035 [facility] [place]-Urine pH,UA 8.0 5.0 - 8.0 K[facility] MAIN [...] UA Specimen Urine - Urine Performing Organization [facility] one Number [facility] [address] [place] [address] * BLOOD TYPE CONFIRMATION - ORDER ONLY IF REQUESTED BY LAB (07/11/2019 4:04 PM CDT) Pathologist [facility] ABO/RH(D) O POS MAIN LAB Specimen Blood Performing Organization Address [facility] one [facility] MAIN LAB [address] [place] [address] * VARICELLA ZOSTER AB IGM (07/11/2019 3:57 PM CDT) [facility] Varicella Negative REFERENCE LAB Zoster IgM Reference range: Negative [facility] [employer], [address] [place] [address] Specimen Blood Performing Organization Address [facility] REFERENCE LAB REFERENCE LAB See results for address. * VARICELLA ZOSTER AB IGG (07/11/2019 3:57 PM CDT) Pathologist [facility] Varcella Zoster POS MAIN LAB IgG Specimen Blood Performing Organization Address [facility] one [facility] MAIN LAB [address] [place] [address] * LAVENDER (EDTA) TOP TUBE FOR MTN TRANSPLANT (07/11/2019 3:57 PM CDT) Specimen Blood Performing Organization Address [facility] REFERENCE LAB * RED TOP TUBE FOR MTN TRANSPLANT (07/11/2019 3:57 PM CDT) Specimen Blood Performing Organization Address [facility] REFERENCE LAB * HEMOGLOBIN A1C (07/11/2019 3:57 PM CDT) [facility] Hemoglobin A1C 8.9 (H) 4.0 - 6.0 % MAIN LAB Comment: The ADA recommends that most patients with type 1 and type 2 diabetes maintain an A1c level <7%. Specimen Blood Performing Organization Address [facility] MAIN LAB [address] [place] [address] * C-PEPTIDE (07/11/2019 3:57 PM CDT) [facility] C-Peptide <0.1 REFERENCE LAB Reference range: 1.1 to 4.4 Unit: ng/mL [facility], [address] [place] [id number] (L) Specimen Blood Performing Organization Address [facility] REFERENCE LAB REFERENCE LAB See results for address. * TOXOPLASMA IGM (07/11/2019 3:57 PM CDT) Toxoplasma IgM NEG [facility] Specimen Blood Performing Organization Address [facility] one Number MAIN LAB [address] [place] [address] * TOXOPLASMA IGG (07/11/2019 3:57 PM CDT) Toxoplasma IgG NEG [facility] Specimen Blood Performing Organization Address [facility] one Number MAIN LAB [address] [place] [address] * SYPHILIS AB SCREEN (07/11/2019 3:57 PM CDT) Syphilis AB, NegativeComment: NOTE NEW NEGSY-Negative [facility] M AIN LAB Total METHODOLOGY AND REFERENCE RANGE Specimen Blood Performing Organization Address [facility] one Number MAIN LAB [address] [place] [address] * PROTIME INR (PT) (07/11/2019 3:57 PM CDT) INR 0.9 0.8 - 1.2 MAIN LAB Specimen Blood Performing Organization Address [facility] one Number MAIN LAB [address] [place] [address] * PHOSPHORUS (07/11/2019 3:57 PM CDT) Phosphorus 6.8 (H) 2.0 - 4.5 MG/DL MAIN LAB Specimen Blood Performing Organization Address [facility] one Number MAIN LAB [address] [place] [address] * HERPES SIMPLEX IGG AB (HSV IGG) (07/11/2019 3:57 PM CDT) HSV Type 1 IgG NEG NEG-NEG MAIN LAB HSV Type 2 IgG NEG NEG-NEG MAIN LAB Specimen Blood Performing Organization Address [facility] one Number MAIN LAB [address] [place] [address] * HIV-1/2 ANTIGEN/ANTIBODY SCREEN (07/11/2019 3:57 PM CDT) HIV 1 and 2 AG Non-Reactive: Negative for CHUUF-Lvz-Qixrykyj: MAIN LAB AB Screen HIV-1 Ag and HIV-1/2 specific Negative for HIV-1 antibodies.Comment: NOTE NEW Ag and HIV-1/2 METHODOLOGY AND REFERENCE specif RANGE Specimen Blood Performing [facility] one Number MAIN LAB [address] [place] [address] * HEPATITIS C AB (07/11/2019 3:57 PM CDT) [facility] Anti HCV Non-Reactive: Antibodies to HWGFS-Qco-Tbkegxaz : [facility] HCV were not detected.Comment: Antibodies to HCV NOTE NEW METHODOLOGY AND were not detected. REFERENCE RANGE Specimen Blood Performing Organization [facility] one Number [facility] [address] [place] [address] * HEPATITIS B SURFACE AG (07/11/2019 3:57 PM CDT) [facility] HBsAg Non-Reactive: HBs antigen not ZDUG-Jmy-Daytrox e: [facility] LAB detectedComment: NOTE NEW HBs antigen not METHODOLOGY AND REFERENCE detected RANGE Specimen Blood Performing [facility] one Number [facility] [address] [place] [address] * HEPATITIS B SURFACE AB (07/11/2019 3:57 PM CDT) [facility] Anti HBs Positive: Anti-HBs NHBV-Negative: [facility] concentration detected at >10 Individual is mIU/mL,indicating recovery considered to be from non-immune to HBV infection or acquired immunity from HBV vaccination. (A)Comment: NOTE NEW METHODOLOGY AND REFERENCE RANGE Specimen Blood Performing [facility] one Number [facility] [address] [place] [address] * HEPATITIS B CORE AB TOT (IGG+IGM) (07/11/2019 3:57 PM CDT) [facility] Anti HBc Total Non-Reactive: Antibodies to UGBAT-Rsa-Qqigpaef : [facility] HBV core antigen Antibodies to HBV (anti-HBc)were not core antigen detected.Comment: NOTE NEW (anti-HBc METHODOLOGY AND REFERENCE RANGE Specimen Blood Performing Organization [facility] one Number MAIN LAB [address] [place] [address] * GGTP (07/11/2019 3:57 PM CDT) [facility] GGTP 93 (H) 9 - 64 U/L [facility] Specimen Blood Performing Organization Address [facility] one Number [facility] [address] [place] [address] * DORIS CARUSO PANEL(EBV) (07/11/2019 3:57 PM CDT) EBV Capsid IgG POS [facility] EBV Nuclear POS [facility] Ag,Ab EBV Early Ag,Ab POS [facility] EBV Capsid IgM NEG NEG-NEG [facility] Specimen Blood Performing Organization Address [facility] one Number [facility] [address] [place] [address] * COMPREHENSIVE METABOLIC PANEL (07/11/2019 3:57 PM [...] (L) >60 mL/min [facility] Comment: [place] The eGFR is not validated f or use in drug dosing adjustments. Continue to use estimated creatinine clearance per dosing reference text. Please contact the Clinical Pharmacist for questions. eGFR 9 (L) >60 mL/min [facility] [place] Comment: The eGFR is not validated for use in drug dosing adjustments. Continue to use estimated creatinine clearance per dosing reference text. Please contact the Clinical Pharmacist for questions. Specimen Blood Performing Organization Address [facility]/Zipcode Ph one Number [facility] [address] [place] [address] * CMV AB IGM (07/11/2019 3:57 PM CDT) CMV, IgM NEG NEG-NEG [facility] Specimen Blood Performing Organization Address [facility] one Number [facility] [address] [place] [address] * CMV AB IGG (07/11/2019 3:57 PM CDT) Pathologist [facility] CMV, IgG POS [facility] Specimen Blood Performing Organization Address [facility] Ph one Number [facility] [address] [place] [address] * CBC AND DIFF (07/11/2019 3:57 PM [...] Basophil Count Specimen Blood Performing Organization Address [facility] Ph one Number [facility] [address] [place] [address] * ABO/RH(D) (07/11/2019 3:57 PM CDT) ABO/RH(D) O POS [facility] Specimen Blood Performing Organization Address [facility] one Number [place] [facility] [address] [place] [address] documented in this encounter Visit Diagnoses Diagnosis Chronic kidney disease, stage 4 (severe ) (HCC) ESRD (end stage renal disease) (HCC) End stage renal disease Pre-transplant evaluation for end stage renal disease Other specified pre-operative examinati on Controlled type 1 diabetes mellitus wit h other diabetic kidney complication (HCC) Screening for human immunodeficiency vi page Special screening examination for other specified viral diseases Encounter for pre-transplant evaluation for kidney and pancreas transplant documented in this encounter
--- OUTSIDE RECORDS SUMMARY | 2019-09-07 08:27 | XMS REPORT | Encounter Summary ---
Author Author [facility] Organization [facility] Address Unknown Phone Unavailable Care Team Providers Care Log Snaker Name Role Phone David Plunkett MD PCP Janette Lam MD 8002 Reason for Visit * Reason Comments Transplant Referral ERROR Encounter Details Care Team Description Date Type Department Shayla Amaya Transplant Referral (ERROR) 04/22/2019 Telephone The [facility] [address] [phone] Social History Date Tobacco Use Types Packs/Day Years Used Never Smoker Smokeless Tobacco: Never Used Drinks/Week oz/Week Comments Alcohol Use No Sex Assigned at Date Recorded Female Industry Job Start Date Occupation Not on [...]
--- OUTSIDE RECORDS SUMMARY | 2019-09-07 08:27 | XMS REPORT | Encounter Summary ---
Author Author [facility] Organization [facility] Address Unknown Phone Unavailable Care Team Providers Care Access Rn Name Role Phone David Plunkett MD PCP Janette Lam MD 8002 Reason for Visit * Reason Comments General Question Encounter Details Care Team Description Date Type Department Mart Hendrickson MD [address] [place] [address] General Question 04/27/[address] Tele[address] [phone] Social History Date Tobacco Use Types Packs/Day [...] encounter Miscellaneous Notes * Telephone Encounter - Genevieve Woods LPN - 04/27/2019 8:55 AM CARPENTER ASSISTANT INSTALLER Rec'd call from pt wondering if Dr. Hendrickson can set something up for her for monse lysis. States having issues with swelling/weight gain and SOA. She has seen Dr. Irby in [place] and they didn't adjust her diuretics then and she is meeting [facility] surgeon tomorrow for dialysis access and to start dialysis in 4wks. Pt states she doesn't think she can wait 4wks with 3-5lb weight gain per day and decrease in urine output (only urinating 2x day). Strongly encouraged pt to contact Dr. Irby office to notify them of these symptoms as they will most likely make adju stments to diuretics or arrange for IJ placement. Pt v/u with no further questio ns or concerns. ENTER ASSISTANT INSTALLER documented in this encounter Plan of Treatment Not on filedocumented as of this encounter Goals Goal Patient Associated Recent Progress Patient-Stat Aut hor Goal Type Problems ed? Recover from illness Hospital No rAminda Puentes, RN documented as of this encounter Visit Diagnoses Not on filedocumented in this encounter
--- OUTSIDE RECORDS SUMMARY | 2019-09-07 08:27 | XMS REPORT | Encounter Summary ---
Author Author [facility] Organization [facility] Address Unknown Phone Unavailable Care Team Providers Care Staff Toxicologist Name Role Phone David Plunkett MD PCP Janette Lam MD 8002 Reason for Visit * Auth/Cert Referred By Contact Referred To Contact Status Reason Specialty Diagnoses / Procedures Diagnoses Acute on chronic renal insufficiency Acute on Chronic Renal Failure Encounter Details Care Team Description Date Type Department Gray Mercado MD [address] [place] [address] 04/19/2019 Anesthesia [facility] [address] [place], [place] [phone] Anesthesia Record Responsible Anesthesiologist Anesthesia Start Time Anesthesi a Stop Time Procedure Name 04/19/19 1050 LAPAROSCOPIC APPENDECTOMY (canceled) Date Time Event Comment 1049 Anes Start 2019 Meds * No agents on file. * No blood administrations on file. Removal Type Details Placement Wounds 04/19/18; 1848; Abdomen; Surgical 03/27 07/11 1848 by Anabel, (NOT for Incision; foam tape ANDREEA Webb Pressure Injuries) 04/19/19 1610 by Uma Keller RN Peripheral 04/18/19; 1407; IV Therapy; L; Forearm; 04/18/19 1407 by Isaak IV 20 G; No; Ultrasound; 1; 1.25 inches; ANDREEA Harrison 04/19/19; 1610 documented in this encounter Social History Date Tobacco Use Types Packs/Day [...] Status Date of Assessment Functional Status Response 04/15/2019 Does the patient have a hearing impairment: No documented as of this encounter OR Notes * Anesthesia Preprocedure Evaluation - Yoseph Seaman, - 04/18/2019 8:05 PM ROTATING EQUIPMENT ENGINEER Anesthesia Pre-Procedure Evaluation Name: Patito Lugo : 1985 Age: 33 y.o . Sex: female Procedure Info: Procedure Information Date/Time: 04/19/19 1030 Procedure: LAPAROSCOPIC APPENDECTOMY (N/A ) - CASE LENGTH 1 HOUR, REQUEST 1030 START Location: MAIN OR 06 / Main OR/Periop Surgeon: Kale Cruz MD Physical Assessment Vital Signs (last filed in past 24 hours): BP: 147/82 (04/18 1711) Temp: 36.5 C (97.7 F) (04/18 1711) Pulse: 111 (04/18 1711) Respirations: 18 PER MINUTE (04/18 1711) SpO2: 97 % (04/18 1711) Weight: 84.6 kg (186 lb 9.6 oz) (04/18 528) Patient History Allergies Allergen Reactions Codeine HIVES Insulin Regular, Human SEE COMMENTS Does not work Current Medications Medication Directions acetaminophen (TYLENOL) 500 mg tablet Take 1,000 mg by mouth daily as needed for Pain. Max of 4,000 mg of acetaminophen in 24 hours. calcium carbonate (TUMS) 500 mg (200 mg elemental calcium) chewable tablet Chew 500 mg by mouth daily as needed. FIASP FLEXTOUCH U-100 INSULIN 100 unit/mL (3 mL) injectable PEN Inject under the skin as needed for both meals and as correction. Per pt, averages between 30-50 units daily. furosemide (LASIX) 40 mg tablet TAKE TWO TABLETS BY MOUTH TWICE A DAY Patient taking differently: Take 40 mg by mouth twice daily. insulin detemir U-100(+) (LEVEMIR) 100 unit/mL vial Inject 22 Units under the sk in at bedtime daily. levonorgestrel (MIRENA) 20 mcg/24 hours (5 yrs) 52 mg intrauterine device 1 Intr a Uterine Device by Intrauterine route once. losartan (COZAAR) 25 mg tablet Take one tablet by mouth daily. Patient taking differently: Take 100 mg by mouth daily. Magnesium 250 mg tab Take 250 mg by mouth daily. nortriptyline (PAMELOR) 10 mg capsule Take one capsule by mouth at bedtime daily . ondansetron (ZOFRAN) 4 mg tablet Take 4 mg by mouth every 8 hours as needed for Nausea or Vomiting. pantoprazole DR (PROTONIX) 40 mg tablet Take 40 mg by mouth daily. potassium chloride (K-DUR) 10 mEq tablet Take 10 mEq by mouth daily. sertraline (ZOLOFT) 50 mg tablet Take 50 mg by mouth daily. sucralfate (CARAFATE) 1 gram tablet Take 1 g by mouth three times daily. Take on an empty stomach. Review of Systems/Medical History PONV Screening: Female gender, Non-smoker and Postoperative opioids No history of anesthetic complications No family history of anesthetic complications Cardiovascular Exercise tolerance: >4 METS Beta Naya therapy: No Beta blockers within 24 hours: n/a Hypertension, poorly controlled No past TN, No dysrhythmias GI/Hepatic/Renal GERD, well controlled No hx of liver disease Renal disease: CRF Nausea No vomiting Gastroparesis Neuro/Psych No seizures No CVA Neuropathy Psychiatric history Musculoskeletal Arthritis Endocrine/Other Diabetes, poorly controlled, type 1; using insulin Hypothyroidism Autoimmune disease Constitution - negative Physical Exam Airway Findings Mallampati: I TM distance: >3 FB Neck ROM: full Mouth opening: good Airway patency: adequate Dental Findings: Negative Cardiovascular Findings: Negative Pulmonary Findings: Negative Abdominal Findings: Not obese Abdomen soft Bowel sounds normal. Neurological Findings: Alert and oriented x 3 Constitutional findings: Negative Diagnostic Tests Hematology: Lab Results Component Value Date HGB 6.9 04/18/2019 HCT 19.6 04/18/2019 PLTCT 233 04/18/2019 WBC 6.7 04/18/2019 NEUT 63 04/18/2019 ANC 4.30 04/18/2019 LYMPH 10 02/01/2019 ALC 1.70 04/18/2019 EVIE 7 04/18/2019 AMC 0.40 04/18/2019 EOSA 3 04/18/2019 ABC 0.10 04/18/2019 MCV 85.9 04/18/2019 MCH 30.2 04/18/2019 MCHC 35.2 04/18/2019 MPV 8.2 04/18/2019 RDW 13.6 04/18/2019 General Chemistry: Lab Results Component Value Date NA 133 04/18/2019 K 5.1 04/18/2019 CL 104 04/18/2019 CO2 21 04/18/2019 GAP 8 04/18/2019 BUN 61 04/18/2019 CR 4.28 04/18/2019 GLU 292 04/18/2019 GLU 718 05/12/2018 CA 7.8 04/18/2019 ALBUMIN 2.0 04/18/2019 LACTIC 0.5 04/15/2019 OBSCA 1.03 05/14/2018 MG 2.6 04/17/2019 TOTBILI 0.2 04/18/2019 PO4 4.7 04/17/2019 Coagulation: Lab Results Component Value Date PTT 28.2 05/11/2018 INR 1.0 05/11/2018 Anesthesia Plan ASA score: 4 Plan: general Induction method: intravenous NPO status: acceptable Informed Consent Anesthetic plan and risks discussed with patient. Use of blood products discussed with patient Blood Consent: consented Plan discussed with: anesthesiologist and resident. TING EQUIPMENT ENGINEER documented in this encounter Plan of Treatment Not on filedocumented as of this encounter Goals Goal Patient Associated Recent Progress Patient-Stat Aut hor Goal Type Problems ed? Recover from illness Hospital No Arminda Puentes RN documented as of this encounter Visit Diagnoses Not on filedocumented in this encounter
--- OUTSIDE RECORDS SUMMARY | 2019-09-07 08:27 | XMS REPORT | Encounter Summary ---
Author Author [facility] Organization [facility] Address Unknown Phone Unavailable Care Team Providers Care Dietitian Teacher Name Role Phone David Plunkett MD PCP Janette Lma MD 8002 Reason for Visit * Reason Comments Transplant Referral Postpone Eval Encounter Details Care Team Description Date Type Department Jenna Mckinnon Transplant Referral (Postpone Eval) 06/08/2019 Telephone The [facility] [address] [phone] Social History Date Tobacco Use Types Packs/Day [...]
--- OUTSIDE RECORDS SUMMARY | 2019-09-07 08:27 | XMS REPORT | Encounter Summary ---
Author Author [facility] Organization [facility] Address Unknown Phone Unavailable Care Team Providers Care Template Cutter Name Role Phone David Plunkett MD PCP Janette Lam MD 8002 Reason for Visit * Reason Comments Transplant Referral Schedule New K Eval Encounter Details Care Team Description Date Type Department Jenna Mckinnon Transplant Referral (Schedule New K Eval ) 06/28/2019 Telephone The [address] [phone] Social History Date Tobacco Use Types Packs/Day [...]
--- OUTSIDE RECORDS SUMMARY | 2019-09-07 08:27 | XMS REPORT | Encounter Summary ---
Author Author [facility] Organization [facility] Address Unknown Phone Unavailable Care Team Providers Care Steam Fitter Helper Name Role Phone David Plunkett MD PCP Janette Lam MD 8002 Reason for Visit * Reason Comments Financial/Insurance faxed clinicals for eval au th approval Questions Encounter Details Care Team Description Date Type Department Rhea Rosales Financial/Insurance Questions (faxed cli nicals for eval auth approval) 04/29/2019 Telephone The [address] [phone] Social History Date Tobacco Use Types Packs/Day [...] * Telephone Encounter - Rhea Rosales - 04/29/2019 3:00 PM DIRECTOR OF MUSIC TFA faxed coversheet with patients information and clinicals to [facility] [place] Robert Verdugo at fax#[phone] for patients eval auth approval CTOR OF MUSIC documented in this encounter Plan of Treatment Not on filedocumented as of this encounter Goals Goal Patient Associated Recent Progress Patient-Stat Aut hor Goal Type Problems ed? Recover from illness Hospital No Arminda Puentes, RN documented as of this encounter Visit Diagnoses Not on filedocumented in this encounter
--- OUTSIDE RECORDS SUMMARY | 2019-09-07 08:27 | XMS REPORT | Encounter Summary ---
Author Author [facility] Organization [facility] Address Unknown Phone Unavailable Care Team Providers Care Motorboat Mechanic Helper Name Role Phone David Plunkett MD PCP Janette Lam MD 8002 Encounter Details Care Team Description Date Type Department Doctor, Miscellaneous Ray Tolbert MD [address] [facility] [address] [place] [address] [phone] 07/08/2019 Clinical The [facility] Telehealth [address] [address] Social History Date Tobacco Use Types Packs/Day [...] as of this encounter Progress Notes * Sonia Toscano RN - 07/08/2019 3:30 PM CDT Completed Kidney/Pancreas Pre-Transplant Evaluation with patient and spouse thro [facility]. All patient questions answered and Education documentation com pleted. documented in this encounter Plan of Treatment Not on filedocumented as of this encounter Goals Goal Patient Associated Recent Progress Patient-Stat Aut hor Goal Type Problems ed? Recover from illness Hospital No Arminda Puentes, RN documented as of this encounter Visit Diagnoses Not on filedocumented in this encounter
--- OUTSIDE RECORDS SUMMARY | 2019-09-07 08:27 | XMS REPORT | Encounter Summary ---
Author Author [facility] Organization [facility] Address Unknown Phone Unavailable Care Team Providers Care Circular Saw Filer Name Role Phone David Plunkett MD PCP Janette Lam MD 8002 Reason for Visit * Reason Comments Financial/Insurance eval auth approval Questions Encounter Details Care Team Description Date Type Department Rhea Rosales Financial/Insurance Questions (eval auth approval) 05/03/2019 Telephone The [address] [phone] Social History Date Tobacco Use Types Packs/Day [...] * Telephone Encounter - Rhea Rosales - 05/03/2019 10:53 AM CDT TFA received TC from akanksha Patel for [facility] with eval auth approval TRANSPLANT AUTHORIZATIONS PLAN: [facility] AUTHORIZATION Phase 1 Evaluation Auth #:[id number] eff: 05/02/19 - 05/01/20 NCM: Rose Verdugo Phone #: [phone] ext [phone] FAX #: [phone] documented in this encounter Plan of Treatment Not on filedocumented as of this encounter Goals Goal Patient Associated Recent Progress Patient-Stat Aut hor Goal Type Problems ed? Recover from illness [facility] No Arminda Puentes RN documented as of this encounter Visit Diagnoses Not on filedocumented in this encounter
--- OUTSIDE RECORDS SUMMARY | 2019-09-07 08:27 | XMS REPORT | Encounter Summary ---
Author Author [facility] Organization [facility] Address Unknown Phone Unavailable Care Team Providers Care Seo Marketing Specialist Name Role Phone David Plunkett MD PCP Janette Lam MD 8002 Reason for Referral * Radiology Services (Routine) Referred By Contact Referred To Contact Status Reason Specialty Diagnoses / Procedures Brendan Oliveira MD [address] [address] No Auth Needed Radiology Diagnoses Pre-transplant evaluation for end stage renal disease P rocedures CT ABD/PELV WO CONTRAST Encounter Details Care Team Description Date Type Department Alison Houston RN Pre-transplant evaluation for end stage renal disease (Primary Dx) 05/03/2019 Orders Only [facility] [address] [address] Social History Date Tobacco Use Types Packs/Day [...] as of this encounter Plan of Treatment Order Schedule Name Type Priority Associated Diag noses Expected: 05/03/2019, Expires: 1 ECG 12-LEAD ECG Routine Pre-transplant evaluation for end stage renal disease documented as of this encounter Goals Goal Patient Associated Recent Progress Patient-Stat Aut hor Goal Type Problems ed? Recover from illness Hospital No Arminda Puentes RN documented as of this encounter Results * CT ABD/PELV WO [...]
--- OUTSIDE RECORDS SUMMARY | 2019-09-07 08:27 | XMS REPORT | Encounter Summary ---
Author Author [facility] Organization [facility] Address Unknown Phone Unavailable Care Team Providers Care Ancillary Specialist Name Role Phone David Plunkett MD PCP Janette Lam MD 8002 Reason for Visit * Reason Comments Transplant Referral Schedule New K Eval Encounter Details Care Team Description Date Type Department Shayla Amaya Transplant Referral (Schedule New Becky Eval ) 04/22/[address] [phone] Social History Date Tobacco Use Types Packs/Day [...]
--- OUTSIDE RECORDS SUMMARY | 2019-09-07 08:28 | XMS REPORT | Encounter Summary ---
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 Name Role Phone David Plunkett MD PCP Janette Lam MD 8002 Reason for Visit * Auth/Cert Referred By Contact Referred To Contact Status Reason Specialty Diagnoses / Procedures Diagnoses Acute on chronic renal insufficiency Acute on Chronic Renal Failure Encounter Details Care Team Description Date Type Department Pankaj Bailey MD [address] [place] [address] [phone] Drea Salguero MD [address] [place] [address] [phone] Melony Britt MD [address] [place] [address] Bren Moralez MD [address] [facility] [address] [place] [address] Acute on chronic renal insufficiency 04/15/2019 [facility] 04/19/2019 [address] [place] [address] Social History Date Tobacco Use Types Packs/Day Years Used Never Smoker Smokeless Tobacco: Never Used Drinks/Week oz/Week Comments Alcohol Use No Sex Assigned at Date Recorded Female Industry Job Start Date Occupation Not on file Not on file Not on file Travel End Travel History Travel Start No recent travel history available. documented as of this encounter Last Filed Vital Signs Reading Time Taken Comments Vital Sign 192/121 04/19/2019 9:33 AM TELEVISION AND RADIO REPAIRER Blood Pressure 103 04/19/2019 9:33 AM TELEVISION AND RADIO REPAIRER Pulse 36.7 C (98.1 F) 04/19/2019 9:33 AM TELEVISION AND RADIO REPAIRER Temperature - - Respiratory Rate 100% 04/19/2019 9:33 AM TELEVISION AND RADIO REPAIRER Oxygen Saturation - - Inhaled Oxygen Concentration 83.6 kg (184 lb 3.2 oz) 04/19/2019 5:03 AM TELEVISION AND RADIO REPAIRER Weight 172.7 cm (5' 8") 04/15/2019 10:34 PM TELEVISION AND RADIO REPAIRER Height 28.01 04/15/2019 10:34 PM TELEVISION AND RADIO REPAIRER Body Mass Index documented in this encounter [...] impairment: No documented as of this encounter Discharge Summaries * Jessica Calles MD - 04/19/2019 5:30 PM TELEVISION AND RADIO REPAIRER Physician Discharge Summary Name: Patito Lugo Date Of : 1985 Age: 33 years Admit date: 04/15/2019 Discharge date: 04/19/2019 Attending Physician: Dr. Bren Moralez Service: Med 2070 Physician Summary completed by: Jessica Calles MD Reason for hospitalization: Acute on chronic renal failure, Diabetic Ketoacidosi s Significant PMH: Medical History: Diagnosis Date Arm vein blood clot, left Diabetes type 1, uncontrolled (HCC) h/o multiple DKA admissions Diabetic neuropathy (HCC) Fibromyalgia Amy's disease Restless leg syndrome Rheumatoid arthritis (HCC) Allergies: Codeine and Insulin regular, human Admission Physical Exam notable for: Vital Signs: Last Filed In 24 Hours Vital Signs: 24 Hour Range BP: 156/96 (04/15 2233) Temp: 36.7 C (98 F) (04/15 2233) Pulse: 121 (04/15 2233) Respirations: 14 PER MINUTE (04/15 2233) SpO2: 98 % (04/15 2233) Height: 172.7 cm (68") (04/15 2233) BP: (156)/(96) Temp: [36.7 C (98 F)] Pulse: [121] Respirations: [14 PER MINUTE] SpO2: [98 %] Intensity Pain Scale (Self Report): 5 (04/15/192233) Intensity Pain Scale (Self Report): 6 (04/15/192233) General: Alert, cooperative, no distress, appears stated age Head: Normocephalic, without obvious abnormality, atraumatic Eyes: conjunctivae and corneas clear, pupils equal round and reactive, constric tion is sluggish, EOM intact Throat: teeth and gums normal, mucosa dry Lungs: Clear to auscultation bilaterally Chest wall: No tenderness or deformity. Heart: regular rhythm, rapid rate, no murmur Abdomen: soft, no guarding or rebound tenderness, no masses, no organomegaly, b owel sounds normal, Sandhu's sign negative, Right sided tenderness present Extremities: extremities atraumatic, no cyanosis, 2+ edema to knees bilaterally Peripheral pulses 2+ and symmetric dorsalis pedis Skin: Skin color, texture, turgor normal. No rashes or lesions Admission Lab/Radiology studies notable for: - (OSED) Glucose: > 500 || A - ADMIT: AG 13 / CO2 18 / b-OHb 4 -> (04/16): 0.2 - HgbA1c (04/16): 10.1% - UA (04/16): 3+ Glu / 1+ Ket / 3+ Protein / Few Bacteria - Creatinine: 4.3 Brief Hospital Course: The patient was admitted and the following issues were a ddressed during this hospitalization: (with pertinent details). Patient presented to outside hospital with acute (1 week) on chronic (3 month) r ight lower sided abdominal pain, found to be in diabetic ketoacidosis with acute on with creatinine of chronic renal failure with creatinine of 4.3. Patient was transferred to [facility] for acute on chronic renal failure. DKA protocol was followed with insulin drip and fluid resuscitation, with rapid closing of anion gap and resolution of hypoglycemia. Patient with fluid overloa d secondary to acute renal failure in setting of [facility] of DKA. Patient was diuresed with IV diuretics with improvement of fluid ove rload. Patient without acute indications for dialysis on presentation. Electrolytes re mained largely stable, and patient diuresed well with diuretics. However, donovan nt's filtration remains significantly compromised, with suspected progression of CKD and nearing need for dialysis. Nephrology was consulted, and vascular surg lisbeth completed vascular mapping. Patient to return home and start dialysis on an outpatient basis. Patient with tenderness to deep palpation in right lower quadrant, reporting thi s is her main presenting concern on past several admissions. Patient states zain n as source of significant debility. CT abdomen pelvis demonstrated prominence of appendix with small appendicoliths with consideration of appendicitis. Gener al surgery was consulted reporting possible chronic appendicitis, however with r eservations about it being cause of patient's right lower quadrant pain. Soraida t was scheduled for laparoscopic appendectomy on 2 consecutive days, however bot h cases were canceled secondary to uncontrolled blood glucose and hypertension. Patient discharged with 10-day course of Augmentin, and will return to general surgery for outpatient laparoscopic appendectomy. Of note, on second surgery attempt patient was started on insulin drip overnight with good improvement in blood sugars. Patient's blood pressure regimen had be en increased, and systolic blood pressures were at 151/100 prior to transition t o preop. However secondary to significant anxiety, patient's blood pressures in creased to 192/121 resulting in cancellation of procedure. Condition at Discharge: Stable Discharge Diagnoses: Hospital Problems Active Problems Acute on chronic renal insufficiency Surgical Procedures: None Significant Diagnostic Studies and Procedures: - UA (04/16): 3+ Glu / 1+ Ket / 3+ Protein / Few Bacteria - FENa (04/16): 1.6%, Intrinsic - Microalbumin/Cr (04/16): 6006 - Lipids (04/15): TC 504 / LDL 142 / HDL 41 / TG 916 - CT A/P (04/16): Development mild abdominal/pelvic ascites w/ mesenteric con gestion, prominence of appendix w/ small appendicoliths, consideration appendici tis, persistent mild hepatomegaly and upper limits of normal size spleen, mild t o moderate anasarca Consults: General Surgery and Nephrology Patient Disposition: Home Patient instructions/medications: BASIC METABOLIC PANEL Standing Status: Future Standing Exp. Date: 04/19/20 Activity as Tolerated It is important to keep increasing your activity level after you leave the hosp ital. Moving around can help prevent blood clots, lung infection (pneumonia) an d other problems. Gradually increasing the number of times you are up moving ar ound will help you return to your normal activity level more quickly. Continue to increase the number of times you are up to the chair and walking daily to ret urn to your normal activity level. Begin to work toward your normal activity lev el at discharge Report These Signs and Symptoms Please contact your doctor if you have any of the following symptoms: uncontrol led pain, persistent nausea and/or vomiting, severe abdominal pain or unable to urinate Questions About Your Stay If you have an emergency after discharge, please dial 9--1. You may contact your discharging physician up to 7 days after discharge for ques tions about your hospitalization, discharge instructions, or medications by call ing [phone] during regular business hours (8AM-4PM) and asking to speak to the doctor listed on the discharge information. If you are not calling during business hours, ask for the on-call doctor. If you have new or worsening symptoms, you may be directed to your primary care provider (PCP) for ongoing questions, an Emergency Department, or an Urgent Care Clinic for a more immediate evaluation. For all calls or questions more than 7 days after discharge, please contact your primary care provider (PCP). For medications after discharge: pain (opioid) medicine cannot be refilled or pr escribed by calling your discharging physician. These medications need to be fi lled by your primary care provider (PCP). Regular refill requests should be dir ected to your primary care provider (PCP). Discharging attending physician: BREN MORALEZ [[id number]] Diabetic Diet You should eat between 1600 and 2000 calories per day. This is equal to 60g (g jose r) of carbohydrates per meal, and 30g of carbohydrates for a bedtime snack. If you have questions about your diet after you go home, you can call a dietitia n at [phone]. Current Discharge Medication List START taking these medications Details amoxicillin/K clavulanate (AUGMENTIN) 500/125 mg tablet Take one tablet by mouth every 12 hours. Take with food. Qty: 20 tablet, Refills: 0 PRESCRIPTION TYPE: Normal insulin pen needles (disposable) (BD UF MOIRA PEN NEEDLES) 32 gauge x 5/32" pen n eedle Use one each as directed twice daily. Use with insulin injections. Qty: 180 each, Refills: 3 PRESCRIPTION TYPE: Normal NIFEdipine XL (PROCARDIA-XL) 60 mg tablet Take one tablet by mouth daily. Qty: 30 tablet, Refills: 1 PRESCRIPTION TYPE: Normal oxyCODONE (ROXICODONE) 5 mg tablet Take one-half tablet by mouth every 8 hours a s needed Qty: 30 tablet, Refills: 0 PRESCRIPTION TYPE: Print sodium zirconium cyclosilicate (LOKELMA) 10 gram packet Take one packet by mouth daily. Mix entire contents of packet with 45mL of water, stir well, and adminis ter immediately. Administer other oral medications >2 hours before or after dose. Qty: 1 packet, Refills: 0 PRESCRIPTION TYPE: Normal CONTINUE these medications which have been CHANGED or REFILLED Details furosemide (LASIX) 40 mg tablet Take two tablets by mouth twice daily. Qty: 120 tablet, Refills: 1 PRESCRIPTION TYPE: Normal Associated Diagnoses: Chronic kidney disease, stage 3 (HCC) insulin detemir U-100 (LEVEMIR FLEXTOUCH) 100 unit/mL (3 mL) injection pen Injec t twenty five Units under the skin twice daily. Qty: 15 mL, Refills: 3 PRESCRIPTION TYPE: Normal CONTINUE these medications which have NOT CHANGED Details acetaminophen (TYLENOL) 500 mg tablet Take 1,000 mg by mouth daily as needed for Pain. Max of 4,000 mg of acetaminophen in 24 hours. PRESCRIPTION TYPE: Historical Med calcium carbonate (TUMS) 500 mg (200 mg elemental calcium) chewable tablet Chew 500 mg by mouth daily as needed. PRESCRIPTION TYPE: Historical Med FIASP FLEXTOUCH U-100 INSULIN 100 unit/mL (3 mL) injectable PEN Inject under the skin as needed for both meals and as correction. Per pt, averages between 30-50 units daily. PRESCRIPTION TYPE: Historical Med levonorgestrel (MIRENA) 20 mcg/24 hours (5 yrs) 52 mg intrauterine device 1 Intr a Uterine Device by Intrauterine route once. PRESCRIPTION TYPE: Historical Med Magnesium 250 mg tab Take 250 mg by mouth daily. PRESCRIPTION TYPE: Historical Med nortriptyline (PAMELOR) 10 mg capsule Take one capsule by mouth at bedtime daily . Qty: 30 capsule, Refills: 2 PRESCRIPTION TYPE: Normal ondansetron (ZOFRAN) 4 mg tablet Take 4 mg by mouth every 8 hours as needed for Nausea or Vomiting. PRESCRIPTION TYPE: Historical Med pantoprazole DR (PROTONIX) 40 mg tablet Take 40 mg by mouth daily. PRESCRIPTION TYPE: Historical Med The following medications were removed from your list. This list includes medic ations discontinued this stay and those removed from your prior med list in our system losartan (COZAAR) 25 mg tablet potassium chloride (K-DUR) 10 mEq tablet sertraline (ZOLOFT) 50 mg tablet sucralfate (CARAFATE) 1 gram tablet Scheduled appointments: May 04, 2019 4:00 PM CDT (Arrive by 3:45 PM) New Patient with Son Whiteside MD [facility] (Neurology) [address] [facility] [address] Additional appointment instructions: Follow up with PCP in 1-2 weeks for close follow up of renal function, blood pre ssure, and glucose / insulin regimen. Follow up with General Surgery when Blood pressure and glucose levels have stabi lized ACS clinic can be reached at Follow up with Vascular Surgery for Hemodialysis access placement [facility] Appointment Line: [phone] Pending items needing follow up: > Patient to transition to dialysis as Outpatient > BMP recheck 2-3 days after discharge > Continue hold Losartan on discharge until evaluation by nephrology > Patient should be started on Atorvastatin 40 mg nightly Signed: Jessica Calles MD 04/20/2019 cc: Primary Care Physician: David Plunkett III Verified Referring physicians: Michael Corrales APRN Additional provider(s): VISION AND RADIO REPAIRER documented in this encounter Discharge Instructions * Appointments* Jessica Calles MD - 04/19/2019 11:49 AM TELEVISION AND RADIO REPAIRER Follow up with PCP in 1-2 weeks for close follow up of renal function, blood pre ssure, and glucose / insulin regimen. Follow up with General Surgery when Blood pressure and glucose levels have stabi lized ACS clinic can be reached at Follow up with Vascular Surgery for Hemodialysis access placement [facility] Appointment Line: [phone] VISION AND RADIO REPAIRER * Pre-Anesthesia Patient Instructions* Rhea Hankins RN - 04/18/2019 12:19 PM TELEVISION AND RADIO REPAIRER GENERAL INFORMATION Before you come to the hospital Make arrangements for a responsible adult to drive you home and stay with you for 24 hours following surgery. Bath/Shower Instructions {BATH/SHOWER INSTRUCTIONS:23059} Leave money, credit cards, jewelry, and any other valuables at home. [facility] is not responsible for the loss or breakage of personzoojoo.BE items. Remove nail chadian, makeup and all jewelry (including piercings) before comin g to the hospital. The morning of your procedure: brush your teeth and tongue do not smoke do not shave the area where you will have surgery What to bring to the hospital ID/ Insurance Card [employer] card Official documents for legal guardianship Copy of your Living Will, Advanced Directives, and/or Durable Power of Attorn ey Small bag with a few personal belongings {OTHER PERSONAL ITEMS:31498} Dress in clean, loose, comfortable clothing Eating or drinking before surgery {FOOD/DRINK:21758} Other instructions: Other instructions Notify your surgeon if: there is a possibility that you are you become ill with a cough, fever, sore throat, nausea, vomiting or flu-like symptoms you have any open wounds/sores that are red, painful, draining, or are new si nce you last saw the doctor you need to cancel your procedure {ARRIVAL TIME:} Notify us at {SURGERY CONTACT PHONE NUMBERS:[id number]} if you need to cancel your procedure if you are going to be late Arrival at the hospital VISION AND RADIO REPAIRER documented in this encounter Medications at Time of Discharge [...] PEN NEEDLES) 32 gauge x twice daily. 5/32" pen needle Use with insulin injections. levonorgestrel [...] after dose. 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 - worsening renal function in the setting of multiple admissions and ER visits f or DKA - UA with 3+ prt, neg blood, few bacteria, 3+ glucose; Pr/Cr 7.2, ACR 6000 - imaging shows no hydro or renal stones; prior ultrasound with normal sized kid neys, mild echogenicity - she seems to have progression of her underlying CKD and is nearing the need fo r dialysis Volume overload - significant edema on exam; ascites on imaging - improving some on IV diuretics Hypertension - remains elevated, volume dependent - holding losartan, has started nifedipine Nephrotic Syndrome - alb 2.0, Pr/Cr 7.2, edema on exam and imaging - has been on losartan for medical management, but progressive condition Anemia - 1U PRBC - has not been on epo Type 1 DM DKA - on insulin drip Abdominal Pain Appendicitis, appendicolith - awaiting surgical management Recommendations - We discussed at considerable length today the recommendation to start dialysis therapy; the patient has a strong preference to return home and start dialysis on an outpatient basis. She was advised regarding uremic signs/symptoms to monit or for as well as the risk for hyperkalemia and cardiac complication. Patient is understanding and would strongly prefer to attempt transition to dialysis as an outpatient. - will plan to check BMP in the next 2-3 days - hold losartan and continue nifedipine - please discharge on increased diuretic dose of furosemide 80mg BID - will work with outpatient clinics and dialysis units in area near [facility]'s [facility] to establish ongoing care for transition to dialysis therapy as an outpatient - patient strongly advised to return to ED with any worsening dyspnea, confusion , nausea, weakness Discussed with Dr. Katalina Hendrickson Nephrology PGY-4 pager [phone] Subjective Once again had surgery cancelled after being taken to pre-op area. She is very f rustrated with her hospital course. Currently she reports pain is improved. Able to tolerate oral intake, no nausea, vomiting. Passing urine regularly. Medications MEDSenoxaparin, 30 mg, Subcutaneous, QDAY(21) ferrous sulfate, 325 mg, Oral, QDAY furosemide (LASIX) IV, 80 mg, Intravenous, BID(9-17) insulin aspart U-100, 1-25 Units, Subcutaneous, TID after meals lidocaine, 1 patch, Topical, QDAY And Verification of Patch Placement and Integrity - Lidocaine 5%, , Transdermal, BID NIFEdipine XL, 30 mg, Oral, QDAY nortriptyline, 10 mg, Oral, QHS pantoprazole DR, 40 mg, Oral, QDAY sertraline, 50 mg, Oral, QDAY IV MEDS sodium chloride 0.9 % infusion Prn acetaminophen Q6H PRN 650 mg at 04/18/19 0430, prochlorperazine Q12H PRN 1 0 mg at 04/18/192116 OR magnesium oxide Q12H PRN 400 mg at 04/18/192126 OR diphenhydrAMINE Q12H PRN 12.5 mg at 04/18/192120, labetalol (NORMODYNE; TR ANDATE) injection Q6H PRN 10 mg at 04/19/19 0641, ondansetron (ZOFRAN) IV Q6H GA N 4 mg at 04/18/19 0913 OR ondansetron Q6H PRN, oxyCODONE Q4H PRN 2.5 mg at 04/18/19 1827, traZODone QHS PRN HOME MEDS Prior to Admission Medications Prescriptions Last Dose Informant Patient Reported? Taking? FIASP FLEXTOUCH U-100 INSULIN 100 unit/mL (3 mL) injectable PEN 04/15/2019 Self Y es Yes Sig: Inject under the skin as needed for both meals and as correction. Per pt, a verages between 30-50 units daily. Magnesium 250 mg tab 04/14/2019 Self Yes Yes Sig: Take 250 mg by mouth daily. acetaminophen (TYLENOL) 500 mg tablet Past Month Self Yes Yes Sig: Take 1,000 mg by mouth daily as needed for Pain. Max of 4,000 mg of acetami nophen in 24 hours. calcium carbonate (TUMS) 500 mg (200 mg elemental calcium) chewable tablet >1 Month Self Yes Yes Sig: Chew 500 mg by mouth daily as needed. furosemide (LASIX) 40 mg tablet 04/15/2019 Self No Yes Sig: TAKE TWO TABLETS BY MOUTH TWICE A DAY Patient taking differently: Take 40 mg by mouth twice daily. insulin detemir U-100(+) (LEVEMIR) 100 unit/mL vial 04/14/2019 Self Yes Yes Sig: Inject 22 Units under the skin at bedtime daily. levonorgestrel (MIRENA) 20 mcg/24 hours (5 yrs) 52 mg intrauterine device Self Yes Yes Si Intra Uterine Device by Intrauterine route once. losartan (COZAAR) 25 mg tablet 04/15/2019 Self No Yes Sig: Take one tablet by mouth daily. Patient taking differently: Take 100 mg by mouth daily. nortriptyline (PAMELOR) 10 mg capsule 04/14/2019 Self No Yes Sig: Take one capsule by mouth at bedtime daily. ondansetron (ZOFRAN) 4 mg tablet Past Week Self Yes Yes Sig: Take 4 mg by mouth every 8 hours as needed for Nausea or Vomiting. pantoprazole DR (PROTONIX) 40 mg tablet 04/15/2019 Self Yes Yes Sig: Take 40 mg by mouth daily. potassium chloride (K-DUR) 10 mEq tablet 04/15/2019 Self Yes Yes Sig: Take 10 mEq by mouth daily. sertraline (ZOLOFT) 50 mg tablet >1 Month Self Yes Yes Sig: Take 50 mg by mouth daily. sucralfate (CARAFATE) 1 gram tablet >1 Month Self Yes Yes Sig: Take 1 g by mouth three times daily. Take on an empty stomach. Facility-Administered Medications: None Physical Exam Vital Signs: Last Filed In 24 Hours Vital Signs: 24 Hour Range BP: 192/121 (04/19 932) Temp: 36.7 C (98.1 F) (04/19 932) Pulse: 103 (04/19 932) Respirations: 7 PER MINUTE (04/19 932) SpO2: 100 % (04/19 932) SpO2 Pulse: 103 (04/19 932) BP: (147-192)/(82-121) Temp: [36.2 C (97.2 F)-37 C (98.6 F)] Pulse: [98-115] Respirations: [7 PER MINUTE-22 PER MINUTE] SpO2: [96 %-100 %] Intensity Pain Scale (Self Report): 7 (04/19/19932) Vitals: 04/16/19 0657 04/18/19 0529 04/19/19 0503 Weight: 83.3 kg (183 lb 11.2 oz) 84.6 kg (186 lb 9.6 oz) 83.6 kg (184 lb 3.2 oz) Intake/Output Summary (Last 24 hours) at 04/19/2019 1652 Last data filed at 04/19/2019 1117 Gross per 24 hour Intake 0 ml Output 3600 ml Net -3600 ml GEN: well developed female, alert, conversational HEENT: MMM, oropharynx clear without erythema/exudates NECK: +JVD to mid-neck HEART: reg rhythm, no murmurs LUNGS: CTAB, nonlabored respirations on room air ABD: soft, mild right sided tenderness EXT: 2+ LE edema, radial pulses 2+ and equal bilaterally SKIN: warm, dry NEURO: grossly intact Labs Recent Labs 04/16/19 2242 04/17/19 0416 04/17/19 1800 04/18/19 0359 04/19/19 0400 04/19/19 0928 NA 136* 134* 134* 133* 134* -- K 4.5 4.5 4.5 5.1 5.4* 4.7 CL 107 105 105 104 105 -- CO2 21 22 22 21 21 -- GAP 8 7 7 8 8 -- BUN 63* 59* 61* 61* 70* -- CR 4.27* 4.27* 4.41* 4.28* 4.79* -- GLU 73 152* 141* 292* 268* -- CA 7.8* 7.9* 7.6* 7.8* 7.7* -- ALBUMIN -- 2.2* -- 2.0* 2.1* -- MG 2.6 2.6 -- -- -- -- PO4 4.5 4.7* -- -- -- -- Recent Labs 04/17/19 0416 04/18/19 0359 04/19/19 0400 WBC 7.6 6.7 6.7 HGB 7.5* 6.9* 7.5* HCT 22.0* 19.6* 21.8* PLTCT 239 233 232 AST 14 12 13 ALT 12 8 9 ALKPHOS 85 77 74 Estimated Creatinine Clearance: 19.1 mL/min (A) (based on SCr of 4.79 mg/dL (H)) . Vitals: 04/16/19 0657 04/18/19 0529 04/19/19 0503 Weight: 83.3 kg (183 lb 11.2 oz) 84.6 kg (186 lb 9.6 oz) 83.6 kg (184 lb 3.2 oz) No results for input(s): PHART, PO2ART in the last 72 hours. Invalid input(s): PC02A Radiology Pertinent radiology reviewed. VISION AND RADIO REPAIRER Associated attestation - Rosalba Darden MD - 04/19/2019 6:22 PM TELEVISION AND RADIO REPAIRER ATTESTATION I personally performed the medrano portions of the E/M visit, discussed case with re marleny and concur with resident documentation of history, physical exam, assessm ent, and treatment plan unless otherwise noted. Husb present this afternoon. Pt denies sob. Frustrated by cancellation of surg. CKD5/ESRD--long d/w pt re: risks/benefits/alternatives to starting HD this adm. No absolute indication, but strong relative indications. It makes sense for her to be referred to neph close to home, as she will dialyze with another group whe n she starts. We will call her local dialysis unit to find out name of neph grou p that sees pts there, and will contact them tomorrow. Staff name: Rosalba Darden MD Date: 04/19/2019 * Uma Keller RN - 04/19/2019 4:20 PM TELEVISION AND RADIO REPAIRER ..Patito Lugo discharged on 04/19/2019. . Discharge instructions reviewed with patient. Valuables returned: Personal Items / Valuables: Jewelry(ring on left hand) Where Are Valuables Stored?: pt's ring on left hand. all other belongings in INP T room. Home medications: . Functional assessment at discharge complete: Yes . AVS reviewed with pt and . All questions and concerns addressed. pt left unit on wheelchair. VISION AND RADIO REPAIRER * Kale Hernandez MD - 04/19/2019 8:21 AM TELEVISION AND RADIO REPAIRER Daily Progress Note Today's Date: 04/19/2019 Name: Patito Lugo Admission Date: 04/15/2019 (LOS: 4 days) Assessment: Patito Lugo is a 33 y.o. female with appendicitis and DMI with worsening diabetic nephropathy. Vascular surgery has been consulted for [facility] planning as patient will need terminal computer operator access per nephrology. Active Problems: Acute on chronic renal insufficiency Plan: - Vein mapping completed. Reviewed and she has sufficient veins in her upper arm s for fistula creation and will likely need brachiobasilic fistula or AV shunt. - This will be done outpatient as she is currently ill with appendicitis with pl ans for appendectomy today. We would like to see her recover from appendicitis. - Will continue to follow Discussed with Dr. Cuevas Kale Hernandez MD #[id number] S: Patient seen and examined at bedside. No acute events overnight. Denies fever s/chills. No other complaints. O: Vitals: 04/19/19 0029 04/19/19 0202 04/19/19 0503 04/19/19 0658 BP: (!) 163/101 (!) 163/105 (!) 177/116 (!) 171/104 BP Source: Arm, Left Upper Arm, Left Upper Arm, Left Upper Pulse: 98 106 Temp: 36.2 C (97.2 F) SpO2: 96% Weight: 83.6 kg (184 lb 3.2 oz) Height: Intake/Output Summary (Last 24 hours) at 04/19/2019 0821 Last data filed at 04/19/2019 0400 Gross per 24 hour Intake 633.75 ml Output 3275 ml Net -2641.25 ml Constitutional: General: She is not in acute distress. Appearance: She is well-developed. She is not diaphoretic. HENT: Head: Normocephalic and atraumatic. Eyes: General: No scleral icterus. Neck: Trachea: No tracheal deviation. Cardiovascular: Rate and Rhythm: Normal rate. Pulses: Radial pulses are 2+ on the right side and 2+ on the left side. Comments: Ulnar pulses 2+ bilat Pulmonary: Effort: Pulmonary effort is normal. No respiratory distress. Breath sounds: Normal breath sounds. No stridor. No wheezing. Abdominal: General: Bowel sounds are normal. There is no distension. Palpations: Abdomen is soft. There is no mass. Tenderness: There is no abdominal tenderness. There is no guarding or rebound . Hernia: No hernia is present. Skin: General: Skin is warm and dry. Capillary Refill: Capillary refill takes less than 2 seconds. Findings: No erythema or rash. Neurological: Mental Status: She is alert and oriented to person, place, and time. Cranial Nerves: No cranial nerve deficit. Serial Hematology Labs: Recent Labs 04/17/19 0416 04/18/19 0359 04/19/19 0400 HGB 7.5* 6.9* 7.5* HCT 22.0* 19.6* 21.8* WBC 7.6 6.7 6.7 PLTCT 239 233 232 VISION AND RADIO REPAIRER Associated attestation - Stephen Cuevas MD - 04/20/2019 12:35 PM TELEVISION AND RADIO REPAIRER ATTESTATION I personally performed the medrano portions of the E/M visit, discussed case with re sident and concur with resident documentation of history, physical exam, assessm ent, and treatment plan unless otherwise noted. Please see my separate addendum to original consult note. Staff name: Stephen Cuevas MD Date: 04/20/2019 * Jessica Calles MD - 04/19/2019 6:52 AM TELEVISION AND RADIO REPAIRER General Progress Note Med 3 Name: Patito Lugo : 1985 Date: 04/19/2019 6:52 AM Admission: 04/15/2019 LOS: 4 Assessment and Plan Active Problems: Acute on chronic renal insufficiency Patito Lugo is a 33 y.o. female with Type 1 Diabetes mellitus, CKD Sta ge III 2' Diabetic Nephropathy, Hypertension, Hyperlipidemia, h/o Migraines who presented to OSH with acute (1 week) on chronic (3 month) abdominal pain found t o be in DKA and with acute renal failure, transferred to [facility] for management. # Diabetic Ketoacidosis: RESOLVED # Type 1 Diabetes Mellitus # Hyperglycemia # Abdominal Pain - HgbA1c (04/16): 10.1% - [employer]: Insulin Detemir 22U nightly / Insulin Aspart 1:12g post meal - Per Diabetes Nurse Educator, patient w/o basal insulin for 6 weeks due to cost limitations - History of leaving AMA due to being "fed up with her insulin management" - Presented to OSH with acute on chronic (3 month) abdominal pain in context of sick family members, found with blood glucose > 500 / AG 17, transferred to [facility] for her establishment with renal transplant? - ADMIT: AG 13 / CO2 18 / b-OHb 4 -> (04/16): 0.2 - PE (admit): Benign abdominal exam - Started on DKA protocol with insulin drip w/ Q1 blood glucose and Q2 BMP, Mg, Phos, and NS 150 mL/hr. Closed gap quickly with resolution of hyperglycemia, sw itched form NS to D5 1/2NS 04/16 AM. Patient with stable electrolytes (04/17) - Endocrine (04/18): Suggested Detemir 11U BID (will start 04/19) for smoother c urve, for prior to surgery, can start an insulin drip night before. Plan: > STOP Insulin gtt -- Surgery cancelled > START Insulin Detemir 25U BID > Continue Insulin Aspart 1:12g post meal > CONTINUE HOLD [facility] > Endocrine Following # Chronic Appendicitis # Pain - Three month history right quadrant pain with acute worsening past 7 days - Remains afebrile without leukocytosis - PE: Tenderness to Deep palpation in right lower quadrant, Non-severe - CT A/P (04/16): Development mild abdominal/pelvic ascites w/ mesenteric conge stion, prominence of appendix w/ small appendicoliths, consideration appendiciti s, persistent mild hepatomegaly and upper limits of normal size spleen, mild to moderate anasarca - Gen Surg (04/19): Likely chronic appendicitis, unconvinced is cause of right lower quadrant pain, surgery can be completed this week, anesthesiology canceled 04/18 due to uncontrolled blood glucose and hypertension. Plan: > Acetaminophen 650 mg Q6H PRN Pain > Oxycodone 2.5 mg Q4H PRN Pain > Patient to be discharged with augmentin for 10 day course and will return for appendectomy as outpatient # DAILY on CKD # Fluid Overload # CKD Stage III # Diabetic Nephropathy - Cr (baseline): ~1.5 -> (01/2019): 2.9 -> (admit, 04/16): 4.33 -> (04/19): 4.79 - Follows with Nephrology, Dr. Hendrickson - Fluid resuscitation for DKA, patient now with good urinary output with net -1L over past 24 hours (04/17) - UA (04/16): 3+ Glu / 1+ Ket / 3+ Protein / Few Bacteria - FENa (04/16): 1.6%, Intrinsic - Microalbumin/Cr (04/16): 6006 - Vascular Mapping complete 04/19 - Renal (04/18): No current indication for HD, nearing the need, favoring HD gi berta co-morbid difficult to control DM, Goal -2L / day, Furosemide 80 BID, will s tart Epo, may need to supplement albumin. Plan: > Goal Net -2L/day > CONTINUE Furosemide 80 mg IV BID > Nephrology to start Epo supplementation > CONTINUE HOLD [employer] Losartan for acute worsening renal function > Continue to monitor with BMP daily > Strict I/O > Nephrology to arrange / evaluate for future hemodialysis needs > Vascular surgery Following > Nephrology Following # Hypertension - BP down to 150s this AM, surgery canceled secondary to blood pressures in 190s after being moved to pre-op, likely with significant anxiety component. - [employer]: Losartan 25 mg daily / Furosemide 80 mg BID (taking 40 mg BID) / KCl 10 mEq daily - Blood pressure 240/150 at outside ED, 156/99 upon presentation to [facility] - has had difficulty controlling blood pressure for about a year - around that t windy she was diagnosed with kidney disease and had pre-eclampsia with her younges t child. Plan: > Continue to monitor blood pressure > Diurese as above > INCREASE Nifedipine XL 30 mg to 60 mg daily > Continue to HOLD [employer] Losartan 25 mg daily > Continue Labetalol 10 mg for SBP > 160 # H/o Migraines - Patient prefers not to use IV Benadryl due to somnolence - Good response to compazine + MgOx + Caffeine Plan: > Continue [employer] Nortriptyline 10 mg nightly > Continue Compazine 10mg + MgOx 400mg Daily PRN Migraine No Caffeine for High BP # Normocytic Anemia of Chronic Disease # Setting of CKD - Hgb last admit 7.6-8.1 - Hgb (admit): 7.5 -> (04/18): 6.9 - > (04/19): 7.5 - Iron (06/2018): Fe 51 / 21% Sat / TIBC 238 / Ferritin 237 - Anemia of Chronic disease - S/p 1U pRBC Plan: > Continue following with CBC daily > Continue [employer] Ferrous sulfate 325 mg daily # Hyperlipidemia - Lipids (04/15): TC 504 / LDL 142 / HDL 41 / TG 916 On Discharge: > START Atorvastatin 40 mg nightly # Mood > Continue [employer] Sertraline 50 mg daily # GERD > Continue [employer] Pantoprazole 40 mg daily # Insomnia > Continue Trazodone 25 mg Nightly PRN # Amy's Thyroiditis, TSH 2.43 # Rheumatoid Arthritis FEN: STOP IVF / Monitor electrolytes and replace PRN / DIET NPO PPx DVT: Enoxaparin 30 mg nightly Lines/drains: PIV x 2 Code Status: Full Code Isolation: None Disposition: Continue admission to Med-3 service for DKA and acute on chronic re nal failure. Patient seen and discussed with Dr. Moralez who agrees with the above assessment a nd plan Jessica Calles MD Internal Medicine, PGY-1 Pager: [phone] Med-3 Pager: [phone] Interval History Patient was starting of insulin drip overnight at around 3 in the morning. Tanvi ent's glucose values this morning continue to improve, and were well below 200 p rior to being moved to preop area. Patient with blood pressures remained elevat ed, however had reduced to 150s prior to moving to preop area. Laparoscopic appendectomy was canceled for second time due to elevated systolic blood pressures to the 190s. Patient to follow-up with general surgery as an outpatient. Patient discharged with an increased p.o. furosemide dose as well as starting of new high antihyper tensive medication, and changes made to her insulin regimen. Patient denied subjective fever, chills, nausea, vomiting, abdominal pain, diarr hea or constipation. Medications Hospital Medications Scheduled Meds enoxaparin (LOVENOX) syringe 30 mg, 30 mg, Subcutaneous, QDAY(21) ferrous sulfate (FEOSOL) tablet 325 mg, 325 mg, Oral, QDAY furosemide (LASIX) injection 80 mg, 80 mg, Intravenous, BID(9-17) insulin aspart U-100 (NOVOLOG FLEXPEN) injection PEN 1-25 Units, 1-25 Units, Sub cutaneous, TID after meals lidocaine (LIDODERM) 5 % topical patch 1 patch, 1 patch, Topical, QDAY And Verification of Patch Placement and Integrity - Lidocaine 5%, , Transdermal, BID NIFEdipine XL (PROCARDIA-XL) tablet 30 mg, 30 mg, Oral, QDAY nortriptyline (PAMELOR) capsule 10 mg, 10 mg, Oral, QHS pantoprazole DR (PROTONIX) tablet 40 mg, 40 mg, Oral, QDAY sertraline (ZOLOFT) tablet 50 mg, 50 mg, Oral, QDAY Continuous Infusions: insulin regular 100 units/NS 100 mL IV drip (premade) 1.5 Units/hr (04/19/19 0630) PRN and Respiratory Meds: acetaminophen, 650 mg, Q6H PRN prochlorperazine, 10 mg, Q12H PRN Or magnesium oxide, 400 mg, Q12H PRN Or diphenhydrAMINE, 12.5 mg, Q12H PRN labetalol (NORMODYNE; TRANDATE) injection, 10 mg, Q6H PRN ondansetron (ZOFRAN) IV, 4 mg, Q6H PRN Or ondansetron, 4 mg, Q6H PRN oxyCODONE, 2.5 mg, Q4H PRN traZODone, 25 mg, QHS PRN Physical Exam Vital Signs: Last Filed in 24 hours Vital Signs: 24 hour Range BP: 177/116 (04/19 502) Temp: 36.2 C (97.2 F) (04/19 050) Pulse: 106 (04/19 050) Respirations: 22 PER MINUTE (04/19 050) SpO2: 96 % (04/19 502) SpO2 Pulse: 106 (04/18 1049) BP: (147-194)/(82-121) Temp: [36.2 C (97.2 F)-37 C (98.6 F)] Pulse: [88-115] Respirations: [15 PER MINUTE-23 PER MINUTE] SpO2: [96 %-100 %] Body mass index is 28.01 kg/m. Intake/Output Summary (Last 24 hours) at 04/19/2019 0652 Last data filed at 04/19/2019 0400 Gross per 24 hour Intake 983.75 ml Output 3275 ml Net -2291.25 ml Physical Exam - No significant change from 04/19 General: Alert and oriented to person, place, time, and situation. Well develo ped and well nourished. HEENT: Head: Normocephalic and atraumatic Eyes: Pupils equal, round, and reactive to light. EOM intact. Conjunctivae no rmal. Neck: Supple, normal range of motion. No lymphadenopathy. Throat: Mucus membranes moist. No erythema, exudates, oral lesions or thrush. Cardiovascular: Tachycardic. No murmurs, rubs or gallops. No heaves, lifts, o r thrills. Pulmonary: Lungs clear bilaterally to auscultation with no wheezes or rhonchi. Effort appropriate on room air Abdominal: Soft, non-distended. Tenderness to palpation on side of right lower quadrant. No tenderness on rest of exam, no rebound, guarding or rigidity. Neuro: No gross neurological deficits, moving all limbs spontaneously Extremities: No clubbing, cyanosis, or edema of bilateral extremities. Radial or dorsalis pedis, 2+ bilaterally. Capillary refill upper and lower extremiti es < 2 seconds bilaterally. Skin: Warm, dry and intact. No bruising, cyanosis, rashes, or abnormal lesions noted. Labs Results for orders placed or performed during the hospital encounter of 04/15/19 (from the past 24 hour(s)) POC GLUCOSE Collection Time: 04/18/19 8:11 AM # # Low-High Glucose, POC 529 (HH) 70 - 100 MG/DL POC GLUCOSE Collection Time: 04/18/19 8:13 AM # # Low-High Glucose, POC 526 (HH) 70 - 100 MG/DL TYPE & CROSSMATCH Collection Time: 04/18/19 8:30 AM # # Low-High Units Ordered 1 Crossmatch Expires 04/21/2019 Record Check FOUND ABO/RH(D) O POS Antibody Screen NEG Electronic Crossmatch YES Unit Number [id number] Blood Component Type RBC,ADSOL,LEUKO REDUCED Unit Division 0 Status OF Unit TRANSFUSED Transfusion Status OK TO TRANSFUSE Crossmatch Result COMPATIBLE,ELECTRONIC POC GLUCOSE Collection Time: 04/18/19 9:49 AM # # Low-High Glucose, POC 436 (H) 70 - 100 MG/DL TEST-URINE Collection Time: 04/18/19 9:55 AM # # Low-High Urine-HCG NEG Samples with Specific [place] <1.010 may result in a false negative test Specific [place] 1.017 POC GLUCOSE Collection Time: 04/18/19 10:25 AM # # Low-High Glucose, POC 391 (H) 70 - 100 MG/DL POC GLUCOSE Collection Time: 04/18/19 11:41 AM # # Low-High Glucose, POC 272 (H) 70 - 100 MG/DL POC GLUCOSE Collection Time: 04/18/19 12:44 PM # # Low-High Glucose, POC 225 (H) 70 - 100 MG/DL POC GLUCOSE Collection Time: 04/18/19 2:57 PM # # Low-High Glucose, POC 268 (H) 70 - 100 MG/DL POC GLUCOSE Collection Time: 04/18/19 5:12 PM # # Low-High Glucose, POC 182 (H) 70 - 100 MG/DL POC GLUCOSE Collection Time: 04/18/19 10:13 PM # # Low-High Glucose, POC 126 (H) 70 - 100 MG/DL POC GLUCOSE Collection Time: 04/19/19 12:29 AM # # Low-High Glucose, POC 137 (H) 70 - 100 MG/DL POC GLUCOSE Collection Time: 04/19/19 2:36 AM # # Low-High Glucose, POC 212 (H) 70 - 100 MG/DL POC GLUCOSE Collection Time: 04/19/19 3:47 AM # # Low-High Glucose, POC 298 (H) 70 - 100 MG/DL CBC AND DIFF Collection Time: 04/19/19 4:00 AM # # Low-High White Blood Cells 6.7 4.5 - 11.0 K/UL RBC 2.51 (L) 4.0 - 5.0 M/UL Hemoglobin 7.5 (L) 12.0 - 15.0 GM/DL Hematocrit 21.8 (L) 36 - 45 % MCV 86.9 80 - 100 FL MCH 29.9 26 - 34 PG MCHC 34.4 32.0 - 36.0 G/DL RDW 14.1 11 - 15 % Platelet Count 232 150 - 400 K/UL MPV 8.0 7 - 11 FL Neutrophils 67 41 - 77 % Lymphocytes 22 (L) 24 - 44 % Monocytes 7 4 - 12 % Eosinophils 3 0 - 5 % Basophils 1 0 - 2 % Absolute Neutrophil Count 4.50 1.8 - 7.0 K/UL Absolute Lymph Count 1.40 1.0 - 4.8 K/UL Absolute Monocyte Count 0.40 0 - 0.80 K/UL Absolute Eosinophil Count 0.20 0 - 0.45 K/UL Absolute Basophil Count 0.10 0 - 0.20 K/UL COMPREHENSIVE METABOLIC PANEL Collection Time: 04/19/19 4:00 AM # # Low-High Sodium 134 (L) 137 - 147 MMOL/L Potassium 5.4 (H) 3.5 - 5.1 MMOL/L Chloride 105 98 - 110 MMOL/L Glucose 268 (H) 70 - 100 MG/DL Blood Urea Nitrogen 70 (H) 7 - 25 MG/DL Creatinine 4.79 (H) 0.4 - 1.00 MG/DL Calcium 7.7 (L) 8.5 - 10.6 MG/DL Total Protein 4.5 (L) 6.0 - 8.0 G/DL Total Bilirubin 0.2 (L) 0.3 - 1.2 MG/DL Albumin 2.1 (L) 3.5 - 5.0 G/DL Alk Phosphatase 74 25 - 110 U/L AST (SGOT) 13 7 - 40 U/L CO2 21 21 - 30 MMOL/L ALT (SGPT) 9 7 - 56 U/L Anion Gap 8 3 - 12 eGFR Non 11 (L) >60 mL/min eGFR 13 (L) >60 mL/min POC GLUCOSE Collection Time: 04/19/19 5:03 AM # # Low-High Glucose, POC 226 (H) 70 - 100 MG/DL POC GLUCOSE Collection Time: 04/19/19 6:06 AM # # Low-High Glucose, POC 184 (H) 70 - 100 MG/DL POC GLUCOSE Collection Time: 04/19/19 6:59 AM # # Low-High Glucose, POC 168 (H) 70 - 100 MG/DL Radiology, Microbiology, and other Diagnostics Review CT Abd/Pelvis wo (04/16) 1. DEVELOPMENT OF MILD ABDOMINAL/PELVIC ASCITES WITH MESENTERIC CONGESTION. 2. PERSISTENT PROMINENCE OF THE APPENDIX WITH SMALL APPENDICOLITHS. THERE IS HAZ INESS AROUND THE PROMINENT APPENDIX, WHICH MAY BE ASSOCIATED WITH ABDOMINAL/PELV IC ASCITES. APPENDICITIS IS STILL A CONSIDERATION. CLINICAL AND LABORATORY CORRE LATION IS SUGGESTED. 3. PERSISTENT MILD HEPATOMEGALY AND UPPER LIMITS OF NORMAL SIZE SPLEEN. 4. ANEMIA. 5. MILD TO MODERATE ANASARCA. VISION AND RADIO REPAIRER Associated attestation - Bren Moralez MD - 04/21/2019 8:21 PM TELEVISION AND RADIO REPAIRER ATTESTATION I personally performed the medrano portions of the E/M visit, discussed case with re sident and concur with resident documentation of history, physical exam, assessm ent, and treatment plan unless otherwise noted. Staff name: Bren Moralez MD Date: 04/19/2019 * Alexei Frederick DO - 04/19/2019 5:53 AM TELEVISION AND RADIO REPAIRER Daily Progress Note Today's Date: 04/19/2019 Name: Patito Lugo Admission Date: 04/15/2019 (LOS: 4 days) Assessment:33 y.o. female with DKA and abdominal pain. CT demonstrates mildly di lated appendix with appenicolithiasis Plan: -After discussion patient is in need of medical optimization prior to procedure. -Will cancel appendectomy for today -Can follow up in ACS clinic prn once medical optimized. ACS clinic can be reach ed at -Please page surgery with any questions or concerns -Recommend 10 day course of augmentin on discharge Alexei Frederick DO [id number] S: No acute events overnight. Pain has improved Has had no nausea or vomiting O: Vitals: 04/19/19 0503 04/19/19 0658 04/19/19 0855 04/19/19 0933 BP: (!) 177/116 (!) 171/104 (!) 151/100 (!) 192/121 BP Source: Arm, Left Upper Arm, Left Upper Arm, Left Upper Pulse: 106 105 103 Temp: 36.2 C (97.2 F) 36.9 C (98.4 F) 36.7 C (98.1 F) SpO2: 96% 99% 100% Weight: 83.6 kg (184 lb 3.2 oz) Height: Intake/Output Summary (Last 24 hours) at 04/19/2019 1042 Last data filed at 04/19/2019 0830 Gross per 24 hour Intake 633.75 ml Output 2475 ml Net -1841.25 ml GEN: NAD. Awake in bed. HEENT: Normocephalic, atraumatic, NEURO: AOx3. Grossly intact. RESP: RA. Normal effort. Non-labored breathing CARDIO: Regular rhythm and rate. ABD: Soft, ND. + RLQ abdominal pain, - rovsings sign, no rebound tenderness INTEG: No jaundice or lesions. Serial Hematology Labs: Recent Labs 04/17/19 0416 04/18/19 0359 04/19/19 0400 HGB 7.5* 6.9* 7.5* HCT 22.0* 19.6* 21.8* WBC 7.6 6.7 6.7 PLTCT 239 233 232 VISION AND RADIO REPAIRER Associated attestation - Kale Cruz MD - 04/19/2019 11:16 AM TELEVISION AND RADIO REPAIRER ATTESTATION I personally performed the medrano portions of the E/M visit, discussed case with re tamekant and concur with resident documentation of history, physical exam, assessm ent, and treatment plan unless otherwise noted. I have had multiple conversations with the patient. In short, I am not convince d that she has acute appendicitis. Her appendix is unremarkable on my view of th e CT scans and over multiple scans remains unimpressive. It is possible that ch ronic appendicitis is contributing to her pain and to that end I have offered he r an appendectomy. This is not an urgent issue. Unfortunately she is not suita autumn optimized in order to undergo anesthesia for a non-urgent issue at this time . She needs aggressive outpatient management of her chronic issues before we re -consider. In the mean time it is reasonable to treat her with antibiotics (10 days total t herapy - she can transition to Augmentin). I am willing to re-evaluate her for an interval appendectomy as an outpatient assuming her other co-morbidities are under more reasonable control. Staff name: Kale Cruz MD Date: 04/19/2019 * Zoya Brown RN - 04/18/2019 11:09 AM TELEVISION AND RADIO REPAIRER Report to patient's nurse on floor B. Arianna. VISION AND RADIO REPAIRER * Uma Keller RN - 04/18/2019 10:59 AM TELEVISION AND RADIO REPAIRER ..I have reviewed the notes, assessment, and/or procedures performed by Tim aguilar RN preceptee, and concur with her/his documentation unless otherwise noted. VISION AND RADIO REPAIRER * Alexei Frederick DO - 04/18/2019 10:00 AM TELEVISION AND RADIO REPAIRER Daily Progress Note Today's Date: 04/18/2019 Name: Patito Lugo Admission Date: 04/15/2019 (LOS: 3 days) Assessment:33 y.o. female with DKA and abdominal pain. CT demonstrates mildly di lated appendix with appenicolithiasis Plan: - OR tomorrow for laparoscopic appendectomy, poss open - NPO at midnight, Type and Cross, currently receiving one unit - Consent obtained and placed in patient chart. Patient understands risks and wi shes to proceed with the procedure at this time. Alexei Frederick DO [id number] S: No acute events overnight. Reports ongoing abdominal pain localized to the right lower quadrant that spreads to her flank. However also describes right and left upper abdominal pain. + N/V. Denies suprapubic pain or dysuria. Has not eaten t bety O: Vitals: 04/18/19 0505 04/18/19 0525 04/18/19 0529 04/18/19 0545 BP: (!) 185/110 (!) 198/120 (!) 162/98 BP Source: Arm, Left Upper Arm, Left Upper Arm, Right Upper Pulse: Temp: SpO2: Weight: 84.6 kg (186 lb 9.6 oz) Height: Intake/Output Summary (Last 24 hours) at 04/18/2019 0659 Last data filed at 04/18/2019 0516 Gross per 24 hour Intake 1270 ml Output 2625 ml Net -1355 ml GEN: NAD. Awake in bed. HEENT: Normocephalic, atraumatic, NEURO: AOx3. Grossly intact. RESP: RA. Normal effort. Non-labored breathing CARDIO: Regular rhythm and rate. ABD: Soft, ND. + RLQ abdominal pain, - rovsings sign, no rebound tenderness INTEG: No jaundice or lesions. Serial Hematology Labs: Recent Labs 04/16/19 1020 04/17/19 0416 04/18/19 0359 HGB 7.4* 7.5* 6.9* HCT 21.2* 22.0* 19.6* WBC 6.6 7.6 6.7 PLTCT 214 239 233 VISION AND RADIO REPAIRER Associated attestation - Kale Cruz MD - 04/28/2019 10:11 PM TELEVISION AND RADIO REPAIRER ATTESTATION I personally performed the medrano portions of the E/M visit, discussed case with re sident and concur with resident documentation of history, physical exam, assessm ent, and treatment plan unless otherwise noted. Staff name: Kale Cruz MD Date: 04/28/2019 * Jessica Calles MD - 04/18/2019 7:10 AM TELEVISION AND RADIO REPAIRER General Progress Note Med 3 Name: Patito Lugo : 1985 Date: 04/18/2019 7:10 AM Admission: 04/15/2019 LOS: 3 Assessment and Plan Active Problems: Acute on chronic renal insufficiency Patito Lugo is a 33 y.o. female with Type 1 Diabetes mellitus, CKD Sta ge III 2' Diabetic Nephropathy, Hypertension, Hyperlipidemia, h/o Migraines who presented to OSH with acute (1 week) on chronic (3 month) abdominal pain found t o be in DKA and with acute renal failure, transferred to [facility] for management. Today (04/18): Patient originally to receive Lap-Apy this AM, was d/c for hyper glycemia and hypertension, re-scheduled for 04/19. Will start insulin gtt tonig ht, increased diureses, and lowered ceiling for labetalol pushes. Started Oxyco done 2.5 mg Q4H for RLQ pain, and Trazodone 25 mg for sleep. Patient with Hgb 6 .9 now s/p 1U pRBC. Will recheck early AM and replace as needed. Noted patient w/o basal insulin at home for 6 weeks -- reportedly resolved with Medicaid, will follow up on resolution # Diabetic Ketoacidosis: RESOLVED # Type 1 Diabetes Mellitus # Hyperglycemia # Abdominal Pain - HgbA1c (04/16): 10.1% - [employer]RI[employer]TER: Insulin Detemir 22U nightly / Insulin Aspart 1:12g post meal - Per Diabetes Nurse Educator, patient w/o basal insulin for 6 weeks due to cost limitations - History of leaving AMA due to being "fed up with her insulin management" - Presented to OSH with acute on chronic (3 month) abdominal pain in context of sick family members, found with blood glucose > 500 / AG 17, transferred to [facility] for her establishment with renal transplant? - ADMIT: AG 13 / CO2 18 / b-OHb 4 -> (04/16): 0.2 - PE (admit): Benign abdominal exam - Started on DKA protocol with insulin drip w/ Q1 blood glucose and Q2 BMP, Mg, Phos, and NS 150 mL/hr. Closed gap quickly with resolution of hyperglycemia, sw itched form NS to D5 1/2NS 04/16 AM. Patient with stable electrolytes (04/17) - Endocrine (04/18): Suggested Detemir 11U BID (will start 04/19) for smoother c urve, for prior to surgery, can start an insulin drip night before. Plan: > START Insulin gtt at 22:00 -- For surgery 04/19 > STOP [facility] Insulin Detemir 22U (after received 04/18 dose) Will Likely switch to > Continue Insulin Aspart 1:12g post meal > HOLD [facility] after 22:00 > Continue to monitor Electrolytes with BMP / Mg / Phos Q4H > Endocrine Following # Chronic Appendicitis # Pain - Three month history right quadrant pain with acute worsening past 7 days - Remains afebrile without leukocytosis - PE: Tenderness to Deep palpation in right lower quadrant, Non-severe - CT A/P (04/16): Development mild abdominal/pelvic ascites w/ mesenteric conge stion, prominence of appendix w/ small appendicoliths, consideration appendiciti s, persistent mild hepatomegaly and upper limits of normal size spleen, mild to moderate anasarca - Gen Surg (04/19): Likely chronic appendicitis, unconvinced is cause of right lower quadrant pain, surgery can be completed this week, anesthesiology canceled 04/18 due to uncontrolled blood glucose and hypertension. Plan: > Laproscopic Appendectomy tomorrow 04/19 > NPO at 04/18 22:00 > Insulin gtt (and d/c other insulin) at 04/18 22:00 > Acetaminophen 650 mg Q6H PRN Pain > Oxycodone 2.5 mg Q4H PRN Pain # DAILY on CKD # Fluid Overload # CKD Stage III # Diabetic Nephropathy - Cr (baseline): ~1.5 -> (01/2019): 2.9 -> (admit, 04/16): 4.33 -> (04/18): 4.28 - Follows with Nephrology, Dr. Hendrickson - Fluid resuscitation for DKA, patient now with good urinary output with net -1L over past 24 hours (04/17) - UA (04/16): 3+ Glu / 1+ Ket / 3+ Protein / Few Bacteria - FENa (04/16): 1.6%, Intrinsic - Microalbumin/Cr (04/16): 6006 Plan: > START Furosemide 80 mg IV BID > CONTINUE HOLD [facility] [employer] Losartan for acute worsening renal function > Continue to monitor with BMP daily > Strict I/O > Consult Vascular surgery for fistula planning > Nephrology Following # Hypertension - [facility] [employer]: Losartan 25 mg daily / Furosemide 80 mg BID (taking 40 mg BID) / KCl 10 mEq daily - Blood pressure 240/150 at outside ED, 156/99 upon presentation to [facility] - has had difficulty controlling blood pressure for about a year - around that t windy she was diagnosed with kidney disease and had pre-eclampsia with her younges t child. Plan: > Continue to monitor blood pressure > Diurese as above > START Nifedipine XL 30 mg daily > Continue to HOLD [facility] Losartan 25 mg daily > CHANGE Labetalol 10 mg for SBP > 180 TO SBP > 160 # H/o Migraines - Patient prefers not to use IV Benadryl due to somnolence - Good response to compazine + MgOx + Caffeine Plan: > Continue [facility] [employer] Nortriptyline 10 mg nightly > Continue Compazine 10mg + MgOx 400mg Daily PRN Migraine No Caffeine for High BP # Normocytic Anemia of Chronic Disease # Setting of CKD - Hgb last admit 7.6-8.1 - Hgb (admit): 7.5 -> (04/18): 6.9 - Iron (06/2018): Fe 51 / 21% Sat / TIBC 238 / Ferritin 237 - Anemia of Chronic disease Plan: > 1U pRBC today > Continue following with CBC daily > Continue [employer] Ferrous sulfate 325 mg daily # Hyperlipidemia - Lipids (04/15): TC 504 / LDL 142 / HDL 41 / TG 916 On Discharge: > START Atorvastatin 40 mg nightly # Mood > Continue [employer] Sertraline 50 mg daily # GERD > Continue [employer] Pantoprazole 40 mg daily # Insomnia > START Trazodone 25 mg Nightly PRN # Amy's Thyroiditis, TSH 2.43 # Rheumatoid Arthritis FEN: STOP IVF / Monitor electrolytes and replace PRN / DIET DIABETIC (STANDARD) CONSISTENT CARB PPx DVT: Enoxaparin 30 mg nightly Lines/drains: PIV x 2 Code Status: Full Code Isolation: None Disposition: Continue admission to Med-3 service for DKA and acute on chronic re nal failure. Patient seen and discussed with Dr. Moralez who agrees with the above assessment a nd plan Jessica Calles MD Internal Medicine, PGY-1 Pager: [phone] Med-3 Pager: [phone] Interval History Patient reported having continuing right lower quadrant pain overnight, that pre vented her from sleeping. She reported that her headache was well managed with the current prescription she has. Patient denies any subjective fevers or chill s. Patient had elevated glucose in the morning above 500. Surgery originally i ntended to take her to the operating theater for a laparoscopic appendectomy. H owever, this was discontinued by anesthesiology while patient was in pre-op due to her uncontrolled glucose and blood pressures. Anticipate patient will be taken to the operating room tomorrow, we will start a n insulin drip overnight for blood glucose, and have narrowed blood pressure goa ls for as needed labetalol. Patient will be n.p.o. at 2200 with start of insuli n drip. Patient reports continued edema of her abdomen and lower extremities. Patient d enies any new sites of pain, subjective fever, subjective chills. Patient repor ts decent appetite. Patient expressed her frustration with the shifting plans a nd has wishes to return home as soon as possible. Patient expresses significant anxiety about being in the hospital, which she reports exacerbates her glucose and blood pressure. Per family life educator, patient has been out of long acting insulin for the past 6 weeks due to cost concerns. This issue has reportedly been resolved with her Medicaid group. Medications Hospital Medications Scheduled Meds enoxaparin (LOVENOX) syringe 30 mg, 30 mg, Subcutaneous, QDAY(21) ferrous sulfate (FEOSOL) tablet 325 mg, 325 mg, Oral, QDAY furosemide (LASIX) tablet 40 mg, 40 mg, Oral, BID insulin aspart U-100 (NOVOLOG FLEXPEN) injection PEN 1-25 Units, 1-25 Units, Sub cutaneous, TID after meals insulin detemir U-100(+) (LEVEMIR) injection 22 Units, 22 Units, Subcutaneous, Q DAY(12) lidocaine (LIDODERM) 5 % topical patch 1 patch, 1 patch, Topical, QDAY And Verification of Patch Placement and Integrity - Lidocaine 5%, , Transdermal, BID nortriptyline (PAMELOR) capsule 10 mg, 10 mg, Oral, QHS pantoprazole DR (PROTONIX) tablet 40 mg, 40 mg, Oral, QDAY sertraline (ZOLOFT) tablet 50 mg, 50 mg, Oral, QDAY Continuous Infusions: PRN and Respiratory Meds: acetaminophen, 650 mg, Q6H PRN prochlorperazine, 10 mg, QDAY PRN And magnesium oxide, 400 mg, QDAY PRN And caffeine-sodium benzoate IVPB, 200 mg, QDAY PRN labetalol (NORMODYNE; TRANDATE) injection, 10 mg, Q6H PRN ondansetron (ZOFRAN) IV, 4 mg, Q6H PRN Or ondansetron, 4 mg, Q6H PRN Physical Exam Vital Signs: Last Filed in 24 hours Vital Signs: 24 hour Range BP: 162/98 (04/18 0545) Temp: 36.7 C (98 F) (02/24 0435) Pulse: 109 (04/18 434) Respirations: 16 PER MINUTE (04/18 434) SpO2: 98 % (04/18 434) BP: (148-207)/(96-130) Temp: [36.3 C (97.4 F)-37.1 C (98.8 F)] Pulse: [104-116] Respirations: [16 PER MINUTE-18 PER MINUTE] SpO2: [98 %-100 %] Body mass index is 28.37 kg/m. Intake/Output Summary (Last 24 hours) at 04/18/2019 0710 Last data filed at 04/18/2019 0516 Gross per 24 hour Intake 1270 ml Output 2625 ml Net -1355 ml Physical Exam - No significant changes from 04/17 General: Anxious and frustrated. Alert and oriented to person, place, time, and situation. Well developed and well nourished. HEENT: Head: Normocephalic and atraumatic Eyes: Pupils equal, round, and reactive to light. EOM intact. Conjunctivae no rmal. Neck: Supple, normal range of motion. No lymphadenopathy. Throat: Mucus membranes moist. No erythema, exudates, oral lesions or thrush. Cardiovascular: Tachycardic. No murmurs, rubs or gallops. No heaves, lifts, o r thrills. Pulmonary: Lungs clear bilaterally to auscultation with no wheezes or rhonchi. Effort appropriate on room air Abdominal: Soft, non-distended. Tenderness to palpation on side of right lower quadrant. No tenderness on rest of exam, no rebound, guarding or rigidity. Neuro: No gross neurological deficits, moving all limbs spontaneously Extremities: No clubbing, cyanosis, or edema of bilateral extremities. Radial or dorsalis pedis, 2+ bilaterally. Capillary refill upper and lower extremiti es < 2 seconds bilaterally. Skin: Warm, dry and intact. No bruising, cyanosis, rashes, or abnormal lesions noted. Labs Results for orders placed or performed during the hospital encounter of 04/15/19 (from the past 24 hour(s)) POC GLUCOSE Collection Time: 04/17/19 5:58 PM # # Low-High Glucose, POC 135 (H) 70 - 100 MG/DL BASIC METABOLIC PANEL Collection Time: 04/17/19 6:00 PM # # Low-High Sodium 134 (L) 137 - 147 MMOL/L Potassium 4.5 3.5 - 5.1 MMOL/L Chloride 105 98 - 110 MMOL/L CO2 22 21 - 30 MMOL/L Anion Gap 7 3 - 12 Glucose 141 (H) 70 - 100 MG/DL Blood Urea Nitrogen 61 (H) 7 - 25 MG/DL Creatinine 4.41 (H) 0.4 - 1.00 MG/DL Calcium 7.6 (L) 8.5 - 10.6 MG/DL eGFR Non 12 (L) >60 mL/min eGFR 14 (L) >60 mL/min POC GLUCOSE Collection Time: 04/17/19 9:23 PM # # Low-High Glucose, POC 112 (H) 70 - 100 MG/DL CBC AND DIFF Collection Time: 04/18/19 3:59 AM # # Low-High White Blood Cells 6.7 4.5 - 11.0 K/UL RBC 2.28 (L) 4.0 - 5.0 M/UL Hemoglobin 6.9 (L) 12.0 - 15.0 GM/DL Hematocrit 19.6 (L) 36 - 45 % MCV 85.9 80 - 100 FL MCH 30.2 26 - 34 PG MCHC 35.2 32.0 - 36.0 G/DL RDW 13.6 11 - 15 % Platelet Count 233 150 - 400 K/UL MPV 8.2 7 - 11 FL Neutrophils 63 41 - 77 % Lymphocytes 26 24 - 44 % Monocytes 7 4 - 12 % Eosinophils 3 0 - 5 % Basophils 1 0 - 2 % Absolute Neutrophil Count 4.30 1.8 - 7.0 K/UL Absolute Lymph Count 1.70 1.0 - 4.8 K/UL Absolute Monocyte Count 0.40 0 - 0.80 K/UL Absolute Eosinophil Count 0.20 0 - 0.45 K/UL Absolute Basophil Count 0.10 0 - 0.20 K/UL COMPREHENSIVE METABOLIC PANEL Collection Time: 04/18/19 3:59 AM # # Low-High Sodium 133 (L) 137 - 147 MMOL/L Potassium 5.1 3.5 - 5.1 MMOL/L Chloride 104 98 - 110 MMOL/L Glucose 292 (H) 70 - 100 MG/DL Blood Urea Nitrogen 61 (H) 7 - 25 MG/DL Creatinine 4.28 (H) 0.4 - 1.00 MG/DL Calcium 7.8 (L) 8.5 - 10.6 MG/DL Total Protein 4.4 (L) 6.0 - 8.0 G/DL Total Bilirubin 0.2 (L) 0.3 - 1.2 MG/DL Albumin 2.0 (L) 3.5 - 5.0 G/DL Alk Phosphatase 77 25 - 110 U/L AST (SGOT) 12 7 - 40 U/L CO2 21 21 - 30 MMOL/L ALT (SGPT) 8 7 - 56 U/L Anion Gap 8 3 - 12 eGFR Non 12 (L) >60 mL/min eGFR 15 (L) >60 mL/min IRON + BINDING CAPACITY + %SAT+ FERRITIN Collection Time: 04/18/19 3:59 AM # # Low-High Iron 48 (L) 50 - 160 MCG/DL Iron Binding-TIBC 207 (L) 270 - 380 MCG/DL % Saturation 23 (L) 28 - 42 % Ferritin 152 10 - 200 NG/ML RETICULOCYTE COUNT Collection Time: 04/18/19 3:59 AM # # Low-High Retic, Uncorrected 2.3 (H) 0.5 - 2.0 % Retic, Corrected 1.1 % Retic, Absolute 52.4 30 - 94 K/UL POC GLUCOSE Collection Time: 04/18/19 8:11 AM # # Low-High Glucose, POC 529 (HH) 70 - 100 MG/DL POC GLUCOSE Collection Time: 04/18/19 8:13 AM # # Low-High Glucose, POC 526 (HH) 70 - 100 MG/DL TYPE & CROSSMATCH Collection Time: 04/18/19 8:30 AM # # Low-High Units Ordered 1 Crossmatch Expires 04/21/2019 Record Check FOUND ABO/RH(D) O POS Antibody Screen NEG Electronic Crossmatch YES Unit Number [id number] Blood Component Type RBC,ADSOL,LEUKO REDUCED Unit Division 0 Status OF Unit ISSUED Transfusion Status OK TO TRANSFUSE Crossmatch Result COMPATIBLE,ELECTRONIC POC GLUCOSE Collection Time: 04/18/19 9:49 AM # # Low-High Glucose, POC 436 (H) 70 - 100 MG/DL TEST-URINE Collection Time: 04/18/19 9:55 AM # # Low-High Urine-HCG NEG Samples with Specific [place] <1.010 may result in a false negative test Specific [place] 1.017 POC GLUCOSE Collection Time: 04/18/19 10:25 AM # # Low-High Glucose, POC 391 (H) 70 - 100 MG/DL POC GLUCOSE Collection Time: 04/18/19 11:41 AM # # Low-High Glucose, POC 272 (H) 70 - 100 MG/DL POC GLUCOSE Collection Time: 04/18/19 12:44 PM # # Low-High Glucose, POC 225 (H) 70 - 100 MG/DL POC GLUCOSE Collection Time: 04/18/19 2:57 PM # # Low-High Glucose, POC 268 (H) 70 - 100 MG/DL POC GLUCOSE Collection Time: 04/18/19 5:12 PM # # Low-High Glucose, POC 182 (H) 70 - 100 MG/DL Radiology, Microbiology, and other Diagnostics Review CT Abd/Pelvis wo (04/16) 1. DEVELOPMENT OF MILD ABDOMINAL/PELVIC ASCITES WITH MESENTERIC CONGESTION. 2. PERSISTENT PROMINENCE OF THE APPENDIX WITH SMALL APPENDICOLITHS. THERE IS HAZ INESS AROUND THE PROMINENT APPENDIX, WHICH MAY BE ASSOCIATED WITH ABDOMINAL/PELV IC ASCITES. APPENDICITIS IS STILL A CONSIDERATION. CLINICAL AND LABORATORY CORRE LATION IS SUGGESTED. 3. PERSISTENT MILD HEPATOMEGALY AND UPPER LIMITS OF NORMAL SIZE SPLEEN. 4. ANEMIA. 5. MILD TO MODERATE ANASARCA. VISION AND RADIO REPAIRER Associated attestation - Bren Moralez MD - 04/18/2019 5:53 PM TELEVISION AND RADIO REPAIRER ATTESTATION I personally performed the medrano portions of the E/M visit, discussed case with re sident and concur with resident documentation of history, physical exam, assessm ent, and treatment plan unless otherwise noted. Staff name: Bren Moralez MD Date: 04/18/2019 * Bhavik Gill MD - 04/18/2019 6:47 AM TELEVISION AND RADIO REPAIRER Endocrinology Chart Review. Full Note to follow Diabetes regimen over the past 24 hours. Detemir: 22 units daily at 1400 Asaprt: 1 units per 12 G post meal Aspart Correction: None written at present. Glucose values over the past 24 hours: Recent Labs 04/17/19 0359 04/17/19 0748 04/17/19 0840 04/17/19 1131 04/17/19 1557 04/17/19 1638 04/17/19 1758 04/17/19 2123 GLUPOC 168* 337* 299* 226* 136* 178* 135* 112* Serum Glucose on the AM chemistry panel today at 0359: 292 mg/dL Diabetes Regimen Changes today based on glucose values: detemir : 12 units at 1400 Asaprt: ICR 1:12 post meal Aspart Correction: Begin [facility] (at home she uses an insulin sensitivity of 20) Endocrinology Hospital Follow Up Visit Today's Date: 04/18/2019 Admission Date: 04/15/2019 Assessment: Diabetic ketoacidosis Type 1 diabetes Hemoglobin A1c 02/03/2019: 10.7% Diagnosed at age of 10 Follows with PCP, Dr. Plunkett [facility] regimen:? Detemir 22 units daily, Fiasp (unknown dose). Diabetes complicated by peripheral neuropathy, per patient. Hypertension DAILY on CKD stage 4 Random microalbumin/creatinine ratio 6000, 04/14/19. Iron deficiency Chronic pain syndrome Abdominal pain Rheumatoid arthritis Recommendations: Plan as above Correction bolus has now been written by primary team The patient at home uses an insulin sensitivity of 20 mg/dL with a target of 120 mg/dL. She think that basal bolus insulin has given her better control than her pump (m edtronic 630 g) She has been back on basal bolus insulin since November 2018 She continues to have abdominal pain She has a blood glucose at the time of my exam of 529 mg/dL which was confirmed with a repeat blood glucose. We calculated 16 units aspart now given her insulin sensitivity factor The patient relays to me that she plan to leave today. She is adamant about mckenna hankins. I relayed that we needed to be sure her glucose and blood pressure are ba ck down under acceptable control. She told me she is leaving anyway. She has things to get taken care of such as injection therapy for her eye and her one year old daughters care. History of Present Illness Patito Lugo is a 33 y.o. The patient is having pain in the right lower quadrant. It is continuous and no t colicky in nature. It is not really associated with nausea or vomiting. But she has those intermittently related to her gastroparesis. She is moving her bowels. Estimated Creatinine Clearance: 21.5 mL/min (A) (based on SCr of 4.28 mg/dL (H)) . Allergies Allergies Allergen Reactions Codeine HIVES Insulin Regular, Human UNKNOWN Does not work Review of Systems The patient has a headache, She has the right lower quadrant abdominal pain as described. She has intermittent nausea and vomiting. She has not slept well. Medications Scheduled Meds:enoxaparin (LOVENOX) syringe 30 mg, 30 mg, Subcutaneous, QDAY(21) ferrous sulfate (FEOSOL) tablet 325 mg, 325 mg, Oral, QDAY furosemide (LASIX) tablet 40 mg, 40 mg, Oral, BID insulin aspart U-100 (NOVOLOG FLEXPEN) injection PEN 0-12 Units, 0-12 Units, Sub cutaneous, ACHS (22) insulin aspart U-100 (NOVOLOG FLEXPEN) injection PEN 1-25 Units, 1-25 Units, Sub cutaneous, TID after meals insulin detemir U-100(+) (LEVEMIR) injection 22 Units, 22 Units, Subcutaneous, Q DAY(12) lidocaine (LIDODERM) 5 % topical patch 1 patch, 1 patch, Topical, QDAY And Verification of Patch Placement and Integrity - Lidocaine 5%, , Transdermal, BID nortriptyline (PAMELOR) capsule 10 mg, 10 mg, Oral, QHS pantoprazole DR (PROTONIX) tablet 40 mg, 40 mg, Oral, QDAY sertraline (ZOLOFT) tablet 50 mg, 50 mg, Oral, QDAY Continuous Infusions: PRN and Respiratory Meds:acetaminophen Q6H PRN, labetalol (NORMODYNE; TRANDATE) injection Q6H PRN, prochlorperazine QDAY PRN AND magnesium oxide QDAY PRN AND [DISCONTINUED] caffeine-sodium benzoate IVPB QDAY PRN, ondansetron (ZOFRAN ) IV Q6H PRN OR ondansetron Q6H PRN Physical Examination Vital Signs: Last Vital Signs: 24 Hour Ran ge BP: 162/98 (04/18 0445) Temp: 36.7 C (98 F) (04/18 434) Pulse: 88 (04/18 0717) Respirations: 16 PER MINUTE (04/18 434) SpO2: 98 % (02/24 0435) BP: (148-207)/(96-130) Temp: [36.3 C (97.4 F)-37.1 C (98.8 F)] Pulse: [88-116] Respirations: [16 PER MINUTE-18 PER MINUTE] SpO2: [98 %-100 %] General appearance: alert, oriented, NAD HENT: mucus membranes moist, no oral lesions/thrush Lungs: no wheezing, rhonchi, rales appreciated Heart: Regular rhythm, reg rate, with no murmur, rub, gallop Lab Review Point of Care Testing (Last 24 hours) Glucose: (!) 292 (04/18/19 0359) POC Glucose (Download): (!) 526 (04/18/19812) Recent Labs 04/15/19 2350 04/16/19 0350 04/16/19 0620 04/16/19 1020 04/16/19 1130 04/16/19 2242 04/17/19 0416 04/17/19 1800 04/18/19 0359 NA 130* 132* 134* 135* 134* 136* 134* 134* 133* K 5.2* 4.5 4.5 4.1 4.2 4.5 4.5 4.5 5.1 CL 99 102 104 105 105 107 105 105 104 CO2 18* 17* 22 20* 19* 21 22 22 21 GAP 13* 13* 8 10 10 8 7 7 8 BUN 67* 67* 70* 63* 64* 63* 59* 61* 61* CR 4.30* 4.33* 4.41* 4.43* 4.37* 4.27* 4.27* 4.41* 4.28* GLU 553* 450* 241* 186* 142* 73 152* 141* 292* CA 7.6* 7.9* 7.8* 7.9* 7.6* 7.8* 7.9* 7.6* 7.8* ALBUMIN 2.3* -- 2.1* 2.2* -- -- 2.2* -- 2.0* MG 2.7* 2.6 2.7* 2.7* 2.7* 2.6 2.6 -- -- PO4 5.1* -- -- -- -- 4.5 4.7* -- -- HGBA1C -- -- 10.2* 10.1* -- -- -- -- -- TSH -- -- 1.76 2.43 -- -- -- -- -- Recent Labs 04/15/19 2350 04/16/19 0620 04/16/19 1020 04/17/19 0416 04/18/19 0359 WBC 7.7 6.5 6.6 7.6 6.7 HGB 7.5* 7.0* 7.4* 7.5* 6.9* HCT 21.5* 20.3* 21.2* 22.0* 19.6* PLTCT 222 213 214 239 233 AST 15 14 15 14 12 ALT 11 11 12 12 8 ALKPHOS 95 87 88 85 77 Estimated Creatinine Clearance: 21.5 mL/min (A) (based on SCr of 4.28 mg/dL (H)) . Vitals: 04/15/19 2234 04/16/19 0657 04/18/19 0529 Weight: 82.1 kg (181 lb) 83.3 kg (183 lb 11.2 oz) 84.6 kg (186 lb 9.6 oz) Thyroid Studies Lab Results Component Value Date/Time TSH 2.43 04/16/2019 10:20 AM No results found for: FREET3, [id number], THYBINDGLB Pertinent radiology images viewed. Impression: Bhavik Gill MD 04/18/2019 Endocrine VISION AND RADIO REPAIRER * Chano Harmon DO - 04/17/2019 7:55 AM TELEVISION AND RADIO REPAIRER Endocrinology Progress Note Today's Date: 04/17/2019 Admission Date: 04/15/2019 Reason for this consultation: "T1DM with DKA w/ history of difficulty coming off insulin drip and history of leaving AMA due to being "fed up with her insulin m anagement" Assessment: Patito Lugo is a 33 y.o. year old female with pmhx of type 1 diabetes, fibromyalgia, rheumatoid arthritis, diabetic neuropathy, and CKD admitted 2019 for acute kidney injury and diabetic ketoacidosis. Endocrine has been cons ulted for diabetes management. Diabetic ketoacidosis Type 1 diabetes Hemoglobin A1c 02/03/2019: 10.7% Diagnosed at age of 10 Follows with PCP, Dr. Plunkett [facility] regimen:? Detemir 22 units daily, Fiasp (unknown dose). Diabetes complicated by peripheral neuropathy, per patient. Hypertension DAILY on CKD Random microalbumin/creatinine ratio 6000, 04/14/19. Iron deficiency Chronic pain syndrome Abdominal pain Rheumatoid arthritis Recommendations: Fasting hyperglycemia this morning. She reports that she does have trouble w ith john phenomenon at home and that today's pattern is not atypical for her. S he denies eating anything overnight. Continue detemir 22 units daily. We recommend she consider splitting this in sulin to twice daily administration however she prefers to keep once daily for n ow. Patient prefers continue ICR 12 postmeal. Continue [facility]. Agree with nephrology consultation for proteinuria. Thank you for this consult, we will follow. Patient was discussed with cosigning staff physician. Chano Harmon DO Endocrine Fellow History of Present Illness Patito Lugo is a 33 y.o. year old female with pmhx of type 1 diabetes, fibromyalgia, rheumatoid arthritis, diabetic neuropathy, and CKD admitted 2019 for acute kidney injury and diabetic ketoacidosis. Endocrine has been cons ulted for diabetes management. No acute changes overnight. Fasting hyperglycemia this morning the patient denies eating anything overnight. She reports continued abdominal pain. She is tolerating p.o. intake without nausea or vomiting. Medications Scheduled Meds:cefTRIAXone (ROCEPHIN) IVP 2 g, 2 g, Intravenous, Q24H* enoxaparin (LOVENOX) syringe 30 mg, 30 mg, Subcutaneous, QDAY(21) ferrous sulfate (FEOSOL) tablet 325 mg, 325 mg, Oral, QDAY insulin aspart U-100 (NOVOLOG FLEXPEN) injection PEN 0-12 Units, 0-12 Units, Sub cutaneous, 5 X Daily insulin aspart U-100 (NOVOLOG FLEXPEN) injection PEN 1-25 Units, 1-25 Units, Sub cutaneous, TID after meals insulin detemir U-100(+) (LEVEMIR) injection 22 Units, 22 Units, Subcutaneous, Q DAY(12) metroNIDAZOLE (FLAGYL) 500 mg IVPB 100 mL, 500 mg, Intravenous, Q8H* nortriptyline (PAMELOR) capsule 10 mg, 10 mg, Oral, QHS pantoprazole DR (PROTONIX) tablet 40 mg, 40 mg, Oral, QDAY sertraline (ZOLOFT) tablet 50 mg, 50 mg, Oral, QDAY Continuous Infusions: PRN and Respiratory Meds:acetaminophen Q6H PRN, labetalol (NORMODYNE; TRANDATE) injection Once PRN, ondansetron (ZOFRAN) IV Q6H PRN OR ondansetron Q6H PRN Physical Examination Vital Signs: Last Vital Signs: 24 Hour Ran ge BP: 179/116 (04/17 450) Temp: 36.8 C (98.3 F) (04/17 450) Pulse: 118 (04/17 450) Respirations: 16 PER MINUTE (04/17 450) SpO2: 98 % (04/17 450) BP: (162-179)/(107-117) Temp: [36.7 C (98 F)-36.8 C (98.3 F)] Pulse: [114-120] Respirations: [16 PER MINUTE] SpO2: [97 %-100 %] GEN: Alert, no acute distress. HEAD: Normocephalic, atraumatic. PULM: No respiratory distress. ABD: Non-distended. SKIN: No rashes noted. EXT: No edema, no cyanosis. Lab Review Point of Care Testing (Last 24 hours) Glucose: (!) 152 (04/17/19 0416) POC Glucose (Download): (!) 337 (04/17/19 0748) Recent Labs 04/15/19 2350 04/16/19 0350 04/16/19 0620 04/16/19 1020 04/16/19 1130 04/16/19 2242 04/17/19 0416 NA 130* 132* 134* 135* 134* 136* 134* K 5.2* 4.5 4.5 4.1 4.2 4.5 4.5 CL 99 102 104 105 105 107 105 CO2 18* 17* 22 20* 19* 21 22 GAP 13* 13* 8 10 10 8 7 BUN 67* 67* 70* 63* 64* 63* 59* CR 4.30* 4.33* 4.41* 4.43* 4.37* 4.27* 4.27* GLU 553* 450* 241* 186* 142* 73 152* CA 7.6* 7.9* 7.8* 7.9* 7.6* 7.8* 7.9* ALBUMIN 2.3* -- 2.1* 2.2* -- -- 2.2* MG 2.7* 2.6 2.7* 2.7* 2.7* 2.6 2.6 PO4 5.1* -- -- -- -- 4.5 4.7* HGBA1C -- -- 10.2* 10.1* -- -- -- TSH -- -- 1.76 2.43 -- -- -- Recent Labs 04/15/19 2350 04/16/19 0620 04/16/19 1020 04/17/19 0416 WBC 7.7 6.5 6.6 7.6 HGB 7.5* 7.0* 7.4* 7.5* HCT 21.5* 20.3* 21.2* 22.0* PLTCT 222 213 214 239 AST 15 14 15 14 ALT 11 11 12 12 ALKPHOS 95 87 88 85 Estimated Creatinine Clearance: 21.4 mL/min (A) (based on SCr of 4.27 mg/dL (H)) . Vitals: 04/15/19 2234 04/16/19 0657 Weight: 82.1 kg (181 lb) 83.3 kg (183 lb 11.2 oz) Thyroid Studies Lab Results Component Value Date/Time TSH 2.43 04/16/2019 10:20 AM No results found for: FREET3, [id number], THYBINDGLB Pertinent radiology images reviewed. Chano Harmon DO 04/17/2019 Endocrine VISION AND RADIO REPAIRER Associated attestation - Maribeth Mora MD - 04/17/2019 5:33 PM TELEVISION AND RADIO REPAIRER ATTESTATION I personally performed the medrano portions of the E/M visit, discussed case with re sident and concur with resident documentation of history, physical exam, assessm ent, and treatment plan unless otherwise noted. Staff name: Maribeth Mora MD Date: 04/17/2019 * Jessica Calles MD - 04/17/2019 6:58 AM TELEVISION AND RADIO REPAIRER General Progress Note Med 3 Name: Patito Lugo : 1985 Date: 04/17/2019 6:58 AM Admission: 04/15/2019 LOS: 2 Assessment and Plan Active Problems: Acute on chronic renal insufficiency Patito Lugo is a 33 y.o. female with Type 1 Diabetes mellitus, CKD Sta ge III 2' Diabetic Nephropathy, Hypertension, Hyperlipidemia, h/o Migraines who presented to OSH with acute (1 week) on chronic (3 month) abdominal pain found t o be in DKA and with acute renal failure, transferred to [facility] for management. # Diabetic Ketoacidosis: RESOLVED # Type 1 Diabetes Mellitus # Abdominal Pain - HgbA1c (04/16): 10.1% - BRI[employer]TER: Insulin Detemir 22U nightly / Insulin Aspart 1U Q6H(?) - History of leaving AMA due to being "fed up with her insulin management" - Presented to OSH with acute on chronic (3 month) abdominal pain in context of sick family members, found with blood glucose > 500 / AG 17, transferred to [facility] for her establishment with renal transplant? - ADMIT: AG 13 / CO2 18 / b-OHb 4 -> (04/16): 0.2 - PE: Benign abdominal exam - Started on DKA protocol with insulin drip w/ Q1 blood glucose and Q2 BMP, Mg, Phos, and NS 150 mL/hr. Closed gap quickly with resolution of hyperglycemia, sw itched form NS to D5 1/2NS 04/16 AM. Patient with stable electrolytes (04/17) Plan: > Continue [employer] Insulin Detemir 22U Anticipate increase (04/17) w/ increased glucose readings > Continue Insulin Aspart SQ TID after meals > Continue to monitor Electrolytes with BMP / Mg / Phos Q4H > Endocrine Following # Chronic Appendicitis - Three month history right quadrant pain with acute worsening past 7 days - Remains afebrile without leukocytosis - PE: Tenderness to Deep palpation in right lower quadrant, Non-severe - CT A/P (04/16): Development mild abdominal/pelvic ascites w/ mesenteric conge stion, prominence of appendix w/ small appendicoliths, consideration appendiciti s, persistent mild hepatomegaly and upper limits of normal size spleen, mild to moderate anasarca - Gen Surg (04/17): Likely chronic appendicitis, no acute surgical indication a t this time Plan: > STOP Ceftriaxone 2g Q24H > STOP Metronidazole 500 mg Q8H > General Surgery Following # DAILY on CKD # CKD Stage III # Diabetic Nephropathy - Cr (baseline): ~1.5 -> (01/2019): 2.9 -> (admit, 04/16): 4.33 -> (04/17): 4.27 - Follows with Nephrology, Dr. Hendrickson - Fluid resuscitation for DKA, patient now with good urinary output with net -1L over past 24 hours (04/17) - UA (04/16): 3+ Glu / 1+ Ket / 3+ Protein / Few Bacteria - FENa (04/16): 1.6%, Intrinsic - Microalbumin/Cr (04/16): 6006 Plan: > RESUME [employer] Furosemide 40 mg BID > CONTINUE HOLD [employer] Losartan for acute worsening renal function > Consult Nephrology for 04/18 > Continue to monitor with BMP daily > Strict I/O # Hypertension - B[employer]: Losartan 25 mg daily / Furosemide 80 mg BID (taking 40 mg BID) / KCl 10 mEq daily - Blood pressure 240/150 at outside ED, 156/99 upon presentation to [facility] - has had difficulty controlling blood pressure for about a year - around that t windy she was diagnosed with kidney disease and had pre-eclampsia with her younges t child. Plan: > Continue to monitor blood pressure > RESUME [employer] Furosemide 40 mg BID > Continue to HOLD [employer] Losartan 25 mg daily > START Labetalol 10 mg for SBP > 180 # H/o Migraines - Patient prefers not to use IV Benadryl due to somnolence - Good response to compazine + MgOx + Caffeine Plan: > Continue [employer] Nortriptyline 10 mg nightly > START Compazine 10mg + MgOx 400mg + Caffeine/Sodium Benzoate 200 mg Daily PRN Migraine # Normocytic Anemia of Chronic Disease # Setting of CKD - Hgb last admit 7.6-8.1 - Hgb (admit): 7.5 -> (04/17): 7.5 - Iron (06/2018): Fe 51 / 21% Sat / TIBC 238 / Ferritin 237 - Anemia of Chronic disease Plan: > Continue [employer] Ferrous sulfate 325 mg daily # Hyperlipidemia - Lipids (04/15): TC 504 / LDL 142 / HDL 41 / TG 916 On Discharge: > START Atorvastatin 40 mg nightly # Mood > Continue [employer] Sertraline 50 mg daily # GERD > Continue [employer] Pantoprazole 40 mg daily # Amy's Thyroiditis, TSH 2.43 # Rheumatoid Arthritis FEN: STOP IVF / Monitor electrolytes and replace PRN / DIET DIABETIC (STANDARD) CONSISTENT CARB PPx DVT: Enoxaparin 30 mg nightly Lines/drains: PIV x 2 Code Status: Full Code Isolation: None Disposition: Continue admission to Med-3 service for DKA and acute on chronic re nal failure. Dispo Goals: 1. Close Anion Gap -- Met (04/16) 2. Improvement DAILY / production of urine -- Pending (04/17) 3. Glucose stable on home regimen -- Pending (04/17) 4. Electrolytes stabilized 24 hours -- Met (04/17) Patient seen and discussed with Dr. Britt who agrees with the above assessment an d plan Jessica Calles MD Internal Medicine, PGY-1 Pager: [phone] Med-3 Pager: [phone] Interval History No acute events overnight. Patient reports no new concerns or complaints. Tanvi ent reports having good urinary output throughout the night, reported a good res ponse to the medications she received overnight for her migraine. Patient was a dvised that the combination included caffeine, and this can cause rebound headac hes if used too frequently. Patient reported her understanding. Patient with continued right sided abdominal pain that kept her up throughout e night. No significant changes in quality of pain since admission. Medications Hospital Medications Scheduled Meds cefTRIAXone (ROCEPHIN) IVP 2 g, 2 g, Intravenous, Q24H* enoxaparin (LOVENOX) syringe 30 mg, 30 mg, Subcutaneous, QDAY() ferrous sulfate (FEOSOL) tablet 325 mg, 325 mg, Oral, QDAY insulin aspart U-100 (NOVOLOG FLEXPEN) injection PEN 0-12 Units, 0-12 Units, Sub cutaneous, 5 X Daily insulin aspart U-100 (NOVOLOG FLEXPEN) injection PEN 1-25 Units, 1-25 Units, Sub cutaneous, TID after meals insulin detemir U-100(+) (LEVEMIR) injection 22 Units, 22 Units, Subcutaneous, Q DAY(12) metroNIDAZOLE (FLAGYL) 500 mg IVPB 100 mL, 500 mg, Intravenous, Q8H* nortriptyline (PAMELOR) capsule 10 mg, 10 mg, Oral, QHS pantoprazole DR (PROTONIX) tablet 40 mg, 40 mg, Oral, QDAY sertraline (ZOLOFT) tablet 50 mg, 50 mg, Oral, QDAY Continuous Infusions: PRN and Respiratory Meds: acetaminophen, 650 mg, Q6H PRN ondansetron (ZOFRAN) IV, 4 mg, Q6H PRN Or ondansetron, 4 mg, Q6H PRN Physical Exam Vital Signs: Last Filed in 24 hours Vital Signs: 24 hour Range BP: 179/116 (04/17 450) Temp: 36.8 C (98.3 F) (04/17 450) Pulse: 118 (04/17 450) Respirations: 16 PER MINUTE (04/17 450) SpO2: 98 % (04/17 450) BP: (162-179)/(107-117) Temp: [36.7 C (98 F)-36.8 C (98.3 F)] Pulse: [114-120] Respirations: [16 PER MINUTE] SpO2: [97 %-100 %] Body mass index is 27.93 kg/m. Intake/Output Summary (Last 24 hours) at 04/17/2019 0658 Last data filed at 04/17/2019 0150 Gross per 24 hour Intake 590 ml Output 0 ml Net 590 ml Physical Exam General: Alert and oriented to person, place, time, and situation. Well develo ped and well nourished. HEENT: Head: Normocephalic and atraumatic Eyes: Pupils equal, round, and reactive to light. EOM intact. Conjunctivae no rmal. Neck: Supple, normal range of motion. No lymphadenopathy. Throat: Mucus membranes moist. No erythema, exudates, oral lesions or thrush. Cardiovascular: Tachycardic. No murmurs, rubs or gallops. No heaves, lifts, o r thrills. Pulmonary: Lungs clear bilaterally to auscultation with no wheezes or rhonchi. Effort appropriate on room air Abdominal: Soft, non-distended. Tenderness to palpation on side of right lower quadrant. No tenderness on rest of exam, no rebound, guarding or rigidity. Neuro: No gross neurological deficits, moving all limbs spontaneously Extremities: No clubbing, cyanosis, or edema of bilateral extremities. Radial or dorsalis pedis, 2+ bilaterally. Capillary refill upper and lower extremiti es < 2 seconds bilaterally. Skin: Warm, dry and intact. No bruising, cyanosis, rashes, or abnormal lesions noted. Labs Results for orders placed or performed during the hospital encounter of 04/15/19 (from the past 24 hour(s)) POC GLUCOSE Collection Time: 04/16/19 7:19 AM # # Low-High Glucose, POC 175 (H) 70 - 100 MG/DL POC GLUCOSE Collection Time: 04/16/19 8:56 AM # # Low-High Glucose, POC 172 (H) 70 - 100 MG/DL POC GLUCOSE Collection Time: 04/16/19 9:57 AM # # Low-High Glucose, POC 225 (H) 70 - 100 MG/DL HEMOGLOBIN A1C Collection Time: 04/16/19 10:20 AM # # Low-High Hemoglobin A1C 10.1 (H) 4.0 - 6.0 % TSH WITH FREE T4 REFLEX Collection Time: 04/16/19 10:20 AM # # Low-High TSH 2.43 0.35 - 5.00 MCU/ML CBC AND DIFF Collection Time: 04/16/19 10:20 AM # # Low-High White Blood Cells 6.6 4.5 - 11.0 K/UL RBC 2.46 (L) 4.0 - 5.0 M/UL Hemoglobin 7.4 (L) 12.0 - 15.0 GM/DL Hematocrit 21.2 (L) 36 - 45 % MCV 85.9 80 - 100 FL MCH 30.0 26 - 34 PG MCHC 34.9 32.0 - 36.0 G/DL RDW 13.7 11 - 15 % Platelet Count 214 150 - 400 K/UL MPV 8.1 7 - 11 FL Neutrophils 77 41 - 77 % Lymphocytes 13 (L) 24 - 44 % Monocytes 6 4 - 12 % Eosinophils 3 0 - 5 % Basophils 1 0 - 2 % Absolute Neutrophil Count 5.10 1.8 - 7.0 K/UL Absolute Lymph Count 0.90 (L) 1.0 - 4.8 K/UL Absolute Monocyte Count 0.40 0 - 0.80 K/UL Absolute Eosinophil Count 0.20 0 - 0.45 K/UL Absolute Basophil Count 0.10 0 - 0.20 K/UL COMPREHENSIVE METABOLIC PANEL Collection Time: 04/16/19 10:20 AM # # Low-High Sodium 135 (L) 137 - 147 MMOL/L Potassium 4.1 3.5 - 5.1 MMOL/L Chloride 105 98 - 110 MMOL/L Glucose 186 (H) 70 - 100 MG/DL Blood Urea Nitrogen 63 (H) 7 - 25 MG/DL Creatinine 4.43 (H) 0.4 - 1.00 MG/DL Calcium 7.9 (L) 8.5 - 10.6 MG/DL Total Protein 4.7 (L) 6.0 - 8.0 G/DL Total Bilirubin 0.2 (L) 0.3 - 1.2 MG/DL Albumin 2.2 (L) 3.5 - 5.0 G/DL Alk Phosphatase 88 25 - 110 U/L AST (SGOT) 15 7 - 40 U/L CO2 20 (L) 21 - 30 MMOL/L ALT (SGPT) 12 7 - 56 U/L Anion Gap 10 3 - 12 eGFR Non 12 (L) >60 mL/min eGFR 14 (L) >60 mL/min MAGNESIUM Collection Time: 04/16/19 10:20 AM # # Low-High Magnesium 2.7 (H) 1.6 - 2.6 mg/dL POC GLUCOSE Collection Time: 04/16/19 10:58 AM # # Low-High Glucose, POC 120 (H) 70 - 100 MG/DL BASIC METABOLIC PANEL Collection Time: 04/16/19 11:30 AM # # Low-High Sodium 134 (L) 137 - 147 MMOL/L Potassium 4.2 3.5 - 5.1 MMOL/L Chloride 105 98 - 110 MMOL/L CO2 19 (L) 21 - 30 MMOL/L Anion Gap 10 3 - 12 Glucose 142 (H) 70 - 100 MG/DL Blood Urea Nitrogen 64 (H) 7 - 25 MG/DL Creatinine 4.37 (H) 0.4 - 1.00 MG/DL Calcium 7.6 (L) 8.5 - 10.6 MG/DL eGFR Non 12 (L) >60 mL/min eGFR 14 (L) >60 mL/min MAGNESIUM Collection Time: 04/16/19 11:30 AM # # Low-High Magnesium 2.7 (H) 1.6 - 2.6 mg/dL BETA HYDROXYBUTYRATE (KETONES) Collection Time: 04/16/19 11:30 AM # # Low-High Beta Hydroxybutyrate 0.2 <0.3 MMOL/L POC GLUCOSE Collection Time: 04/16/19 12:44 PM # # Low-High Glucose, POC 249 (H) 70 - 100 MG/DL POC GLUCOSE Collection Time: 04/16/19 1:45 PM # # Low-High Glucose, POC 263 (H) 70 - 100 MG/DL POC GLUCOSE Collection Time: 04/16/19 2:53 PM # # Low-High Glucose, POC 178 (H) 70 - 100 MG/DL POC GLUCOSE Collection Time: 04/16/19 4:01 PM # # Low-High Glucose, POC 146 (H) 70 - 100 MG/DL POC GLUCOSE Collection Time: 04/16/19 4:34 PM # # Low-High Glucose, POC 179 (H) 70 - 100 MG/DL POC GLUCOSE Collection Time: 04/16/19 5:38 PM # # Low-High Glucose, POC 172 (H) 70 - 100 MG/DL POC GLUCOSE Collection Time: 04/16/19 6:36 PM # # Low-High Glucose, POC 139 (H) 70 - 100 MG/DL POC GLUCOSE Collection Time: 04/16/19 7:27 PM # # Low-High Glucose, POC 116 (H) 70 - 100 MG/DL POC GLUCOSE Collection Time: 04/16/19 8:22 PM # # Low-High Glucose, POC 121 (H) 70 - 100 MG/DL POC GLUCOSE Collection Time: 04/16/19 9:28 PM # # Low-High Glucose, POC 105 (H) 70 - 100 MG/DL PHOSPHORUS Collection Time: 04/16/19 10:42 PM # # Low-High Phosphorus 4.5 2.0 - 4.5 MG/DL BASIC METABOLIC PANEL Collection Time: 04/16/19 10:42 PM # # Low-High Sodium 136 (L) 137 - 147 MMOL/L Potassium 4.5 3.5 - 5.1 MMOL/L Chloride 107 98 - 110 MMOL/L CO2 21 21 - 30 MMOL/L Anion Gap 8 3 - 12 Glucose 73 70 - 100 MG/DL Blood Urea Nitrogen 63 (H) 7 - 25 MG/DL Creatinine 4.27 (H) 0.4 - 1.00 MG/DL Calcium 7.8 (L) 8.5 - 10.6 MG/DL eGFR Non 12 (L) >60 mL/min eGFR 15 (L) >60 mL/min MAGNESIUM Collection Time: 04/16/19 10:42 PM # # Low-High Magnesium 2.6 1.6 - 2.6 mg/dL POC GLUCOSE Collection Time: 04/16/19 11:20 PM # # Low-High Glucose, POC 97 70 - 100 MG/DL POC GLUCOSE Collection Time: 04/17/19 1:43 AM # # Low-High Glucose, POC 129 (H) 70 - 100 MG/DL POC GLUCOSE Collection Time: 04/17/19 3:59 AM # # Low-High Glucose, POC 168 (H) 70 - 100 MG/DL PHOSPHORUS Collection Time: 04/17/19 4:16 AM # # Low-High Phosphorus 4.7 (H) 2.0 - 4.5 MG/DL MAGNESIUM Collection Time: 04/17/19 4:16 AM # # Low-High Magnesium 2.6 1.6 - 2.6 mg/dL COMPREHENSIVE METABOLIC PANEL Collection Time: 04/17/19 4:16 AM # # Low-High Sodium 134 (L) 137 - 147 MMOL/L Potassium 4.5 3.5 - 5.1 MMOL/L Chloride 105 98 - 110 MMOL/L Glucose 152 (H) 70 - 100 MG/DL Blood Urea Nitrogen 59 (H) 7 - 25 MG/DL Creatinine 4.27 (H) 0.4 - 1.00 MG/DL Calcium 7.9 (L) 8.5 - 10.6 MG/DL Total Protein 4.8 (L) 6.0 - 8.0 G/DL Total Bilirubin 0.2 (L) 0.3 - 1.2 MG/DL Albumin 2.2 (L) 3.5 - 5.0 G/DL Alk Phosphatase 85 25 - 110 U/L AST (SGOT) 14 7 - 40 U/L CO2 22 21 - 30 MMOL/L ALT (SGPT) 12 7 - 56 U/L Anion Gap 7 3 - 12 eGFR Non 12 (L) >60 mL/min eGFR 15 (L) >60 mL/min CBC AND DIFF Collection Time: 04/17/19 4:16 AM # # Low-High White Blood Cells 7.6 4.5 - 11.0 K/UL RBC 2.55 (L) 4.0 - 5.0 M/UL Hemoglobin 7.5 (L) 12.0 - 15.0 GM/DL Hematocrit 22.0 (L) 36 - 45 % MCV 86.1 80 - 100 FL MCH 29.6 26 - 34 PG MCHC 34.3 32.0 - 36.0 G/DL RDW 13.8 11 - 15 % Platelet Count 239 150 - 400 K/UL MPV 8.0 7 - 11 FL Neutrophils 71 41 - 77 % Lymphocytes 18 (L) 24 - 44 % Monocytes 7 4 - 12 % Eosinophils 3 0 - 5 % Basophils 1 0 - 2 % Absolute Neutrophil Count 5.40 1.8 - 7.0 K/UL Absolute Lymph Count 1.40 1.0 - 4.8 K/UL Absolute Monocyte Count 0.50 0 - 0.80 K/UL Absolute Eosinophil Count 0.20 0 - 0.45 K/UL Absolute Basophil Count 0.10 0 - 0.20 K/UL Radiology, Microbiology, and other Diagnostics Review CT Abd/Pelvis wo (04/16) 1. DEVELOPMENT OF MILD ABDOMINAL/PELVIC ASCITES WITH MESENTERIC CONGESTION. 2. PERSISTENT PROMINENCE OF THE APPENDIX WITH SMALL APPENDICOLITHS. THERE IS HAZ INESS AROUND THE PROMINENT APPENDIX, WHICH MAY BE ASSOCIATED WITH ABDOMINAL/PELV IC ASCITES. APPENDICITIS IS STILL A CONSIDERATION. CLINICAL AND LABORATORY CORRE LATION IS SUGGESTED. 3. PERSISTENT MILD HEPATOMEGALY AND UPPER LIMITS OF NORMAL SIZE SPLEEN. 4. ANEMIA. 5. MILD TO MODERATE ANASARCA. VISION AND RADIO REPAIRER Associated attestation - Melony Britt MD - 04/17/2019 2:35 PM TELEVISION AND RADIO REPAIRER ATTESTATION I personally performed the medrano portions of the E/M visit, discussed case with re sident and concur with resident documentation of history, physical exam, assessm ent, and treatment plan unless otherwise noted. Attempting to clarify surgical plans given the patient's appendiceal thickening on CT and concern for chronic appendicitis. Discontinue IV antibiotics if no frank gical indication. Continue subcutaneous insulin with resolution of DKA. Discuss with primary story teller tomorrow given patient/ concern for recurrent t ransfers from OSH to with no indication for HD. Staff name: Melony Britt MD Date: 04/17/2019 * Delicia Arechiga RN - 04/16/2019 8:17 PM TELEVISION AND RADIO REPAIRER Patient BP-173/112 with HR- 120. Dr. Perez paged and notified. Dr. Perez said sh e will put in order to give Labetalol if SBP is over 180. VISION AND RADIO REPAIRER * Jessica Calles MD - 04/16/2019 7:06 AM TELEVISION AND RADIO REPAIRER General Progress Note Med 3 Name: Patito Lugo : 1985 Date: 04/16/2019 7:06 AM Admission: 04/15/2019 LOS: 1 Assessment and Plan Active Problems: Acute on chronic renal insufficiency Patito Lugo is a 33 y.o. female with Type 1 Diabetes mellitus, CKD Sta ge III 2' Diabetic Nephropathy, Hypertension, Hyperlipidemia, h/o Migraines who presented to OSH with acute (1 week) on chronic (3 month) abdominal pain found t o be in DKA and with acute renal failure, transferred to [facility] for management. # Diabetic Ketoacidosis: RESOLVED # Type 1 Diabetes Mellitus # Abdominal Pain - HgbA1c (04/16): 10.1% -- Repeat pending - BRIAR [employer]TER: Insulin Detemir 22U nightly / Insulin Aspart 1U Q6H - History of leaving AMA due to being "fed up with her insulin management" - Presented to OSH with acute on chronic (3 month) abdominal pain in context of sick family members, found with blood glucose > 500 / AG 17, transferred to [facility] for her establishment with renal transplant? - ADMIT: AG 13 / CO2 18 / b-OHb 4 -> (04/16): 0.2 - PE: Benign abdominal exam - Started on DKA protocol with insulin drip w/ Q1 blood glucose and Q2 BMP, Mg, Phos, and NS 150 mL/hr. Closed gap quickly with resolution of hyperglycemia, sw itched form NS to D5 1/2NS 04/16 AM. Plan: > Follow up HgbA1c -- DONE > Follow up CT Abd/Pelvis > START Insulin Glargine 22U at 12:00 -- Patient refused Glargine, will do detemir > START [employer]TER Insulin Detemir 22U > Continue to monitor Electrolytes with BMP / Mg / Phos Q4H > Continue Insulin gtt > Continue NS 150 mL/hr > Continue Blood Glucose Q1H > Continue BMP / Mg / Phos Q2H # Concern Appendicitis - PE: Tenderness to palpation in right lower quadrant, Non-severe - CT A/P (04/16): Development mild abdominal/pelvic ascites w/ mesenteric conge stion, prominence of appendix w/ small appendicoliths, consideration appendiciti s, persistent mild hepatomegaly and upper limits of normal size spleen, mild to moderate anasarca Plan: > Consult General Surgery -- Done > START Ceftriaxone 2g Q24H > START Metronidazole 500 mg Q8H # DAILY on CKD # CKD Stage III # Diabetic Nephropathy - Cr (baseline): ~1.5 -> (01/2019): 2.9 -> (admit, 04/16): 4.33 - Follows with Nephrology, Dr. Hendrickson - Fluid resuscitation for DKA, may need dialysis for overload - UA (04/16): 3+ Glu / 1+ Ket / 3+ Protein / Few Bacteria - FENa (04/16): 1.6%, Intrinsic - Microalbumin/Cr (04/16): 6006 Plan: > Continue to monitor with BMP daily > Strict I/O > HOLD B[employer]TER Furosemide and Losartan for acute worsening renal function > Monitor Electrolytes Closely # Hypertension - BRI[employer]TER: Losartan 25 mg daily / Furosemide 80 mg BID (taking 40 mg BID) / KCl 10 mEq daily - Blood pressure 240/150 at outside ED, 156/99 upon presentation to [facility] - has had difficulty controlling blood pressure for about a year - around that t windy she was diagnosed with kidney disease and had pre-eclampsia with her younges t child. Plan: > Continue to monitor blood pressure > Continue to HOLD B[employer] Furosemide > Continue to HOLD [employer] Losartan 25 mg daily # H/o Migraines - (04/16): Patient reporting migraine morning of 04/16 with associated nausea ( confounding with DKA, concern appendicitis) and sensitivity to light, improved w ith migraine cocktail of compazine + benadryl Plan: > Continue [employer] Nortriptyline 10 mg nightly # Normocytic Anemia of Chronic Disease # Setting of CKD - Hgb last admit 7.6-8.1 - Hgb (admit): 7.5 -> 7.0 - Iron (06/2018): Fe 51 / 21% Sat / TIBC 238 / Ferritin 237 - Anemia of Chronic disease Plan: > Continue [employer] Ferrous sulfate 325 mg daily # Hyperlipidemia - Lipids (04/15): TC 504 / LDL 142 / HDL 41 / TG 916 On Discharge: > START Atorvastatin 40 mg nightly # Mood > Continue [employer] Sertraline 50 mg daily # GERD > Continue [employer] Pantoprazole 40 mg daily # Amy's Thyroiditis, TSH 2.43 # Rheumatoid Arthritis FEN: STOP IVF / Monitor electrolytes and replace PRN / DIET DIABETIC (STANDARD) CONSISTENT CARB PPx DVT: Enoxaparin 30 mg nightly Lines/drains: PIV x 2 Code Status: Full Code Isolation: None Disposition: Continue admission to Med-3 service for DKA and acute on chronic re nal failure. Dispo Goals: 1. Close Anion Gap -- Met (04/16) 2. Improvement DAILY / production of urine -- Pending (04/16) 3. Glucose stable on home regimen -- Pending (04/16) 4. Electrolytes stabilized 24 hours -- Pending (04/16) Patient seen and discussed with Dr. Britt who agrees with the above assessment an d plan Jessica Calles MD Internal Medicine, PGY-1 Pager: [phone] Med-3 Pager: [phone] Interval History Patient admitted overnight. Patient seen this morning while laying in bed. Pat ient appeared very uncomfortable, as well as nauseous. Patient reported having a fairly significant migraine with associated nausea, reporting this is similar to her baseline migraines. This is also compounded by the fact that she is curr ently in DKA. Patient was alert and oriented, and mostly responsive with questi ons. Patient was seen a few minutes after she had been administered a migraine cockta il consisting of Benadryl and Compazine. Patient was somnolent, refused to open her eyes, and would only answer questions when asked twice and would do so cons istently, however appeared to have good understanding and good orientation. Patient denied subjective fevers, chills, new onset or rash. Medications Hospital Medications Scheduled Meds DEXTROSE 50 % IN WATER (D50W) IV SOLP (Cabinet Override), , , NOW enoxaparin (LOVENOX) syringe 30 mg, 30 mg, Subcutaneous, QDAY(21) ferrous sulfate (FEOSOL) tablet 325 mg, 325 mg, Oral, QDAY insulin (REGULAR) BOLUS for continuous infusion 10 Units, 10 Units, Intravenous, ONCE nortriptyline (PAMELOR) capsule 10 mg, 10 mg, Oral, QHS pantoprazole DR (PROTONIX) tablet 40 mg, 40 mg, Oral, QDAY sertraline (ZOLOFT) tablet 50 mg, 50 mg, Oral, QDAY Continuous Infusions: insulin regular 100 units/NS 100 mL IV drip (premade) 3.5 Units/hr (04/16/19 06) sodium chloride 0.9 % infusion Stopped (04/16/19 0120) PRN and Respiratory Meds: acetaminophen, 650 mg, Q6H PRN ondansetron, 4-8 mg, Q8H PRN Physical Exam Vital Signs: Last Filed in 24 hours Vital Signs: 24 hour Range BP: 148/108 (04/16 555) Temp: 36.6 C (97.9 F) (04/16 555) Pulse: 118 (04/16 555) Respirations: 16 PER MINUTE (04/16 555) SpO2: 99 % (04/16 555) Height: 172.7 cm (68") (04/15 2233) BP: (136-169)/(96-114) Temp: [36.6 C (97.9 F)-36.7 C (98 F)] Pulse: [118-128] Respirations: [14 PER MINUTE-16 PER MINUTE] SpO2: [97 %-100 %] Body mass index is 27.93 kg/m. Intake/Output Summary (Last 24 hours) at 04/16/2019 0706 Last data filed at 04/16/2019 0600 Gross per 24 hour Intake 710.56 ml Output 900 ml Net -189.44 ml Physical Exam General: Uncomfortably, appeared with nausea. Alert and oriented to person, pl loretta, time, and situation. Well developed and well nourished. HEENT: Head: Normocephalic and atraumatic Eyes: Pupils equal, round, and reactive to light. EOM intact. Conjunctivae no rmal. Neck: Supple, normal range of motion. No lymphadenopathy. Throat: Mucus membranes moist. No erythema, exudates, oral lesions or thrush. Cardiovascular: Tachycardic. No murmurs, rubs or gallops. No heaves, lifts, o r thrills. Pulmonary: Lungs clear bilaterally to auscultation with no wheezes or rhonchi. Effort appropriate on room air Abdominal: Soft, non-distended. Mild tenderness to palpation right lower quadr ant. No tenderness on rest of exam, no rebound, guarding or rigidity. Neuro: No gross neurological deficits, moving all limbs spontaneously Extremities: No clubbing, cyanosis, or edema of bilateral extremities. Radial or dorsalis pedis, 2+ bilaterally. Capillary refill upper and lower extremiti es < 2 seconds bilaterally. Skin: Warm, dry and intact. No bruising, cyanosis, rashes, or abnormal lesions noted. Labs Results for orders placed or performed during the hospital encounter of 04/15/19 (from the past 24 hour(s)) POC GLUCOSE Collection Time: 04/15/19 11:16 PM # # Low-High Glucose, POC 521 (HH) 70 - 100 MG/DL CBC AND DIFF Collection Time: 04/15/19 11:50 PM # # Low-High White Blood Cells 7.7 4.5 - 11.0 K/UL RBC 2.46 (L) 4.0 - 5.0 M/UL Hemoglobin 7.5 (L) 12.0 - 15.0 GM/DL Hematocrit 21.5 (L) 36 - 45 % MCV 87.4 80 - 100 FL MCH 30.4 26 - 34 PG MCHC 34.7 32.0 - 36.0 G/DL RDW 14.0 11 - 15 % Platelet Count 222 150 - 400 K/UL MPV 8.6 7 - 11 FL Neutrophils 78 (H) 41 - 77 % Lymphocytes 13 (L) 24 - 44 % Monocytes 6 4 - 12 % Eosinophils 2 0 - 5 % Basophils 1 0 - 2 % Absolute Neutrophil Count 6.10 1.8 - 7.0 K/UL Absolute Lymph Count 1.00 1.0 - 4.8 K/UL Absolute Monocyte Count 0.40 0 - 0.80 K/UL Absolute Eosinophil Count 0.10 0 - 0.45 K/UL Absolute Basophil Count 0.10 0 - 0.20 K/UL COMPREHENSIVE METABOLIC PANEL Collection Time: 04/15/19 11:50 PM # # Low-High Sodium 130 (L) 137 - 147 MMOL/L Potassium 5.2 (H) 3.5 - 5.1 MMOL/L Chloride 99 98 - 110 MMOL/L Glucose 553 (HH) 70 - 100 MG/DL Blood Urea Nitrogen 67 (H) 7 - 25 MG/DL Creatinine 4.30 (H) 0.4 - 1.00 MG/DL Calcium 7.6 (L) 8.5 - 10.6 MG/DL Total Protein 4.8 (L) 6.0 - 8.0 G/DL Total Bilirubin 0.2 (L) 0.3 - 1.2 MG/DL Albumin 2.3 (L) 3.5 - 5.0 G/DL Alk Phosphatase 95 25 - 110 U/L AST (SGOT) 15 7 - 40 U/L CO2 18 (L) 21 - 30 MMOL/L ALT (SGPT) 11 7 - 56 U/L Anion Gap 13 (H) 3 - 12 eGFR Non 12 (L) >60 mL/min eGFR 14 (L) >60 mL/min MAGNESIUM Collection Time: 04/15/19 11:50 PM # # Low-High Magnesium 2.7 (H) 1.6 - 2.6 mg/dL PHOSPHORUS Collection Time: 04/15/19 11:50 PM # # Low-High Phosphorus 5.1 (H) 2.0 - 4.5 MG/DL LIPID PROFILE Collection Time: 04/15/19 11:50 PM # # Low-High Cholesterol 504 (H) <200 MG/DL Triglycerides 916 (H) <150 MG/DL HDL 41 >40 MG/DL LDL 142 (H) <100 mg/dL VLDL 183 MG/DL Non HDL Cholesterol 463 MG/DL LACTIC ACID(LACTATE) Collection Time: 04/15/19 11:50 PM # # Low-High Lactic Acid 0.5 0.5 - 2.0 MMOL/L BETA HYDROXYBUTYRATE (KETONES) Collection Time: 04/15/19 11:50 PM # # Low-High Beta Hydroxybutyrate 4.0 (H) <0.3 MMOL/L URINALYSIS DIPSTICK Collection Time: 04/16/19 12:08 AM # # Low-High Color,UA YELLOW Turbidity,UA 1+ (A) CLEAR-CLEAR Specific [place]-Urine 1.015 1.003 - 1.035 pH,UA 6.0 5.0 - 8.0 Protein,UA 3+ (A) NEG-NEG Glucose,UA 3+ (A) NEG-NEG Ketones,UA 1+ (A) NEG-NEG Bilirubin,UA NEG NEG-NEG Blood,UA NEG NEG-NEG Urobilinogen,UA NORMAL NORM-NORMAL Nitrite,UA NEG NEG-NEG Leukocytes,UA NEG NEG-NEG Urine Ascorbic Acid, UA NEG NEG-NEG URINALYSIS, MICROSCOPIC Collection Time: 04/16/19 12:08 AM # # Low-High WBCs,UA 2-10 0 - 2 /HPF RBCs,UA 2-10 0 - 3 /HPF MucousUA TRACE Bacteria,UA FEW (A) NEG-NEG Squamous Epithelial Cells 5-10 0 - 5 Hyaline Cast 2-5 SODIUM-URINE RANDOM Collection Time: 04/16/19 12:08 AM # # Low-High Sodium, Random 39 MMOL/L CREATININE-URINE RANDOM Collection Time: 04/16/19 12:08 AM # # Low-High Creatinine, Random 72 MG/DL UREA NITROGEN-URINE RANDOM Collection Time: 04/16/19 12:08 AM # # Low-High Urea Nitrogen 380 MG/DL POC GLUCOSE Collection Time: 04/16/19 1:19 AM # # Low-High Glucose, POC >600 (HH) 70 - 100 MG/DL POC GLUCOSE Collection Time: 04/16/19 2:34 AM # # Low-High Glucose, POC >600 (HH) 70 - 100 MG/DL POC GLUCOSE Collection Time: 04/16/19 3:48 AM # # Low-High Glucose, POC 468 (H) 70 - 100 MG/DL BASIC METABOLIC PANEL Collection Time: 04/16/19 3:50 AM # # Low-High Sodium 132 (L) 137 - 147 MMOL/L Potassium 4.5 3.5 - 5.1 MMOL/L Chloride 102 98 - 110 MMOL/L CO2 17 (L) 21 - 30 MMOL/L Anion Gap 13 (H) 3 - 12 Glucose 450 (H) 70 - 100 MG/DL Blood Urea Nitrogen 67 (H) 7 - 25 MG/DL Creatinine 4.33 (H) 0.4 - 1.00 MG/DL Calcium 7.9 (L) 8.5 - 10.6 MG/DL eGFR Non 12 (L) >60 mL/min eGFR 14 (L) >60 mL/min MAGNESIUM Collection Time: 04/16/19 3:50 AM # # Low-High Magnesium 2.6 1.6 - 2.6 mg/dL POC GLUCOSE Collection Time: 04/16/19 5:47 AM # # Low-High Glucose, POC 287 (H) 70 - 100 MG/DL POC GLUCOSE Collection Time: 04/16/19 6:21 AM # # Low-High Glucose, POC 277 (H) 70 - 100 MG/DL Radiology, Microbiology, and other Diagnostics Review CT Abd/Pelvis wo (04/16) 1. DEVELOPMENT OF MILD ABDOMINAL/PELVIC ASCITES WITH MESENTERIC CONGESTION. 2. PERSISTENT PROMINENCE OF THE APPENDIX WITH SMALL APPENDICOLITHS. THERE IS HAZ INESS AROUND THE PROMINENT APPENDIX, WHICH MAY BE ASSOCIATED WITH ABDOMINAL/PELV IC ASCITES. APPENDICITIS IS STILL A CONSIDERATION. CLINICAL AND LABORATORY CORRE LATION IS SUGGESTED. 3. PERSISTENT MILD HEPATOMEGALY AND UPPER LIMITS OF NORMAL SIZE SPLEEN. 4. ANEMIA. 5. MILD TO MODERATE ANASARCA. VISION AND RADIO REPAIRER Associated attestation - Melony Britt MD - 04/16/2019 4:25 PM TELEVISION AND RADIO REPAIRER ATTESTATION I personally performed the medrano portions of the E/M visit, discussed case with re sident and concur with resident documentation of history, physical exam, assessm ent, and treatment plan unless otherwise noted. AG closed with insulin drip, FS improving. Will plan on transitioning to subcuta neous insulin (glargine 18 units daily and postmeal aspart with ICR 12 and MDCF) . Surgery following but no plans for OR currently. Staff name: Melony Britt MD Date: 04/16/2019 * Zaida High, RT - 04/16/2019 1:47 AM TELEVISION AND RADIO REPAIRER RT Adult Assessment Note NAME:Patito Lugo :1985 AGE: 33 y.o. ADMISSION DATE: 04/15/2019 DAYS ADMITTED: LOS: 1 day RT Treatment Plan: Additional Comments: Impressions of the patient: Pt alert and oriented. RA. No distress. Intervention(s)/outcome(s): none Patient education that was completed: none Recommendations to the care team: criteria not met Vital Signs: Pulse: (!) 124 RN notified RR: 16 PER MINUTE SpO2: 97 % O2 Device: Liter Flow: O2%: 21 % Breath Sounds: Respiratory Effort: Non-Labored VISION AND RADIO REPAIRER * Nette Hale RN - 04/16/2019 12:25 AM TELEVISION AND RADIO REPAIRER 04/15/19 2350 Vitals Pulse (!) 124 SpO2 100 % $$ O2 Delivery RA BP (!) 165/109 (Dr. Perez notified) Mean NBP (Calculated) 128 MM HG NBP MAP (Manual Entry) 124 mm Hg Heart Rhythm Regular Monitored Rhythm ST Pt hypertensive with elevated HR in 120s upon admission to [facility]. EMS transfer pt on Cardene gtt, d/c'd as no current orders for Cardene. Blood sugar critical res ult 521 - Dr. Perez notified of pt condition, see critical result documentation for further information. Labs drawn & sent. Pt c/o migraine pain headache and RLQ abdominal pain. MD to place orders & RN to continue to monitor. VISION AND RADIO REPAIRER * Nette Hale RN - 04/15/2019 11:00 PM TELEVISION AND RADIO REPAIRER Patient arrived to room #[id number] cart accompanied by transport- EMS. Patient tr ansferred to the bed with assistance. Bedside safety checks completed. Initial p atient assessment completed. Refer to flowsheet for details. Admission skin assessment completed with: ANDREEA Guerrero Pressure injury present on arrival?: No 1. Head/Face/Neck: No 2. Trunk/Back: No 3. Upper Extremities: No 4. Lower Extremities: No 5. Pelvic/Coccyx: No 6. Assessed for device associated injury? Yes 7. Malnutrition Screening Tool (Nursing Nutrition Assessment) Completed? Yes- Sc ore 0 See Doc Flowsheet for additional wound details. INTERVENTIONS: VISION AND RADIO REPAIRER documented in this encounter H&P Notes * Pat Perez MD - 04/15/2019 11:53 PM TELEVISION AND RADIO REPAIRER Admission History and Physical Examination Name: Patito Lugo MRN: [id number] Admission Date: 04/15/2019 Assessment/Plan: Active Problems: Acute on chronic renal insufficiency DM1 Diabetic Ketoacidosis Abdominal Pain -poor glycemic control at baseline, recent A1c of 10.7% -blood glucose >500 with anion gap of 17 (outside ED), and gap of 13 on admission labs. CO2 low at 18. Beta-hydroxybutyrate elevated at 4. -acute worsening of 3 months of abdominal pain in the context of sick family mem bers. Chronic pain likely related to HTN, acute pain/nausea likely contributed t o DKA -benign abdominal exam -will need to rule out intra-abdominal pathology Plan: >Hgb A1c >lipid panel >5 U insulin bolus >initiate adult DKA protocol and insulin drip >Q1 blood glucose >Q2 BMP, Mg, Phos initially >NS rehydration at 150cc/hr >abdominal CT Hypertension Acute on chronic renal failure -blood pressure 240/150 at outside ED -156/99 upon presentation to [facility] -has had difficulty controlling blood pressure for about a year - around that ti me she was diagnosed with kidney disease and had pre-eclampsia with her youngest child. -on furosemide and losartan as an outpatient -following w/ transplant nephrology for possible future transplant -baseline Cr ~1.5, elevated to 4.3 upon presentation -fluid resuscitation for DKA, however may need dialysis for overload Plan; >hold furosemide and losartan due to acute worsening renal function >consult transplant nephrology >urinalysis >protein/creatinine ratio >urine electrolytes Migraine >continue [employer] nortriptyline Anemia -Iron studies last performed here in June 2018. Low iron, normal %saturation, low TIBC, and elevated ferritin. -kidney disease a contributing factor Plan: >continue iron supplementation FEN: diabetic clear liquids, NS 150/hr, replace lytes pRN Code: full code Dispo: admit to medicine __ Primary Care Physician: David Plunkett III not verified at this time Chief Complaint: Abdominal pain, found to have DAILY on CKD and DKA. History of Present Illness: Patito Lugo is a 33 y.o. female who presen gilberto to outside ED with a 3 month history of right sided abdominal pain, which rivers s worsened over the past week to the point that it woke her from sleep multiple times. She has found no alleviating factors, and eating, movement, and bowel mov ements are all aggravating factors. She has had some nausea and vomiting. No con stipation, diarrhea, or change in stool color. She notes that many of her family members have recently been sick with nausea, vomiting, and body aches. She repo ts they were negative for influenza. She denies unusual levels of thirst, changes in urination. She has had subjectiv e fevers and chills. She has difficulty tolerating both heat and cold. Medical History: Diagnosis Date Arm vein blood clot, left Diabetes type 1, uncontrolled (HCC) h/o multiple DKA admissions Diabetic neuropathy (HCC) Fibromyalgia Amy's disease Restless leg syndrome Rheumatoid arthritis (HCC) Surgical History: Procedure Laterality Date SECTION 05/2011 CARPAL TUNNEL RELEASE Bilateral 10/2014 CHOLECYSTECTOMY 2017 DELIVERY N/A 04/19/2018 Performed by Kavya Sanders MD at [facility] TONSIL AND ADENOIDECTOMY KNEE ARTHROSCOPY Left Family history reviewed; non-contributory Social History Socioeconomic History Marital status: Spouse name: Not on file Number of children: Not on file Years of education: Not on file Highest education level: Not on file Occupational History Not on file Social Needs Financial resource strain: Not on file Food insecurity: Worry: Not on file Inability: Not on file Transportation needs: Medical: Not on file Non-medical: Not on file Tobacco Use Smoking status: Never Smoker Smokeless tobacco: Never Used Substance and Sexual Activity Alcohol use: No Drug use: No Sexual activity: Yes Partners: Male Lifestyle Physical activity: Days per week: Not on file Minutes per session: Not on file Stress: Not on file Relationships Social connections: Talks on phone: Not on file Gets together: Not on file Attends catholic service: Not on file Active member of club or organization: Not on file Attends meetings of clubs or organizations: Not on file Relationship status: Not on file Intimate partner violence: Fear of current or ex partner: Not on file Emotionally abused: Not on file Physically abused: Not on file Forced sexual activity: Not on file Other Topics Concern Not on file Social History Narrative Pt lives in [place], [place] with her , 3 step kids and her son. 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 Denies IPV. Immunizations (includes history and patient reported): Immunization History Administered Date(s) Administered Flu Vaccine =>6 Months Quadrivalent PF 12/02/2017 MMR Vaccine 04/23/2018 Tdap Vaccine 04/22/2018 Allergies: Codeine and Insulin regular, human Medications: Medications Prior to Admission Medication Sig acetaminophen (TYLENOL) 500 mg tablet Take 1,000 mg by mouth daily as needed for Pain. Max of 4,000 mg of acetaminophen in 24 hours. calcium carbonate (TUMS) 500 mg (200 mg elemental calcium) chewable tablet C hew 500 mg by mouth daily as needed. ciprofloxacin (CIPRO) 250 mg tablet Take two tablets by mouth daily. ferrous gluconate (FERGON) 240 mg (27 mg iron) tablet Take one tablet by cris th three times daily with meals. ferrous sulfate 325 mg (65 mg iron) tablet Take one tablet by mouth three ti mes daily with meals. (Patient taking differently: Take 325 mg by mouth daily.) FIASP FLEXTOUCH U-100 INSULIN 100 unit/mL (3 mL) injectable PEN Inject 1 Uni ts under the skin every 6 hours. furosemide (LASIX) 40 mg tablet TAKE TWO TABLETS BY MOUTH TWICE A DAY (Patie nt taking differently: Take 40 mg by mouth twice daily.) insulin detemir U-100(+) (LEVEMIR) 100 unit/mL vial Inject 22 Units under th e skin at bedtime daily. levonorgestrel (MIRENA) 20 mcg/24 hours (5 yrs) 52 mg intrauterine device 1 Intra Uterine Device by Intrauterine route once. losartan (COZAAR) 25 mg tablet Take one tablet by mouth daily. Magnesium 250 mg tab Take 250 mg by mouth daily. metroNIDAZOLE (FLAGYL) 500 mg tablet Take one tablet by mouth three times da fredi. Take with food. Do not drink alcohol while on metronidazole. nortriptyline (PAMELOR) 10 mg capsule Take one [...] 1 g by mouth three times daily. Golden e on an empty stomach. Review of Systems: Constitutional: positive for fevers, chills and fatigue Eyes: positive for visual disturbance, negative for redness and icterus Ears, nose, mouth, throat, and face: positive for dry mouth, negative for hearin g loss, nasal congestion and sore throat Respiratory: negative for cough, sputum, pleurisy/chest pain or dyspnea on exert ion Cardiovascular: positive for tachycardia, negative for chest pain, chest pressur e/discomfort, palpitations Gastrointestinal: positive for reflux symptoms, nausea, vomiting and abdominal p ain, negative for change in bowel habits, diarrhea, constipation, and melena Genitourinary:negative for dysuria and change in urinary habits Integument/breast: negative for rash and skin lesion(s) Hematologic/lymphatic: negative for bleeding Musculoskeletal:positive for arthralgias and stiff joints, negative for muscle w eakness Neurological: positive for headaches Behavioral/Psych: positive for sleep disturbance, negative for tobacco use Endocrine: positive for Diabetes mellitus Type I and temperature intolerance Physical Exam: Vital Signs: Last Filed In 24 Hours Vital Signs: 24 Hour Range BP: 156/96 (04/15 2233) Temp: 36.7 C (98 F) (04/15 2233) Pulse: 121 (04/15 2233) Respirations: 14 PER MINUTE (04/15 2233) SpO2: 98 % (04/15 2233) Height: 172.7 cm (68") (04/15 2233) BP: (156)/(96) Temp: [36.7 C (98 F)] Pulse: [121] Respirations: [14 PER MINUTE] SpO2: [98 %] Intensity Pain Scale (Self Report): 5 (04/15/192233) Intensity Pain Scale (Self Report): 6 (04/15/192233) General: Alert, cooperative, no distress, appears stated age Head: Normocephalic, without obvious abnormality, atraumatic Eyes: conjunctivae and corneas clear, pupils equal round and reactive, constric tion is sluggish, EOM intact Throat: teeth and gums normal, mucosa dry Lungs: Clear to auscultation bilaterally Chest wall: No tenderness or deformity. Heart: regular rhythm, rapid rate, no murmur Abdomen: soft, no guarding or rebound tenderness, no masses, no organomegaly, b owel sounds normal, Sandhu's sign negative, RUQ tenderness described Extremities: extremities atraumatic, no cyanosis, 2+ edema to knees bilaterally Peripheral pulses 2+ and symmetric dorsalis pedis Skin: Skin color, texture, turgor normal. No rashes or lesions Lab/Radiology/Other Diagnostic Tests: 24-hour labs: Results for orders placed or performed during the hospital encounter of 04/15/19 (from the past 24 hour(s)) POC GLUCOSE Collection Time: 04/15/19 11:16 PM Result Value Ref Range Glucose, POC 521 (HH) 70 - 100 MG/DL CBC AND DIFF Collection Time: 04/15/19 11:50 PM Result Value Ref Range White Blood Cells 7.7 4.5 - 11.0 K/UL RBC 2.46 (L) 4.0 - 5.0 M/UL Hemoglobin 7.5 (L) 12.0 - 15.0 GM/DL Hematocrit 21.5 (L) 36 - 45 % MCV 87.4 80 - 100 FL MCH 30.4 26 - 34 PG MCHC 34.7 32.0 - 36.0 G/DL RDW 14.0 11 - 15 % Platelet Count 222 150 - 400 K/UL MPV 8.6 7 - 11 FL Neutrophils 78 (H) 41 - 77 % Lymphocytes 13 (L) 24 - 44 % Monocytes 6 4 - 12 % Eosinophils 2 0 - 5 % Basophils 1 0 - 2 % Absolute Neutrophil Count 6.10 1.8 - 7.0 K/UL Absolute Lymph Count 1.00 1.0 - 4.8 K/UL Absolute Monocyte Count 0.40 0 - 0.80 K/UL Absolute Eosinophil Count 0.10 0 - 0.45 K/UL Absolute Basophil Count 0.10 0 - 0.20 K/UL LACTIC ACID(LACTATE) Collection Time: 04/15/19 11:50 PM Result Value Ref Range Lactic Acid 0.5 0.5 - 2.0 MMOL/L POC Glucose (Download): (!) 521 (04/15/19 4985) Pertinent radiology reviewed. Pat Perez MD Pager VISION AND RADIO REPAIRER Associated attestation - Michele Cruz MBBS - 04/16/2019 5:29 AM TELEVISION AND RADIO REPAIRER ATTESTATION I personally performed the medrano portions of the E/M visit, discussed case with re sident and concur with resident documentation of history, physical exam, assessm ent, and treatment plan unless otherwise noted. Staff name: Michele Cruz MD Date: 04/15/2019 documented in this encounter Consult Notes * Mart Hendrickson MD - 04/18/2019 6:13 PM TELEVISION AND RADIO REPAIRER Associated Order(s): CONSULT NEPHROLOGY PHYSICIAN Renal Consult Patito Naomy 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 - worsening renal function in the setting of multiple admissions and ER visits f or DKA - UA with 3+ prt, neg blood, few bacteria, 3+ glucose; Pr/Cr 7.2, ACR 6000 - imaging shows no hydro or renal stones; prior ultrasound with normal sized kid neys, mild echogenicity - she seems to have progression of her underlying CKD and is nearing the need fo r dialysis Volume overload - significant edema on exam; ascites on imaging - has been on oral lasix Hypertension - volume dependent - not at goal Nephrotic Syndrome - alb 2.0, Pr/Cr 7.2, edema on exam and imaging - has been on losartan for medical management, but progressive condition Anemia - 1U PRBC today, hgb 6.9 - has not been on epo Type 1 DM DKA - starting insulin drip today Abdominal Pain Appendicitis, appendicolith - awaiting surgical management Recommendations - no current indication for dialysis but she is nearing the need for renal repla cement thearpy - would favor hemodialysis given co-morbid diabetes that has been difficult to c ontrol; please have vascular surgery see patient for fistula planning; would ask if intervention may be able to be coordinated with general surgery's plans - diurese for goal negative 2L/day; start with furosemide 80mg IV bid - may need to supplement albumin to augment diuresis - will start epo supplementation - strict I/O, daily standing weights - renally dose all medications Discussed with Dr. Katalina Hendrickson Nephrology PGY-4 pager [phone] History Reason for Consult: DAILY on CKD HPI: Patito Lugo is a 33 y.o. female with advanced CKD who was transfe rred to [facility] on 04/15 from [facility] where she presented with worseni ng abdominal pain and was found to have worsening renal function, prompting her transfer to a higher level of care. History is remarkable for type 1 DM with com plications of retinopathy, neuropathy, and nephropathy. Her renal function has s lowly been worsening over the last year, and her blood pressure and blood glucos e have been difficult to control during this time. Most recently she was admitte d in January with abdominal pain and found to have DKA and evidence of appendic itis that was managed with antibiotic therapy. Her renal function declined durin g that admission to a creatinine of about 3. Labs now show a creatinine in the m id-4 range. Imaging on initial presentation showed evidence of appendicitis. She was scheduled for appendectomy today but this was cancelled due to hyperglycemi a. Currently she reports ongoing fatigue, nausea, low appetite, swelling, shortn ess of breath, orthopnea. No chest pain, fever, chills, loose stools. Past Medical History Medical History: Diagnosis Date Arm vein blood clot, left Diabetes type 1, uncontrolled (HCC) h/o multiple DKA admissions Diabetic neuropathy (HCC) Fibromyalgia Amy's disease Restless leg syndrome Rheumatoid arthritis (HCC) Surgical History: Procedure Laterality Date SECTION 05/2011 CARPAL TUNNEL RELEASE Bilateral 10/2014 CHOLECYSTECTOMY 2017 DELIVERY N/A 04/19/2018 Performed by Kavya Sanders MD at [facility] TONSIL AND ADENOIDECTOMY KNEE ARTHROSCOPY Left Family History Family history reviewed; non-contributory Social History Social History Socioeconomic History Marital status: Spouse [...] file Social History Narrative Pt lives in [place], [place] with her , 3 step kids and her son. 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 Denies IPV. Medications MEDSenoxaparin, 30 mg, Subcutaneous, QDAY(21) ferrous sulfate, 325 mg, Oral, QDAY [START ON 04/19/2019] furosemide (LASIX) IV, 80 mg, Intravenous, BID(9-17) insulin aspart U-100, 0-12 Units, Subcutaneous, ACHS (22) insulin aspart U-100, 1-25 Units, Subcutaneous, TID after meals lidocaine, 1 patch, Topical, QDAY And Verification of Patch Placement and Integrity - Lidocaine 5%, , Transdermal, BID [START ON 04/19/2019] NIFEdipine XL, 30 mg, Oral, QDAY nortriptyline, 10 mg, Oral, QHS pantoprazole DR, 40 mg, Oral, QDAY sertraline, 50 mg, Oral, QDAY IV MEDS insulin regular 100 units/NS 100 mL IV drip (premade) Prn acetaminophen Q6H PRN 650 mg at 04/18/19 0430, prochlorperazine Q12H PRN * *OR magnesium oxide Q12H PRN OR diphenhydrAMINE Q12H PRN, labetalol (NORMO DYNE; TRANDATE) injection Q6H PRN, ondansetron (ZOFRAN) IV Q6H PRN 4 mg at 04/18 0913 OR ondansetron Q6H PRN, oxyCODONE Q4H PRN, traZODone QHS PRN HOME MEDS Prior to Admission Medications Prescriptions Last Dose Informant Patient Reported? Taking? FIASP FLEXTOUCH U-100 INSULIN 100 unit/mL (3 mL) injectable PEN 04/15/2019 Self Y es Yes Sig: Inject under the skin as needed for both meals and as correction. Per pt, a verages between 30-50 units daily. Magnesium 250 mg tab 04/14/2019 Self Yes Yes Sig: Take 250 mg by mouth daily. acetaminophen (TYLENOL) 500 mg tablet Past Month Self Yes Yes Sig: Take 1,000 mg by mouth daily as needed for Pain. Max of 4,000 mg of acetami nophen in 24 hours. calcium carbonate (TUMS) 500 mg (200 mg elemental calcium) chewable tablet >1 Month Self Yes Yes Sig: Chew 500 mg by mouth daily as needed. furosemide (LASIX) 40 mg tablet 04/15/2019 Self No Yes Sig: TAKE TWO TABLETS BY MOUTH TWICE A DAY Patient taking differently: Take 40 mg by mouth twice daily. insulin detemir U-100(+) (LEVEMIR) 100 unit/mL vial 04/14/2019 Self Yes Yes Sig: Inject 22 Units under the skin at bedtime daily. levonorgestrel (MIRENA) 20 mcg/24 hours (5 yrs) 52 mg intrauterine device Self Yes Yes Si Intra Uterine Device by Intrauterine route once. losartan (COZAAR) 25 mg tablet 04/15/2019 Self No Yes Sig: Take one tablet by mouth daily. Patient taking differently: Take 100 mg by mouth daily. nortriptyline (PAMELOR) 10 mg capsule 04/14/2019 Self No Yes Sig: Take one capsule by mouth at bedtime daily. ondansetron (ZOFRAN) 4 mg tablet Past Week Self Yes Yes Sig: Take 4 mg by mouth every 8 hours as needed for Nausea or Vomiting. pantoprazole DR (PROTONIX) 40 mg tablet 04/15/2019 Self Yes Yes Sig: Take 40 mg by mouth daily. potassium chloride (K-DUR) 10 mEq tablet 04/15/2019 Self Yes Yes Sig: Take 10 mEq by mouth daily. sertraline (ZOLOFT) 50 mg tablet >1 Month Self Yes Yes Sig: Take 50 mg by mouth daily. sucralfate (CARAFATE) 1 gram tablet >1 Month Self Yes Yes Sig: Take 1 g by mouth three times daily. Take on an empty stomach. Facility-Administered Medications: None Review of Systems Constitutional: fatigue, low appetite Eyes: negative Ears, nose, mouth, throat, and face: negative Respiratory: negative Cardiovascular: negative Gastrointestinal: nausea, abdominal pain Genitourinary:negative Integument/breast: negative Hematologic/lymphatic: LE edema Musculoskeletal:negative Neurological: negative Endocrine: negative Physical Exam Vital Signs: Last Filed In 24 Hours Vital Signs: 24 Hour Range BP: 147/82 (04/18 1711) Temp: 36.5 C (97.7 F) (04/18 1711) Pulse: 111 (04/18 1711) Respirations: 18 PER MINUTE (04/18 1711) SpO2: 97 % (04/18 1711) SpO2 Pulse: 106 (04/18 1049) BP: (147-207)/(82-125) Temp: [36.3 C (97.4 F)-37.1 C (98.8 F)] Pulse: [88-115] Respirations: [15 PER MINUTE-23 PER MINUTE] SpO2: [97 %-100 %] Intensity Pain Scale (Self Report): 7 (04/18/19 1445) Vitals: 04/15/19 2234 04/16/19 0657 04/18/19 0529 Weight: 82.1 kg (181 lb) 83.3 kg (183 lb 11.2 oz) 84.6 kg (186 lb 9.6 oz) Intake/Output Summary (Last 24 hours) at 04/18/2019 1814 Last data filed at 04/18/2019 1615 Gross per 24 hour Intake 1598.75 ml Output 2950 ml Net -1351.25 ml GEN: well developed female, alert, conversational HEENT: MMM, oropharynx clear without erythema/exudates NECK: +JVD to mid-neck HEART: reg rhythm, no murmurs LUNGS: CTAB, nonlabored respirations on room air ABD: soft, mild right sided tenderness EXT: 2+ LE edema, radial pulses 2+ and equal bilaterally SKIN: warm, dry NEURO: grossly intact Labs Recent Labs 04/15/19 2350 04/16/19 0350 04/16/19 0620 04/16/19 1020 04/16/19 1130 04/16/19 2242 04/17/19 0416 04/17/19 1800 04/18/19 0359 NA 130* 132* 134* 135* 134* 136* 134* 134* 133* K 5.2* 4.5 4.5 4.1 4.2 4.5 4.5 4.5 5.1 CL 99 102 104 105 105 107 105 105 104 CO2 18* 17* 22 20* 19* 21 22 22 21 GAP 13* 13* 8 10 10 8 7 7 8 BUN 67* 67* 70* 63* 64* 63* 59* 61* 61* CR 4.30* 4.33* 4.41* 4.43* 4.37* 4.27* 4.27* 4.41* 4.28* GLU 553* 450* 241* 186* 142* 73 152* 141* 292* CA 7.6* 7.9* 7.8* 7.9* 7.6* 7.8* 7.9* 7.6* 7.8* ALBUMIN 2.3* -- 2.1* 2.2* -- -- 2.2* -- 2.0* MG 2.7* 2.6 2.7* 2.7* 2.7* 2.6 2.6 -- -- PO4 5.1* -- -- -- -- 4.5 4.7* -- -- HGBA1C -- -- 10.2* 10.1* -- -- -- -- -- TSH -- -- 1.76 2.43 -- -- -- -- -- Recent Labs 04/15/19 2350 04/16/19 0620 04/16/19 1020 04/17/19 0416 04/18/19 0359 WBC 7.7 6.5 6.6 7.6 6.7 HGB 7.5* 7.0* 7.4* 7.5* 6.9* HCT 21.5* 20.3* 21.2* 22.0* 19.6* PLTCT 222 213 214 239 233 AST 15 14 15 14 12 ALT 11 11 12 12 8 ALKPHOS 95 87 88 85 77 Estimated Creatinine Clearance: 21.5 mL/min (A) (based on SCr of 4.28 mg/dL (H)) . Vitals: 04/15/19 2234 04/16/19 0657 04/18/19 0529 Weight: 82.1 kg (181 lb) 83.3 kg (183 lb 11.2 oz) 84.6 kg (186 lb 9.6 oz) No results for input(s): PHART, PO2ART in the last 72 hours. Invalid input(s): PC02A Radiology Pertinent radiology reviewed. VISION AND RADIO REPAIRER Associated attestation - Rosalba Darden MD - 04/19/2019 12:50 PM TELEVISION AND RADIO REPAIRER ATTESTATION I personally performed the medrano portions of the E/M visit, discussed case with re sident and concur with resident documentation of history, physical exam, assessm ent, and treatment plan unless otherwise noted. Pt seen and examined 04/18/19 aft cierra. Husb present.Asked by Dr. Moralez to see 33 yo WF with increased Cr, DM. A dm with abd pain, le edema. On exam, alert, nad; no crakcles; 2+ LE edema CKD5/ESRD--d/t DN, HTN. Graph of eGFR shows steady decline, suggesting progressi on of underlying dis. She is nearing need for HD. --will follow labs closely with aggressive diuresis --if renal function, vol status worsens, will need to start this hosp Staff name: Rosalba Darden MD Date: 04/19/2019 * Kale Hernandez MD - 04/18/2019 5:06 PM TELEVISION AND RADIO REPAIRER Acute Care Surgery Consult 04/18/2019 Patient: Patito Lugo Admission Date: 04/15/2019, LOS: 3 days Admission Diagnosis: Acute on chronic renal insufficiency [N28.9, N18.9] Date of Service: April 18, 2019 Reason for Consult: "Fistula mapping/planning for patient with worsening diabeti c nephropathy" Referring Provider: Bren Moralez MD Attending Surgeon: Dr. Cuevas Consult Performed by: Kale Hernandez MD ASSESSMENT: 33 y.o. female with appendicitis and DMI with worsening diabetic nep hropathy. Vascular surgery has been consulted for fistula planning as patient wi ll need senior care access per nephrology. PLAN: - Will order vein mapping - Will follow up vein mapping study. Fistula planning can take place outpatient. - Will see with staff surgeon to further discuss plan. Patient was discussed with staff surgeon, Dr. Cuevas. __ HPI: Patito Lugo is a 33 y.o. female a left handed female with appendi citis and DMI with worsening diabetic nephropathy. Vascular surgery has been con sulted for fistula planning as patient will need terminal computer operator access per nephrology . Patient has been admitted with chronic abdominal pain and diabetic ketoacidosi s with BG > 500 and anion gap of 17. She was also hypertensive and was in acute on chronic renal failure. Glucose has been poorly controlled at home and most recent A1C on admission was 10.7. She follows with renal outpatient and has been told before that they need to start thinking about correction hemodialysis planning. She knows that if we give her a fistula, she will not be able to use that arm for dialysis for several weeks. She is open to the idea of surgery for fistula creation. She was found to have appendicitis on exam with radiologic sign of appendicholithiasis. Acute care surgery was going to take her to the OR today but her blood sugars were not well controlled. They plan on taking her for laparoscopic appendectomy tomorrow, 04/19. Medical History: Diagnosis Date Arm vein blood clot, left Diabetes type 1, uncontrolled (HCC) h/o multiple DKA admissions Diabetic neuropathy (HCC) Fibromyalgia Amy's disease Restless leg syndrome Rheumatoid arthritis (HCC) Surgical History: Procedure Laterality Date SECTION 05/2011 CARPAL TUNNEL RELEASE Bilateral 10/2014 CHOLECYSTECTOMY 2017 DELIVERY N/A 04/19/2018 Performed by Kavya Sanders MD at [facility] TONSIL AND ADENOIDECTOMY KNEE ARTHROSCOPY Left Medications: No current facility-administered medications on file prior to encounter. Current Outpatient Medications on File Prior to Encounter Medication Sig Dispense Refill acetaminophen (TYLENOL) 500 [...] TWO TABLETS BY MOUTH TWICE A DAY (Patie nt taking differently: Take 40 mg by mouth twice daily.) 120 tablet 3 insulin detemir U-100(+) (LEVEMIR) 100 unit/mL vial Inject 22 Units under th e skin at bedtime daily. levonorgestrel (MIRENA) 20 mcg/24 hours (5 yrs) 52 mg intrauterine device 1 Intra Uterine Device by Intrauterine route once. losartan (COZAAR) 25 mg tablet Take one tablet by mouth daily. (Patient remy ng differently: Take 100 mg by mouth daily.) 30 tablet 5 Magnesium 250 mg tab Take 250 mg [...] 1 g by mouth three times daily. Golden e on an empty stomach. Allergies: Codeine and Insulin regular, human Social History Socioeconomic History Marital status: Spouse [...] file Social History Narrative Pt lives in [place], [place] with her , 3 step kids and her son. 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 Denies IPV. Family History Problem Relation Age of Onset Heart Attack Paternal Grandfather Vitals: Vital Signs: Last Filed In 24 Hours Vital Signs: 24 Hour Range BP: 172/108 (04/18 141) Temp: 36.4 C (97.6 F) (04/18 141) Pulse: 114 (04/18 141) Respirations: 18 PER MINUTE (04/18 1417) SpO2: 100 % (04/18 1417) SpO2 Pulse: 106 (04/18 1049) BP: (148-207)/(96-125) Temp: [36.3 C (97.4 F)-37.1 C (98.8 F)] Pulse: [88-115] Respirations: [15 PER MINUTE-23 PER MINUTE] SpO2: [98 %-100 %] Intensity Pain Scale (Self Report): 7 (04/18/19 1445) Intake/Output: Intake/Output Summary (Last 24 hours) at 04/18/2019 1706 Last data filed at 04/18/2019 1615 Gross per 24 hour Intake 1598.75 ml Output 2950 ml Net -1351.25 ml Physical Exam: Physical Exam Constitutional: General: She is not in acute distress. Appearance: She is well-developed. She is not diaphoretic. HENT: Head: Normocephalic and atraumatic. Eyes: General: No scleral icterus. Neck: Trachea: No tracheal deviation. Cardiovascular: Rate and Rhythm: Normal rate. Pulses: Radial pulses are 2+ on the right side and 2+ on the left side. Comments: Ulnar pulses 2+ bilat Pulmonary: Effort: Pulmonary effort is normal. No respiratory distress. Breath sounds: Normal breath sounds. No stridor. No wheezing. Abdominal: General: Bowel sounds are normal. There is no distension. Palpations: Abdomen is soft. There is no mass. Tenderness: There is no abdominal tenderness. There is no guarding or rebound . Hernia: No hernia is present. Skin: General: Skin is warm and dry. Capillary Refill: Capillary refill takes less than 2 seconds. Findings: No erythema or rash. Neurological: Mental Status: She is alert and oriented to person, place, and time. Cranial Nerves: No cranial nerve deficit. ROS: 12 point ROS negative unless otherwise as stated in HPI Lab/Radiology/Other Diagnostic Tests: Recent Labs 04/15/19 2350 04/16/19 0350 04/16/19 0620 04/16/19 1020 04/16/19 1130 04/16/19 2242 04/17/19 0416 04/17/19 1800 04/18/19 0359 HGB 7.5* -- 7.0* 7.4* -- -- 7.5* -- 6.9* HCT 21.5* -- 20.3* 21.2* -- -- 22.0* -- 19.6* WBC 7.7 -- 6.5 6.6 -- -- 7.6 -- 6.7 PLTCT 222 -- 213 214 -- -- 239 -- 233 NA 130* 132* 134* 135* 134* 136* 134* 134* 133* K 5.2* 4.5 4.5 4.1 4.2 4.5 4.5 4.5 5.1 CL 99 102 104 105 105 107 105 105 104 CO2 18* 17* 22 20* 19* 21 22 22 21 BUN 67* 67* 70* 63* 64* 63* 59* 61* 61* CR 4.30* 4.33* 4.41* 4.43* 4.37* 4.27* 4.27* 4.41* 4.28* GLU 553* 450* 241* 186* 142* 73 152* 141* 292* CA 7.6* 7.9* 7.8* 7.9* 7.6* 7.8* 7.9* 7.6* 7.8* MG 2.7* 2.6 2.7* 2.7* 2.7* 2.6 2.6 -- -- PO4 5.1* -- -- -- -- 4.5 4.7* -- -- ALBUMIN 2.3* -- 2.1* 2.2* -- -- 2.2* -- 2.0* TOTPROT 4.8* -- 4.7* 4.7* -- -- 4.8* -- 4.4* TOTBILI 0.2* -- 0.2* 0.2* -- -- 0.2* -- 0.2* AST 15 -- 14 15 -- -- 14 -- 12 ALT 11 -- 11 12 -- -- 12 -- 8 ALKPHOS 95 -- 87 88 -- -- 85 -- 77 LIPASE -- 19 -- -- -- -- -- -- -- Glucose: (!) 292 (04/18/19 035) POC Glucose (Download): (!) 268 (04/18/19 7229) Kale Hernandez MD Pager: # [phone] VISION AND RADIO REPAIRER Associated attestation - Stephen Cuevas MD - 04/20/2019 12:34 PM TELEVISION AND RADIO REPAIRER ATTESTATION I personally performed the medrano portions of the E/M visit, discussed case with re sident and concur with resident documentation of history, physical exam, assessm ent, and treatment plan unless otherwise noted. (Patient evaluated on 04/19/[address] Hernandez) She is a 33-year-old female with diabetes and worsening nephropathy who is antic ipated to require hemodialysis in the near future. We were asked to evaluate he r for possible long-term access placement. She is right-handed. Vein mapping s howed marginal size cephalic and basilic veins in both arms. She also was noted to have an appendicolith on imaging. There was concerns that she may require a ppendectomy during this hospitalization. I outlined the options of long-term hemodialysis access placement. She may be a candidate for a transposed basilic vein fistula or arteriovenous shunt placemen t. The risks and potential benefits of each option were outlined carefully. Wo uld be happy to arrange outpatient access placement in the near future. She tonja es some distance away, and may seek access placement elsewhere. Staff name: Stephen Cuevas MD Date: 04/20/2019 * Erika Carrion, RN - 04/18/2019 3:44 PM TELEVISION AND RADIO REPAIRER Associated Order(s): CONSULT DIABETES NURSE EDUCATOR CONSULT DIABETES NURSE EDUCATOR [[id number] INPATIENT DIABETES EDUCATION TEAM Clinical Excellence Nursing Practice Reason for Consult: DKA Patient may benefit from: low cost back up plan for basal insulin This consult team does not write orders. Primary Team is responsible for placing orders. Supplies/Resources provided: declines Met with Patito Lugo and her spouse at bedside; Pt has been without basal insulin for at least six weeks; too costly to fill Lev ganesh RX; Medicaid may not have been activated or may have been in process at [facility] of filling Levemir RX. Pt's [facility] Medicaid contacted her today and is planning to follow her case closely for the next 30 days to ensure she receives needed insulins/meds/supplies. Discussed options to get insulin at no cost, including a one time voucher for Le vemir and Novolog. Information provided; pt not familiar with NPH as an afforda ble basal option. Explained what NPH is, actions times and usual dosing 2 x day -about 12 hours apart. At discharge, pt thinks she will get Levemir at no cost as [facility] Medicaid told her over the phone they have this straightened out for her. Pt and spouse very frustrated with hospital stay, length of stay a part of that. Frustration is elevated by not seeing her five children while here, missing ap pt her eye injection that was scheduled for 9a tomorrow in [facility]. Pt's spo use is asking for a patient advocate to coordinate inpatient care if she's readm itted in the future. Customer service recovery was included in this visit. Pt has monitoring supplies, mealtime insulin at home; plans to fill Levemir RX a t d/c. Pt is open to Endo's rec's, and wants to try dosing Levemir twice a day. Appreciate this consult. Please contact Diabetes Educators with additional ques tions or concerns. Erika Carrion RN, CDE [employer] Office: [phone] Pager: [phone] VISION AND RADIO REPAIRER * Emmy Díaz RD - 04/16/2019 4:12 PM TELEVISION AND RADIO REPAIRER Associated Order(s): CONSULT DIETITIAN CLINICAL NUTRITION Clinical Nutrition Initial Assessment Name: Patito Lugo : 7 Age: 33 y.o. Admission Date: 04/15/2019 LOS: 1 day Recommendation: Continue current diet as ordered. Comments: 33 y.o. female Hashimotos, RA, HTN, CKD, DM1 with multiple episodes of DKA; curr ently admitted for DKA and abdominal pain. Pt has had 3-4 years of intermittent right lower quadrant pain. Episode started 1 week ago and started in RLQ. Consul t received for DKA. Pt reports good knowledge of carb counting and gastroparesis diet. She declines education at this time but did briefly discuss intake [employer]. S he reports appetite has remained good despite abd pain, n/v. She eats chicken wh ite rice and kale often. Note A1c 10.1%. No pressure injuries or edema. Not at a cute nutrition risk. Nutrition Assessment of Patient: Admit Weight: 82.1 kg; ; BMI (Calculated): 27.52; ; Pertinent Allergies/Intolerances: none ; ; Oral Diet Order: Diabetic [id number] Kcal/day (60 g carb/meal, 30 g carb/HS snack ); Estimated Calorie Needs: 1850(25 kcal/kg desired wt 74.2kg) Emmy Díaz RD, MANAGER VIDEO, LD Office: [phone] Voalte: [phone] VISION AND RADIO REPAIRER * Debbie Jang RN - 04/16/2019 12:13 PM TELEVISION AND RADIO REPAIRER Discussed plan of care with Dr. Mora with Endocrinology. Pt remains on insu annel gtt. Diabetes education team will plan on seeing patient on Thursday. Neda te the consult. Please contact diabetes educators with any additional questions or concerns. LEAH Little, BS, RN, CDE, CPT [employer] Office: [phone] Pager: [phone] Diabetes Education Team Pager: [phone] Diabetes Team Office: [phone] Also available on VOALTE VISION AND RADIO REPAIRER * Misael Mayo DO - 04/16/2019 8:55 AM TELEVISION AND RADIO REPAIRER Associated Order(s): CONSULT ACUTE CARE/INPATIENT GENERAL SURGERY PHYSICIAN [facility] Consult 04/16/2019 Patient: Patito Lugo Admission Date: 04/15/2019, LOS: 1 day Admission Diagnosis: Acute on chronic renal insufficiency [N28.9, N18.9] Date of Service: April 16, 2019 Reason for Consult: "Concern for appendicitis. Please assist with w/u mgmt" Referring Provider: Melony Britt MD Attending Surgeon: Kale Cruz MD Consult Performed by: Misael Mayo DO ASSESSMENT: 33 y.o. female with DKA and abdominal pain. CT demonstrates mildly d ilated appendix with appenicolithiasis PLAN: -Images and labs reviewed -No acute surgical indication at this time -Currently on rocephin/flaygl per primary -Surgery will continue to follow for changes in vitals, labs and/or clinical exa ms concerning for acute appendicitis Misael Mayo Pager: # [phone] __ HPI: Patito Lugo is a 33 y.o. female Hashimotos, RA, HTN, CKD, DM1 wit h multiple episodes of DKA; currently admitted for DKA and abdominal pain. Pt rivers s had 3-4 years of intermittent right lower quadrant pain. Episode started 1 wee k ago and started in RLQ. Has not radiated. Has been crampy in nature. Has had n o fever or chills. Has had intermittent episodes of nausea with emesis, but stat es she continues to have an appetite. Has had no change in bowel or bladder func tion. Since admission patient has been afebrile with a WBC of 6.[address] A/P s howing prominence of appendix with small appendicoliths. Was started on rocephin /flaygl per primary. Last episode was January 2019 which was treated conservat ively with cipro/flagyl and serial abdominal exams. Past surgical history of c-s ection and laparoscopic cholecystectomy. Medical History: Diagnosis Date Arm vein blood clot, left Diabetes type 1, uncontrolled (HCC) h/o multiple DKA admissions Diabetic neuropathy (HCC) Fibromyalgia Amy's disease Restless leg syndrome Rheumatoid arthritis (HCC) Surgical History: Procedure Laterality Date SECTION 05/2011 CARPAL TUNNEL RELEASE Bilateral 10/2014 CHOLECYSTECTOMY 2017 DELIVERY N/A 04/19/2018 Performed by Kavya Sanders MD at [facility] TONSIL AND ADENOIDECTOMY KNEE ARTHROSCOPY Left Medications: No current facility-administered medications on file prior to encounter. Current Outpatient Medications on File Prior to Encounter Medication Sig Dispense Refill acetaminophen (TYLENOL) 500 mg tablet Take 1,000 mg by mouth daily as needed for Pain. Max of 4,000 mg of acetaminophen in 24 hours. calcium carbonate (TUMS) 500 mg (200 mg elemental calcium) chewable tablet C hew 500 mg by mouth daily as needed. ciprofloxacin (CIPRO) 250 mg tablet Take two tablets by mouth daily. 10 tabl et 0 ferrous gluconate (FERGON) 240 mg (27 mg iron) tablet Take one tablet by cris th three times daily with meals. 90 tablet 3 ferrous sulfate 325 mg (65 mg iron) tablet Take one tablet by mouth three ti mes daily with meals. (Patient taking differently: Take 325 mg by mouth daily.) 90 tablet 3 FIASP FLEXTOUCH U-100 INSULIN 100 unit/mL (3 mL) injectable PEN Inject 1 Uni ts under the skin every 6 hours. furosemide (LASIX) 40 mg tablet TAKE TWO TABLETS BY MOUTH TWICE A DAY (Patie nt taking differently: Take 40 mg by mouth twice daily.) 120 tablet 3 insulin detemir U-100(+) (LEVEMIR) 100 unit/mL vial Inject 22 Units under th e skin at bedtime daily. levonorgestrel (MIRENA) 20 mcg/24 hours (5 yrs) 52 mg intrauterine device 1 Intra Uterine Device by Intrauterine route once. losartan (COZAAR) 25 mg tablet Take one tablet by mouth daily. 30 tablet 5 Magnesium 250 mg tab Take 250 mg by mouth daily. metroNIDAZOLE (FLAGYL) 500 mg tablet Take one tablet by mouth three times da fredi. Take with food. Do not drink alcohol while on metronidazole. 15 tablet 0 nortriptyline (PAMELOR) 10 mg capsule Take one [...] 1 g by mouth three times daily. Golden e on an empty stomach. Allergies: Codeine and Insulin regular, human Social History Socioeconomic History Marital status: Spouse [...] file Social History Narrative Pt lives in [place], [place] with her , 3 step kids and her son. 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 Denies IPV. Family History Problem Relation Age of Onset Heart Attack Paternal Grandfather No hx of bleeding disorders Vitals: Vital Signs: Last Filed In 24 Hours Vital Signs: 24 Hour Range BP: 162/110 (04/16 729) Temp: 36.6 C (97.9 F) (04/16 555) Pulse: 114 (04/16 729) Respirations: 16 PER MINUTE (04/16 555) SpO2: 99 % (04/16 555) Height: 172.7 cm (68") (04/15 2233) BP: (136-169)/(96-114) Temp: [36.6 C (97.9 F)-36.7 C (98 F)] Pulse: [114-128] Respirations: [14 PER MINUTE-16 PER MINUTE] SpO2: [97 %-100 %] Intensity Pain Scale (Self Report): 7 (04/16/19 0800) Intake/Output: Intake/Output Summary (Last 24 hours) at 04/16/2019 0855 Last data filed at 04/16/2019 0800 Gross per 24 hour Intake 1060.56 ml Output 900 ml Net 160.56 ml Physical Exam: Physical Exam Constitutional: General: She is sleeping. Appearance: Normal appearance. HENT: Head: Normocephalic. Eyes: Extraocular Movements: Extraocular movements intact. Neck: Musculoskeletal: Normal range of motion. Cardiovascular: Rate and Rhythm: Tachycardia present. Pulmonary: Effort: Pulmonary effort is normal. No respiratory distress. Abdominal: Comments: Soft; mild tenderness to deep palpation over the right lower quadra nt. No tenderness over the remaining abdominal exam. No rebound, guarding or rig idity. Ecchymosis noted over right mid-abdomen consistent with insulin injection s Musculoskeletal: Normal range of motion. Skin: General: Skin is warm and dry. Neurological: General: No focal deficit present. Mental Status: She is oriented to person, place, and time. Psychiatric: Mood and Affect: Mood normal. Behavior: Behavior normal. ROS: Constitutional: positive for fevers, chills and fatigue Eyes: positive for visual disturbance, negative for redness and icterus Ears, nose, mouth, throat, and face: positive for dry mouth, negative for hearin g loss, nasal congestion and sore throat Respiratory: negative for cough, sputum, pleurisy/chest pain or dyspnea on exert ion Cardiovascular: positive for tachycardia, negative for chest pain, chest pressur e/discomfort, palpitations Gastrointestinal: positive for reflux symptoms, nausea, vomiting and abdominal p ain, negative for change in bowel habits, diarrhea, constipation, and melena Genitourinary:negative for dysuria and change in urinary habits Integument/breast: negative for rash and skin lesion(s) Hematologic/lymphatic: negative for bleeding Musculoskeletal:positive for arthralgias and stiff joints, negative for muscle w eakness Neurological: positive for headaches Behavioral/Psych: positive for sleep disturbance, negative for tobacco use Endocrine: positive for Diabetes mellitus Type I and temperature intolerance Lab/Radiology/Other Diagnostic Tests: Recent Labs 04/15/19 2350 04/16/19 0350 04/16/19 0620 HGB 7.5* -- 7.0* HCT 21.5* -- 20.3* WBC 7.7 -- 6.5 PLTCT 222 -- 213 NA 130* 132* 134* K 5.2* 4.5 4.5 CL 99 102 104 CO2 18* 17* 22 BUN 67* 67* 70* CR 4.30* 4.33* 4.41* GLU 553* 450* 241* CA 7.6* 7.9* 7.8* MG 2.7* 2.6 2.7* PO4 5.1* -- -- ALBUMIN 2.3* -- 2.1* TOTPROT 4.8* -- 4.7* TOTBILI 0.2* -- 0.2* AST 15 -- 14 ALT 11 -- 11 ALKPHOS 95 -- 87 LIPASE -- 19 -- Glucose: (!) 241 (04/16/19 0620) POC Glucose (Download): (!) 175 (04/16/19 0719) CT A/P IMPRESSION 1. DEVELOPMENT OF MILD ABDOMINAL/PELVIC ASCITES WITH MESENTERIC CONGESTION. 2. PERSISTENT PROMINENCE OF THE APPENDIX WITH SMALL APPENDICOLITHS. THERE IS HAZINESS AROUND THE PROMINENT APPENDIX, WHICH MAY BE ASSOCIATED WITH ABDOMINAL/PELVIC ASCITES. APPENDICITIS IS STILL A CONSIDERATION. CLINICAL AND LABORATORY CORRELATION IS SUGGESTED. 3. PERSISTENT MILD HEPATOMEGALY AND UPPER LIMITS OF NORMAL SIZE SPLEEN. 4. ANEMIA. 5. MILD TO MODERATE ANASARCA. VISION AND RADIO REPAIRER Associated attestation - Kale Cruz MD - 04/28/2019 10:10 PM TELEVISION AND RADIO REPAIRER ATTESTATION I personally performed the medrano portions of the E/M visit, discussed case with re sident and concur with resident documentation of history, physical exam, assessm ent, and treatment plan unless otherwise noted. Staff name: Kale Cruz MD Date: 04/28/2019 * Chano Harmon DO - 04/16/2019 8:33 AM TELEVISION AND RADIO REPAIRER Associated Order(s): CONSULT ENDOCRINOLOGY PHYSICIAN Endocrinology Consultation Today's Date: 04/16/2019 Admission Date: 04/15/2019 Reason for this consultation: "T1DM with DKA w/ history of difficulty coming off insulin drip and history of leaving AMA due to being "fed up with her insulin m anagement" Assessment: Patito Lugo is a 33 y.o. year old female with pmhx of type 1 diabetes, fibromyalgia, rheumatoid arthritis, diabetic neuropathy, and CKD admitted 2019 for acute kidney injury and diabetic ketoacidosis. Endocrine has been cons ulted for diabetes management. Diabetic ketoacidosis Type 1 diabetes Hemoglobin A1c 02/03/2019: 10.7% Diagnosed at age of 10 Follows with PCP, Dr. Plunkett [employer] regimen:? Detemir 22 units daily, Fiasp (unknown dose). Diabetes complicated by peripheral neuropathy, per patient. Hypertension DAILY on CKD Random microalbumin/creatinine ratio 6000, 04/14/19. Iron deficiency Chronic pain syndrome Abdominal pain Rheumatoid arthritis Recommendations: We continued her insulin infusion pending general surgery recommendations thi s morning. As she will not go to the OR we will plan to transition her to subcu taneous insulin. Start glargine 18 units daily. Start postmeal aspart with an ICR 12. Start [facility]. Agree with nephrology consultation for proteinuria. Thank you for this consult, we will follow. Patient was discussed with cosigning staff physician. Chano Harmon DO Endocrine Fellow History of Present Illness Patito Lugo is a 33 y.o. year old female with pmhx of type 1 diabetes, fibromyalgia, rheumatoid arthritis, diabetic neuropathy, and CKD admitted 2019 for acute kidney injury and diabetic ketoacidosis. Endocrine has been cons ulted for diabetes management. Patient received Compazine and Benadryl ~1 hour prior to my exam. Minimal histo ry could be obtained as patient was quite somnolent. Most history obtained from O2. The patient reportedly presented with a several month history of right-sided abd ominal pain to an outside emergency department. She was found to have a BG grea ter than 500 with an elevated beta hydroxybutyrate of 4. She has been treated w ith IV insulin during this admission and is now euglycemic. Her anion gap and s kp bicarb are now normal. A repeat beta hydroxybutyrate is pending. The patient was last seen by the endocrinology consult service April 2018. She was treated with a [employer] insulin pump at that time. She has had multiple ad missions for diabetic ketoacidosis. Her most recent hemoglobin A1c is significa ntly elevated to 10.7%, this is worsened from her previous in April 2018 of 8.1% . She reports that she is no longer using an insulin pump. She reports taking ~22 units of detemir daily, I was unable to determine her Fiasp dose. Estimated Creatinine Clearance: 20.7 mL/min (A) (based on SCr of 4.41 mg/dL (H)) . Past Medical History Medical History: Diagnosis Date Arm vein blood clot, left Diabetes type 1, uncontrolled (HCC) h/o multiple DKA admissions Diabetic neuropathy (HCC) Fibromyalgia Amy's disease Restless leg syndrome Rheumatoid arthritis (HCC) Past Surgical History Surgical History: Procedure Laterality Date SECTION 05/2011 CARPAL TUNNEL RELEASE Bilateral 10/2014 CHOLECYSTECTOMY 2017 DELIVERY N/A 04/19/2018 Performed by Kavya Sanders MD at [facility] TONSIL AND ADENOIDECTOMY KNEE ARTHROSCOPY Left Social History Social History Tobacco Use Smoking status: Never Smoker Smokeless tobacco: Never Used Substance Use Topics Alcohol use: No Family History Family History Problem Relation Age of Onset Heart Attack Paternal Grandfather Allergies Allergies Allergen Reactions Codeine HIVES Insulin Regular, Human UNKNOWN Does not work Review of Systems A comprehensive 14-point review of systems was negative with exception of: Unable to obtain. Medications Scheduled Meds:diphenhydrAMINE (BENADRYL) injection 25 mg, 25 mg, Intravenous, O NCE enoxaparin (LOVENOX) syringe 30 mg, 30 mg, Subcutaneous, QDAY(21) ferrous sulfate (FEOSOL) tablet 325 mg, 325 mg, Oral, QDAY insulin (REGULAR) BOLUS for continuous infusion 10 Units, 10 Units, Intravenous, ONCE insulin glargine (LANTUS SOLOSTAR) injection PEN 22 Units, 22 Units, Subcutaneou s, QDAY(12) magnesium sulfate 1 g/D5W 100 mL IVPB, 1 g, Intravenous, Q1H X 2DO nortriptyline (PAMELOR) capsule 10 mg, 10 mg, Oral, QHS pantoprazole DR (PROTONIX) tablet 40 mg, 40 mg, Oral, QDAY prochlorperazine (COMPAZINE) injection 10 mg, 10 mg, Intravenous, ONCE sertraline (ZOLOFT) tablet 50 mg, 50 mg, Oral, QDAY Continuous Infusions: dextrose 5 % & 0.45% NaCl infusion 150 mL/hr at 04/16/19 0827 insulin regular 100 units/NS 100 mL IV drip (premade) 1.5 Units/hr (04/16/19 0754) PRN and Respiratory Meds:acetaminophen Q6H PRN, ondansetron (ZOFRAN) IV Q6H PRN OR ondansetron Q6H PRN Physical Examination Vital Signs: Last Vital Signs: 24 Hour Ran BP: 162/110 (04/16 729) Temp: 36.6 C (97.9 F) (04/16 555) Pulse: 114 (04/16 729) Respirations: 16 PER MINUTE (04/16 555) SpO2: 99 % (04/16 555) Height: 172.7 cm (68") (04/15 2233) BP: (136-169)/(96-114) Temp: [36.6 C (97.9 F)-36.7 C (98 F)] Pulse: [114-128] Respirations: [14 PER MINUTE-16 PER MINUTE] SpO2: [97 %-100 %] General appearance: Somnolent. HENT: Mucus membranes moist. Eyes: Conjunctivae not injected. Neck: Supple, no thyroid enlargement visible. Lungs: No respiratory distress. Abdomen: Non-distended. Ext: No cyanosis, no edema. Skin: No rashes or lesions noted. Neruo: Grossly non-focal. Moves extremities. Psych: Mood and affect appropriate Lab Review Point of Care Testing (Last 24 hours) Glucose: (!) 241 (04/16/19619) POC Glucose (Download): (!) 175 (04/16/19718) Recent Labs 04/15/19 23504/16/19 0350 04/16/19619 NA 130* 132* 134* K 5.2* 4.5 4.5 CL 99 102 104 CO2 18* 17* 22 GAP 13* 13* 8 BUN 67* 67* 70* CR 4.30* 4.33* 4.41* GLU 553* 450* 241* CA 7.6* 7.9* 7.8* ALBUMIN 2.3* -- 2.1* MG 2.7* 2.6 2.7* PO4 5.1* -- -- TSH -- -- 1.76 Recent Labs 04/15/19234904/16/1920 WBC 7.7 6.5 HGB 7.5* 7.0* HCT 21.5* 20.3* PLTCT 222 213 AST 15 14 ALT 11 11 ALKPHOS 95 87 Estimated Creatinine Clearance: 20.7 mL/min (A) (based on SCr of 4.41 mg/dL (H)) . Vitals: 04/15/19 2234 04/16/19 0657 Weight: 82.1 kg (181 lb) 83.3 kg (183 lb 11.2 oz) Thyroid Studies Lab Results Component Value Date/Time TSH 1.76 04/16/2019 06:20 AM No results found for: FREET3, K3XEOBTQD, THYBINDGLB Pertinent radiology images reviewed. Chano Harmon DO 04/16/2019 Endocrine VISION AND RADIO REPAIRER Associated attestation - Maribeth Mora MD - 04/16/2019 12:12 PM TELEVISION AND RADIO REPAIRER ATTESTATION I personally performed the medrano portions of the E/M visit, discussed case with re sident and concur with resident documentation of history, physical exam, assessm ent, and treatment plan unless otherwise noted. Staff name: Maribeth Mora MD Date: 04/16/2019 documented in this encounter Miscellaneous Notes * Care Plan - Uma Keller RN - 04/19/2019 4:21 PM TELEVISION AND RADIO REPAIRER Problem: Discharge Planning Goal: Knowledge regarding plan of care Outcome: Goal Achieved VISION AND RADIO REPAIRER * Advanced Care Planning/Resuscitation Status - Pat Perez MD - 04/16/2019 12:55 AM TELEVISION AND RADIO REPAIRER Advance Care Planning/Resuscitation Status Conversation Individuals present for advance care planning conversation: patient and resident /fellow physician Pertinent details of conversation (including direct quotes from patient or surro gate): "I would like to be full code" Outcome of conversation: Full Code Documents completed as a result of this conversation: None Other documents present, which outline patient/surrogate wishes: None Attestation? N/A VISION AND RADIO REPAIRER documented in this encounter Plan of Treatment Order Schedule Name Type Priority Associated Diag noses Expected: 04/26/2019 (Approximate), Expi res: 04/19/2020 BASIC METABOLIC PANEL Lab Routine Acute ki dney injury superimposed on CKD (HCC) documented as of this encounter Goals Goal Patient Associated Recent Progress Patient-Stat Aut hor Goal Type Problems ed? Recover from illness Hospital No Arminda Puentes RN documented as of this encounter Procedures Comments Procedure Name Priority Date/Time Associated Diag nosis POC GLUCOSE 04/19/2019 4:01 PM TELEVISION AND RADIO REPAIRER POC GLUCOSE 04/19/2019 1:55 PM TELEVISION AND RADIO REPAIRER POC GLUCOSE 04/19/2019 11:20 AM TELEVISION AND RADIO REPAIRER POC GLUCOSE 04/19/2019 9:35 AM TELEVISION AND RADIO REPAIRER POTASSIUM STAT 04/19/2019 9:28 AM TELEVISION AND RADIO REPAIRER HC TEST-URINE STAT 04/19/2019 9:15 AM TELEVISION AND RADIO REPAIRER POC GLUCOSE 04/19/2019 8:15 AM TELEVISION AND RADIO REPAIRER POC GLUCOSE 04/19/2019 6:59 AM TELEVISION AND RADIO REPAIRER POC GLUCOSE 04/19/2019 6:06 AM TELEVISION AND RADIO REPAIRER POC GLUCOSE 04/19/2019 5:03 AM TELEVISION AND RADIO REPAIRER HC CBC W/ AUTOMATED DIFF Routine 04/19/2019 4:00 AM TELEVISION AND RADIO REPAIRER HC COMPREHENSIVE Routine 04/19/2019 METABOLIC PANEL 4:00 AM TELEVISION AND RADIO REPAIRER POC GLUCOSE 04/19/2019 3:47 AM TELEVISION AND RADIO REPAIRER POC GLUCOSE 04/19/2019 2:36 AM TELEVISION AND RADIO REPAIRER POC GLUCOSE 04/19/2019 12:29 AM TELEVISION AND RADIO REPAIRER POC GLUCOSE 04/18/2019 10:13 PM TELEVISION AND RADIO REPAIRER US VENOUS MAPPING KIRSTY 04/18/2019 BILATERAL 8:22 PM TELEVISION AND RADIO REPAIRER POC GLUCOSE 04/18/2019 5:12 PM TELEVISION AND RADIO REPAIRER POC GLUCOSE 04/18/2019 2:57 PM TELEVISION AND RADIO REPAIRER TRANSFUSE RBC'S Routine 04/18/2019 2:17 PM TELEVISION AND RADIO REPAIRER CONSULT IV THERAPY TEAM STAT 04/18/2019 1:35 PM TELEVISION AND RADIO REPAIRER POC GLUCOSE 04/18/2019 12:44 PM TELEVISION AND RADIO REPAIRER POC GLUCOSE 04/18/2019 11:41 AM TELEVISION AND RADIO REPAIRER POC GLUCOSE 04/18/2019 10:25 AM TELEVISION AND RADIO REPAIRER HC TEST-URINE STAT 04/18/2019 9:55 AM TELEVISION AND RADIO REPAIRER POC GLUCOSE 04/18/2019 9:49 AM TELEVISION AND RADIO REPAIRER HC ABO GROUP Routine 04/18/2019 8:30 AM TELEVISION AND RADIO REPAIRER POC GLUCOSE 04/18/2019 8:13 AM TELEVISION AND RADIO REPAIRER POC GLUCOSE 04/18/2019 8:11 AM TELEVISION AND RADIO REPAIRER HC IRON BINDING CAPACITY Add on 04/18/2019 + %SAT 3:59 AM TELEVISION AND RADIO REPAIRER HC RETICULOCYTE COUNT; Add on 04/18/2019 AUTO 3:59 AM TELEVISION AND RADIO REPAIRER HC CBC W/ AUTOMATED DIFF Routine 04/18/2019 3:59 AM TELEVISION AND RADIO REPAIRER HC COMPREHENSIVE Routine 04/18/2019 METABOLIC PANEL 3:59 AM TELEVISION AND RADIO REPAIRER POC GLUCOSE 04/17/2019 9:23 PM TELEVISION AND RADIO REPAIRER HC BASIC METABOLIC PANEL Routine 04/17/2019 6:00 PM TELEVISION AND RADIO REPAIRER POC GLUCOSE 04/17/2019 5:58 PM TELEVISION AND RADIO REPAIRER POC GLUCOSE 04/17/2019 4:38 PM TELEVISION AND RADIO REPAIRER POC GLUCOSE 04/17/2019 3:57 PM TELEVISION AND RADIO REPAIRER POC GLUCOSE 04/17/2019 11:31 AM TELEVISION AND RADIO REPAIRER POC GLUCOSE 04/17/2019 8:40 AM TELEVISION AND RADIO REPAIRER POC GLUCOSE 04/17/2019 7:48 AM TELEVISION AND RADIO REPAIRER HC CBC W/ AUTOMATED DIFF Routine 04/17/2019 4:16 AM TELEVISION AND RADIO REPAIRER HC PHOSPHOROUS, SERUM Routine 04/17/2019 4:16 AM TELEVISION AND RADIO REPAIRER HC MAGNESIUM Routine 04/17/2019 4:16 AM TELEVISION AND RADIO REPAIRER HC COMPREHENSIVE Routine 04/17/2019 METABOLIC PANEL 4:16 AM TELEVISION AND RADIO REPAIRER POC GLUCOSE 04/17/2019 3:59 AM TELEVISION AND RADIO REPAIRER POC GLUCOSE 04/17/2019 1:43 AM TELEVISION AND RADIO REPAIRER POC GLUCOSE 04/16/2019 11:20 PM TELEVISION AND RADIO REPAIRER HC PHOSPHOROUS, SERUM Routine 04/16/2019 10:42 PM TELEVISION AND RADIO REPAIRER HC MAGNESIUM Routine 04/16/2019 10:42 PM TELEVISION AND RADIO REPAIRER HC BASIC METABOLIC PANEL Routine 04/16/2019 10:42 PM TELEVISION AND RADIO REPAIRER POC GLUCOSE 04/16/2019 9:28 PM TELEVISION AND RADIO REPAIRER POC GLUCOSE 04/16/2019 8:22 PM TELEVISION AND RADIO REPAIRER POC GLUCOSE 04/16/2019 7:27 PM TELEVISION AND RADIO REPAIRER POC GLUCOSE 04/16/2019 6:36 PM TELEVISION AND RADIO REPAIRER POC GLUCOSE 04/16/2019 5:38 PM TELEVISION AND RADIO REPAIRER POC GLUCOSE 04/16/2019 4:34 PM TELEVISION AND RADIO REPAIRER POC GLUCOSE 04/16/2019 4:01 PM TELEVISION AND RADIO REPAIRER HC CULTURE-URINE Routine 04/16/2019 3:46 PM TELEVISION AND RADIO REPAIRER POC GLUCOSE 04/16/2019 2:53 PM TELEVISION AND RADIO REPAIRER POC GLUCOSE 04/16/2019 1:45 PM TELEVISION AND RADIO REPAIRER POC GLUCOSE 04/16/2019 12:44 PM TELEVISION AND RADIO REPAIRER HC BETA HYDROXYBUTYRATE Routine 04/16/2019 11:30 AM TELEVISION AND RADIO REPAIRER HC MAGNESIUM Routine 04/16/2019 11:30 AM TELEVISION AND RADIO REPAIRER BASIC METABOLIC PANEL Routine 04/16/2019 11:30 AM TELEVISION AND RADIO REPAIRER POC GLUCOSE 04/16/2019 10:58 AM TELEVISION AND RADIO REPAIRER HC TSH SCREEN Routine 04/16/2019 10:20 AM TELEVISION AND RADIO REPAIRER HC CBC W/ AUTOMATED DIFF Routine 04/16/2019 10:20 AM TELEVISION AND RADIO REPAIRER HC MAGNESIUM Routine 04/16/2019 10:20 AM TELEVISION AND RADIO REPAIRER HC HEMOGLOBIN A1C Routine 04/16/2019 10:20 AM TELEVISION AND RADIO REPAIRER HC COMPREHENSIVE Routine 04/16/2019 METABOLIC PANEL 10:20 AM TELEVISION AND RADIO REPAIRER POC GLUCOSE 04/16/2019 9:57 AM TELEVISION AND RADIO REPAIRER POC GLUCOSE 04/16/2019 8:56 AM TELEVISION AND RADIO REPAIRER POC GLUCOSE 04/16/2019 7:19 AM TELEVISION AND RADIO REPAIRER HC MICROALB/CR RATIO, Routine 04/16/2019 RANDOM 6:56 AM TELEVISION AND RADIO REPAIRER CT ABD/PELV WO CONTRAST Routine 04/16/2019 6:44 AM TELEVISION AND RADIO REPAIRER POC GLUCOSE 04/16/2019 6:21 AM TELEVISION AND RADIO REPAIRER HC TSH SCREEN 04/16/2019 6:20 AM TELEVISION AND RADIO REPAIRER HC CBC W/ AUTOMATED DIFF 04/16/2019 6:20 AM TELEVISION AND RADIO REPAIRER HC MAGNESIUM Routine 04/16/2019 6:20 AM TELEVISION AND RADIO REPAIRER HC HEMOGLOBIN A1C 04/16/2019 6:20 AM TELEVISION AND RADIO REPAIRER HC COMPREHENSIVE 04/16/2019 METABOLIC PANEL 6:20 AM TELEVISION AND RADIO REPAIRER POC GLUCOSE 04/16/2019 5:47 AM TELEVISION AND RADIO REPAIRER HC MAGNESIUM Routine 04/16/2019 3:50 AM TELEVISION AND RADIO REPAIRER HC LIPASE Add on 04/16/2019 3:50 AM TELEVISION AND RADIO REPAIRER HC BASIC METABOLIC PANEL Routine 04/16/2019 3:50 AM TELEVISION AND RADIO REPAIRER POC GLUCOSE 04/16/2019 3:48 AM TELEVISION AND RADIO REPAIRER POC GLUCOSE 04/16/2019 2:34 AM TELEVISION AND RADIO REPAIRER POC GLUCOSE 04/16/2019 1:19 AM TELEVISION AND RADIO REPAIRER URINALYSIS, MICROSCOPIC Routine 04/16/2019 12:08 AM TELEVISION AND RADIO REPAIRER HC URINALYSIS, AUTO W Routine 04/16/2019 MICRO 12:08 AM TELEVISION AND RADIO REPAIRER HC UREA NITROGEN-URINE Routine 04/16/2019 12:08 AM TELEVISION AND RADIO REPAIRER HC SODIUM-URINE Routine 04/16/2019 12:08 AM TELEVISION AND RADIO REPAIRER HC CREATININE-URINE Routine 04/16/2019 12:08 AM TELEVISION AND RADIO REPAIRER HC BETA HYDROXYBUTYRATE STAT 04/15/2019 11:50 PM TELEVISION AND RADIO REPAIRER HC CBC W/ AUTOMATED DIFF STAT 04/15/2019 11:50 PM TELEVISION AND RADIO REPAIRER HC PHOSPHOROUS, SERUM STAT 04/15/2019 11:50 PM TELEVISION AND RADIO REPAIRER HC MAGNESIUM STAT 04/15/2019 11:50 PM TELEVISION AND RADIO REPAIRER HC LACTIC ACID(LACTATE) STAT 04/15/2019 11:50 PM TELEVISION AND RADIO REPAIRER HC Routine 04/15/2019 LIPID-5:CHOL/TRG/HDL/LDL+ 11:50 PM TELEVISION AND RADIO REPAIRER VLDL HC COMPREHENSIVE STAT 04/15/2019 METABOLIC PANEL 11:50 PM TELEVISION AND RADIO REPAIRER POC GLUCOSE 04/15/2019 11:16 PM TELEVISION AND RADIO REPAIRER TELEMETRY STRIPS-SCAN 04/15/2019 12:00 AM TELEVISION AND RADIO REPAIRER documented in this encounter Results * POC GLUCOSE (04/19/2019 4:01 PM TELEVISION AND RADIO REPAIRER) Glucose, POC 141 (H) 70 - 100 MG/DL MAIN LAB Specimen Performing Organization Address [facility] Ph one Number MAIN LAB [address] [place] [address] * POC GLUCOSE (04/19/2019 1:55 PM TELEVISION AND RADIO REPAIRER) Glucose, POC 229 (H) 70 - 100 MG/DL MAIN LAB Specimen Performing Organization Address City/[facility] Ph one Number MAIN LAB [address] [place] [address] * POC GLUCOSE (04/19/2019 11:20 AM TELEVISION AND RADIO REPAIRER) Glucose, POC 115 (H) 70 - 100 MG/DL MAIN LAB Specimen Performing Organization Address City/State/Zipcode Ph one Number MAIN LAB [address] [place] [address] * POC GLUCOSE (04/19/2019 9:35 AM TELEVISION AND RADIO REPAIRER) Glucose, POC 191 (H) 70 - 100 MG/DL MAIN LAB Specimen Performing Organization Address City/[facility]/Zipcode Ph one Number MAIN LAB [address] [place] [address] * POTASSIUM (04/19/2019 9:28 AM TELEVISION AND RADIO REPAIRER) Potassium 4.7 3.5 - 5.1 MMOL/L MAIN LAB Specimen Blood Performing Organization Address [facility] Number MA[facility] LAB [address] [place] [address] * TEST-URINE (04/19/2019 9:15 AM TELEVISION AND RADIO REPAIRER) Pathologist [facility] Urine-HCG NEG MAIN LAB Samples with Specific [place] <1.010 may result in a false negative test Specific 1.008 MAIN LAB [place] Specimen Urine - Urine Performing Organization Address City[facility] Ph one Number MAIN LAB [address] [place] [address] * POC GLUCOSE (04/19/2019 8:15 AM TELEVISION AND RADIO REPAIRER) Glucose, POC 170 (H) 70 - 100 MG/DL MAIN LAB Specimen Performing Organization Address City/[facility]/Zipcode Ph one Number MAIN LAB [address] [place] [address] * POC GLUCOSE (04/19/2019 6:59 AM TELEVISION AND RADIO REPAIRER) Glucose, POC 168 (H) 70 - 100 MG/DL MAIN LAB Specimen Performing Organization Address City/[facility]/Zipcode Ph one Number MAIN LAB [address] [place] [address] * POC GLUCOSE (04/19/2019 6:06 AM TELEVISION AND RADIO REPAIRER) Glucose, POC 184 (H) 70 - 100 MG/DL MAIN LAB Specimen Performing Organization Address City/[facility]/Zipcode Ph one Number MAIN LAB [address] [place] [address] * POC GLUCOSE (04/19/2019 5:03 AM TELEVISION AND RADIO REPAIRER) Glucose, POC 226 (H) 70 - 100 MG/DL [facility] MAIN LAB Specimen Performing Organization Address [facility] one Number MAIN LAB [address] [place] [address] * COMPREHENSIVE METABOLIC PANEL (04/19/2019 4:00 AM TELEVISION AND RADIO REPAIRER) Sodium 134 (L) 137 - 147 MMOL/L [facility] MAIN LAB Potassium 5.4 (H) 3.5 - 5.1 MMOL/L [facility] MAIN LAB Chloride 105 98 - 110 MMOL/L [facility] MAIN LAB Glucose 268 (H) 70 - 100 MG/DL [facility] MAIN LAB Blood Urea 70 (H) 7 - 25 MG/DL [facility] MAIN LAB Nitrogen Creatinine 4.79 (H) 0.4 - 1.00 MG/DL [facility] MAIN LAB Calcium 7.7 (L) 8.5 - 10.6 MG/DL [facility] MAIN LAB Total Protein 4.5 (L) 6.0 - 8.0 G/DL [facility] MAIN LAB Total Bilirubin 0.2 (L) 0.3 - 1.2 MG/DL [facility] MAIN LAB Albumin 2.1 (L) 3.5 - 5.0 G/DL [facility] MAIN LAB Alk Phosphatase 74 25 - 110 U/L [facility] MAIN LAB AST (SGOT) 13 7 - 40 U/L [facility] MAIN LAB CO2 21 21 - 30 MMOL/L [facility] MAIN LAB ALT (SGPT) 9 7 - 56 U/L [facility] MAIN LAB Anion Gap 8 3 - 12 [facility] MAIN LAB eGFR Non 11 (L) >60 mL/min [facility] MAIN LAB Comment: [place] The eGFR is not validated f or use in drug dosing adjustments. Continue to use estimated creatinine clearance per dosing reference text. Please contact the Clinical Pharmacist for questions. eGFR 13 (L) >60 mL/min [facility] MAIN LAB [place] Comment: The eGFR is not validated for use in drug dosing adjustments. Continue to use estimated creatinine clearance per dosing reference text. Please contact the Clinical Pharmacist for questions. Specimen Blood Performing Organization Address [facility] Ph one Number MAIN LAB [address] [place] [address] * CBC AND DIFF (04/19/2019 4:00 AM TELEVISION AND RADIO REPAIRER) White Blood 6.7 4.5 - 11.0 K/UL MAIN LAB Cells RBC 2.51 (L) 4.0 - 5.0 M/UL MAIN LAB Hemoglobin 7.5 (L) 12.0 - 15.0 GM/DL MAIN LAB Hematocrit 21.8 (L) 36 - 45 % MAIN LAB MCV 86.9 80 - 100 FL MAIN LAB MCH 29.9 26 - 34 PG MAIN LAB MCHC 34.4 32.0 - 36.0 G/DL MAIN LAB RDW 14.1 11 - 15 % [facility] MAIN LAB Platelet Count 232 150 - 400 K/UL MAIN LAB MPV 8.0 7 - 11 FL MAIN LAB Neutrophils 67 41 - 77 % [facility] MAIN LAB Lymphocytes 22 (L) 24 - 44 % MAIN LAB Monocytes 7 4 - 12 % MAIN LAB Eosinophils 3 0 - 5 % MAIN LAB Basophils 1 0 - 2 % MAIN LAB Absolute 4.50 1.8 - 7.0 K/UL MAIN LAB Neutrophil Count Absolute Lymph 1.40 1.0 - 4.8 K/UL MAIN LAB Count Absolute 0.40 0 - 0.80 K/UL MAIN LAB Monocyte Count Absolute 0.20 0 - 0.45 K/UL MAIN LAB Eosinophil Count Absolute 0.10 0 - 0.20 K/UL MAIN LAB Basophil Count Specimen Blood Performing Organization Address [facility] one Number [place] MAIN LAB [address] [place] [address] * POC GLUCOSE (04/19/2019 3:47 AM TELEVISION AND RADIO REPAIRER) Glucose, POC 298 (H) 70 - 100 MG/DL [facility] MAIN LAB Specimen Performing Organization Address [facility] one Number [place] MAIN LAB [address] [place] [address] * POC GLUCOSE (04/19/2019 2:36 AM TELEVISION AND RADIO REPAIRER) Glucose, POC 212 (H) 70 - 100 MG/DL [facility] MAIN LAB Specimen Performing Organization Address [facility] one Number [place] [facility]IN LAB [address] [place] [address] * POC GLUCOSE (04/19/2019 12:29 AM TELEVISION AND RADIO REPAIRER) Glucose, POC 137 (H) 70 - 100 MG/DL [facility] MAIN LAB Specimen Performing Organization Address [facility]/State/Zipcode Ph one Number [place] MAIN LAB [address] [place] [address] * POC GLUCOSE (04/18/2019 10:13 PM TELEVISION AND RADIO REPAIRER) Glucose, POC 126 (H) 70 - 100 MG/DL [facility] MAIN LAB Specimen Performing Organization Address City/State/Zipcode Ph one Number MAIN LAB [address] [place] [address] * US VENOUS MAPPING BILATERAL (04/18/2019 8:22 PM TELEVISION AND RADIO REPAIRER) Specimen Bilateral Impressions Performed At 1. The left basilic vein is widely patent and measu res greater 2.5 mm in [facility] diameter throughout the upper arm and h igh forearm. 2. Segments of the left cephalic vein measure less than 2.5 mm in diameter. 3. There are segments of postthrombot ic scarring and/or scarred valves within the right cephalic and right median cub ital veins. Acute, occlusive superficial thrombus is present in the right cephal ic vein near the wrist. Finalized by Odalis Spring M.D. on 020 8:39 AM. Dictated by Odalis Spring M.D. on 04/19/2019 8:26 AM. Narrative Performed At BILATERAL UPPER EXTREMITY VENOUS MAPPING [facility] CLINICAL INDICATION: Female, 33 years; end-stage renal disease, preoperative planning for arteriovenous fistula crea tion.. TECHNIQUE: Multiple grayscale ultrasoun d images were images throughout bilateral upper extremities for evaluation of bas ilic and cephalic vein caliber, with limited color and spectral Doppler imag ing to evaluate vessel patency. COMPARISON: None FINDINGS: Right Cephalic Vein: * High upper arm: 4 mm * Mid upper arm: 2.5 mm * Low upper arm: 2.5 mm * Elbow: 6 mm * High forearm: 3.5 mm; scarred valve or small amount of eccentric postthrombotic scarring. * Mid forearm: 3 mm * Low forearm: Acute, occlusive throm bus. Right Basilic Vein: Patent and fully co mpressible with antegrade venous flow. * High upper arm: 8.2 mm * Mid upper arm: 3 mm; there is a lar ge caliber caser which connects to the brachial veins. * Low upper arm: 3 mm * Elbow: 2.6 mm * High forearm: 2.7 mm; scarred valve or small amount of eccentric postthrombotic scarring in the high med jamel cubital vein (cine series 1C). * Below this, the basilic vein is hussain y small in caliber and difficult to follow. Left Cephalic Vein: Patent and fully co mpressible with antegrade venous flow. * High upper arm: 2.3 mm * Mid upper arm: 1.7 mm * Low upper arm: 2.4 mm * Elbow: 3.3 mm * High forearm: 3.8 mm * Mid forearm: 2 mm * Low forearm: 2 mm Left Basilic Vein: Patent and fully com pressible with antegrade venous flow. * High upper arm: 3 mm * Mid upper arm: 2.6 mm * Low upper arm: 4.6 mm * Elbow: 4.3 mm * High forearm: 3 mm; the median cubi nichole vein in the high forearm is patent and measures 2.5 mm in the upper forear m. * Below this, the left basilic vein i s very small in caliber and difficult to follow. Procedure Note Interface, Radiant Results - 04/19/2019 8:42 AM TELEVISION AND RADIO REPAIRER BILATERAL UPPER EXTREMITY VENOUS MAPPING CLINICAL INDICATION: Female, 33 years; end-stage renal disease, preoperative planning for arteriovenous fistula creation.. TECHNIQUE: Multiple grayscale ultrasound images were images throughout bilateral upper extremities for evaluation of basilic and cephalic vein caliber, with limited color and spectral Doppler imaging to evaluate vessel patency. COMPARISON: None FINDINGS: Right Cephalic Vein: * High upper arm: 4 mm * Mid upper arm: 2.5 mm * Low upper arm: 2.5 mm * Elbow: 6 mm * High forearm: 3.5 mm; scarred valve or small amount of eccentric postthrombotic scarring. * Mid forearm: 3 mm * Low forearm: Acute, occlusive thrombus. Right Basilic Vein: Patent and fully compressible with antegrade venous flow. * High upper arm: 8.2 mm * Mid upper arm: 3 mm; there is a large caliber caser which connects to the brachial veins. * Low upper arm: 3 mm * Elbow: 2.6 mm * High forearm: 2.7 mm; scarred valve or small amount of eccentric postthrombotic scarring in the high median cubital vein (cine series 1C). * Below this, the basilic vein is very small in caliber and difficult to follow. Left Cephalic Vein: Patent and fully compressible with antegrade venous flow. * High upper arm: 2.3 mm * Mid upper arm: 1.7 mm * Low upper arm: 2.4 mm * Elbow: 3.3 mm * High forearm: 3.8 mm * Mid forearm: 2 mm * Low forearm: 2 mm Left Basilic Vein: Patent and fully compressible with antegrade venous flow. * High upper arm: 3 mm * Mid upper arm: 2.6 mm * Low upper arm: 4.6 mm * Elbow: 4.3 mm * High forearm: 3 mm; the median cubital vein in the high forearm is patent and measures 2.5 mm in the upper forearm. * Below this, the left basilic vein is very small in caliber and difficult to follow. IMPRESSION 1. The left basilic vein is widely [place] nt and measures greater 2.5 mm in diameter throughout the upper arm and high forearm. 2. Segments of the left cephalic vein m easure less than 2.5 mm in diameter. 3. There are segments of postthrombotic scarring and/or scarred valves within the right cephalic and right median cubital veins. Acute, occlusive superficial thrombus is present in the right cephalic vein near the wrist. Finalized by Odalis Spring M.D. on 04/19/2019 8:39 AM. Dictated by Odalis Spring M.D. on 04/19/2019 8:26 AM. Performing Organization Address City/[facility] Ph one Number RAD RESULTS * POC GLUCOSE (04/18/2019 5:12 PM TELEVISION AND RADIO REPAIRER) Glucose, POC 182 (H) 70 - 100 MG/DL MAIN LAB Specimen Performing Organization Address [facility] Ph one Number MAIN LAB [address] [place] [address] * POC GLUCOSE (04/18/2019 2:57 PM TELEVISION AND RADIO REPAIRER) Glucose, POC 268 (H) 70 - 100 MG/DL MAIN LAB Specimen Performing Organization Address [facility] Ph one Number MAIN LAB [address] [place] [address] * TRANSFUSE RBC'S (04/18/2019 2:17 PM TELEVISION AND RADIO REPAIRER) Specimen Blood * TRANSFUSE RBC'S (04/18/2019 2:17 PM TELEVISION AND RADIO REPAIRER) Specimen Blood * POC GLUCOSE (04/18/2019 12:44 PM TELEVISION AND RADIO REPAIRER) Glucose, POC 225 (H) 70 - 100 MG/DL KU MAIN LAB Specimen Performing Organization Address [facility] Ph one Number MAIN LAB [address] [place] [address] * POC GLUCOSE (04/18/2019 11:41 AM TELEVISION AND RADIO REPAIRER) Glucose, POC 272 (H) 70 - 100 MG/DL KU MAIN LAB Specimen Performing Organization Address [facility] Ph one Number MAIN LAB [address] [place] [address] * POC GLUCOSE (04/18/2019 10:25 AM TELEVISION AND RADIO REPAIRER) Glucose, POC 391 (H) 70 - 100 MG/DL MAIN LAB Specimen Performing Organization Address [facility] one Number MAIN LAB [address] [place] [address] * TEST-URINE (04/18/2019 9:55 AM TELEVISION AND RADIO REPAIRER) Urine-HCG NEG MAIN LAB Samples with Specific [place] <1.010 may result in a false negative test Specific 1.017 MAIN LAB [place] Specimen Urine - Urine Performing Organization Address [facility] one Number MAIN LAB [address] [place] [address] * POC GLUCOSE (04/18/2019 9:49 AM TELEVISION AND RADIO REPAIRER) Glucose, POC 436 (H) 70 - 100 MG/DL MAIN LAB Specimen Performing Organization Address [facility] one Number MAIN LAB [address] [place] [address] * TYPE & CROSSMATCH (04/18/2019 8:30 AM TELEVISION AND RADIO REPAIRER) Units Ordered 1 MAIN LAB Crossmatch 04/21/2019 MAIN LAB Expires Record Check FOUND MAIN LAB ABO/RH(D) O POS [facility] MAIN LAB Antibody Screen NEG MAIN LAB Electronic YES MAIN LAB Crossmatch Unit Number [id number] MAIN LAB Blood Component RBC,ADSOL,LEUKO REDUCED [facility] MAIN LAB Type Unit Division 0 [facility] MAIN LAB Status OF Unit TRANSFUSED KU MAIN LAB Transfusion OK TO TRANSFUSE KU MAIN LAB Status Crossmatch COMPATIBLE,ELECTRONIC MAIN LAB Result Specimen Blood Performing Organization Address [facility] MAIN LAB [address] [place] [address] * POC GLUCOSE (04/18/2019 8:13 AM TELEVISION AND RADIO REPAIRER) Glucose, POC 526 (HH) 70 - 100 MG/DL KU MAIN LAB Specimen Performing Organization Address [facility] Ph one Number MAIN LAB [address] [place] [address] * POC GLUCOSE (04/18/2019 8:11 AM TELEVISION AND RADIO REPAIRER) Glucose, POC 529 (HH) 70 - 100 MG/DL MAIN LAB Specimen Performing Organization Address [facility] Ph one Number MAIN LAB [address] [place] [address] * RETICULOCYTE COUNT (04/18/2019 3:59 AM TELEVISION AND RADIO REPAIRER) Retic, 2.3 (H) 0.5 - 2.0 % KU MAIN LAB Uncorrected Retic, 1.1 % K[facility] MAIN LAB Corrected Retic, Absolute 52.4 30 - 94 K/UL KU MAIN LAB Specimen Performing Organization Address [facility] one Number MAIN LAB [address] [place] [address] * IRON + BINDING CAPACITY + %SAT+ FERRITIN (04/18/2019 3:59 AM TELEVISION AND RADIO REPAIRER) Iron 48 (L) 50 - 160 MCG/DL KU MAIN LAB Iron 207 (L) 270 - 380 MCG/DL MAIN LAB Binding-TIBC % Saturation 23 (L) 28 - 42 % K[facility] MAIN LAB Ferritin 152 10 - 200 NG/ML MAIN LAB Specimen Performing Organization Address [facility] one Number MAIN LAB [address] [place] [address] * COMPREHENSIVE METABOLIC PANEL (04/18/2019 3:59 AM TELEVISION AND RADIO REPAIRER) Sodium 133 (L) 137 - 147 MMOL/L KU MAIN LAB Potassium 5.1 3.5 - 5.1 MMOL/L [facility] MAIN LAB Chloride 104 98 - 110 MMOL/L [facility] MAIN LAB Glucose 292 (H) 70 - 100 MG/DL [facility] MAIN LAB Blood Urea 61 (H) 7 - 25 MG/DL [facility] MAIN LAB Nitrogen Creatinine 4.28 (H) 0.4 - 1.00 MG/DL [facility] MAIN LAB Calcium 7.8 (L) 8.5 - 10.6 MG/DL K[facility] MAIN LAB Total Protein 4.4 (L) 6.0 - 8.0 G/DL K[facility] MAIN LAB Total Bilirubin 0.2 (L) 0.3 - 1.2 MG/DL K[facility] MAIN LAB Albumin 2.0 (L) 3.5 - 5.0 G/DL [facility] MAIN LAB Alk Phosphatase 77 25 - 110 U/L [facility] MAIN LAB AST (SGOT) 12 7 - 40 U/L [facility] MAIN LAB CO2 21 21 - 30 MMOL/L [facility] MAIN LAB ALT (SGPT) 8 7 - 56 U/L [facility] MAIN LAB Anion Gap 8 3 - 12 [facility] MAIN LAB eGFR Non 12 (L) >60 mL/min [facility] MAIN LAB Comment: [place] The eGFR is not validated f or use in drug dosing adjustments. Continue to use estimated creatinine clearance per dosing reference text. Please contact the Clinical Pharmacist for questions. eGFR 15 (L) >60 mL/min K[facility] MAIN LAB [place] Comment: The eGFR is not validated for use in drug dosing adjustments. Continue to use estimated creatinine clearance per dosing reference text. Please contact the Clinical Pharmacist for questions. Specimen Blood Performing Organization Address City/State/Zipcode Ph one Number [facility] MAIN LAB [address] [place] [address] * CBC AND DIFF (04/18/2019 3:59 AM TELEVISION AND RADIO REPAIRER) White Blood 6.7 4.5 - 11.0 K/UL KU MAIN LAB Cells RBC 2.28 (L) 4.0 - 5.0 M/UL [facility] MAIN LAB Hemoglobin 6.9 (L) 12.0 - 15.0 GM/DL K[facility] MAIN LAB Hematocrit 19.6 (L) 36 - 45 % K[facility] MAIN LAB MCV 85.9 80 - 100 FL [facility] MAIN LAB MCH 30.2 26 - 34 PG [facility] MAIN LAB MCHC 35.2 32.0 - 36.0 G/DL [facility] MAIN LAB RDW 13.6 11 - 15 % [facility] MAIN LAB Platelet Count 233 150 - 400 K/UL [facility] MAIN LAB MPV 8.2 7 - 11 FL [facility] MAIN LAB Neutrophils 63 41 - 77 % [facility] MAIN LAB Lymphocytes 26 24 - 44 % [facility] MAIN LAB Monocytes 7 4 - 12 % [facility] MAIN LAB Eosinophils 3 0 - 5 % [facility] MAIN LAB Basophils 1 0 - 2 % [facility] MAIN LAB Absolute 4.30 1.8 - 7.0 K/UL [facility] MAIN LAB Neutrophil Count Absolute Lymph 1.70 1.0 - 4.8 K/UL [facility] MAIN LAB Count Absolute 0.40 0 - 0.80 K/UL [facility] MAIN LAB Monocyte Count Absolute 0.20 0 - 0.45 K/UL [facility] MAIN LAB Eosinophil Count Absolute 0.10 0 - 0.20 K/UL [facility] MAIN LAB Basophil Count Specimen Blood Performing Organization Address [facility] one Number [place] MAIN LAB [address] [place] [address] * POC GLUCOSE (04/17/2019 9:23 PM TELEVISION AND RADIO REPAIRER) Glucose, POC 112 (H) 70 - 100 MG/DL [facility] MAIN LAB Specimen Performing Organization Address [facility] one Number MAIN LAB [address] [place] [address] * BASIC METABOLIC PANEL (04/17/2019 6:00 PM TELEVISION AND RADIO REPAIRER) Sodium 134 (L) 137 - 147 MMOL/L [facility] MAIN LAB Potassium 4.5 3.5 - 5.1 MMOL/L [facility] MAIN LAB Chloride 105 98 - 110 MMOL/L [facility] MAIN LAB CO2 22 21 - 30 MMOL/L [facility] MAIN LAB Anion Gap 7 3 - 12 [facility] MAIN LAB Glucose 141 (H) 70 - 100 MG/DL [facility] MAIN LAB Blood Urea 61 (H) 7 - 25 MG/DL [facility] MAIN LAB Nitrogen Creatinine 4.41 (H) 0.4 - 1.00 MG/DL [facility] MAIN LAB Calcium 7.6 (L) 8.5 - 10.6 MG/DL MAIN LAB eGFR Non 12 (L) >60 mL/min MAIN LAB Comment: [place] The eGFR is not validated f or use in drug dosing adjustments. Continue to use estimated creatinine clearance per dosing reference text. Please contact the Clinical Pharmacist for questions. eGFR 14 (L) >60 mL/min MAIN LAB [place] Comment: The eGFR is not validated for use in drug dosing adjustments. Continue to use estimated creatinine clearance per dosing reference text. Please contact the Clinical Pharmacist for questions. Specimen Blood Performing Organization Address [facility] one Number KU MAIN LAB [address] [place] [address] * POC GLUCOSE (04/17/2019 5:58 PM TELEVISION AND RADIO REPAIRER) Glucose, POC 135 (H) 70 - 100 MG/DL [facility] MAIN LAB Specimen Performing Organization Address [facility] LAB [address] [place] [address] * POC GLUCOSE (04/17/2019 4:38 PM TELEVISION AND RADIO REPAIRER) Glucose, POC 178 (H) 70 - 100 MG/DL [facility] MAIN LAB Specimen Performing Organization Address [facility] MAIN LAB [address] [place] [address] * POC GLUCOSE (04/17/2019 3:57 PM TELEVISION AND RADIO REPAIRER) Glucose, POC 136 (H) 70 - 100 MG/DL MAIN LAB Specimen Performing Organization Address [facility] MAIN LAB [address] [place] [address] * POC GLUCOSE (04/17/2019 11:31 AM TELEVISION AND RADIO REPAIRER) Glucose, POC 226 (H) 70 - 100 MG/DL MAIN LAB Specimen Performing Organization Address [facility] MAIN LAB [address] [place] [address] * POC GLUCOSE (04/17/2019 8:40 AM TELEVISION AND RADIO REPAIRER) Glucose, POC 299 (H) 70 - 100 MG/DL MAIN LAB Specimen Performing Organization Address [facility] MAIN LAB [address] [place] [address] * POC GLUCOSE (04/17/2019 7:48 AM TELEVISION AND RADIO REPAIRER) Glucose, POC 337 (H) 70 - 100 MG/DL MAIN LAB Specimen Performing Organization Address [facility] MAIN LAB [address] [place] [address] * CBC AND DIFF (04/17/2019 4:16 AM TELEVISION AND RADIO REPAIRER) White Blood 7.6 4.5 - 11.0 K/UL MAIN LAB Cells RBC 2.55 (L) 4.0 - 5.0 M/UL MAIN LAB Hemoglobin 7.5 (L) 12.0 - 15.0 GM/DL MAIN LAB Hematocrit 22.0 (L) 36 - 45 % [facility] MAIN LAB MCV 86.1 80 - 100 FL [facility] MAIN LAB MCH 29.6 26 - 34 PG [facility] MAIN LAB MCHC 34.3 32.0 - 36.0 G/DL [facility] MAIN LAB RDW 13.8 11 - 15 % [facility] MAIN LAB Platelet Count 239 150 - 400 K/UL [facility] MAIN LAB MPV 8.0 7 - 11 FL [facility] MAIN LAB Neutrophils 71 41 - 77 % [facility] MAIN LAB Lymphocytes 18 (L) 24 - 44 % [facility] MAIN LAB Monocytes 7 4 - 12 % [facility] MAIN LAB Eosinophils 3 0 - 5 % [facility] MAIN LAB Basophils 1 0 - 2 % [facility] MAIN LAB Absolute 5.40 1.8 - 7.0 K/UL [facility] MAIN LAB Neutrophil Count Absolute Lymph 1.40 1.0 - 4.8 K/UL [facility] MAIN LAB Count Absolute 0.50 0 - 0.80 K/UL [facility] MAIN LAB Monocyte Count Absolute 0.20 0 - 0.45 K/UL [facility] MAIN LAB Eosinophil Count Absolute 0.10 0 - 0.20 K/UL [facility] MAIN LAB Basophil Count Specimen Performing Organization Address City/State/Zipcode Ph one Number [facility] MAIN LAB [address] [facility] [place] [address] * COMPREHENSIVE METABOLIC PANEL (04/17/2019 4:16 AM TELEVISION AND RADIO REPAIRER) Sodium 134 (L) 137 - 147 MMOL/L [facility] MAIN LAB Potassium 4.5 3.5 - 5.1 MMOL/L [facility] MAIN LAB Chloride 105 98 - 110 MMOL/L [facility] MAIN LAB Glucose 152 (H) 70 - 100 MG/DL [facility] MAIN LAB Blood Urea 59 (H) 7 - 25 MG/DL [facility] MAIN LAB Nitrogen Creatinine 4.27 (H) 0.4 - 1.00 MG/DL [facility] MAIN LAB Calcium 7.9 (L) 8.5 - 10.6 MG/DL K[facility] MAIN LAB Total Protein 4.8 (L) 6.0 - 8.0 G/DL [facility] MAIN LAB Total Bilirubin 0.2 (L) 0.3 - 1.2 MG/DL [facility] MAIN LAB Albumin 2.2 (L) 3.5 - 5.0 G/DL [facility] MAIN LAB Alk Phosphatase 85 25 - 110 U/L [facility] MAIN LAB AST (SGOT) 14 7 - 40 U/L [facility] MAIN LAB CO2 22 21 - 30 MMOL/L [facility] MAIN LAB ALT (SGPT) 12 7 - 56 U/L [facility] MAIN LAB Anion Gap 7 3 - 12 [facility] MAIN LAB eGFR Non 12 (L) >60 mL/min MAIN LAB Comment: [place] The eGFR is not validated f or use in drug dosing adjustments. Continue to use estimated creatinine clearance per dosing reference text. Please contact the Clinical Pharmacist for questions. eGFR 15 (L) >60 mL/min MAIN LAB [place] Comment: The eGFR is not validated for use in drug dosing adjustments. Continue to use estimated creatinine clearance per dosing reference text. Please contact the Clinical Pharmacist for questions. Specimen Performing Organization Address City/State/Zipcode Ph one Number MAIN LAB [address] [place] [address] * MAGNESIUM (04/17/2019 4:16 AM TELEVISION AND RADIO REPAIRER) Magnesium 2.6 1.6 - 2.6 mg/dL MAIN LAB Specimen Blood Performing Organization Address City/[facility] MAIN LAB [address] [place] [address] * PHOSPHORUS (04/17/2019 4:16 AM TELEVISION AND RADIO REPAIRER) Phosphorus 4.7 (H)Comment: NOTE NEW 2.0 - 4.5 MG/DL [facility] Specimen Blood Performing Organization Address City/[facility] Number MAIN LAB [address] [place] [address] * POC GLUCOSE (04/17/2019 3:59 AM TELEVISION AND RADIO REPAIRER) Glucose, POC 168 (H) 70 - 100 MG/DL MAIN LAB Specimen Performing Organization Address City/[facility] Number MAIN LAB [address] [place] [address] * POC GLUCOSE (04/17/2019 1:43 AM TELEVISION AND RADIO REPAIRER) Glucose, POC 129 (H) 70 - 100 MG/DL MAIN LAB Specimen Performing Organization Address City/[facility] Ph one Number MAIN LAB [address] [place] [address] * POC GLUCOSE (04/16/2019 11:20 PM TELEVISION AND RADIO REPAIRER) Glucose, POC 97 70 - 100 MG/DL MAIN LAB Specimen Performing Organization Address City/[facility] Number MAIN LAB [address] [place] [address] * MAGNESIUM (04/16/2019 10:42 PM TELEVISION AND RADIO REPAIRER) Magnesium 2.6 1.6 - 2.6 mg/dL [facility] MAIN LAB Specimen Blood Performing Organization Address [facility] Ph one Number MAIN LAB [address] [place] [address] * BASIC METABOLIC PANEL (04/16/2019 10:42 PM TELEVISION AND RADIO REPAIRER) Sodium 136 (L) 137 - 147 MMOL/L [facility] MAIN LAB Potassium 4.5 3.5 - 5.1 MMOL/L [facility] MAIN LAB Chloride 107 98 - 110 MMOL/L [facility] MAIN LAB CO2 21 21 - 30 MMOL/L [facility] MAIN LAB Anion Gap 8 3 - 12 [facility] MAIN LAB Glucose 73 70 - 100 MG/DL [facility] MAIN LAB Blood Urea 63 (H) 7 - 25 MG/DL [facility] MAIN LAB Nitrogen Creatinine 4.27 (H) 0.4 - 1.00 MG/DL [facility] MAIN LAB Calcium 7.8 (L) 8.5 - 10.6 MG/DL [facility] MAIN LAB eGFR Non 12 (L) >60 mL/min [facility] MAIN LAB Comment: [place] The eGFR is not validated f or use in drug dosing adjustments. Continue to use estimated creatinine clearance per dosing reference text. Please contact the Clinical Pharmacist for questions. eGFR 15 (L) >60 mL/min [facility] MAIN LAB [place] Comment: The eGFR is not validated for use in drug dosing adjustments. Continue to use estimated creatinine clearance per dosing reference text. Please contact the Clinical Pharmacist for questions. Specimen Blood Performing Organization Address [facility] Ph one Number MAIN LAB [address] [place] [address] * PHOSPHORUS (04/16/2019 10:42 PM TELEVISION AND RADIO REPAIRER) Phosphorus 4.5Comment: NOTE NEW REFERENCE 2.0 - 4.5 MG/DL [facility] MAIN LAB RANGES Specimen Blood Performing Organization Address City[facility] one Number MAIN LAB [address] [place] [address] * POC GLUCOSE (04/16/2019 9:28 PM TELEVISION AND RADIO REPAIRER) Glucose, POC 105 (H) 70 - 100 MG/DL MAIN LAB Specimen Performing Organization Address [facility] Ph one Number MAIN LAB [address] [place] [address] * POC GLUCOSE (04/16/2019 8:22 PM TELEVISION AND RADIO REPAIRER) Glucose, POC 121 (H) 70 - 100 MG/DL MAIN LAB Specimen Performing Organization Address City/[facility] Number MAIN LAB [address] [place] [address] * POC GLUCOSE (04/16/2019 7:27 PM TELEVISION AND RADIO REPAIRER) Glucose, POC 116 (H) 70 - 100 MG/DL MAIN LAB Specimen Performing Organization Address City/[facility] Number MAIN LAB [address] [place] [address] * POC GLUCOSE (04/16/2019 6:36 PM TELEVISION AND RADIO REPAIRER) Glucose, POC 139 (H) 70 - 100 MG/DL MAIN LAB Specimen Performing Organization Address City/[facility] Number MAIN LAB [address] [place] [address] * POC GLUCOSE (04/16/2019 5:38 PM TELEVISION AND RADIO REPAIRER) Glucose, POC 172 (H) 70 - 100 MG/DL MAIN LAB Specimen Performing Organization Address [facility] Number MAIN LAB [address] [place] [address] * POC GLUCOSE (04/16/2019 4:34 PM TELEVISION AND RADIO REPAIRER) Glucose, POC 179 (H) 70 - 100 MG/DL MAIN LAB Specimen Performing Organization Address [facility] Ph one Number MAIN LAB [address] [place] [address] * POC GLUCOSE (04/16/2019 4:01 PM TELEVISION AND RADIO REPAIRER) Glucose, POC 146 (H) 70 - 100 MG/DL MAIN LAB Specimen Performing Organization Address City/[facility] Ph one Number MAIN LAB [address] [place] [address] * CULTURE-URINE W/SENSITIVITY (04/16/2019 3:46 PM TELEVISION AND RADIO REPAIRER) Battery Name URINE CULTURE [facility] MAIN LAB Specimen URINE MAIN LAB Description Special NONE MAIN LAB Requests Culture NO GROWTH MAIN LAB Report Status FINAL MAIN LAB 04/17/2019 Specimen Urine - Urine Performing Organization Address City/[facility] one Number MAIN LAB [address] [place] [address] * POC GLUCOSE (04/16/2019 2:53 PM TELEVISION AND RADIO REPAIRER) Glucose, POC 178 (H) 70 - 100 MG/DL [facility] MAIN LAB Specimen Performing Organization Address [facility] one Number MAIN LAB [address] [place] [address] * POC GLUCOSE (04/16/2019 1:45 PM TELEVISION AND RADIO REPAIRER) Glucose, POC 263 (H) 70 - 100 MG/DL MAIN LAB Specimen Performing Organization Address [facility] one Number MAIN LAB [address] [place] [address] * POC GLUCOSE (04/16/2019 12:44 PM TELEVISION AND RADIO REPAIRER) Glucose, POC 249 (H) 70 - 100 MG/DL MAIN LAB Specimen Performing Organization Address [facility] one Number MAIN LAB [address] [place] [address] * BETA HYDROXYBUTYRATE (KETONES) (04/16/2019 11:30 AM TELEVISION AND RADIO REPAIRER) Beta 0.2 <0.3 MMOL/L MAIN LAB Hydroxybutyrate Comment: Beta hydroxybutyrate (BOHB) is the most abundant ketone (78%), followed by acetoacetate (20%) and acetone (2%). Measurement BOHB is recommended to assess ketones in DKA. Expected BOHB Results for DKA: Initial presentation high/increasing During treatment decreasing Resolved decreasing/normal Specimen Blood Performing Organization Address [facility] one Number MAIN LAB [address] [place] [address] * MAGNESIUM (04/16/2019 11:30 AM TELEVISION AND RADIO REPAIRER) Magnesium 2.7 (H) 1.6 - 2.6 mg/dL MAIN LAB Specimen Blood Performing Organization Address [facility] one Number MAIN LAB [address] [place] [address] * BASIC METABOLIC PANEL (04/16/2019 11:30 AM TELEVISION AND RADIO REPAIRER) Sodium 134 (L) 137 - 147 MMOL/L [facility] MAIN LAB Potassium 4.2 3.5 - 5.1 MMOL/L [facility] MAIN LAB Chloride 105 98 - 110 MMOL/L [facility] MAIN LAB CO2 19 (L) 21 - 30 MMOL/L [facility] MAIN LAB Anion Gap 10 3 - 12 K[facility] MAIN LAB Glucose 142 (H) 70 - 100 MG/DL [facility] MAIN LAB Blood Urea 64 (H) 7 - 25 MG/DL [facility] MAIN LAB Nitrogen Creatinine 4.37 (H) 0.4 - 1.00 MG/DL [facility] MAIN LAB Calcium 7.6 (L) 8.5 - 10.6 MG/DL [facility] MAIN LAB eGFR Non 12 (L) >60 mL/min MAIN LAB Comment: [place] The eGFR is not validated f or use in drug dosing adjustments. Continue to use estimated creatinine clearance per dosing reference text. Please contact the Clinical Pharmacist for questions. eGFR 14 (L) >60 mL/min MAIN LAB [place] Comment: The eGFR is not validated for use in drug dosing adjustments. Continue to use estimated creatinine clearance per dosing reference text. Please contact the Clinical Pharmacist for questions. Specimen Blood Performing Organization Address [facility] Ph one Number [facility] LAB [address] [place] [address] * POC GLUCOSE (04/16/2019 10:58 AM TELEVISION AND RADIO REPAIRER) Glucose, POC 120 (H) 70 - 100 MG/DL MAIN LAB Specimen Performing Organization Address [facility] Ph one Number [facility] LAB [address] [place] [address] * MAGNESIUM (04/16/2019 10:20 AM TELEVISION AND RADIO REPAIRER) Magnesium 2.7 (H) 1.6 - 2.6 mg/dL MAIN LAB Specimen Blood Performing Organization Address [facility] Ph one Number [facility] [address] [place] [address] * COMPREHENSIVE METABOLIC PANEL (04/16/2019 10:20 AM TELEVISION AND RADIO REPAIRER) Sodium 135 (L) 137 - 147 MMOL/L MAIN LAB Potassium 4.1 3.5 - 5.1 MMOL/L MAIN LAB Chloride 105 98 - 110 MMOL/L [facility] MAIN LAB Glucose 186 (H) 70 - 100 MG/DL [facility] MAIN LAB Blood Urea 63 (H) 7 - 25 MG/DL [facility] MAIN LAB Nitrogen Creatinine 4.43 (H) 0.4 - 1.00 MG/DL [facility] MAIN LAB Calcium 7.9 (L) 8.5 - 10.6 MG/DL [facility] MAIN LAB Total Protein 4.7 (L) 6.0 - 8.0 G/DL [facility] MAIN LAB Total Bilirubin 0.2 (L) 0.3 - 1.2 MG/DL [facility] MAIN LAB Albumin 2.2 (L) 3.5 - 5.0 G/DL [facility] MAIN LAB Alk Phosphatase 88 25 - 110 U/L [facility] MAIN LAB AST (SGOT) 15 7 - 40 U/L [facility] MAIN LAB CO2 20 (L) 21 - 30 MMOL/L [facility] MAIN LAB ALT (SGPT) 12 7 - 56 U/L [facility] MAIN LAB Anion Gap 10 3 - 12 K[facility] MAIN LAB eGFR Non 12 (L) >60 mL/min [facility] MAIN LAB Comment: [place] The eGFR is not validated f or use in drug dosing adjustments. Continue to use estimated creatinine clearance per dosing reference text. Please contact the Clinical Pharmacist for questions. eGFR 14 (L) >60 mL/min [facility] MAIN LAB [place] Comment: The eGFR is not validated for use in drug dosing adjustments. Continue to use estimated creatinine clearance per dosing reference text. Please contact the Clinical Pharmacist for questions. Specimen Blood Performing Organization Address City/State/Zipcode Ph one Number [facility] MAIN LAB [address] [place] [address] * CBC AND DIFF (04/16/2019 10:20 AM TELEVISION AND RADIO REPAIRER) White Blood 6.6 4.5 - 11.0 K/UL [facility] MAIN LAB Cells RBC 2.46 (L) 4.0 - 5.0 M/UL [facility] MAIN LAB Hemoglobin 7.4 (L) 12.0 - 15.0 GM/DL [facility] MAIN LAB Hematocrit 21.2 (L) 36 - 45 % [facility] MAIN LAB MCV 85.9 80 - 100 FL K[facility] MAIN LAB MCH 30.0 26 - 34 PG [facility] MAIN [facility] MCHC 34.9 32.0 - 36.0 G/DL [facility] MAIN [facility] RDW 13.7 11 - 15 % [facility] MAIN [facility] Platelet Count 214 150 - 400 K/UL [facility] MAIN LAB MPV 8.1 7 - 11 FL [facility] MAIN LAB Neutrophils 77 41 - 77 % [facility] MAIN [facility] Lymphocytes 13 (L) 24 - 44 % [facility] MAIN [facility] Monocytes 6 4 - 12 % [facility] MAIN LAB Eosinophils 3 0 - 5 % [facility] MAIN [facility] Basophils 1 0 - 2 % MAIN LAB Absolute 5.10 1.8 - 7.0 K/UL [facility] MAIN LAB Neutrophil Count Absolute Lymph 0.90 (L) 1.0 - 4.8 K/UL [facility] MAIN LAB Count Absolute 0.40 0 - 0.80 K/UL MAIN LAB Monocyte Count Absolute 0.20 0 - 0.45 K/UL MAIN LAB Eosinophil Count Absolute 0.10 0 - 0.20 K/UL MAIN LAB Basophil Count Specimen Blood Performing Organization Address City[facility] Number MAIN LAB [address] [place] [address] * TSH WITH FREE T4 REFLEX (04/16/2019 10:20 AM TELEVISION AND RADIO REPAIRER) TSH 2.43 0.35 - 5.00 MCU/ML MAIN LAB Specimen Blood Performing Organization Address [facility] one Number MAIN LAB [address] [place] [address] * HEMOGLOBIN A1C (04/16/2019 10:20 AM TELEVISION AND RADIO REPAIRER) Hemoglobin A1C 10.1 (H) 4.0 - 6.0 % MAIN LAB Comment: The ADA recommends that most patients with type 1 and type 2 diabetes maintain an A1c level <7%. Specimen Blood Performing Organization Address [facility] one Number MAIN LAB [address] [place] [address] * POC GLUCOSE (04/16/2019 9:57 AM TELEVISION AND RADIO REPAIRER) Glucose, POC 225 (H) 70 - 100 MG/DL MAIN LAB Specimen Performing Organization Address [facility] Ph one Number MAIN LAB [address] [place] [address] * POC GLUCOSE (04/16/2019 8:56 AM TELEVISION AND RADIO REPAIRER) Glucose, POC 172 (H) 70 - 100 MG/DL MAIN LAB Specimen Performing Organization Address [facility] Ph one Number MAIN LAB [address] [place] [address] * POC GLUCOSE (04/16/2019 7:19 AM TELEVISION AND RADIO REPAIRER) Glucose, POC 175 (H) 70 - 100 MG/DL MAIN LAB Specimen Performing Organization Address [facility] Ph one Number [facility]U MAIN LAB [address] [place] [address] * MICROALB/CR RATIO-URINE RANDOM (04/16/2019 6:56 AM TELEVISION AND RADIO REPAIRER) Microalbumin, 3,363.8 (H) <19 MCG/ML [facility] MAIN LAB Random Creatinine, 56 MG/DL [facility] MAIN LAB Random Microalbumin/CR 6,006.79 (H)Comment: NOTE NEW <30 ug/mg [facility] MAIN LAB ratio Urine REFERENCE RANGES Specimen Urine - Urine Performing Organization Address [facility] Ph one Number [facility] MAIN LAB [address] [place] [address] * CT ABD/PELV WO CONTRAST (04/16/2019 6:44 AM TELEVISION AND RADIO REPAIRER) Specimen Impressions Performed At 1. DEVELOPMENT OF MILD ABDOMINAL/PELVIC ASCITES WITH MESENTERIC CONGESTION. [facility] RAD RESULTS 2. PERSISTENT PROMINENCE OF THE APPENDI X WITH SMALL APPENDICOLITHS. THERE IS HAZINESS AROUND THE PROMINENT APPENDIX, WHICH MAY BE ASSOCIATED WITH ABDOMINAL/PELVIC ASCITES. APPENDICITIS IS STILL A CONSIDERATION. CLINICAL AND LABORATORY CORRELATION IS SUGGESTED. 3. PERSISTENT MILD HEPATOMEGALY AND UPP ER LIMITS OF NORMAL SIZE SPLEEN. 4. ANEMIA. 5. MILD TO MODERATE ANASARCA. Finalized by Ander Barry M.D. on 2019 7:45 AM. Dictated by Ander Barry M.D. on 04/16/2019 7:23 AM. Narrative Performed At CT Abdomen and Pelvis [facility] RAD RESULTS Clinical Indication: 33-year-old female with Abdominal pain. Technique: Multiple contiguous axial CT images were obtained through the abdomen and pelvis without IV contrast. Post pr ocessing coronal and sagittal reconstruction images were made from th e axial images. IV contrast: None. Bowel contrast: None Comparison: Prior CT of the abdomen/pel vis dated 02/01/2019. FINDINGS: Limited evaluation without the use of I V contrast which includes the viscera and vasculature. Lower Thorax: Mild atelectasis noted in volving the bilateral lung bases greater than the right. There is hypodensity of the blood pool in relation to the myocardium, compatible with anemia. Liver and Biliary system: The liver rem ains to be mildly enlarged with the left lobe of the liver extending to the left upper quadrant abdomen. The liver measures 20.7 cm craniocaudally, previo usly 21.3 cm when measured in same fashion. No definite focal hepatic lesi on. Prior cholecystectomy. Spleen: The spleen is within the upper limits of normal in size measuring 12.3 cm in length, previously 12.1 cm. Adrenal Glands and Kidneys: The bilater al adrenal glands appear unremarkable. The unopacified kidneys are grossly unr emarkable. No nephrolithiasis or hydronephrosis. Pancreas and Retroperitoneum: No gross evidence of pancreatic mass. No significant retroperitoneal adenopathy. Aorta and Major Vessels: The aortoiliac vessels are normal in caliber. Bowel: The stomach is partly decompress ed at the time of examination. The small and large bowel loops are normal in jose iber. There is again prominence of the appendix measuring 0.7 cm in diameter p reviously 0.8 cm. Small appendicolith is again noted. There is haziness around t he appendix however, this may be secondary to presence of ascites about the abdomen and pelvis. Mesentery and Peritoneal space: There i s mild abdominal/pelvic ascites. Haziness is noted about the perigastric area as well as the periportal region. There is also haziness about the mesentery, seco ndary to mesenteric congestion. Pelvis: The urinary bladder appears to be adequately distended with thin mccracken. The uterus appears to be normal in size for patient's age. Low density bilateral adnexal lesions are noted which may rep resent physiologic ovarian cysts and/or follicles. IUD is again noted in place. No pelvic adenopathy. Abdominal wall and Osseous Structures: Small fat-containing umbilical hernia again noted. There is now mild to moder ate subcutaneous edema of the abdomen and pelvis. Stable mild superior endplate c ompression deformity involving L2 vertebral body with minimal retropulsio n causing mild mass effect along the anterior thecal sac. No suspicious dest ructive osseous lesions. Procedure Note Interface, Radiant Results - 04/16/2019 7:48 AM TELEVISION AND RADIO REPAIRER CT Abdomen and Pelvis Clinical Indication: 33-year-old female with Abdominal pain. Technique: Multiple contiguous axial CT images were obtained through the abdomen and pelvis without IV contrast. Post processing coronal and sagittal reconstruction images were made from the axial images. IV contrast: None. Bowel contrast: None Comparison: Prior CT of the abdomen/pelvis dated 02/01/2019. FINDINGS: Limited evaluation without the use of IV contrast which includes the viscera and vasculature. Lower Thorax: Mild atelectasis noted involving the bilateral lung bases greater than the right. There is hypodensity of the blood pool in relation to the myocardium, compatible with anemia. Liver and Biliary system: The liver remains to be mildly enlarged with the left lobe of the liver extending to the left upper quadrant abdomen. The liver measures 20.7 cm craniocaudally, previously 21.3 cm when measured in same fashion. No definite focal hepatic lesion. Prior cholecystectomy. Spleen: The spleen is within the upper limits of normal in size measuring 12.3 cm in length, previously 12.1 cm. Adrenal Glands and Kidneys: The bilateral adrenal glands appear unremarkable. The unopacified kidneys are grossly unremarkable. No nephrolithiasis or hydronephrosis. Pancreas and Retroperitoneum: No gross evidence of pancreatic mass. No significant retroperitoneal adenopathy. Aorta and Major Vessels: The aortoiliac vessels are normal in caliber. Bowel: The stomach is partly decompressed at the time of examination. The small and large bowel loops are normal in caliber. There is again prominence of the appendix measuring 0.7 cm in diameter previously 0.8 cm. Small appendicolith is again noted. There is haziness around the appendix however, this may be secondary to presence of ascites about the abdomen and pelvis. Mesentery and Peritoneal space: There is mild abdominal/pelvic ascites. Haziness is noted about the perigastric area as well as the periportal region. There is also haziness about the mesentery, secondary to mesenteric congestion. Pelvis: The urinary bladder appears to be adequately distended with thin mccracken. The uterus appears to be normal in size for patient's age. Low density bilateral adnexal lesions are noted which may represent physiologic ovarian cysts and/or follicles. IUD is again noted in place. No pelvic adenopathy. Abdominal wall and Osseous Structures: Small fat-containing umbilical hernia again noted. There is now mild to moderate subcutaneous edema of the abdomen and pelvis. Stable mild superior endplate compression deformity involving L2 vertebral body with minimal retropulsion causing mild mass effect along the anterior thecal sac. No suspicious destructive osseous lesions. IMPRESSION 1. DEVELOPMENT OF MILD ABDOMINAL/PELVIC ASCITES WITH MESENTERIC CONGESTION. 2. PERSISTENT PROMINENCE OF THE APPENDIX WITH SMALL APPENDICOLITHS. THERE IS HAZINESS AROUND THE PROMINENT APPENDIX, WHICH MAY BE ASSOCIATED WITH ABDOMINAL/PELVIC ASCITES. APPENDICITIS IS STILL A CONSIDERATION. CLINICAL AND LABORATORY CORRELATION IS SUGGESTED. 3. PERSISTENT MILD HEPATOMEGALY AND UPPE R LIMITS OF NORMAL SIZE SPLEEN. 4. ANEMIA. 5. MILD TO MODERATE ANASARCA. Finalized by Ander Barry M.D. on 04/16/2019 7:45 AM. Dictated by Ander Barry M.D. on 04/16/2019 7:23 AM. Performing Organization Address [facility] Ph one Number KU RAD RESULTS * POC GLUCOSE (04/16/2019 6:21 AM TELEVISION AND RADIO REPAIRER) Pathologist [facility] Glucose, POC 277 (H) 70 - 100 MG/DL [facility] MAIN LAB Specimen Performing Organization Address [facility] one Number [facility] MAIN LAB [address] [place] [address] * TSH WITH FREE T4 REFLEX (04/16/2019 6:20 AM TELEVISION AND RADIO REPAIRER) Pathologist [facility] TSH 1.76 0.35 - 5.00 MCU/ML [facility] MAIN LAB Specimen Performing Organization Address [facility] one Number [facility] MAIN LAB [address] [place] [address] * CBC AND DIFF (04/16/2019 6:20 AM TELEVISION AND RADIO REPAIRER) Pathologist [facility] White Blood 6.5 4.5 - 11.0 K/UL [facility] MAIN LAB Cells RBC 2.36 (L) 4.0 - 5.0 M/UL [facility] MAIN LAB Hemoglobin 7.0 (L) 12.0 - 15.0 GM/DL [facility] MAIN LAB Hematocrit 20.3 (L) 36 - 45 % [facility] MAIN LAB MCV 86.2 80 - 100 FL [facility] MAIN LAB MCH 29.7 26 - 34 PG [facility] MAIN LAB MCHC 34.5 32.0 - 36.0 G/DL [facility] MAIN LAB RDW 13.9 11 - 15 % [facility] MAIN LAB Platelet Count 213 150 - 400 K/UL [facility] MAIN LAB MPV 8.6 7 - 11 FL [facility] MAIN LAB Neutrophils 73 41 - 77 % [facility] MAIN LAB Lymphocytes 18 (L) 24 - 44 % [facility] MAIN LAB Monocytes 6 4 - 12 % [facility] MAIN LAB Eosinophils 2 0 - 5 % [facility] MAIN LAB Basophils 1 0 - 2 % [facility] MAIN LAB Absolute 4.90 1.8 - 7.0 K/UL [facility] MAIN LAB Neutrophil Count Absolute Lymph 1.10 1.0 - 4.8 K/UL [facility] MAIN LAB Count Absolute 0.40 0 - 0.80 K/UL [facility] MAIN LAB Monocyte Count Absolute 0.10 0 - 0.45 K/UL [facility] MAIN LAB Eosinophil Count Absolute 0.10 0 - 0.20 K/UL [facility] MAIN LAB Basophil Count Specimen Performing Organization Address City/[facility] one Number [facility] MAIN LAB [address] [place] [address] * HEMOGLOBIN A1C (04/16/2019 6:20 AM TELEVISION AND RADIO REPAIRER) Hemoglobin A1C 10.2 (H) 4.0 - 6.0 % [facility] MAIN LAB Comment: The ADA recommends that most patients with type 1 and type 2 diabetes maintain an A1c level <7%. Specimen Performing Organization Address [facility] one Number [facility] MAIN LAB [address] [place] [address] * COMPREHENSIVE METABOLIC PANEL (04/16/2019 6:20 AM TELEVISION AND RADIO REPAIRER) Sodium 134 (L) 137 - 147 MMOL/L [facility] MAIN LAB Potassium 4.5 3.5 - 5.1 MMOL/L [facility] MAIN LAB Chloride 104 98 - 110 MMOL/L [facility] MAIN LAB Glucose 241 (H) 70 - 100 MG/DL [facility] MAIN LAB Blood Urea 70 (H) 7 - 25 MG/DL [facility] MAIN LAB Nitrogen Creatinine 4.41 (H) 0.4 - 1.00 MG/DL [facility] MAIN LAB Calcium 7.8 (L) 8.5 - 10.6 MG/DL [facility] MAIN LAB Total Protein 4.7 (L) 6.0 - 8.0 G/DL [facility] MAIN LAB Total Bilirubin 0.2 (L) 0.3 - 1.2 MG/DL [facility] MAIN LAB Albumin 2.1 (L) 3.5 - 5.0 G/DL [facility] MAIN LAB Alk Phosphatase 87 25 - 110 U/L [facility] MAIN LAB AST (SGOT) 14 7 - 40 U/L [facility] MAIN LAB CO2 22 21 - 30 MMOL/L [facility] MAIN LAB ALT (SGPT) 11 7 - 56 U/L [facility] MAIN LAB Anion Gap 8 3 - 12 [facility] MAIN LAB eGFR Non 12 (L) >60 mL/min [facility] MAIN LAB Comment: [place] The eGFR is not validated f or use in drug dosing adjustments. Continue to use estimated creatinine clearance per dosing reference text. Please contact the Clinical Pharmacist for questions. eGFR 14 (L) >60 mL/min [facility] MAIN LAB [place] Comment: The eGFR is not validated for use in drug dosing adjustments. Continue to use estimated creatinine clearance per dosing reference text. Please contact the Clinical Pharmacist for questions. Specimen Performing Organization Address City/[facility] Number MAIN LAB [address] [place] [address] * MAGNESIUM (04/16/2019 6:20 AM TELEVISION AND RADIO REPAIRER) Magnesium 2.7 (H) 1.6 - 2.6 mg/dL [facility] MAIN LAB Specimen Blood Performing Organization Address [facility] Ph one Number MAIN LAB [address] [place] [address] * POC GLUCOSE (04/16/2019 5:47 AM TELEVISION AND RADIO REPAIRER) Glucose, POC 287 (H) 70 - 100 MG/DL MAIN LAB Specimen Performing Organization Address [facility] one Number MAIN LAB [address] [place] [address] * LIPASE (04/16/2019 3:50 AM TELEVISION AND RADIO REPAIRER) Lipase 19 11 - 82 U/L MAIN LAB Specimen Performing Organization Address [facility] one Number MAIN LAB [address] [place] [address] * MAGNESIUM (04/16/2019 3:50 AM TELEVISION AND RADIO REPAIRER) Magnesium 2.6 1.6 - 2.6 mg/dL [facility] MAIN LAB Specimen Blood Performing Organization Address [facility] one Number MAIN LAB [address] [place] [id number] * BASIC METABOLIC PANEL (04/16/2019 3:50 AM TELEVISION AND RADIO REPAIRER) Sodium 132 (L) 137 - 147 MMOL/L [facility] MAIN LAB Potassium 4.5 3.5 - 5.1 MMOL/L [facility] MAIN LAB Chloride 102 98 - 110 MMOL/L [facility] MAIN LAB CO2 17 (L) 21 - 30 MMOL/L [facility] MAIN LAB Anion Gap 13 (H) 3 - 12 [facility] MAIN LAB Glucose 450 (H) 70 - 100 MG/DL [facility] MAIN LAB Blood Urea 67 (H) 7 - 25 MG/DL [facility] MAIN LAB Nitrogen Creatinine 4.33 (H) 0.4 - 1.00 MG/DL MAIN LAB Calcium 7.9 (L) 8.5 - 10.6 MG/DL MAIN LAB eGFR Non 12 (L) >60 mL/min MAIN LAB Comment: [place] The eGFR is not validated f or use in drug dosing adjustments. Continue to use estimated creatinine clearance per dosing reference text. Please contact the Clinical Pharmacist for questions. eGFR 14 (L) >60 mL/min MAIN LAB [place] Comment: The eGFR is not validated for use in drug dosing adjustments. Continue to use estimated creatinine clearance per dosing reference text. Please contact the Clinical Pharmacist for questions. Specimen Blood Performing Organization Address City/[facility] Ph one Number [facility] LAB [address] [place] [address] * POC GLUCOSE (04/16/2019 3:48 AM TELEVISION AND RADIO REPAIRER) Glucose, POC 468 (H) 70 - 100 MG/DL MAIN LAB Specimen Performing Organization Address [facility] Ph one Number MAIN LAB [address] [place] [address] * POC GLUCOSE (04/16/2019 2:34 AM TELEVISION AND RADIO REPAIRER) Glucose, POC >600 (HH) 70 - 100 MG/DL MAIN LAB Specimen Performing Organization Address [facility] Ph one Number MAIN LAB [address] [place] [address] * POC GLUCOSE (04/16/2019 1:19 AM TELEVISION AND RADIO REPAIRER) Glucose, POC >600 (HH) 70 - 100 MG/DL [facility] MAIN LAB Specimen Performing Organization Address [facility] Ph one Number MAIN LAB [address] [place] [address] * UREA NITROGEN-URINE RANDOM (04/16/2019 12:08 AM TELEVISION AND RADIO REPAIRER) Urea Nitrogen 380 MG/DL MAIN LAB Specimen Urine - Urine Performing Organization Address [facility] Ph one Number MAIN LAB [address] [place] [address] * CREATININE-URINE RANDOM (04/16/2019 12:08 AM TELEVISION AND RADIO REPAIRER) Creatinine, 72 MG/DL MAIN LAB Random Specimen Urine - Urine Performing Organization Address City/[facility] Ph one Number [facility] MAIN LAB [address] [place] [address] * SODIUM-URINE RANDOM (04/16/2019 12:08 AM TELEVISION AND RADIO REPAIRER) Sodium, Random 39 MMOL/L MAIN LAB Specimen Urine - Urine Performing Organization Address [facility] Ph one Number MAIN LAB [address] [place] [address] * URINALYSIS, MICROSCOPIC (04/16/2019 12:08 AM TELEVISION AND RADIO REPAIRER) WBCs,UA 2-10 0 - 2 /HPF KU MAIN LAB RBCs,UA 2-10 0 - 3 /HPF KU MAIN LAB MucousUA TRACE [facility] MAIN LAB Bacteria,UA FEW (A) NEG-NEG MAIN LAB Squamous 5-10 0 - 5 KU MAIN LAB Epithelial Cells Hyaline Cast 2-5 MAIN LAB Specimen Urine - Urine Performing Organization Address [facility] one Deuce MAIN LAB [address] [place] [address] * URINALYSIS DIPSTICK (04/16/2019 12:08 AM TELEVISION AND RADIO REPAIRER) Color,UA YELLOW [facility] MAIN LAB Turbidity,UA 1+ (A) CLEAR-CLEAR [facility] MAIN LAB Specific 1.015 1.003 - 1.035 K[facility] MAIN LAB [place]-Urine pH,UA 6.0 5.0 - 8.0 KU MAIN LAB Protein,UA 3+ (A) NEG-NEG [facility] MAIN LAB Glucose,UA 3+ (A) NEG-NEG [facility] MAIN LAB Ketones,UA 1+ (A) NEG-NEG [facility] MAIN LAB Bilirubin,UA NEG NEG-NEG [facility] MAIN LAB Blood,UA NEG NEG-NEG [facility] MAIN LAB Urobilinogen,UA NORMAL NORM-NORMAL [facility] MAIN LAB Nitrite,UA NEG NEG-NEG [facility] MAIN LAB Leukocytes,UA NEG NEG-NEG [facility] MAIN LAB Urine Ascorbic NEG NEG-NEG [facility] MAIN LAB Acid, UA Specimen Urine - Urine Performing Organization Address [facility] Ph one Deuce MAIN LAB [address] [place] [address] * BETA HYDROXYBUTYRATE (KETONES) (04/15/2019 11:50 PM TELEVISION AND RADIO REPAIRER) Beta 4.0 (H) <0.3 MMOL/L K[facility] MAIN LAB Hydroxybutyrate Comment: Beta hydroxybutyrate (BOHB) is the most abundant ketone (78%), followed by acetoacetate (20%) and acetone (2%). Measurement BOHB is recommended to assess ketones in DKA. Expected BOHB Results for DKA: Initial presentation high/increasing During treatment decreasing Resolved decreasing/normal Specimen Blood Performing Organization Address [facility] Ph one Number MAIN LAB [address] [place] [address] * LACTIC ACID(LACTATE) (04/15/2019 11:50 PM TELEVISION AND RADIO REPAIRER) Lactic Acid 0.5 0.5 - 2.0 MMOL/L MAIN LAB Specimen Blood Performing Organization Address [facility] one Number MAIN LAB [address] [place] [address] * LIPID PROFILE (04/15/2019 11:50 PM TELEVISION AND RADIO REPAIRER) Cholesterol 504 (H) <200 MG/DL KU MAIN LAB Triglycerides 916 (H) <150 MG/DL K[facility] MAIN LAB HDL 41 >40 MG/DL [facility] MAIN LAB LDL 142 (H) <100 mg/dL [facility] MAIN LAB VLDL 183 MG/DL [facility] MAIN LAB Non HDL 463 MG/DL [facility] MAIN LAB Cholesterol Comment: Calculated non-HDL Cholesterol (non-HDL-C) indirectly measures LDL-C, Lp(a), IDL-C, and VLDL-C. It is a surrogate marker for Apoprotein B. Goal should be less than 130 mg/dL. Specimen Blood Performing Organization Address [facility] one Number MAIN LAB [address] [place] [address] * PHOSPHORUS (04/15/2019 11:50 PM TELEVISION AND RADIO REPAIRER) Phosphorus 5.1 (H)Comment: NOTE NEW 2.0 - 4.5 MG/DL [facility] REFERENCE RANGES Specimen Blood Performing Organization Address [facility] Ph one Number MAIN LAB [address] [place] [address] * MAGNESIUM (04/15/2019 11:50 PM TELEVISION AND RADIO REPAIRER) Magnesium 2.7 (H) 1.6 - 2.6 mg/dL MAIN LAB Specimen Blood Performing Organization Address [facility] Ph one Number MAIN LAB [address] [place] [address] * COMPREHENSIVE METABOLIC PANEL (04/15/2019 11:50 PM TELEVISION AND RADIO REPAIRER) Sodium 130 (L) 137 - 147 MMOL/L [facility] MAIN LAB Potassium 5.2 (H) 3.5 - 5.1 MMOL/L [facility] MAIN LAB Chloride 99 98 - 110 MMOL/L [facility] MAIN LAB Glucose 553 (HH) 70 - 100 MG/DL [facility] MAIN LAB Comment: CRITICAL VALUE CALLED TO AND READ BACK BY/TIME/TECH ANDREEA HALE at 04/16/2019 00:56:34 by [id number] Blood Urea 67 (H) 7 - 25 MG/DL K[facility] MAIN LAB Nitrogen Creatinine 4.30 (H) 0.4 - 1.00 MG/DL [facility] MAIN LAB Calcium 7.6 (L) 8.5 - 10.6 MG/DL [facility] MAIN LAB Total Protein 4.8 (L) 6.0 - 8.0 G/DL [facility] MAIN LAB Total Bilirubin 0.2 (L) 0.3 - 1.2 MG/DL [facility] MAIN LAB Albumin 2.3 (L) 3.5 - 5.0 G/DL [facility] MAIN LAB Alk Phosphatase 95 25 - 110 U/L [facility] MAIN LAB AST (SGOT) 15 7 - 40 U/L [facility] MAIN LAB CO2 18 (L) 21 - 30 MMOL/L [facility] MAIN LAB ALT (SGPT) 11 7 - 56 U/L [facility] MAIN LAB Anion Gap 13 (H) 3 - 12 K[facility] MAIN LAB eGFR Non 12 (L) >60 mL/min [facility] MAIN LAB Comment: [place] The eGFR is not validated f or use in drug dosing adjustments. Continue to use estimated creatinine clearance per dosing reference text. Please contact the Clinical Pharmacist for questions. eGFR 14 (L) >60 mL/min [facility] MAIN LAB [place] Comment: The eGFR is not validated for use in drug dosing adjustments. Continue to use estimated creatinine clearance per dosing reference text. Please contact the Clinical Pharmacist for questions. Specimen Blood Performing Organization Address City/State/Zipcode Ph one Number [facility] MAIN LAB [address] [place] [address] * CBC AND DIFF (04/15/2019 11:50 PM TELEVISION AND RADIO REPAIRER) White Blood 7.7 4.5 - 11.0 K/UL [facility] MAIN LAB Cells RBC 2.46 (L) 4.0 - 5.0 M/UL [facility] MAIN LAB Hemoglobin 7.5 (L) 12.0 - 15.0 GM/DL [facility] MAIN LAB Hematocrit 21.5 (L) 36 - 45 % [facility] MAIN LAB MCV 87.4 80 - 100 FL [facility] MAIN LAB MCH 30.4 26 - 34 PG [facility] MAIN LAB MCHC 34.7 32.0 - 36.0 G/DL [facility] MAIN LAB RDW 14.0 11 - 15 % K[facility] MAIN LAB Platelet Count 222 150 - 400 K/UL [facility] MAIN LAB MPV 8.6 7 - 11 FL [facility] MAIN LAB Neutrophils 78 (H) 41 - 77 % [facility] MAIN LAB Lymphocytes 13 (L) 24 - 44 % [facility] MAIN LAB Monocytes 6 4 - 12 % [facility] MAIN LAB Eosinophils 2 0 - 5 % [facility] MAIN LAB Basophils 1 0 - 2 % [facility] MAIN LAB Absolute 6.10 1.8 - 7.0 K/UL [facility] MAIN LAB Neutrophil Count Absolute Lymph 1.00 1.0 - 4.8 K/UL [facility] MAIN LAB Count Absolute 0.40 0 - 0.80 K/UL [facility] MAIN LAB Monocyte Count Absolute 0.10 0 - 0.45 K/UL [facility] MAIN LAB Eosinophil Count Absolute 0.10 0 - 0.20 K/UL [facility] MAIN LAB Basophil Count Specimen Blood Performing Organization Address [facility] LAB [address] [place] [address] * POC GLUCOSE (04/15/2019 11:16 PM TELEVISION AND RADIO REPAIRER) Glucose, POC 521 (HH) 70 - 100 MG/DL [facility] MAIN LAB Specimen Performing Organization Address [facility] Ph one Number MAIN LAB [address] [place] [address] * TELEMETRY STRIPS-SCAN (04/15/2019 12:00 AM TELEVISION AND RADIO REPAIRER) Narrative Performed At This result has an attachment that is n ot available. Ordered by an unspecified provider. documented in this encounter Visit Diagnoses Diagnosis Acute appendicitis, unspecified acute a ppendicitis type Chronic kidney disease, stage 3 (HCC) Chronic kidney disease, Stage III (mode rate) Acute on chronic renal insufficiency Unspecified disorder of kidney and uret er Diabetic ketoacidosis without coma asso ciated with diabetes mellitus due to underlying condition (HCC) Acute kidney injury superimposed on CKD (HCC) Right lower quadrant pain Abdominal pain, right lower quadrant documented in this encounter Admitting Diagnoses Diagnosis Acute on chronic renal insufficiency Unspecified disorder of kidney and uret er documented in this encounter Administered Medications Action Date Dose Rate Site Medication Order MAR Action 04/18/2019 4:30 AM TELEVISION AND RADIO REPAIRER 650 mg acetaminophen (TYLENOL) tablet 650 mg Given 650 mg, Oral, EVERY 6 HOURS PRN, Starting 04/15/19 at 2327, Until Thu04/19/19 at 1931, Pain non-opioid: may b e used alone or in combination with opioi d analgesia, TOTAL ACETAMINOPHEN DOSE NOT TO EXCEED 4GM DAILY, 650 mg Given 04/17/2019 11:10 PM TELEVISION AND RADIO REPAIRER 650 mg Given 04/17/2019 2:51 AM TELEVISION AND RADIO REPAIRER 04/17/2019 6:09 AM TELEVISION AND RADIO REPAIRER 100 mg caffeine (VIVARIN) (+) tablet 100 mg Given 100 mg, Oral, ONCE, 1 dose, 04/17/19 at 0630 04/17/2019 9:38 AM TELEVISION AND RADIO REPAIRER 2 g cefTRIAXone (ROCEPHIN) IVP 2 g Given 2 g, Intravenous, EVERY 24 HOURS, First dose on 04/16/19 at 1000, Until Discontinued, INSTR: IV PUSH -- RECONSTITUTE EACH 1 GM WITH 10 MLS 0.9% NACL , 2 g Given 04/16/2019 10:34 AM TELEVISION AND RADIO REPAIRER 04/16/2019 8:27 AM TELEVISION AND RADIO REPAIRER 150 mL/hr dextrose 5 % & 0.45% NaCl infusion Given - New 1,000 mL, Intravenous, at 150 mL/hr, Bag CONTINUOUS, Starting 04/16/19 at 0815, Until 04/16/19 at 1207 04/18/2019 9:21 PM TELEVISION AND RADIO REPAIRER 12.5 mg diphenhydrAMINE (BENADRYL) injection Given 12.5 mg 12.5 mg, Intravenous, EVERY 12 HOURS PRN, Starting 04/18/19 at 1748, Unti l e 04/19/19 at 1931, Headache 04/16/2019 8:36 AM TELEVISION AND RADIO REPAIRER 25 mg diphenhydrAMINE (BENADRYL) injection 25 Given mg 25 mg, Intravenous, ONCE, 1 dose, 04/16/19 at 0830 04/17/2019 9:28 PM TELEVISION AND RADIO REPAIRER 30 mg Abdomina l Tissue enoxaparin (LOVENOX) syringe 30 mg Given 30 mg, Subcutaneous, DAILY, First dose (after last modification) on Sat 0 at 2100, Until Discontinued, For patients undergoing surgery: Consult physician in advance -- enoxaparin is a n anticoagulant and may need to be held for 12hr prior to surgery or invasive procedures. NOTE: This is a HIGH ALERT Medication., 30 mg Abdominal Tissue Given 04/16/2019 8:19 PM TELEVISION AND RADIO REPAIRER 04/19/2019 8:20 AM TELEVISION AND RADIO REPAIRER 325 mg ferrous sulfate (FEOSOL) tablet 325 mg Given 325 mg, Oral, DAILY, First dose on Thu04/16/19 at 0900, Until Discontinued 325 mg Given 04/18/2019 8:17 AM TELEVISION AND RADIO REPAIRER 325 mg Given 04/17/2019 9:29 AM TELEVISION AND RADIO REPAIRER 04/18/2019 4:09 PM TELEVISION AND RADIO REPAIRER 80 mg furosemide (LASIX) injection 80 mg Given 80 mg, 8 mL, Intravenous, ONCE, 1 dose, Thu04/18/19 at 1600, PROTECT FROM LIGHT , 04/19/2019 2:07 PM TELEVISION AND RADIO REPAIRER 80 mg furosemide (LASIX) injection 80 mg Given 80 mg, 8 mL, Intravenous, TWICE DAILY, First dose on Thu04/19/19 at 0900, Unti l Discontinued, PROTECT FROM LIGHT, 80 mg Given 04/19/2019 8:20 AM TELEVISION AND RADIO REPAIRER 04/18/2019 8:17 AM TELEVISION AND RADIO REPAIRER 40 mg furosemide (LASIX) tablet 40 mg Given 40 mg, Oral, TWICE DAILY, First dose (after last modification) on Sun 0 at 1100, Until Discontinued 40 mg Given 04/17/2019 9:27 PM TELEVISION AND RADIO REPAIRER 40 mg Given 04/17/2019 12:25 PM TELEVISION AND RADIO REPAIRER 04/17/2019 12:25 PM TELEVISION AND RADIO REPAIRER 4 Units Arm, Rig ht insulin aspart U-100 (NOVOLOG FLEXPEN) Given injection PEN 0-12 Units 0-12 Units, Subcutaneous, FIVE TIMES DAILY 2200, First dose on 04/16/19 a t 1700, Until Discontinued, -POC glucose 181-220mg/dL at , , administer 2 units insulin, at 22, 03* administer 0 units. -POC glucose 221-260mg/dL at , , administer 4 units insulin, at 22, 03* administer 2 units. -POC glucos e 261-300mg/dL at , , administer 6 units insulin, at 22, 03* administer 4 units. -POC glucose 301-350mg/dL at , , administer 8 units insulin, at 22, 03* administer 6 units. -POC glucos e 351-400mg/dL at , , administer 1 0 units insulin, at , 03* administer 8 units. -POC glucose >400mg/dL at administer 12 units insulin, at , 03* administer 10 units. *only if ordered 5x's daily For POCT glucose >350mg/dL give correction bolus and recheck POCT glucose in 2 hours. If POC T glucose at 2 hours >300mg/dL call physician for further orders. For patients who are not eating meals, continue to administer the appropriate correction factor. NOTE: This is a HIGH ALERT Medication., Dispense pens manually with initial order and then upon request. DO NOT uncheck "Do not dispense", 8 Units Abdominal Tissue Given 04/17/2019 7:54 AM TELEVISION AND RADIO REPAIRER 04/18/2019 2:58 PM TELEVISION AND RADIO REPAIRER 6 Units Abdomina l Tissue insulin aspart U-100 (NOVOLOG FLEXPEN) Given injection PEN 0-12 Units 0-12 Units, Subcutaneous, BEFORE MEALS AND 2200, First dose on Thu04/18/19 at 0715, Until Discontinued, -POC glucose 181-220mg/dL at , administer 2 units insulin, at , 03* administer 0 units. -POC glucose 221-260mg/dL at , administer 4 units insulin, at , 03* administer 2 units. -POC glucos e 261-300mg/dL at , administer 6 units insulin, at , 03* administer 4 units. -POC glucose 301-350mg/dL at , administer 8 units insulin, at , 03* administer 6 units. -POC glucos e 351-400mg/dL at , , administer 1 0 units insulin, at , 03* administer 8 units. -POC glucose >400mg/dL at , , administer 12 units insulin, at , 03* administer 10 units. *only if ordered 5x's daily For POCT glucose >350mg/dL give correction bolus and recheck POCT glucose in 2 hours. If POC T glucose at 2 hours >300mg/dL call physician for further orders. For patients who are not eating meals, continue to administer the appropriate correction factor. NOTE: This is a HIGH ALERT Medication., Dispense pens manually with initial order and then upon request. DO NOT uncheck "Do not dispense", 16 Units Abdominal Tissue Given 04/18/2019 8:14 AM TELEVISION AND RADIO REPAIRER 04/18/2019 6:19 PM TELEVISION AND RADIO REPAIRER 2 Units Arm, Lef t insulin aspart U-100 (NOVOLOG FLEXPEN) Given injection PEN 0-12 Units 0-12 Units, Subcutaneous, BEFORE MEALS AND 2200, 2 doses, First dose (after last modification) on Thu04/18/19 at 1700, Last dose on Thu04/18/19 at 2200, Keep until insulin drip starts, , -POC glucose 181-220mg/dL at , , administer 2 units insulin, at 22, 03* administer 0 units., -POC glucose 221-260mg/dL at , , administer 4 units insulin, at , * administer 2 units., -POC glucose 261-300mg/dL at , , administer 6 units insulin, at , 03* administer 4 units., -POC glucose 301-350mg/dL at , , administer 8 units insulin, at , * administer 6 units., -POC glucose 351-400mg/dL at , , administer 1 0 units insulin, at , 03* administer 8 units., -POC glucose >400mg/dL at , , administer 12 units insulin, at , * administer 10 units., , *only i f ordered 5x's daily, , For POCT glucose >350mg/dL give correction bolus and recheck POCT glucose in 2 hours. If POC T glucose at 2 hours >300mg/dL call physician for further orders., , For patients who are not eating meals, continue to administer the appropriate correction factor. NOTE: This is a HIGH ALERT Medication., Dispense pens manually with initial order and then upon request. DO NOT uncheck "Do not dispense", 04/18/2019 6:20 PM TELEVISION AND RADIO REPAIRER 5 Units Arm, Lef t insulin aspart U-100 (NOVOLOG FLEXPEN) Given injection PEN 1-25 Units 1-25 Units, Subcutaneous, THREE TIMES DAILY AFTER MEALS, First dose on 04/16/19 at 1315, Until Discontinued, Administer 1 unit of insulin PER 12 g carbohydrate. -Give total insulin dose based on amount of grams of carbohydrat e actually eaten at the end of each meal/snack. NOTE: This is a HIGH ALERT Medication., Dispense pens manually wit h initial order and then upon request. DO NOT uncheck "Do not dispense", 3 Units Arm, Right Given 04/17/2019 6:36 PM TELEVISION AND RADIO REPAIRER 3 Units Arm, Right Given 04/17/2019 4:15 PM TELEVISION AND RADIO REPAIRER 04/18/2019 8:16 AM TELEVISION AND RADIO REPAIRER 22 Units Abdomina l Tissue insulin detemir U-100(+) (LEVEMIR) Given injection 22 Units 22 Units, Subcutaneous, DAILY, First dose on 04/16/19 at 1400, Until Discontinued, -- Do not mix with other insulins -- NOTE: This is a HIGH ALERT Medication., 22 Units Arm, Right Given 04/17/2019 9:27 AM TELEVISION AND RADIO REPAIRER 22 Units Abdominal Tissue Given 04/16/2019 3:01 PM TELEVISION AND RADIO REPAIRER 04/19/2019 1:52 PM TELEVISION AND RADIO REPAIRER 25 Units Abdomina l Tissue insulin detemir U-100(+) (LEVEMIR) Given injection 25 Units 25 Units, Subcutaneous, ONCE, 1 dose, 04/19/19 at 1215, -- Do not mix with other insulins -- NOTE: This is a HIGH ALERT Medication., 04/16/2019 3:33 PM TELEVISION AND RADIO REPAIRER 1.5 Units/hr 1.5 mL/hr insulin regular 100 units/NS 100 mL IV Infusion drip (premade) Restarted 100 mL, 1-32 Units/hr (1-32 mL/hr), at 1-32 mL/hr, Intravenous, TITRATE DIRECTED , Starting 04/16/19 at 0030, Until 04/16/19 at 1600, (Administration Instructions were omitted from this summary because they were too long), 3.5 Units/hr 3.5 mL/hr Dose/Rate Change 04/16/2019 1:48 PM TELEVISION AND RADIO REPAIRER 2.5 Units/hr 2.5 mL/hr Dose/Rate Change 04/16/2019 12:47 PM TELEVISION AND RADIO REPAIRER 04/16/2019 6:36 PM TELEVISION AND RADIO REPAIRER 1.5 Units/hr 1.5 mL/hr insulin regular 100 units/NS 100 mL IV Dose/Rate drip (premade) Change 100 mL, 1-32 Units/hr (1-32 mL/hr), at 1-32 mL/hr, Intravenous, TITRATE DIRECTED , Starting 04/16/19 at 1645, Until 04/16/19 at 1928, (Administration Instructions were omitted from this summary because they were too long), 2 Units/hr 2 mL/hr Dose/Rate Verify 04/16/2019 5:39 PM TELEVISION AND RADIO REPAIRER 2 Units/hr 2 mL/hr Dose/Rate Change 04/16/2019 4:35 PM TELEVISION AND RADIO REPAIRER 04/19/2019 2:00 PM TELEVISION AND RADIO REPAIRER 2.5 Units/hr 2.5 mL/hr insulin regular 100 units/NS 100 mL IV Dose/Rate drip (premade) Change 100 mL, 1-32 Units/hr (1-32 mL/hr), at 1-32 mL/hr, Intravenous, TITRATE DIRECTED , Starting Thu04/18/19 at 1800, Until Thu04/19/19 at 1430, (Administration Instructions were omitted from this summary because they were too long), 1.5 Units/hr 1.5 mL/hr Dose/Rate Change 04/19/2019 12:22 PM TELEVISION AND RADIO REPAIRER 2.5 Units/hr 2.5 mL/hr Dose/Rate Change 04/19/2019 9:59 AM TELEVISION AND RADIO REPAIRER 04/17/2019 9:28 AM TELEVISION AND RADIO REPAIRER 10 mg labetaloL (NORMODYNE) injection 10 mg Given 10 mg, Intravenous, ONCE PRN, 1 dose, Starting Thu04/17/19 at 0710, Until Thu04/17/19 at 0928, Systolic Blood Pressure..., SBP > 180 04/18/2019 9:48 AM TELEVISION AND RADIO REPAIRER 10 mg labetaloL (NORMODYNE) injection 10 mg Given 10 mg, Intravenous, EVERY 6 HOURS PRN, Starting Thu04/17/19 at 1417, Until Thu04/18/19 at 1703, Systolic Blood Pressure..., >180, And notify provider of use, 10 mg Given 04/18/2019 5:21 AM TELEVISION AND RADIO REPAIRER 10 mg Given 04/17/2019 11:11 PM TELEVISION AND RADIO REPAIRER 04/19/2019 6:41 AM TELEVISION AND RADIO REPAIRER 10 mg labetaloL (NORMODYNE) injection 10 mg Given 10 mg, Intravenous, EVERY 6 HOURS PRN, Starting Thu04/18/19 at 1703, Until Thu04/19/19 at 1931, Systolic Blood Pressure..., > 160, And notify provider of use, 10 mg Given 04/18/2019 10:52 PM TELEVISION AND RADIO REPAIRER 04/19/2019 1:25 AM TELEVISION AND RADIO REPAIRER 5 mg labetaloL (NORMODYNE) injection 5 mg Given 5 mg, Intravenous, ONCE, 1 dose, Thu04/19/19 at 0130, Hold for heart rate < 60 bpm and SBP <90, 04/18/2019 5:43 AM TELEVISION AND RADIO REPAIRER 1 patch Other lidocaine (LIDODERM) 5 % topical patch 1 Patch/Topic a patch l Applied 1 patch, Topical, Administer over 12 Hours, DAILY, First dose on Thu04/18/19 at 0545, Until Discontinued, NURSING PLEASE NOTE: Apply patch ONCE DAILY to right flank and REMOVE after designated duration. Apply only to intact skin. Patch may be cut to fit affected area., 04/17/2019 6:08 AM TELEVISION AND RADIO REPAIRER 400 mg magnesium oxide (MAG-OX) tablet 400 mg Given 400 mg, Oral, ONCE, 1 dose, [place] 04/17/19 at 0530, Delivers 241.3mg elemental magnesium per tab, 04/18/2019 9:27 PM TELEVISION AND RADIO REPAIRER 400 mg magnesium oxide (MAG-OX) tablet 400 mg Given 400 mg, Oral, EVERY 12 HOURS PRN, Starting Thu04/18/19 at 1748, Until Thu04/19/19 at 1931, Headache, Delivers 241.3mg elemental magnesium per tab, 04/17/2019 9:39 AM TELEVISION AND RADIO REPAIRER 500 mg metroNIDAZOLE (FLAGYL) 500 mg IVPB 100 Given - New mL Bag 500 mg, Intravenous, EVERY 8 HOURS, First dose on Thu04/16/19 at 1000, Unti l Discontinued 500 mg Given - New Bag 04/17/2019 2:51 AM TELEVISION AND RADIO REPAIRER 500 mg Given - New Bag 04/16/2019 6:35 PM TELEVISION AND RADIO REPAIRER 04/18/2019 2:59 PM TELEVISION AND RADIO REPAIRER 10 mg NIFEdipine (PROCARDIA) capsule 10 mg Given 10 mg, Oral, THREE TIMES DAILY, First dose on Thu04/18/19 at 1500, Until Discontinued 04/19/2019 8:20 AM TELEVISION AND RADIO REPAIRER 30 mg NIFEdipine XL (PROCARDIA-XL) tablet 30 Given mg 30 mg, Oral, DAILY, First dose on Thu04/19/19 at 0900, Until Discontinued 04/18/2019 9:16 PM TELEVISION AND RADIO REPAIRER 10 mg nortriptyline (PAMELOR) capsule 10 mg Given 10 mg, Oral, AT BEDTIME DAILY, First dose on Thu04/16/19 at 2100, Until Discontinued 10 mg Given 04/17/2019 9:28 PM TELEVISION AND RADIO REPAIRER 10 mg Given 04/16/2019 8:19 PM TELEVISION AND RADIO REPAIRER 04/18/2019 9:13 AM TELEVISION AND RADIO REPAIRER 4 mg ondansetron (ZOFRAN) injection 4 mg Given 4 mg, Intravenous, EVERY 6 HOURS PRN, Starting 04/16/19 at 0822, Until Tu04/19/19 at 1931, Nausea/Vomiting Injectable ondansetron (ZOFRAN) tablet 4 mg 4 mg, Oral, EVERY 6 HOURS PRN, Startin g 04/16/19 at 0822, Until Thu04/19/19 at 1931, Nausea/Vomiting PO 04/18/2019 6:27 PM TELEVISION AND RADIO REPAIRER 2.5 mg oxyCODONE (ROXICODONE) tablet 2.5 mg Given 2.5 mg, Oral, EVERY 4 HOURS PRN, Starting 04/18/19 at 1614, Until Thu04/19/19 at 1931, Pain PO 04/19/2019 8:20 AM TELEVISION AND RADIO REPAIRER [address] (PROTONIX) tablet 40 mg Given 40 mg, Oral, DAILY, First dose on 04/16/19 at 0900, Until Discontinued, Do not crush or chew tablet., 40 mg Given 04/18/2019 8:17 AM TELEVISION AND RADIO REPAIRER 40 mg Given 04/17/2019 9:29 AM TELEVISION AND RADIO REPAIRER 04/16/2019 8:36 AM TELEVISION AND RADIO REPAIRER 10 mg prochlorperazine (COMPAZINE) injection Given 10 mg 10 mg, Intravenous, ONCE, 1 dose, 04/16/19 at 0830, PROTECT FROM LIGHT -- May be given undiluted, or each 5mg may be diluted with 9 mL of NS to facilitat e titration., 04/17/2019 6:08 AM TELEVISION AND RADIO REPAIRER 10 mg prochlorperazine maleate (COMPAZINE) Given tablet 10 mg 10 mg, Oral, ONCE, 1 dose, 04/17/19 at 0530 04/18/2019 9:17 PM TELEVISION AND RADIO REPAIRER 10 mg prochlorperazine maleate (COMPAZINE) Given tablet 10 mg 10 mg, Oral, EVERY 12 HOURS PRN, Starting 04/18/19 at 1748, Until Thu04/19/19 at 1931, Nausea/Vomiting PO 04/19/2019 8:20 AM TELEVISION AND RADIO REPAIRER 50 mg sertraline (ZOLOFT) tablet 50 mg Given 50 mg, Oral, DAILY, First dose on 04/16/19 at 0900, Until Discontinued 50 mg Given 04/18/2019 8:17 AM TELEVISION AND RADIO REPAIRER 50 mg Given 04/17/2019 9:29 AM TELEVISION AND RADIO REPAIRER 04/16/2019 8:01 AM TELEVISION AND RADIO REPAIRER 150 mL/hr sodium chloride 0.9 % infusion Given - New 1,000 mL, Intravenous, at 150 mL/hr, Bag CONTINUOUS, Starting 04/16/19 at 0030, Until 04/16/19 at 0821 150 mL/hr Given - New Bag 04/16/2019 1:19 AM TELEVISION AND RADIO REPAIRER sodium chloride 0.9 % infusion 1,000 mL, 1,000 mL, Intravenous, at 20 mL/hr, CONTINUOUS, Starting 04/19/19 at 0845, Until Thu04/19/19 at 1931, Pre-Op 04/17/2019 9:44 AM TELEVISION AND RADIO REPAIRER 20 mL SODIUM CHLORIDE 0.9 % IV PGBK (Cabinet Given Override) NOW, 1 dose, 04/17/19 at 0930, Created by cabinet override, Created by cabinet override, traZODone (DESYREL) tablet 25 mg 25 mg, Oral, AT BEDTIME PRN, Starting 04/18/19 at 1614, Until Thu04/19/19 at 1931, Insomnia 04/19/2019 8:27 AM TELEVISION AND RADIO REPAIRER Other Verification of Patch Placement and Patch/Topica Integrity - Lidocaine 5% l Verified TWICE DAILY, First dose on 04/18/19 at 0900, Until Discontinued, Patch checks are required every shift to ensure the patch is still intact and in place. Please verify patch check findings using this MAR entry., Other Patch/Topical Verified 04/18/2019 9:18 PM TELEVISION AND RADIO REPAIRER Abdomen:LUQ Patch/Topical Verified 04/18/2019 8:18 AM TELEVISION AND RADIO REPAIRER documented in this encounter
--- OUTSIDE RECORDS SUMMARY | 2019-09-07 08:29 | XMS REPORT | Encounter Summary ---
Author Author [facility] Organization [facility] Address Unknown Phone Unavailable Care Team Providers Care Research Recruiter Name Role Phone David Plunkett MD PCP Janette Lam MD [phone] Reason for Referral * Consult, Test & Treat (Routine) Referred By Contact Referred To Contact Status Reason Specialty Diagnoses / Procedures Tiffani Mccullough MD [address] [facility] [address] [place] [id number] [facility] [place] [address] [place] [address] No Auth Needed Specialty Services Neurology Diagnoses Required Other migraine without status migrainosus, intractable Scheduling Instructions Contact Phone Numbers for each area if questions arise: General: [phone] Epilepsy: [phone] Multiple Sclerosis: [phone] Parkinson's: [phone] [facility]: [phone] Stroke & Neuromuscular: [phone] [place]: [phone] Reason for Visit * Reason Comments General Question Encounter Details Care Team Description Date Type Department Mart Hendrickson MD Forwarding Address Unknown General Question 04/07/2019 Telephone [facility] [address] [place] [address] Social History Date Tobacco Use Types [...] Status Date of Assessment Functional Status Response 02/01/2019 Does the patient have a hearing impairment: No documented as of this encounter Miscellaneous Notes * Addendum Note - Genevieve Recinos LPN - 04/08/2019 2:42 PM PIG BREEDER Addended by: GENEVIEVE RECINOS on: 04/08/2019 02:42 PM Modules accepted: Orders BREEDER * Telephone Encounter - Genevieve Recinos LPN - 04/08/2019 2:37 PM PIG BREEDER Notified pt of all information noted below. Pt expressed understanding with no q uestions or concerns. Script sent to pt preferred pharmacy and referral placed t o Neurology for further eval/management. Mart Hendrickson MD 22 hours ago (4:16 PM) Let's go ahead a prescribe nortriptyline 10mg QHS, #30, refill 2; also please pl loretta referral to neurology for further evaluation/management. OK for patient to continue with tylenol and benadryl as outlined in prior neurol ogy recommendations. Thanks. Madhavi BREEDER * Telephone Encounter - Mart Hendrickson MD - 04/07/2019 4:13 PM PIG BREEDER Let's go ahead a prescribe nortriptyline 10mg QHS, #30, refill 2; also please pl loretta referral to neurology for further evaluation/management. OK for patient to continue with tylenol and benadryl as outlined in prior neurol ogy recommendations. Thanks. Madhavi BREEDER * Telephone Encounter - Genevieve Recinos LPN - 04/07/2019 10:45 AM PIG BREEDER Rec'd VM from pt, reports continued migraines. There was migraine cocktail she g ot inpt but doesn't have script for it as one of the meds is a prescription and wondering if we can call in for her. Reports excedrin only thing that helps but knows she isn't supposed to take because of kidneys. Per Neurology inpt note from 02/03, pt needs sleep study to r/o AMILCAR as untreated AMILCAR can lead to headaches along with the following: - nortriptyline 10mg HS (started 02/01). Can increase every 3-4 weeks as tolerat ed by 10mg until at 50mg or with headache improvement - PO or IV migraine cocktail -Mag 1gm + benadryl 12.5-25mg (or hold if too sedat e) + phenergan 12.5-25mg + tylenol 500mg every 6 hours PRN. Can use same regimen PO at home to avoid NSAIDs Nortriptyline was never prescribed prior to pt leaving AMA. Spoke with pt, state s that the phenergan knocked her out and made her too sedated. She has been havi ng such severe migraines that it has been causing her to vomit. Routing to Dr. Everardo naidu to advise. BREEDER documented in this encounter Plan of Treatment Order Schedule Name Type Priority Associated Diag noses Ordered: 04/08/2019 AMB REFERRAL TO NEUROLOGY Outpatient Routine Othe r migraine without Referral status migrainosus, intractable documented as of this encounter Goals Goal Patient Associated Recent Progress Patient-Stat Aut hor Goal Type Problems ed? Recover from illness Hospital No Arminda Puentes RN documented as of this encounter Visit Diagnoses Diagnosis Other migraine without status migrainos us, intractable documented in this encounter
--- OUTSIDE RECORDS SUMMARY | 2019-09-07 08:29 | XMS REPORT | Encounter Summary ---
Author Author [facility] Organization [facility] Address Unknown Phone Unavailable Care Team Providers Care Photographer'S Model Name Role Phone David Plunkett MD PCP Janette Lam MD 8002 Encounter Details Care Team Description Date Type Department 04/15/2019 [facility] [address] [address] Social History Date Tobacco Use Types Packs/Day [...] PEN NEEDLES) 32 gauge x twice daily. 532" pen needle Use with insulin injections. levonorgestrel [...] mouth calcium) chewable tablet daily as needed. 02/04/2019 04/17/2019 ciprofloxacin (CIPRO) 250 Take two 10 tablet 0 mg tablet tablets by mouth daily. 02/28/2019 04/17/2019 ferrous gluconate Take one 90 tablet 3 (FERGON) 240 mg (27 mg tablet by iron) tablet mouth three times daily with meals. 07/26/2018 04/17/2019 ferrous sulfate 325 mg Take one 90 tablet 3 (65 mg iron) tablet by tabletIndications: Iron mouth three deficiency anemia, times daily unspecified iron with meals. deficiency anemia type 04/19/2019 07/14/2019 furosemide (LASIX) 40 mg Take two 120 tablet 1 tabletIndications: tablets by Chronic kidney disease, mouth twice stage 3 (HCC) daily. 09/20/2018 04/19/2019 furosemide (LASIX) 40 mg TAKE TWO 120 tablet 3 tabletIndications: TABLETS BY Chronic kidney disease, MOUTH TWICE A stage 3 (HCC) DAY 04/19/2019 insulin detemir U-100(+) Inject 22 0 (LEVEMIR) 100 unit/mL Units under vial the skin at bedtime daily. 02/28/2019 04/19/2019 losartan (COZAAR) 25 mg Take one 30 tablet 5 tablet tablet by mouth daily. 04/17/2019 losartan (COZAAR) 50 mg Take 100 mg 0 tablet by mouth daily. 07/14/2019 Magnesium 250 mg tab Take 250 mg 0 by mouth daily. 02/04/2019 04/17/2019 metroNIDAZOLE (FLAGYL) Take one 15 tablet 0 500 mg tablet tablet by mouth three times daily. Take with food. Do not drink alcohol while on metronidazole . 04/08/2019 07/14/2019 nortriptyline (PAMELOR) Take one 30 capsule 2 10 mg capsule capsule by mouth at bedtime daily. 04/19/2019 07/14/2019 oxyCODONE (ROXICODONE) 5 Take one-half 30 tablet 0 mg tablet tablet by mouth every 8 hours as needed 12/04/2018 04/19/2019 potassium chloride Take 10 mEq 0 (K-DUR) 10 mEq tablet by mouth daily. 11/28/2018 04/19/2019 sertraline (ZOLOFT) 50 mg Take 50 mg by 0 tablet mouth daily. 04/19/2019 07/14/2019 sodium zirconium Take one 1 packet 0 cyclosilicate (LOKELMA) packet by 10 gram packet mouth daily. Mix entire contents of packet with 45mL of water, stir well, and administer immediately. Administer other oral medications >2 hours before or after dose. 04/19/2019 sucralfate (CARAFATE) 1 Take 1 g by 0 gram tablet mouth three times daily. Take on an empty stomach. documented as of this encounter Plan of Treatment Not on filedocumented as of this encounter Goals Goal Patient Associated Recent Progress Patient-Stat Aut hor Goal Type Problems ed? Recover from illness Hospital No Arminda Puentes RN documented as of this encounter Procedures Comments Procedure Name Priority Date/Time Associated Diag nosis GENERAL RAD CHEST Routine 04/15/2019 EXTERNAL IMAGING 12:00 AM C WPF DEVELOPER documented in this encounter Results * GENERAL RAD CHEST EXTERNAL IMAGING (04/15/2019 12:00 AM C WPF DEVELOPER) Specimen Narrative Performed At This order has been auto finalized and does not contain a result. documented in this encounter Visit Diagnoses Not on filedocumented in this encounter
--- OUTSIDE RECORDS SUMMARY | 2019-09-07 08:29 | XMS REPORT | Encounter Summary ---
Author Author [facility] Organization [facility] Address Unknown Phone Unavailable Care Team Providers Care Wash Driller Helper Name Role Phone David Plunkett MD PCP Janette Lam MD 8002 Reason for Visit * Reason Comments Financial/Insurance referral denied due to cove rage ineligible Questions Encounter Details Care Team Description Date Type Department Rhea Rosales Financial/Insurance Questions (referral denied due to coverage ineligible) 03/29/2019 Telephone [facility] [address] [phone] Social History Date Tobacco Use Types Packs/Day [...] * Telephone Encounter - Rhea Rosales - 03/29/2019 4:03 PM SCANNING SUPERVISOR TFA was unable to verify patients coverage with [facility] with id#[id number] shows ineligible. TFA is denying referral NING SUPERVISOR documented in this encounter Plan of Treatment Not on filedocumented as of this encounter Goals Goal Patient Associated Recent Progress Patient-Stat Aut hor Goal Type Problems ed? Recover from illness Hospital No Arminda Puentes, RN documented as of this encounter Visit Diagnoses Not on filedocumented in this encounter
--- OUTSIDE RECORDS SUMMARY | 2019-09-07 08:29 | XMS REPORT | Encounter Summary ---
Author Author [facility] Organization [facility] Address Unknown Phone Unavailable Care Team Providers Care Oxyacetylene Welder Name Role Phone David Plunkett MD PCP Janette Lam MD 8002 Reason for Visit * Auth/Cert Referred By Contact Referred To Contact Status Reason Specialty Diagnoses / Procedures Diagnoses Acute on chronic renal insufficiency Acute on Chronic Renal Failure Encounter Details Care Team Description Date Type Department Drea Salguero MD 4000 [place] [address] 04/16/2019 [facility] [address] [address] Social History Date Tobacco Use [...] Diag nosis CT ABD/PELV WO CONTRAST Routine 04/16/2019 6:44 AM INVENTORY CONTROL CLERK documented in this encounter Results * CT ABD/PELV WO CONTRAST (04/16/2019 6:44 AM INVENTORY CONTROL CLERK) Specimen Impressions Performed At 1. DEVELOPMENT OF [...] Interface, Radiant Results - 04/16/2019 7:48 AM [address] CONTROL CL[address] CT Abdomen and Pelvis Clinical Indication: 33-year-old [...] on 04/16/2019 7:23 AM. Performing Organization Address City/State/Zipcode Ph one Number [facility] RAD RESULTS documented in this encounter Visit Diagnoses Not on filedocumented in this encounter
--- OUTSIDE RECORDS SUMMARY | 2019-09-07 08:29 | XMS REPORT | Encounter Summary ---
Author Author [facility] Organization [facility] Address Unknown Phone Unavailable Care Team Providers Care Hadoop Application Developer Name Role Phone David Plunkett MD PCP Janette Lam MD 8002 Reason for Visit * Reason Comments Financial/Insurance BENEFIT COLLECTION Questions Encounter Details Care Team Description Date Type Department Rhea Rosales Financial/Insurance Questions (BENEFIT C OLLECTION) 04/15/2019 Telephone [facility] [address] [phone] Social History Date Tobacco Use Types Packs/Day [...] encounter Miscellaneous Notes * Telephone Encounter - Alison Houston RN - 07/08/2019 2:34 PM CDT Please make sure this patient is ok to be eval'd as SPK Thx * Telephone Encounter - Rhea Rosales - 04/15/2019 3:32 PM WRISTER BENEFIT COLLECTION: Verified by: Rhea Rosales Date: April 15, 2019 ID #: [id number] Subscriber: self Ins Plan: [facility] Plan Type: [place] $48 INPT ADMIT COPAY RETIREMENT/DIRECTOR OF NURSES REGISTRY CARE [phone] OUTPT HOSPITAL $3/VISIT SURGICENTER $3/DOS OUTPT REHAB $1/VISIT DME $3/CLAIM HHC $3/VISIT NON-EMERGENCY TRANSPORT OR AMBULANCE $3/DOS OV $2/COPAY MENTAL HEALTH CALL Adolfo [phone], $3/VISIT DENTAL $3/DOS RX $3/FILL (NO MAIL ORDER) If 2ndry to Medicare: PAYS [place] FOR IMMUNOS AFTER PART B IS IT COVERED? CALL [phone] TXP Network: [employer] NCM: Rose Verdugo Phone #: [phone] FAX #: pending Auth requirements: Eval and listing auth required TER documented in this encounter Plan of Treatment Not on filedocumented as of this encounter Goals Goal Patient Associated Recent Progress Patient-Stat Aut hor Goal Type Problems ed? Recover from illness Hospital No Arminda Puentes, RN documented as of this encounter Visit Diagnoses Not on filedocumented in this encounter
--- OUTSIDE RECORDS SUMMARY | 2019-09-07 08:29 | XMS REPORT | Encounter Summary ---
Author Author [facility] Organization [facility] Address Unknown Phone Unavailable Care Team Providers Care Manager Practice Name Role Phone David Plunkett MD PCP Janette Lam MD 8002 Reason for Visit * Reason Comments Transplant Referral Call to Patient to Follow U p RE: Medicaid Policy # Encounter Details Care Team Description Date Type Department Shayla Amaya Transplant Referral (Call to Patient to Follow Up RE: Medicaid Policy #) 04/13/[address] [phone] Social History Date Tobacco Use Types Packs/Day [...] encounter Miscellaneous Notes * Telephone Encounter - Shayla Amaya - 04/13/2019 9:34 AM 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 Recover from illness Hospital No Arminda Puentes, RN documented as of this encounter Visit Diagnoses Not on filedocumented in this encounter
--- OUTSIDE RECORDS SUMMARY | 2019-09-07 08:29 | XMS REPORT ---
Author Author [facility] Voice supervisor laboratory animal facility [employer] [facility] [place] [employer] Address [address] [address] Care Team Providers Care Allied Health Teacher Name Role Phone MATHIEU RUBI Unavailable Unavailable ALICE CARLISLE Unavailable ISAC THAKKAR Unavailable Unavailable KEAGAN RUST, MACHO Chicas Unavailable Unavailable YUSUF WALKER MD Unavailable Unavailable ALICE CARLISLE DO Unavailable Unavailable ALICE CARLISLE DO Unavailable Unavailable RIO CARLISLE Unavailable Unavailable MATHIEU RUBI Unavailable Unavailable MATHIEU RUBI Unavailable Unavailable Unavailable Unavailable Unavailable Unavailable Allergies Allergy Reported Allergen(s) Allergy Type Date of Reaction(s) Care Facility Classificati Onset Provider on Unclassified insulin regular DA 12-16-2016 "DOESNAviva Jones Not (11 sources) WORK" CARLISLE DO Available ([id number]) NEGATED: insulin regular DA 12-16-2016 "MIKE Burnham Highlighted WORK" CARLISLE DO Available row has been (41990) ruled out! Unclassified (1 source) Encounters Encounter Date Encounter Type Encounter Diagnosis Care Provider Facility Start: Patient encounter NA NA Not Availab le ([id number]) 09-21-2017 procedure Start: Patient encounter 12-18-2016 procedure End: 12-18-2016 Start: Patient encounter YUSUF WALKER MD Not Availa ble ([id number]) 12-16-2016 procedure Start: Patient encounter ALICE CARLISLE DO Not Av ailable ([id number]) 12-11-2016 procedure Start: Patient encounter 12-09-2016 procedure Start: Patient encounter NA NA Not Availab le ([id number]) 12-09-2016 procedure End: 12-09-2016 Start: Patient encounter JUAN CARLOS PENA Not Availab le ([id number]) 11-21-2016 procedure End: 11-21-2016 Start: Patient encounter ALICE CARLISLE Not Avail able ([id number]) 11-20-2016 procedure End: 11-21-2016 Start: Patient encounter ISAC THAKKAR Not Availab le ([id number]) 03-10-2016 procedure Start: Emergency department MACHO BOOGIE MD N ot Available ([id number]) 03-10-2016 patient visit End: 03-10-2016 Start: Patient encounter RIO CARLISLE Not Avai lable ([id number]) 11-17-2014 procedure Start: Patient encounter RIO CARLISLE Not Avai lable (30513) 06-24-2013 procedure Start: Patient encounter ALICE CARLISLE DO Not Av ailable ([id number]) 06-17-2013 procedure Patient encounter MATHIEU RUBI Not Available (0000 0) procedure Encounter for other YUSUF WALKER MD Not Available (000 00) preprocedural examination Medical Equipment No Information Goals No Information Immunizations The data below is from unstructured sourcesNot available.Not available. Interventions No Information Medications No Information Payers Date Payer Normalized Payer Policy ID DISABILITY [employer]ER[employer] Disability Insurance [id number] [facility] [employer] [employer] INSUR[facility] Plan of Treatment The data below is from unstructured sources Discharge Date 09/13/14 5:24pm Disposition 01 HOME, SELF-CARE Instructions/Education Provided Urin opal Tract Infection in Women (DC) Prescriptions See Medications Sectio n Problems Active Problems Problem Problem Date Last Documented Episodic/Chr Provider Classificati Recorded Date onic on Abdominal Unspecified abdominal pain ; Episodic RIO pain Translations: [Epigastric pain] SUL LATISHA (9 sources) Anxiety Anxiety disorder, unspecified Chroni c disorders (3 sources) Diabetes Type 1 diabetes mellitus with Chronic ISAC BIJAN mellitus hyperglycemia ; Translation s: [Type with 1 diabetes mellitus with di abetic complication autonomic (poly)neuropathy] s (10 sources) Mood Depressive disorder, not elsewhere Chronic ALICE disorders classified CARLISLE DO (2 sources) Nausea and Vomiting, unspecified Episodic vomiting (4 sources) Nutritional Unspecified vitamin D deficiency Chronic ALICE deficiencies CARLISLE DO (2 sources) Other Long-term (current) use of insulin Episodic ALICE aftercare CARLISLE DO (2 sources) Other bone Disorder of bone and cartilage, Episodic ALICE disease and unspecified CARLISLE DO musculoskele nichole deformities (2 sources) Other Restless legs syndrome Chronic hereditary and degenerative nervous system conditions (3 sources) Rheumatoid Rheumatoid arthritis, unspecified Ch ronic arthritis and related disease (3 sources) Thyroid Autoimmune thyroiditis ; Chronic LUCAS STARR disorders Translations: [Chronic lymphocytic CARLISLE DO (5 sources) thyroiditis] Past or Other Problems Problem Problem Date Last Documented Episodic/Chr Provider Classificati Recorded Date onic on Biliary Chronic cholecystitis ; Episodic WILL JEANNETTE tract Translations: [Other specified RAFAELL GAL DO disease diseases of gallbladder] (7 sources) Diabetes Presence of insulin pump (external) Episodic ISAC BIJAN mellitus (internal) without complication (4 sources) Other Other assisted (current) drug Episodic ISAC BIJAN aftercare therapy (7 sources) Other M[facility] (current) use of insulin E pisodic aftercare (3 sources) Other Fibromyalgia Episodic connective tissue disease (3 sources) Other Closed fracture of lumbar vertebra Episodic RIO fractures without mention of spinal cord JG SANTO (2 sources) injury Other Nonspecific (abnormal) findings on [facility] screening radiological and other examination MAYLIN LAFLEUR for of musculoskeletal system suspected conditions (not mental disorders or infectious disease) (4 sources) Spondylosis; Thoracic or lumbosacral neuritis or [facility] ALICE intervertebr radiculitis, unspecified ; MAYLIN LAFLEUR al disc Translations: [LUMBOSACRAL NEURITIS disorders; NOS] other back problems (4 sources) Procedures The data below is from unstructured sourcesNo known history of procedures. Results Test Name Value Interpreta Reference Facilit Date tion Range y Time not yet categorized on 2017-09-21 Exp date +~25 Mar 2019 Invalid Not Interpreta Availab tion Code le (28056) Lot # [id number] Invalid Not Interpreta Availab tion Code le (01006) RESULTS Positive Invalid Not Interpreta Availab tion Code le (63072) laboratory on 2016-11-20 Average glucose 305 mg/dL High 70-110 Not 2 Estimated from mg/dL Availab 017 glycated hemoglobin le 09:08-0 (Bld) [Mass/Vol] (08541) 400 HbA1c (Bld) [Mass 10.70 % High 5.40-6.60 Not 11-20 -2 fraction] % Availab 017 le 09:08-0 (81155) 400 Social History No Information Vital Signs The data below is from unstructured sources Vital Response Date/Time Temperature (Fahrenheit) 98.6 degree s F (97.6 - 99.5) Temperature (Calculated Celsius) 37. 52977 degrees C (36.4 - 37.5) Temperature Source Temporal Pulse Rate (adult) 90 bpm (60 - 90) Respiratory Rate 20 bpm (12 - 24) O2 Sat by Pulse Oximetry 99 % (88 - 100) Blood Pressure 117/81 mm Hg Blood Pressure Mean 93 mm Hg Pain Pain Intensity 0 Height (Feet) 5 feet Height (Inches) 7.00 inches Height (Calculated Centimeters) 170. 277628 cm Weight (Pounds) 150 pounds Weight (Calculated Grams) 80880.856 gm Weight (Calculated Kilograms) 68.038 856 kilograms Calculated BMI 23.49 Functional Status The data below is from unstructured sources Query Response Date Eric rded Patient Orientation Person Place Time Situation Eyes Open September 22, 2014 1:35pm Comprehension Ability Understands Co ncepts September 13, 2014 9:00am Mental Status No Information Advance Directives Directive Response Recor ded Date/Time Advance Directives No 2:06pm Health Care Power of Lieutenant General No 09/12/14 2:06pm Organ Donor Yes 09/12/14 2:06pm Resuscitation Status Full Code 09/12/14 2:06pm Additional Source Comments This clinical document has been generated using [employer] software that has been certified by the Office of the National Coordinator for Health Information Technology (ONC 15.99.04.3023.Diam.31.00.0.511110) and the National Committee for Control Valve Technician (NCQA, as an eMeasure certified technology). FOR RECORDS PERTAINING TO PATIENTS WHO ARE OR HAVE BEEN ENROLLED IN A CHEMICAL D EPENDENCY/SUBSTANCE ABUSE PROGRAM, SOME INFORMATION MAY BE OMITTED. This clinica l summary was aggregated from multiple sources. Caution should be exercised in using it in the provision of clinical care. This summary normalizes information from multiple sources, and as a consequence, information in this document may ma terially change the coding, format and clinical context of patient data. In jocelynn tion, data may be omitted in some cases. CLINICAL DECISIONS SHOULD BE BASED ON T HE PRIMARY CLINICAL RECORDS. [employer] provides no warranty or guara ntee of the accuracy or completeness of information in this document.The followi ng information is based on time limited clinical information
--- OUTSIDE RECORDS SUMMARY | 2019-09-07 08:29 | XMS REPORT | Encounter Summary ---
Author Author [facility] Organization [facility] Address Unknown Phone Unavailable Care Team Providers Care Bobcat Driver/Labor Name Role Phone David Plunkett MD PCP Janette Lam MD 8002 Reason for Visit * Reason Comments Transplant Referral Call to Patient RE: Insuran ce Encounter Details Care Team Description Date Type Department Shayla Amaya Transplant Referral (Call to Patient RE: Insurance) 03/30/2019 Telephone [facility] [address] [phone] Social History Date Tobacco Use Types Packs/Day [...]
[2019-09-07 08:49] LABS: HEMOGLOBIN 10.6 G/DL (11.5-16.0); MEAN PLATELET VOLUME 10.9 FL (7.4-10.4); RED CELL DISTRIBUTION WIDTH 17.3 % (10.0-14.5); WHITE BLOOD COUNT 5.3 10^3/uL (4.3-11.0)
[2019-09-07 08:52] LABS: BILIRUBIN,URINE NEGATIVE (NEGATIVE); CLARITY,URINE SL CLOUDY; COLOR,URINE YELLOW; GLUCOSE, URINE (UA) NEGATIVE (NEGATIVE); KETONES,URINE NEGATIVE (NEGATIVE); LEUKOCYTE ESTERASE ,URINE NEGATIVE (NEGATIVE); NITRITE,URINE NEGATIVE (NEGATIVE); PROTEIN,URINE 3+ (NEGATIVE)
[2019-09-07 09:03] LABS: INR 0.8 (0.8-1.4); PROTHROMBIN TIME PATIENT 11.6 SEC (12.2-14.7)
--- NOTE | 2019-09-07 09:03 | Diagnostic Imaging Report ---
EXAM: CHEST 1 VIEW, AP/PA ONLY INDICATION: Coronary artery disease. COMPARISON: 12/04/2018. FINDINGS: Normal heart size and central pulmonary vascularity. No pleural effusion or pneumothorax. Indeterminate nodule opacity in the right lower lobe measuring approximately 1 cm. No acute osseous findings. IMPRESSION: Indeterminate nodular opacity in the right lower lobe measuring approximately 1 cm. This overlies the right 9th rib. Recommend short-term follow-up versus CT chest without contrast. Dictated by: Dictated on workstation # [id number]
[2019-09-07 09:08] LABS: AMORPHOUS SEDIMENT,UR MOD AMOR URATES /LPF; BACTERIA,URINE FEW /HPF; HYALINE CASTS, URINE 0-2 /LPF; SQUAMOUS EPITHELIAL CELL,UR TNTC /HPF; WBC,URINE RARE /HPF
[2019-09-07 09:13] LABS: ALANINE AMINOTRANSFERASE 28 U/L (0-55); ALBUMIN 3.3 GM/DL (3.2-4.5); ALKALINE PHOSPHATASE 156 U/L (40-136); BILIRUBIN,TOTAL 0.3 MG/DL (0.1-1.0); BUN/CREATININE RATIO 9; CALCIUM 8.9 MG/DL (8.5-10.1); CARBON DIOXIDE 23 MMOL/L (21-32); CHLORIDE 103 MMOL/L (98-107); CHOLESTEROL 477 MG/DL (< 200); CREATININE SERUM 8.93 MG/DL (0.60-1.30); GFR ESTIMATED 5; HDL CHOLESTEROL 53 MG/DL (40-60); SODIUM 144 MMOL/L (135-145); TOTAL PROTEIN 7.1 GM/DL (6.4-8.2); TRIGLYCERIDES 539 MG/DL (<150)
[2019-09-07] MEDS ORDERED: INSU100V5 SQ (09:16)
[2019-09-07] MEDS ORDERED: LOSA25TA41 PO (09:16)
[2019-09-07] MEDS ORDERED: BUME2TAB7 PO (09:16)
[2019-09-07] MEDS ORDERED: PANT40TA2 PO (09:16)
[2019-09-07] MEDS ORDERED: EPOE40002 IJ (09:16)
[2019-09-07] MEDS ORDERED: NIFE-24 PO (09:16)
[2019-09-07] MEDS ORDERED: LORA-404 PO (09:16)
[2019-09-07 09:21] LABS: GLUCOSE 58 MG/DL (70-105)
--- NOTE | 2019-09-07 09:25 | NUR ---
NOTIFIED OF GLUCOSE, ORDER TO GIVE ORANG JUICE. DIETARY CONTACTED AND PROVIDED TO PT AT 0928, CONSUMED WITHOUT DIFFICULTY. PT REPORTS FEELING MOSTLY FINE, JUST A LITTLE SLEEPY, CONT TO MONITOR.
--- NOTE | 2019-09-07 09:58 | NUR ---
IV DC'D AFTER DISCUSSING WITH PT CR RESULTS. PER PT REQUEST WILL THINK OVER OPTIONS DISCUSSED AND BE IN CONTACT WITH ON OUTPT BASIS
--- NOTE | 2019-09-07 13:15 | NUR ---
PT RETURNED HER FUEL CELL BINDER CALLED AND SPOKE WITH NICOLE, AGREED TO PROCEED. #20 G IV TO R AC INITIATED X1 STICK
[2019-09-07] MEDS ORDERED: fentaNYL INJECTION 100 MCG/2 ML AMP ONE (13:27)
[2019-09-07] MEDS ORDERED: HEParin 1000 UNIT/ML (10ML VIAL) FOR BOLUS ONE (13:27)
[2019-09-07] MEDS ORDERED: NITRO DRIP 25000 MCG/D5W 250 ML IV ONE (13:27)
[2019-09-07] MEDS ORDERED: MIDAZOLAM 5 MG/5 ML (VERSED) VIAL ONE (13:27)
[2019-09-07] MEDS ORDERED: VERAPAMIL 5 MG/2 ML (CALAN) VIAL IV ONE (13:27)
[2019-09-07] MEDS ORDERED: meTOprolol 5 MG/5 ML (LOPRESSOR) VIAL ONE ×2 (13:49→15:36)
--- NOTE | 2019-09-07 14:01 | Discharge Inst-Post CATH ---
Discharge Inst-CATH/EP Problems Reviewed?: Yes Post Cardiac Cath/EP D/C Inst Follow Up/Plan Appointment with Dr. Nash's office in 3 months <b>CARDIAC CATH/EP PROCEDURE DISCHARGE INSTRUCTIONS</b> ACTIVITY * Go Home directly and rest. * Limit activity of the leg (or wrist if it was used) for 7 days including aerobics, swimming, jogging, bicycling, etc. * Restrict stair-climbing for 7 days if possible, if not, climb up with your non-cath leg, then bring together on the same step. * Avoid lifting, pushing, pulling or excessive movement of the affected extremity for 7 days. * Customary sexual activity may be resumed after 2 days-use caution not to use a position that strains or causes pain to the affected extremity. * No driving for 24 hours. * NO SMOKING. * Avoid straining for bowel movements for 7 days. * Gentle walking on level ground is allowed. * Returning to work will depend on the type of procedure and the results. Your doctor will discuss this with you. CALL YOUR DOCTOR FOR ANY OF THE FOLLOWING: *If bleeding from the puncture site occurs- Apply gentle pressure to site with clean cloth and call your doctor or EMS. * If a knot or lump forms under the skin, increases in size, or causes pain. * If bruising appears to be worsening or moving further down your leg instead of disappearing. * Temperature above 101 F. CARE OF YOUR GROIN INCISION; * Bruising or purple discoloration of the skin near the puncture site is common. * You may shower only, no bathtub bathing for 5 days. Be careful to avoid slipping as your leg may feel stiff. * If a closure device was used on your femoral artery, please see the attached guide regarding care of the device and your leg. * Leave dressing on FOR 24 hours. CARE OF YOUR WRIST INCISION; * Bruising or purple discoloration of the skin near the puncture site is common. * You may shower. * DO NOT submerge wrist. * Leave dressing on FOR 24 hours. NASREEN NASH MD Sep 07, 2019 14:01
--- NOTE | 2019-09-07 14:05 | Cardiac Cath Report ---
Cardiac Cath Report Physician (s)/Private Equity Associate (s) Physician NASREEN RIVERA MD Pre-Procedure Diagnosis Pre-Procedure Diagnosis: Coronary artery disease Post-Procedure Note Procedure Start Date: Sep 07, 2019 Name of Procedure: Left heart catheterization Findings/Procedure Note PROCEDURE NOTE: 33-year-old lady with history of diabetes mellitus, hypertension, end-stage kidney disease, scheduled for kidney transplant evaluation. She had a borderline stress test and recommendation was to do a cardiac catheterization. After explaining the procedure to the patient, all pros and cons were explained, all questions were answered. The patient signed the consent and then she was placed on the cardiac catheterization laboratory. Groin was prepped SL fashion local anesthesia was used. Sheath placed in the right radial artery. Ava catheter was used advanced to the left ventricular cavity, pressure was measured, pullback LV to aorta was done. Using very limited amount of contrast I was able to intubate the left coronary system and did angiogram to the left system and the) amended angiogram to the right system. At the end of the procedure the sheath was removed. Vascular event was used FINDINGS: Hemodynamics LV 127/12, end-diastolic pressure of 12 Aorta 125/91 mean of 97 ANATOMY: Left Main is free of obstructive disease Left Anterior Descending is free of obstructive disease Left Circumflex is free of obstructive disease Right Coronary Artery is free of obstructive disease LV Gram was not done, pressure was measured CONCLUSION: 1. No significant obstructive coronary artery disease 2. Normal left ventricular end-diastolic pressure DISCUSSION AND RECOMMENDATION: No contraindication by cardiology to proceed with the kidney transplant Anesthesia Type: Conscious Sedation Estimated blood loss (mL): 5 ml Contrast Amount: 10 ml Total Radiation Dose: 130 mGy Post-Procedure Diagnosis Post-operative diagnosis: End-stage kidney disease Hypertension Hyperlipidemia Diabetes mellitus NASREEN RIVERA MD Sep 07, 2019 14:05
[2019-09-07] MEDS ORDERED: meTOprolol 5 MG/5 ML (LOPRESSOR) VIAL IV ONE (15:45)
--- NOTE | 2019-09-07 15:52 | NUR ---
THIS RN PHONED DR. RIVERA TO REPORT THE BP'S SYSTOLIC AND DIASTOLIC 160'S-180'S TO 118-126. MICHAEL RN REPORTS THAT THEY RAN HIGH AND PATIENT STATES THEY ARE IN 190'S TO 100'S AT HOME. DR. RIVERA GAVE TELEPHONE ORDER FOR LOPRESSOR IV 5MG ONCE.
== END 2019-09-07 16:30 | disposition home or self-care (01) ==
LOC: CATH 08:02
PROVIDERS: ATTEND Internal Medicine Cardiovascular Disease
DX: I12.0 Hypertensive chronic kidney disease with stage 5 chronic kidney disease or end stage renal disease (principal); E10.22 Type 1 diabetes mellitus with diabetic chronic kidney disease; N18.6 End stage renal disease; E10.40 Type 1 diabetes mellitus with diabetic neuropathy, unspecified; D63.1 Anemia in chronic kidney disease; E78.5 Hyperlipidemia, unspecified; I08.3 Combined rheumatic disorders of mitral, aortic and tricuspid valves; M19.90 Unspecified osteoarthritis, unspecified site; D50.9 Iron deficiency anemia, unspecified; Z79.899 Other long term (current) drug therapy; Z88.5 Allergy status to narcotic agent; Z88.8 Allergy status to other drugs, medicaments and biological substances; Z99.2 Dependence on renal dialysis
CPT/HCPCS: 71045; 80053; 80061; 81000; 84703; 85027; 85610; 85730; 87081; 93458; C1894; 36415

== ENCOUNTER 2019-10-20 10:55 | Outpatient (CLI) | payer MEDICARE, MEDICAID ==
[~2019-10-20] VITALS: Ht 172 cm; Wt 81.8 kg
[~2019-10-20 10:55] MED LIST changes: +BUME2TAB7 PO; +EPOE40002 IJ; +LOSA25TA41 PO; +NIFE-24 PO; +PANT40TA2 PO
== END 2019-10-20 12:49 | disposition home or self-care (01) ==
LOC: PREOP 10:55
PROVIDERS: ATTEND Obstetrics & Gynecology
DX: Z01.818 Encounter for other preprocedural examination (principal)

== ENCOUNTER 2019-10-21 11:46 | Day surgery (SDC) | payer MEDICARE, MEDICAID ==
[2019-10-21] VITALS (7 sets, daily range): BP systolic 170–193; BP diastolic 104–121
[~2019-10-21] VITALS: Ht 172 cm; Wt 83.0 kg
--- NOTE | 2019-10-21 07:42 | Progress Note-Pre Operative ---
Pre-Operative Progress Note H&P Reviewed The H&P was reviewed, patient examined and no changes noted. Date Seen by Provider: Oct 21, 2019 Time Seen by Provider: 14:00 Date H&P Reviewed: Oct 21, 2019 Time H&P Reviewed: 14:00 Pre-Operative Diagnosis: MARILEE-2/MARILEE-3 CHARLES NOE MD Oct 21, 2019 07:42
--- NOTE | 2019-10-21 07:42 | Discharge Inst-Surgical ---
Discharge Inst-Surgical Depart Medication/Instructions New, Converted or Re-Newed RX: RX on Chart Consults/Follow Up Patient Instructions: as directed Orders & Referrals Follow Up Appt: Call to make follow up appt. for patient in 2 weeks. Activity: Rest for 24 hours, than as tolerated. Diet: As tolerated. Tomorrow, may shower or tub bathe as desired. MAY USE OVER THE COUNTER TYLENOL FOR PAIN WHEN NECESSARY No driving for 24 hours, no alcoholic beverages for 24 hours, and nothing per vagina (no tampons, douching, or intercoarse) for 2 weeks. Patient to return to the clinic as soon as possible for: Temperature greater than 101F, Severe Pain, Foul discharge from incision or vagina, Excessive Bleeding (more than a period). Activity Activity as Tolerated: No Diet Discharge Diet: No Restrictions CHARLES NOE MD Oct 21, 2019 07:42
--- NOTE | 2019-10-21 07:43 | Progress Note-Post Operative ---
Post-Operative Progess Note Surgeon (s)/Portal Architect (s) Surgeon CHARLES NOE MD Portal Architect: none Pre-Operative Diagnosis MARILEE-2/MARILEE-3 Post-Operative Diagnosis same with pathology pending Procedure & Operative Findings Date of Procedure 10/21/19 Procedure Performed/Findings LEEP performed in 2 passes Anesthesia Type MAC Estimated Blood Loss Estimated blood loss (mL): minimal Specimens/Packing Specimens Removed ectocervix tagged at 12 o'clock - endocervix in 2 segments Packing: none CHARLES NOE MD Oct 21, 2019 07:43
[~2019-10-21 11:46] MED LIST changes: +D5 LR IV SOLUTION 1,000 ML IV SCH; +MEPERIDINE (DEMEROL) INJ 100 MG/ML IM ONE; +ONDANSETRON 4 MG/2 ML (SDV) Z0FRAN IVP PRN; -PANT40TA3 PO; +PANT40TA52 PO; +PROMETHAZINE INJ 25 MG/ML (PHENERGAN) AMP IM ONE
[2019-10-21] MEDS ORDERED: LACTATED RINGERS 1,000 ML IV PRN (12:28)
[2019-10-21] MEDS ORDERED: ceFAZolin INJECTION 1,000 MG in WATER (STERILE) FOR INJECTION 10 ML IV ONE (12:30)
[2019-10-21] MEDS ORDERED: NS IV 500 ML 500 ML IV SCH (13:00)
[2019-10-21 13:01] LABS: BASOPHILS % (AUTO) 1 % (0-10); EOSINOPHILS # (AUTO) 0.2 10^3/uL (0.0-0.3); EOSINOPHILS % (AUTO) 4 % (0-10); HEMATOCRIT 26 % (35-52); HEMOGLOBIN 8.7 G/DL (11.5-16.0); LYMPHOCYTES # (AUTO) 1.2 X 10^3 (1.0-4.0); LYMPHOCYTES % (AUTO) 22 % (12-44); MEAN CORPUSCULAR HEMOGLOBIN 29 PG (25-34); MEAN CORPUSCULAR HGB CONC 33 G/DL (32-36); MEAN CORPUSCULAR VOLUME 89 FL (80-99); MEAN PLATELET VOLUME 10.2 FL (7.4-10.4); MONOCYTES # (AUTO) 0.4 X 10^3 (0.0-1.0); MONOCYTES % (AUTO) 8 % (0-12); NEUTROPHILS # (AUTO) 3.6 X 10^3 (1.8-7.8); NEUTROPHILS % (AUTO) 66 % (42-75); PLATELET COUNT 276 10^3/uL (130-400); WHITE BLOOD COUNT 5.4 10^3/uL (4.3-11.0)
[2019-10-21] MEDS ORDERED: MIDAZOLAM 2 MG/2 ML (VERSED) VIAL ONE (13:33)
[2019-10-21] MEDS ORDERED: fentaNYL INJECTION 100 MCG/2 ML AMP ONE (14:07)
[2019-10-21] MEDS ORDERED: ONDANSETRON 4 MG/2 ML (SDV) Z0FRAN ONE (14:19)
[2019-10-21] MEDS ORDERED: proPOfol 200 MG/20 ML (DIPRIVAN) VIAL IV ONE (14:19)
--- NOTE | 2019-10-21 14:27 | Anesthesia-General Post-Op ---
MAC Patient Condition Mental Status/LOC: Same as Preop Cardiovascular: Satisfactory Nausea/Vomiting: Absent Respiratory: Satisfactory Pain: Controlled Complications: Absent Post Op Complications Complications None Follow Up Care/Instructions Patient Instructions None needed. Anesthesiology Discharge Order Discharge Order Patient is doing well, no complaints, stable vital signs, no apparent adverse anesthesia problems. No complications reported per nursing. ANGELA LUEVANO CRNA Oct 21, 2019 14:27
[2019-10-21] MEDS ORDERED: ONDANSETRON 4 MG/2 ML (SDV) Z0FRAN IVP PRN (14:30)
[2019-10-21] MEDS ORDERED: morphine INJ 10 MG/ML 1ML (SYR OR VIAL) IVP ONE (14:30)
--- NOTE | 2019-10-21 15:00 | NUR ---
DURING POST OP BED SIDE REPORT FROM GHASSAN HAYES, SHE ADVISED ME THAT THE PATIENT'S BP WAS STILL ELEVATED AND WAS ADVISED FROM ANESTHESIA THAT DUE TO PATIENTS RENAL FAILURE WE WOULD NOT BE TREATING THE ELEVATION. PT WAS ADVISED TO TAKE HER HOME MEDS ONCE SHE GET HOME SHE NORMALLY WOULD TO MANAGE HER ELEVATED BLOOD PRESSURE AT TO FOLLOW UP WITH HER PCP. PATIENT STATED SHE UNDERSTOOD AND WILL CONTACT THEM.
--- NOTE | 2019-10-22 01:03 | OPERATIVE REPORT ---
DATE OF SERVICE: 10/21/2019 PREOPERATIVE DIAGNOSES: MARILEE 3. POSTOPERATIVE DIAGNOSES: MARILEE 3 with pathology pending. OPERATIVE PROCEDURE: LEEP in two passes. OPERATIVE DESCRIPTION: With the patient in supine position under satisfactory sedation, she was repositioned in the dorsal lithotomy position in [facility] stirrups then draped for LEEP procedure. Speculum was placed in the vagina. The cervix was swabbed with Betadine. A 20 mm electrode was used to remove the ectocervix in one pass with the power set at 55 ferreira and then a 15 mm loop was used to remove the endocervix in two sections with individual passes. Those tissue specimens were labeled and sent to pathology for permanent section. On completion of the LEEP, the defect was treated with ball electrocautery set at 45 ferreira to effect hemostasis. Hemostasis was complete. The patient tolerated the procedure well and was uneventfully awakened and transferred to the recovery room in stable condition with plans for discharge home PAR. Sponge and needle counts were correct on completion of procedure. Estimated blood loss was minimal. Job ID: [id number] DocumentID: [id number] Dictated Date: 10/21/2019 14:22:05 Wharf Tender Date: 10/22/2019 01:02:07 Dictated By: CHARLES NOE MD MTDD
== END 2019-10-21 15:30 | disposition home or self-care (01) ==
LOC: SDC 11:46
PROVIDERS: ATTEND Obstetrics & Gynecology
DX: D06.9 Carcinoma in situ of cervix, unspecified (principal); I12.0 Hypertensive chronic kidney disease with stage 5 chronic kidney disease or end stage renal disease; N18.6 End stage renal disease; E10.40 Type 1 diabetes mellitus with diabetic neuropathy, unspecified; D63.1 Anemia in chronic kidney disease; K21.9 Gastro-esophageal reflux disease without esophagitis; E10.22 Type 1 diabetes mellitus with diabetic chronic kidney disease; Z79.899 Other long term (current) drug therapy; Z88.5 Allergy status to narcotic agent; Z88.8 Allergy status to other drugs, medicaments and biological substances
CPT/HCPCS: 36415; 82962; 84703; 85025; 87081; 88307

== ENCOUNTER → 2020-02-27 | Outpatient (CLI) | payer OTHER, MEDICARE, MEDICAID ==
[~2020-02-27] MED LIST changes: -D5 LR IV SOLUTION 1,000 ML IV SCH; -MEPERIDINE (DEMEROL) INJ 100 MG/ML IM ONE; -ONDANSETRON 4 MG/2 ML (SDV) Z0FRAN IVP PRN; -PROMETHAZINE INJ 25 MG/ML (PHENERGAN) AMP IM ONE
== END ==
LOC: GIR 13:12
PROVIDERS: ATTEND Nurse Practitioner Family
DX: U07.1 COVID-19 (principal)
CPT/HCPCS: 87635